=== PATIENT | male | born 1955 | race Caucasian/White ===

== ENCOUNTER 2019-09-07 16:45 | Inpatient (IN) ==
[2019-09-07] MEDS ORDERED: ALBUTEROL 0.083% NEBU SOLN 3 ML VIAL NEB STA (16:58)
[2019-09-07] MEDS ORDERED: methylPREDNISolone 125 MG/2 ML VIAL IV STA (16:58)
--- NOTE | 2019-09-07 17:07 | Emergency Department Note ---
Entered by Kiera Artis acting as a scribe for Ahmet Juarez MD History of Present Illness General Chief complaint: Shortness of Breath/Dyspnea Stated complaint: DR QUINONES, HEARD TO BREATH Time Seen by Provider: 09/07/19 16:53 Source: patient Mode of arrival: ambulatory Limitations: no limitations History of Present Illness Onset (ago): day(s) 5 Location: chest Radiation: non-radiation Pain Consistency: + constant Relieved By: + other (Oxygen, Albuterol treatment) Exacerbated By: + movement (exertion) Associated symptoms: + cough, + diaphoresis, + fever/chills and + other (-hematochezia, -swelling in the legs); no chest pain Treatments prior to arrival: other (Oxygen, Albuterol treatment) The patient is a 64 year old make who presents to the ED with complaints of worsening shortness of breath. He has a history of COPD and states about 5 days ago, his breathing worsened. He had an X-Ray done, ordered by his doctor, but is unsure of what the results were. Earlier today, his pulse ox dropped while he was seeing his doctor, and he was referred here to the ED. He has been wearing 6L NC instead of his typical 2L with minimal relief. He did "half an Albuterol treatment" before he left the house today. Exertion worsens his breathing. He has a productive cough with white colored mucous. He denies any chest pain or pain or swelling in the legs. He has been diaphoretic and states he may have been febrile over the past few days. The patient is a current smoker. He denies any recent bloody or black colored stools. Home Medications Home Medications Medication Instructions Recorded Confirmed Type aspirin 81 mg PO DAILY 01/19/19 09/07/19 History metoprolol tartrate 25 mg PO DAILY 01/19/19 09/07/19 History finasteride 5 mg tablet 5 mg PO DAILY #30 tab 07/13/19 09/07/19 History pantoprazole 40 mg tablet,delayed 40 mg PO DAILY #30 tab 07/13/19 09/07/19 Rx release famotidine 20 mg tablet 20 mg PO BID #60 tab 07/23/19 09/07/19 Rx alprazolam 0.5 mg tablet 0.5 mg PO DAILY PRN #30 tab 09/03/19 09/07/19 Rx atorvastatin 20 mg tablet 20 mg PO DAILY #90 tab 09/03/19 09/07/19 Rx levofloxacin 500 mg tablet 500 mg PO DAILY 7 Days #7 tab 09/03/19 09/07/19 Rx prednisone 20 mg tablet See Rx Instructions .ROUTE 09/03/19 09/07/19 Rx .COMPLEX #21 tab albuterol sulfate 2.5 mg/3 mL 2.5 mg INHALATION .Q4-6HRS PRN ml 09/05/1907/19 History (0.083 %) solution for nebulization sildenafil 100 mg tablet 100 mg PO DAILY PRN 09/05/19 09/07/19 History tamsulosin 0.4 mg capsule 0.4 mg PO HS cap 09/05/19 09/07/19 History albuterol sulfate 2 puff INHALATION Q6H PRN 09/07/19 09/07/19 History mometasone [Asmanex Twisthaler] 2 inh INHALATION BID 09/07/19 09/07/19 History prednisone 10 mg PO DIRECTED 09/07/19 09/07/19 History Allergies Allergy/AdvReac Type Severity Reaction Status Date / Time No Known Allergies Allergy Verified 09/07/19 19:05 Past Med/Surg History Medical History Dyslipidemia CAD (coronary artery disease) History of heart attack Stage 3 severe COPD by GOLD classification Peripheral vascular disease Hypertension GERD without esophagitis Erectile dysfunction Elevated prostate specific antigen (PSA) BPH with obstruction/lower urinary tract symptoms Asthma Anxiety Alcoholism Surgical History S/P cholecystectomy S/P coronary artery stent placement RCA stent S/P hernia repair Family History Mother Diabetes Hypertension Heart disease Myocardial infarction Father , suicide Alcohol abuse Colorectal cancer Sister Myocardial infarction Uncle Colorectal cancer Social History Preferred Language: Mongolian Communication Ability: Effective First Helper Required: No Beliefs That Will Affect Care: None Current Living Situation: Significant Other Feels Safe at Home: Yes Smoking Status: Current every day smoker Tobacco Type: cigarettes ; Cigarettes Per Day: 20-40 ; Hx Alcohol Use: Yes Alcohol type: beer and hard liquor Hx Substance Use: No Review of Systems See HPI for pertinent positives & negatives. and A total of 10 systems reviewed and were otherwise negative Physical Exam Vital Signs Vital Signs - 24 hr 09/07/19 16:49 09/07/19 16:58 09/07/19 17:16 Temperature 36.7 C Temperature Source Oral Sepsis Recent Fever Within 48 Hours No Sepsis New/Unexplained Change in Mental Status No Sepsis Action Taken by Nursing No Action Required Pulse Rate 78 Pulse Rate [Exercises] Pulse Rate [Left Apical] Pulse Rate from SpO2 Sensor Respiratory Rate 22 Respiratory Rate [Exercises] Respiratory Effort / Characteristics Pursed Lip Spontaneous Short of Breath SOB on Exertion Respiratory Depth Deep Respiratory Pattern Tachypnea Blood Pressure 112/63 Blood Pressure Mean 79 Blood Pressure Position Sitting Pulse Oximetry 93 66 L 94 Pulse Oximetry [Exercises] Oxygen Delivery Method Room Air Nebulizer Nasal Cannula Oxygen Flow Rate 7 6 09/07/19 17:34 09/07/19 17:37 09/07/19 17:42 Temperature Temperature Source Sepsis Recent Fever Within 48 Hours Sepsis New/Unexplained Change in Mental Status Sepsis Action Taken by Nursing Pulse Rate 75 73 Pulse Rate [Exercises] Pulse Rate [Left Apical] 72 Pulse Rate from SpO2 Sensor 75 73 Respiratory Rate 21 18 20 Respiratory Rate [Exercises] Respiratory Effort / Characteristics Non-Labored Spontaneous Respiratory Depth Respiratory Pattern Blood Pressure 104/70 Blood Pressure Mean 81 Blood Pressure Position Pulse Oximetry 94 94 97 Pulse Oximetry [Exercises] Oxygen Delivery Method Nasal Cannula Nasal Cannula Room Air Oxygen Flow Rate 7 7 09/07/19 17:45 09/07/19 18:00 09/07/19 18:15 Temperature Temperature Source Sepsis Recent Fever Within 48 Hours Sepsis New/Unexplained Change in Mental Status Sepsis Action Taken by Nursing Pulse Rate 70 73 83 Pulse Rate [Exercises] Pulse Rate [Left Apical] Pulse Rate from SpO2 Sensor 69 73 82 Respiratory Rate 16 18 21 Respiratory Rate [Exercises] Respiratory Effort / Characteristics Respiratory Depth Respiratory Pattern Blood Pressure 116/73 Blood Pressure Mean 87 Blood Pressure Position Pulse Oximetry 99 100 100 Pulse Oximetry [Exercises] Oxygen Delivery Method Nebulizer Nebulizer Nebulizer Oxygen Flow Rate 7 7 7 09/07/19 18:30 09/07/19 18:31 09/07/19 19:07 Temperature Temperature Source Sepsis Recent Fever Within 48 Hours Sepsis New/Unexplained Change in Mental Status Sepsis Action Taken by Nursing Pulse Rate 74 84 Pulse Rate [Exercises] 88 Pulse Rate [Left Apical] Pulse Rate from SpO2 Sensor 78 83 Respiratory Rate 27 H 17 Respiratory Rate [Exercises] 34 H Respiratory Effort / Characteristics Respiratory Depth Respiratory Pattern Blood Pressure 100/66 Blood Pressure Mean 77 Blood Pressure Position Pulse Oximetry 99 Pulse Oximetry [Exercises] 88 L Oxygen Delivery Method Nebulizer Nebulizer Room Air Oxygen Flow Rate 7 7 General: Chronically ill-appearing, middle aged male, appears to be in mild to moderate respiratory distress HEENT: Normal cephalic atraumatic. Pupils are equal round and reactive to light. Extraocular movements are intact. Oropharynx is pink with moist mucous membranes. No swelling of the mouth lips or tongue. Neck: Supple with a midline trachea. No meningeal signs or stiffness, no JVD or bruits. No Stridor. Chest: Scattered wheezes throughout with moderate air movement. Clear to auscultation bilaterally. No rhonchi. No increased work of breathing. Heart: regular rate and rhythm. Abdomen: Soft nontender, nondistended without rebound guarding or rigidity. Extremities: No cyanosis clubbing or edema. No calf tenderness or asymmetry Spine/Back. Non tender to palpation. No CVA tenderness Skin: Good turgor without rashes. Neurologic exam: Cranial nerves two through 12 are intact. Motor and sensation are intact and symmetrical throughout. Course 1654: The patient was evaluated in room B3 and a complete history and physical were performed. 183: I reevaluated the patient. He is feeling better but I discussed his results and my recommendation he remain in the hospital for further evaluation and management and he verbalized complete understanding and agreement. 184: I discussed the patients case with Dr. Rutherford [facility]. The patient will be further evaluated. Consultations Consultation #1: [facility] the [facility] The patient will be further evaluated. Time: 18:41 Administered Medications Enoxaparin Sodium (Lovenox) 40 mg SQ Q24H JOSEPH Stop: 10/07/19 20:59 Last Admin: 09/07/19 21:36 Dose: 40 mg Documented by: [id number] Famotidine (Pepcid) 20 mg PO BID JOSEPH Stop: 10/07/19 20:59 Last Admin: 09/07/19 21:38 Dose: 20 mg Documented by: [id number] Nicotine (Nicoderm Cq) 21 mg TD QAM JOSEPH Stop: 10/07/19 20:59 Last Admin: 09/07/19 21:37 Dose: 21 mg Documented by: [id number] Tamsulosin HCl (Flomax) 0.4 mg PO HS JOSEPH Stop: 10/07/19 20:59 Last Admin: 09/07/19 21:36 Dose: 0.4 mg Documented by: [id number] Discontinued Medications Albuterol (Ventolin 0.083% 2.5mg/3ml) 10 mg NEB NOW STA Stop: 09/07/19 16:59 Last Admin: 09/07/19 17:40 Dose: 10 mg Documented by: [id number] Methylprednisolone (Solumedrol) 125 mg IV NOW STA Stop: 09/07/19 16:59 Last Admin: 09/07/19 18:13 Dose: 125 mg Documented by: [id number] Medical Decision Making Differential Diagnosis The differential diagnoses considered include COPD exacerbation, pneumonia, sepsis, cardiac disease, pneumothorax, electrolyte or metabolic abnormality. Medical Records Attestation: I reviewed the patient's medical records. Home Medications Current Medication List: was personally reviewed by me Laboratory Data Attestation: I reviewed the patient's lab results. Result diagrams: 09/07/19 17:31 09/07/19 17:31 Lab Results 09/07/19 09/07/19 09/07/19 Range/Units 17:31 17:31 17:31 WBC 8.73 (4.8-10.8) K/uL RBC 4.94 (4.7-6.1) M/uL Hgb 15.8 (14.0-18.0) g/dL Hct 44.7 (42-52) % MCV 90.5 (80-100) fL MCH 32.0 (25-34) pg MCHC 35.3 (32-36) g/dL RDW Std Deviation 43.1 (36.4-46.3) fL RDW Coeff of Vira 13.1 (11.5-14.5) % Plt Count 286 (130-400) K/uL MPV 9.6 (7.4-10.4) fL Immature Gran % (Auto) 0.2 % Neut % (Auto) 74.5 % Lymph % (Auto) 11.2 % [place] % (Auto) 10.8 % Eos % (Auto) 3.2 % Baso % (Auto) 0.1 % Immature Gran # (Auto) 0.02 (0.00-0.02) K/uL Neut # (Auto) 6.50 (1.4-6.5) K/uL Lymph # (Auto) 0.98 L (1.2-3.4) K/uL [place] # (Auto) 0.94 H (0.11-0.59) K/uL Eos # (Auto) 0.28 (0-0.5) K/uL Baso # (Auto) 0.01 (0-0.2) K/uL PT 10.1 (9.0-12.0) Seconds INR 1.0 (0.9-1.1) APTT 26.8 (21.0-31.0) Seconds PTT Ratio 1.0 Sodium 135 L (136-145) mmol/L Potassium 4.3 (3.5-5.1) mmol/L Chloride 99 (98-107) mmol/L Carbon Dioxide 29 (21-32) mmol/L Anion Gap 7.0 (3-11) BUN 17 (7-18) mg/dl Creatinine 0.87 (0.6-1.4) mg/dl Est Cr Clr Drug Dosing 76.3 ml/min Est GFR ( Amer) 106.5 Est GFR (Non-Af Amer) 91.9 BUN/Creatinine Ratio 19.5 (10-20) Glucose 129 H (70-99) mg/dl Lactate (0.4-2.0) mmol/L Calcium 9.5 (8.5-10.1) mg/dl Total Bilirubin 0.4 (0.2-1) mg/dl AST 23 (15-37) U/L ALT 38 (12-78) U/L Alkaline Phosphatase 97 (45-117) U/L Total Protein 7.5 (6.4-8.2) gm/dl Albumin 3.9 (3.4-5.0) gm/dl Globulin 3.6 (2.5-4.0) gm/dl Albumin/Globulin Ratio 1.1 (0.9-2) Procalcitonin (0-0.5) ng/ml 09/07/19 09/07/19 Range/Units 17:31 17:31 WBC (4.8-10.8) K/uL RBC (4.7-6.1) M/uL Hgb (14.0-18.0) g/dL Hct (42-52) % MCV (80-100) fL MCH (25-34) pg MCHC (32-36) g/dL RDW Std Deviation (36.4-46.3) fL RDW Coeff of Vira (11.5-14.5) % Plt Count (130-400) K/uL MPV (7.4-10.4) fL Immature Gran % (Auto) % Neut % (Auto) % Lymph % (Auto) % [place] % (Auto) % Eos % (Auto) % Baso % (Auto) % Immature Gran # (Auto) (0.00-0.02) K/uL Neut # (Auto) (1.4-6.5) K/uL Lymph # (Auto) (1.2-3.4) K/uL [place] # (Auto) (0.11-0.59) K/uL Eos # (Auto) (0-0.5) K/uL Baso # (Auto) (0-0.2) K/uL PT (9.0-12.0) Seconds INR (0.9-1.1) APTT (21.0-31.0) Seconds PTT Ratio Sodium (136-145) mmol/L Potassium (3.5-5.1) mmol/L Chloride (98-107) mmol/L Carbon Dioxide (21-32) mmol/L Anion Gap (3-11) BUN (7-18) mg/dl Creatinine (0.6-1.4) mg/dl Est Cr Clr Drug Dosing ml/min Est GFR ( Amer) Est GFR (Non-Af Amer) BUN/Creatinine Ratio (10-20) Glucose (70-99) mg/dl Lactate 1.8 (0.4-2.0) mmol/L Calcium (8.5-10.1) mg/dl Total Bilirubin (0.2-1) mg/dl AST (15-37) U/L ALT (12-78) U/L Alkaline Phosphatase (45-117) U/L Total Protein (6.4-8.2) gm/dl Albumin (3.4-5.0) gm/dl Globulin (2.5-4.0) gm/dl Albumin/Globulin Ratio (0.9-2) Procalcitonin < 0.05 (0-0.5) ng/ml Imaging Data Radiologist's Impression: Radiology results as stated below per my review and the radiologist's interpretation: XR chest 1V portable CLINICAL HISTORY: 64 years-old Male presenting with Sepsis. TECHNIQUE: Portable upright AP view of the chest was obtained. COMPARISON: 01/18/2019. FINDINGS: Atherosclerosis of the aortic arch. Cardiac silhouette normal in size. Lungs are hyperinflated. The subcentimeter right upper lobe pulmonary nodule evident on prior CTA chest from 01/19/2019 is not evident by radiograph. No focal opacity. No pleural effusion or pneumothorax. Degenerative changes of the thoracic spine. Cholecystectomy clips noted. IMPRESSION: 1. Findings suggest emphysema. No focal infiltrate to suggest pneumonia. Electronically signed by: Chris Madison M.D. 09/07/2019 5:17 PM Blood Pressure Blood Pressure Findings: Normal blood pressure Blood Pressure Disposition: did not require urgent referral MDM Narrative This patient comes in as described above. He was sent over from his doctor's office after he was failing outpatient treatment for COPD/bronchitis exacerbation has been on antibiotics and steroids he is very short of breath in the office. he does have home oxygen is that he wears as needed however the last several days has been wearing 6 L all the time. On my exam, he is mildly tachypneic. He has scattered wheezes. He was seen in the office and received a neb and is feeling a little bit better. IV access was established and I did a full sepsis work-up as well. Chest x-ray and EKG was obtained. He was given a DuoNeb over 1 hour as well as Solu-Medrol 125 mg IV. He was reassessed frequently. He seems to be doing better however he was hypoxemic with walking. I am concerned that he is failed outpatient treatment. EKG does not suggest acute coronary syndrome or significant arrhythmia. Chest x-ray does not show any focal infiltrates. He has no acute electrolyte or metabolic abnormalities. At this point he appears to be having a COPD exacerbation, I do think needs to be admitted/observed. I did consult the [facility] hospitalist for these measures. Impression & Plan COPD exacerbation, Shortness of breath, Hypoxemia, Cough Discharge Plan Visit Data *Final* Discharge Date/Time: 09/07/19 20:13 Chief Complaint: Shortness of Breath/Dyspnea Stated Complaint: DR PALMERED, HEARD TO BREATH ED Provider: Ahmet Juarez Discharge Problem: COPD exacerbation, Shortness of breath, Hypoxemia, Cough Patient Disposition: Admitted As Inpatient Discharge Instructions Interventions: ED Discharge Assessment Last Done: 09/07/19 20:13 The scribe's documentation has been prepared under my direction and personally reviewed by me in its entirety. I confirm that the note above accurately reflects all work, treatment, procedures, and medical decision making performed by me.
--- NOTE | 2019-09-07 17:18 | XRay Report ---
XR chest 1V portable CLINICAL HISTORY: 64 years-old Male presenting with Sepsis. TECHNIQUE: Portable upright AP view of the chest was obtained. COMPARISON: 01/18/2019. FINDINGS: Atherosclerosis of the aortic arch. Cardiac silhouette normal in size. Lungs are hyperinflated. The s ubcentimeter right upper lobe pulmonary nodule evident on prior CTA chest from 01/19/2019 is not evide nt by radiograph. No focal opacity. No pleural effusion or pneumothorax. Degenerative changes of the thoracic spine. Cholecystectomy clips noted. IMPRESSION: 1. Findings suggest emphysema. No focal infiltrate to suggest pneumonia. Electronically signed by: Chris Madison M.D. 09/07/2019 5:17 PM
[2019-09-07 17:50] LABS: Basophils # (auto) 0.01 K/uL (0-0.2); Basophils % (auto) 0.1 %; Eosinophils # (auto) 0.28 K/uL (0-0.5); Eosinophils % (auto) 3.2 %; Hematocrit (blood only) 44.7 % (42-52); Hemoglobin 15.8 g/dL (14.0-18.0); Immature Granulocytes # (auto) 0.02 K/uL (0.00-0.02); Immature Granulocytes % (auto) 0.2 %; Lymphocytes # (auto) 0.98 K/uL (1.2-3.4); Lymphocytes % (auto) 11.2 %; Mean Corpuscular Hgb Conc 35.3 g/dL (32-36); Mean Corpuscular Volume 90.5 fL (80-100); Mean Platelet Volume 9.6 fL (7.4-10.4); Monocytes # (auto) 0.94 K/uL (0.11-0.59); Monocytes % (auto) 10.8 %; Neutrophils % (auto) 74.5 %; Platelet Count 286 K/uL (130-400); RDW Coefficient of Variation 13.1 % (11.5-14.5); RDW Standard Deviation 43.1 fL (36.4-46.3); Red Blood Count 4.94 M/uL (4.7-6.1); White Blood Count 8.73 K/uL (4.8-10.8)
[2019-09-07 18:00] LABS: Partial Thromboplastin Time 26.8 Seconds (21.0-31.0); Prothrombin Time 10.1 Seconds (9.0-12.0)
[2019-09-07 18:25] LABS: Albumin Level 3.9 gm/dl (3.4-5.0); BUN Creatinine Ratio 19.5 (10-20); Calcium 9.5 mg/dl (8.5-10.1); Creatinine Clr Calc Pharmacy 76.3 ml/min; Est GFR (African American) 106.5; Est GFR (Non-African American) 91.9; Potassium 4.3 mmol/L (3.5-5.1)
[2019-09-07 18:28] LABS: Albumin Globulin Ratio 1.1 (0.9-2); Bilirubin,Total 0.4 mg/dl (0.2-1); Globulin 3.6 gm/dl (2.5-4.0); Total Protein 7.5 gm/dl (6.4-8.2)
--- NOTE | 2019-09-07 20:16 | History & Physical Report ---
Date of Service September 07, 2019 Assessment & Plan (1) COPD exacerbation: Patient with severe COPD, uses home O2 as needed, presenting in acute exacerbation most likely secondary to viral URI. Patient presently in no respiratory distress. Speaking in complete sentences, adequate oxygenation on room air. -Admit to medical floor with telemetry monitoring -Check CRP -Duo nebs every 4 hours scheduled -Albuterol neb every 2 hours as needed -Solu-Medrol 30 mg IV 3 times daily -Continue Asmanex inhaler -Oxygen as needed to maintain saturations 88 to 92% -Patient just completed a week of Levaquin. No overt evidence of pneumonia on chest x-ray. Procalcitonin negative. Sputum is nonpurulent by history. CRP as above. Consider antibiotics if CRP greater than 40 -Smoking cessation counseled Present on Admission?: Yes (2) CAD (coronary artery disease): Patient with history of CAD status post OR, stent in place. Presently with no complaints of chest pain. EKG with no evidence of ischemia. -Continue aspirin, atorvastatin, metoprolol -Telemetry monitoring Present on Admission?: Yes (3) Dyslipidemia: Chronic. Stable. -Continue atorvastatin 20 mg p.o. daily Present on Admission?: Yes (4) Hypertension: Blood pressure stable at present 112/63 -Continue metoprolol 25 mg p.o. daily -Continue to monitor blood pressure Present on Admission?: Yes (5) GERD without esophagitis: Chronic. Stable. Asymptomatic -Continue Protonix 40 mg p.o. 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 Stable. Asymptomatic at present -Continue Flomax 0.4 mg p.o. nightly -Continue finasteride 5 mg p.o. daily Present on Admission?: Yes (7) Anxiety: Chronic. Stable. -Continue alprazolam 0.5 mg p.o. daily as needed Present on Admission?: Yes (8) Alcoholism: Patient reports drinking at least 2 drinks nightly. No history of withdrawal symptoms or seizures. Last drink was yesterday -Ativan as needed per CIWA protocol -Thiamine IV daily -Folic acid IV daily FENHep-Lock. Monitor electrolytes and replete as needed. Heart healthy diet a s tolerated ProphylaxisLovenox Codefull per discussion with patient Dispositionadmit to medical floor with telemetry Present on Admission?: Yes History of Present Illness Chief Complaint: Shortness of breath Primary Care Provider: Rachael Duckworth DO Christian Gaytan is a 64-year-old male with history of severe COPD on home O2 as needed, CAD status post stent, hypertension, hyperlipidemia and anxiety presenting with suspected COPD exacerbation. She reports that around August 31 he developed URI symptoms to include runny nose and cough. This progressed to shortness of breath and wheeze. He was seen by his PCP, Rachael Duckworth on 09/03/19 with complaint of productive cough, shortness of breath, wheezing and nasal congestion. He was started on a 60 mg prednisone taper over 14 days and Levaquin. Patient reports that his symptoms persisted. This morning around 04 100 he woke from sleep acutely breathless, coughing and gasping for air. He took his Combivent and DuoNeb followed by albuterol with some relief. He reports placing his nasal cannula on 6 L at home and still feeling breathless. He was seen by Dr. Duckworth in clinic today for routine follow-up. Due to persistent symptoms, failed outpatient treatment he was referred to the emergency room for admission. Upon arrival he is found to be afebrile, hemodynamically stable, tachypneic up to 34 breaths/min saturating 95% on room air. He was provided an hour-long neb treatment as well as 125 mg of Solu-Medrol with some improvement in his shortness of breath. Ambulatory trial resulted in tachypnea with respiratory rate of 34 breaths/min and hypoxic to 88% on room air. Patient presently complaining of shortness of breath although improved from presentation. Also with cough productive for clear sputum. He denies fevers/chills. Denies chest pain/palpitations/edema. ER coursealbuterol, methylprednisone Allergies Allergy/AdvReac Type Severity Reaction Status Date / Time No Known Allergies Allergy Verified 09/07/19 19:05 Home Medications Home Medications Medication Instructions Recorded Confirmed Type aspirin 81 mg PO DAILY 01/19/19 09/07/19 History metoprolol tartrate 25 mg PO DAILY 01/19/19 09/07/19 History finasteride 5 mg tablet 5 mg PO DAILY #30 tab 07/13/19 09/07/19 History pantoprazole 40 mg tablet,delayed 40 mg PO DAILY #30 tab 07/13/19 09/07/19 Rx release famotidine 20 mg tablet 20 mg PO BID #60 tab 07/23/19 09/07/19 Rx alprazolam 0.5 mg tablet 0.5 mg PO DAILY PRN #30 tab 09/03/19 09/07/19 Rx atorvastatin 20 mg tablet 20 mg PO DAILY #90 tab 09/03/19 09/07/19 Rx levofloxacin 500 mg tablet 500 mg PO DAILY 7 Days #7 tab 09/03/19 09/07/19 Rx prednisone 20 mg tablet See Rx Instructions .ROUTE 09/03/19 09/07/19 Rx .COMPLEX #21 tab albuterol sulfate 2.5 mg/3 mL 2.5 mg INHALATION .Q4-6HRS PRN ml 09/05/19 09/07/19 History (0.083 %) solution for nebulization sildenafil 100 mg tablet 100 mg PO DAILY PRN 09/05/19 09/07/19 History tamsulosin 0.4 mg capsule 0.4 mg PO HS cap 09/05/19 09/07/19 History albuterol sulfate 2 puff INHALATION Q6H PRN 09/07/19 09/07/19 History mometasone [Asmanex Twisthaler] 2 inh INHALATION BID 09/07/19 09/07/19 History prednisone 10 mg PO DIRECTED 09/07/19 09/07/19 History Past Med/Surg History Medical History Dyslipidemia CAD (coronary artery disease) History of heart attack Stage 3 severe COPD by GOLD classification Peripheral vascular disease Hypertension GERD without esophagitis Erectile dysfunction Elevated prostate specific antigen (PSA) BPH with obstruction/lower urinary tract symptoms Asthma Anxiety Alcoholism Surgical History S/P cholecystectomy S/P coronary artery stent placement RCA stent S/P hernia repair Family History Mother Diabetes Hypertension Heart disease Myocardial infarction Father , suicide Alcohol abuse Colorectal cancer Sister Myocardial infarction Uncle Colorectal cancer Social History Preferred Language: Kitt[place] Communication Ability: Effective [place] [employer]er Required: No Beliefs That Will Affect Care: None Current Living Situation: Significant Other Feels Safe at Home: Yes Smoking Status: Current every day smoker Tobacco Type: cigarettes ; Cigarettes Per Day: 20-40 ; Hx Alcohol Use: Yes Alcohol type: beer and hard liquor Hx Substance Use: No Review of Systems Review of Systems: All systems reviewed & are unremarkable except as noted in HPI & below Physical Exam Physical Exam: General: Thin male resting comfortably, NAD, non- toxic in appearance, AA&O x 4 Skin: warm, dry, intact, no rashes or lesions HEENT: NC/AT, PERRL, EOMI, anicteric sclera, conjunctiva without injection, external ear normal to inspection and nontender, nares patent, moist mucus membranes, dentition intact, no oropharyngeal lesions, neck supple, trachea midline, no LAD, no thyromegaly, no JVD Heart: +S1/S2, regular, no m/r/g Lungs: equal air entry bilaterally, diffuse end expiratory wheeze prolonged expiratory phase, no rales/rhonchi Abd: +BS, soft, NT/ND, no masses/organomegaly/ascites Ext: warm, 2+ pulses in UE/LE bilaterally, no clubbing/cyanosis or edema Neuro: nonfocal, patient AA&O x 4, speech intact, no facial droop, moving all extremities on command with equal strength 5/5 Results & Data Vital Signs (Past 12 Hours) Vital Signs Temp Pulse Pulse Pulse Resp Resp BP 09/07/19 19:07 88 34 H 09/07/19 18:31 84 17 100/66 09/07/19 18:30 74 27 H 09/07/19 18:15 83 21 116/73 09/07/19 18:00 73 18 09/07/19 17:45 70 16 09/07/19 17:42 72 20 09/07/19 17:37 73 18 09/07/19 17:34 75 21 104/70 09/07/19 17:16 09/07/19 16:58 09/07/19 16:49 36.7 C 78 22 112/63 Pulse Ox Pulse Ox 09/07/19 19:07 88 L 09/07/19 18:31 99 09/07/19 18:30 09/07/19 18:15 100 09/07/19 18:00 100 09/07/19 17:45 99 09/07/19 17:42 97 09/07/19 17:37 94 09/07/19 17:34 94 09/07/19 17:16 94 09/07/19 16:58 66 L 09/07/19 16:49 93 Laboratory Results Lab Results 09/07/19 09/07/19 09/07/19 Range/Units 17:31 17:31 17:31 WBC 8.73 (4.8-10.8) K/uL RBC 4.94 (4.7-6.1) M/uL Hgb 15.8 (14.0-18.0) g/dL Hct 44.7 (42-52) % MCV 90.5 (80-100) fL MCH 32.0 (25-34) pg MCHC 35.3 (32-36) g/dL RDW Std Deviation 43.1 (36.4-46.3) fL RDW Coeff of Vir[place] 13.1 (11.5-14.5) % Plt Count 286 (130-400) K/uL MPV 9.6 (7.4-10.4) fL Immature Gran % (Auto) 0.2 % Neut % (Auto) 74.5 % Lymph % (Auto) 11.2 % [place] % (Auto) 10.8 % Eos % (Auto) 3.2 % Baso % (Auto) 0.1 % Immature Gran # (Auto) 0.02 (0.00-0.02) K/uL Neut # (Auto) 6.50 (1.4-6.5) K/uL Lymph # (Auto) 0.98 L (1.2-3.4) K/uL [place] # (Auto) 0.94 H (0.11-0.59) K/uL Eos # (Auto) 0.28 (0-0.5) K/uL Baso # (Auto) 0.01 (0-0.2) K/uL PT 10.1 (9.0-12.0) Seconds INR 1.0 (0.9-1.1) APTT 26.8 (21.0-31.0) Seconds PTT Ratio 1.0 Sodium 135 L (136-145) mmol/L Potassium 4.3 (3.5-5.1) mmol/L Chloride 99 (98-107) mmol/L Carbon Dioxide 29 (21-32) mmol/L Anion Gap 7.0 (3-11) BUN 17 (7-18) mg/dl Creatinine 0.87 (0.6-1.4) mg/dl Est Cr Clr Drug Dosing 76.3 ml/min Est GFR ( Amer) 106.5 Est GFR (Non-Af Amer) 91.9 BUN/Creatinine Ratio 19.5 (10-20) Glucose 129 H (70-99) mg/dl Lactate (0.4-2.0) mmol/L Calcium 9.5 (8.5-10.1) mg/dl Total Bilirubin 0.4 (0.2-1) mg/dl AST 23 (15-37) U/L ALT 38 (12-78) U/L Alkaline Phosphatase 97 (45-117) U/L Total Protein 7.5 (6.4-8.2) gm/dl Albumin 3.9 (3.4-5.0) gm/dl Globulin 3.6 (2.5-4.0) gm/dl Albumin/Globulin Ratio 1.1 (0.9-2) Procalcitonin (0-0.5) ng/ml 09/07/19 09/07/19 Range/Units 17:31 17:31 WBC (4.8-10.8) K/uL RBC (4.7-6.1) M/uL Hgb (14.0-18.0) g/dL Hct (42-52) % MCV (80-100) fL MCH (25-34) pg MCHC (32-36) g/dL RDW Std Deviation (36.4-46.3) fL RDW Coeff of Vira (11.5-14.5) % Plt Count (130-400) K/uL MPV (7.4-10.4) fL Immature Gran % (Auto) % Neut % (Auto) % Lymph % (Auto) % [place] % (Auto) % Eos % (Auto) % Baso % (Auto) % Immature Gran # (Auto) (0.00-0.02) K/uL Neut # (Auto) (1.4-6.5) K/uL Lymph # (Auto) (1.2-3.4) K/uL [place] # (Auto) (0.11-0.59) K/uL Eos # (Auto) (0-0.5) K/uL Baso # (Auto) (0-0.2) K/uL PT (9.0-12.0) Seconds INR (0.9-1.1) APTT (21.0-31.0) Seconds PTT Ratio Sodium (136-145) mmol/L Potassium (3.5-5.1) mmol/L Chloride (98-107) mmol/L Carbon Dioxide (21-32) mmol/L Anion Gap (3-11) BUN (7-18) mg/dl Creatinine (0.6-1.4) mg/dl Est Cr Clr Drug Dosing ml/min Est GFR ( Amer) Est GFR (Non-Af Amer) BUN/Creatinine Ratio (10-20) Glucose (70-99) mg/dl Lactate 1.8 (0.4-2.0) mmol/L Calcium (8.5-10.1) mg/dl Total Bilirubin (0.2-1) mg/dl AST (15-37) U/L ALT (12-78) U/L Alkaline Phosphatase (45-117) U/L Total Protein (6.4-8.2) gm/dl Albumin (3.4-5.0) gm/dl Globulin (2.5-4.0) gm/dl Albumin/Globulin Ratio (0.9-2) Procalcitonin < 0.05 (0-0.5) ng/ml Diagnostic Findings XR chest 1V portable CLINICAL HISTORY: 64 years-old Male presenting with Sepsis. TECHNIQUE: Portable upright AP view of the chest was obtained. COMPARISON: 01/18/2019. FINDINGS: Atherosclerosis of the aortic arch. Cardiac silhouette normal in size. Lungs are hyperinflated. The subcentimeter right upper lobe pulmonary nodule evident on prior CTA chest from 01/19/2019 is not evident by radiograph. No focal opacity. No pleural effusion or pneumothorax. Degenerative changes of the thoracic spine. Cholecystectomy clips noted. IMPRESSION: 1. Findings suggest emphysema. No focal infiltrate to suggest pneumonia. Electronically signed by: Chris Madison M.D. 09/07/2019 5:17 PM Dictated: 09/07/191714 Transcribed: 09/07/191714 ECG Additional Comments: The study shows normal sinus rhythm at 79 bpm, normal axis. VA = 120, QRS=78, CBR=655. No acute ischemic changes. No change from prior study Code Status & VTE Plan Code Status Full VTE Prophylaxis Plan VTE Prophylaxis will be ordered: Yes PG Care Time/CCT Total # of Minutes Spent Total Time Spent with Patient: Total time spent is greater than 50% in coordination of care (as documented) at patient's floor/unit and/or counseling patient: (1) CAD (coronary artery disease) Coronary Disease-Associated Artery/Lesion type: [place] artery [place] vs. transplanted heart: [place] heart Associated angina: without angina Qualified Code(s): I25.10 - Atherosclerotic heart disease of [place] coronary artery wi thout angina pectoris (2) Hypertension Hypertension type: essential hypertension Qualified Code(s): I10 - Essential (primary) hypertension
[2019-09-07] MEDS ORDERED: ONDANSETRON INJ 2 MG/ML 2 ML VIAL IV PRN (20:45)
[2019-09-07] MEDS ORDERED: ALBUTEROL 0.5% NEB SOLN 2.5 MG/0.5 ML VIAL NEB PRN (20:45)
[2019-09-07] MEDS ORDERED: ACETAMINOPHEN 325 MG TAB PO PRN (20:45)
[2019-09-07] MEDS ORDERED: LORazepam 1 MG TAB PO PRN (20:45)
[2019-09-07] MEDS: ENOXAPARIN INJ 40 MG/0.4 ML SYR SQ SCH (21:36)
[2019-09-07] MEDS: TAMSULOSIN HCL 0.4 MG CAP PO SCH (21:36)
[2019-09-07] MEDS: NICOTINE 21 MG/24 HR TDSY TD SCH (21:37)
[2019-09-07] MEDS: FAMOTIDINE 20 MG TAB PO SCH (21:38)
[2019-09-07 21:48] LABS: C Reactive Protein < 0.29 mg/dl (0-0.29); Magnesium 2.3 mg/dl (1.8-2.4); Phosphorus 2.9 mg/dl (2.5-4.9)
[2019-09-07] MEDS: ALPRAZolam 0.5 MG TABLET PO PRN (22:24)
[2019-09-07] MEDS: ALBUT/IPRATROP 3MG/0.5MG NEB 3 ML VIAL NEB SCH (23:31)
[2019-09-08] MEDS: ALBUT/IPRATROP 3MG/0.5MG NEB 3 ML VIAL NEB SCH ×6 (03:19→22:15)
[2019-09-08] MEDS ORDERED: INFLUENZA VIRUS QUAD VACCINE 0.5 ML SYR IM ONE (05:45)
[2019-09-08] MEDS ORDERED: INFLUENZA ADMINISTRATION CHARGE ONE (05:45)
[2019-09-08 06:48] LABS: Basophils # (auto) 0.01 K/uL (0-0.2); Basophils % (auto) 0.1 %; Eosinophils # (auto) 0.03 K/uL (0-0.5); Eosinophils % (auto) 0.3 %; Hematocrit (blood only) 41.4 % (42-52); Hemoglobin 14.2 g/dL (14.0-18.0); Immature Granulocytes # (auto) 0.03 K/uL (0.00-0.02); Immature Granulocytes % (auto) 0.3 %; Lymphocytes # (auto) 1.56 K/uL (1.2-3.4); Lymphocytes % (auto) 14.1 %; Mean Corpuscular Hgb Conc 34.3 g/dL (32-36); Mean Corpuscular Volume 90.4 fL (80-100); Mean Platelet Volume 10.1 fL (7.4-10.4); Monocytes # (auto) 0.86 K/uL (0.11-0.59); Monocytes % (auto) 7.8 %; Neutrophils # (auto) 8.55 K/uL (1.4-6.5); Neutrophils % (auto) 77.4 %; Platelet Count 264 K/uL (130-400); RDW Coefficient of Variation 12.9 % (11.5-14.5); RDW Standard Deviation 42.6 fL (36.4-46.3); Red Blood Count 4.58 M/uL (4.7-6.1); White Blood Count 11.04 K/uL (4.8-10.8)
[2019-09-08 07:26] LABS: BUN Creatinine Ratio 16.1 (10-20); Calcium 9.1 mg/dl (8.5-10.1); Creatinine Clr Calc Pharmacy 84.9 ml/min; Est GFR (African American) 112.5; Est GFR (Non-African American) 97.1; Potassium 3.9 mmol/L (3.5-5.1)
[2019-09-08] MEDS: methylPREDNISolone 40 MG in SYRINGE 0 ML IV SCH ×3 (08:33→23:57)
[2019-09-08] MEDS: PANTOprazole 40 MG TAB PO SCH (08:34)
[2019-09-08] MEDS: FAMOTIDINE 20 MG TAB PO SCH ×2 (08:34→20:30)
[2019-09-08] MEDS: METOPROLOL TARTRATE 25 MG TAB PO SCH (08:35)
[2019-09-08] MEDS: ATORVASTATIN 20 MG TAB PO SCH (08:35)
[2019-09-08] MEDS: ASPIRIN 81 MG ECTAB PO SCH (08:35)
[2019-09-08] MEDS: FINASTERIDE 5 MG TAB PO SCH (08:35)
[2019-09-08] MEDS ORDERED: THIAMINE HCL 100 MG in SYRINGE 9 ML IV SCH (09:00)
[2019-09-08] MEDS ORDERED: methylPREDNISolone 30 MG in SYRINGE 0 ML IV SCH (09:00)
[2019-09-08] MEDS ORDERED: FOLIC ACID 1 MG in SYRINGE 9.8 ML IV SCH (09:00)
[2019-09-08] MEDS: FOLIC ACID 1 MG TAB PO SCH (09:25)
[2019-09-08] MEDS: THIAMINE HCL 100 MG TAB PO SCH (09:25)
--- NOTE | 2019-09-08 11:52 | Hospitalist Progress Note ---
Date of Service September 08, 2019 Assessment & Plan (1) COPD exacerbation: Continue intravenous steroids and nebulizer treatments. Treat underlying acute bronchitis. Mildly hypoxic in the ER with ambulation but not in acute respiratory failure. Wean oxygen off as tolerated. Smoking cessation counseled (2) CAD (coronary artery disease): Stable. Continue current medications. Telemetry. (3) Dyslipidemia: Low-cholesterol diet. Continue atorvastatin. (4) Hypertension: Blood pressure stable. Continue metoprolol therapy. (5) GERD without esophagitis: Chronic. Stable. Asymptomatic -Continue Protonix 40 mg p.o. 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 Stable. Asymptomatic at present -Continue Flomax 0.4 mg p.o. nightly -Continue finasteride 5 mg p.o. daily (7) Anxiety: Chronic. Stable. -Continue alprazolam 0.5 mg p.o. daily as needed (8) Alcoholism: Patient reports drinking at least 2 drinks nightly. No history of withdrawal symptoms or seizures. Last drink was yesterday. Thiamine and folic acid ordered. Will treat with IV Ativan if necessary. ProphylaxisLovenox Resuscitation status full code Dispositioneventual discharge to home. Hopefully within the next day or 2. (9) Acute bronchitis: Azithromycin, day 1. Obtain sputum culture Subjective Feeling better since admission. He states he is producing yellow phlegm. Physical exam is consistent with acute bronchitis with acute exacerbation of COPD. He will be started on intravenous azithromycin and sputum culture obtained. He apparently failed outpatient Levaquin therapy. Review of Systems Review of Systems: Constitutional-no fever or chills ENT-no blurred vision, no double vision, no epistaxis, no sore throat Respiratory-productive cough, wheezing, shortness of breath Cardiac-no palpitations, no chest pain, no syncope GI-no nausea, vomiting, diarrhea, melena, hematochezia -no urinary retention, no urinary incontinence, no dysuria, no hematuria Musculoskeletal-no joint pain, no muscle tenderness Skin-no bruising, no rashes, no pruritus Neuro-no isolated weakness, no paresthesia, no weakness Psych-no depression, no anxiety Physical Exam Physical Exam: General-alert and oriented x3, no fevers, no chills HEENT-head atraumatic and normocephalic, TMs intact bilaterally, pupils equal and reactive to light, extraocular muscles intact Neck-no lymphadenopathy or thyromegaly, trachea midline Chest-diminished breath sounds bilaterally. Midline rhonchi. Diffuse bilateral expiratory wheezes. No dullness to percussion Cardiac-regular rate and rhythm, normal S1 and S2, no murmurs Abdomen-normal bowel sounds, nontender, no hepatosplenomegaly Extremities-no cyanosis, clubbing, or edema Neuro-cranial nerves II through XII intact, motor and sensory function within normal limits, strength symmetrical 5/5, no focal deficits Psych-normal affect, normal mood Results & Data Vital Signs (Past 12 Hours) Vital Signs Temp Pulse Pulse Resp BP Pulse Ox 09/08/19 11:30 36.3 C L 71 19 114/65 96 09/08/19 10:41 66 14 98 09/08/19 08:00 66 09/08/19 07:04 66 14 97 09/08/19 07:02 36.4 C L 75 20 140/72 95 09/08/19 04:06 36.4 C L 79 20 124/77 96 09/08/19 03:19 79 18 96 09/08/19 01:25 36.2 C L 73 18 126/75 97 09/08/19 00:05 36.6 C 85 20 124/72 97 09/07/19 23:55 81 Laboratory Results 09/08/19 06:10 09/08/19 06:10 PG Care Time/CCT Total # of Minutes Spent Total Time Spent with Patient: Total time spent is greater than 50% in coordination of care (as documented) at patient's floor/unit and/or counseling patient: (1) CAD (coronary artery disease) Coronary Disease-Associated Artery/Lesion type: [place] artery [place] vs. transplanted heart: [place] heart Associated angina: without angina Qualified Code(s): I25.10 - Atherosclerotic heart disease of [place] coronary artery without angina pectoris (2) Hypertension Hypertension type: essential hypertension Qualified Code(s): I10 - Essential (primary) hypertension
[2019-09-08] MEDS: AZITHROMYCIN 500 MG in DEXTROSE 5% 250 ML IV SCH (12:08)
[2019-09-08] MEDS: TAMSULOSIN HCL 0.4 MG CAP PO SCH (20:30)
[2019-09-08] MEDS: ENOXAPARIN INJ 40 MG/0.4 ML SYR SQ SCH (20:31)
[2019-09-08] MEDS: ALPRAZolam 0.5 MG TABLET PO PRN (20:34)
[2019-09-09] MEDS: ALBUT/IPRATROP 3MG/0.5MG NEB 3 ML VIAL NEB SCH ×3 (03:38→11:33)
[2019-09-09] MEDS: METOPROLOL TARTRATE 25 MG TAB PO SCH (08:17)
[2019-09-09] MEDS: ASPIRIN 81 MG ECTAB PO SCH (08:17)
[2019-09-09] MEDS: methylPREDNISolone 40 MG in SYRINGE 0 ML IV SCH (08:17)
[2019-09-09] MEDS: ATORVASTATIN 20 MG TAB PO SCH (08:17)
[2019-09-09] MEDS: FOLIC ACID 1 MG TAB PO SCH (08:17)
[2019-09-09] MEDS: FAMOTIDINE 20 MG TAB PO SCH (08:18)
[2019-09-09] MEDS: NICOTINE 21 MG/24 HR TDSY TD SCH (08:18)
[2019-09-09] MEDS: PANTOprazole 40 MG TAB PO SCH (08:18)
[2019-09-09] MEDS: FINASTERIDE 5 MG TAB PO SCH (08:18)
[2019-09-09] MEDS: THIAMINE HCL 100 MG TAB PO SCH (08:18)
[2019-09-09] MEDS: AZITHROMYCIN 500 MG in DEXTROSE 5% 250 ML IV SCH (08:18)
--- NOTE | 2019-09-09 13:09 | Discharge Summary ---
Date of Service September 09, 2019 Admission HPI Per Admitting Provider Christian Gaytan is a 64-year-old male with history of severe COPD on home O2 as needed, CAD status post stent, hypertension, hyperlipidemia and anxiety presenting with suspected COPD exacerbation. She reports that around August 31 he developed URI symptoms to include runny nose and cough. This progressed to shortness of breath and wheeze. He was seen by his PCP, Rachael Duckworth on 09/03/19 with complaint of productive cough, shortness of breath, wheezing and nasal congestion. He was started on a 60 mg prednisone taper over 14 days and Levaquin. Patient reports that his symptoms persisted. This morn ing around 04 100 he woke from sleep acutely breathless, coughing and gasping for air. He took his Combivent and DuoNeb followed by albuterol with some relief. He reports placing his nasal cannula on 6 L at home and still feeling breathless. He was seen by Dr. Duckworth in clinic today for routine follow-up. Due to persistent symptoms, failed outpatient treatment he was referred to the emergency room for admission. Upon arrival he is found to be afebrile, hemodynamically stable, tachypneic up to 34 breaths/min saturating 95% on room air. He was provided an hour-long neb treatment as well as 125 mg of Solu-Medrol with some improvement in his shortness of breath. Ambulatory trial resulted in tachypnea with respiratory rate of 34 breaths/min and hypoxic to 88% on room air. Patient presently complaining of shortness of breath although improved from presentation. Also with cough productive for clear sputum. He denies fevers/chills. Denies chest pain/palpitations/edema. ER coursealbuterol, methylprednisone Principal Diagnosis Acute COPD exacerbation Discharge Exam Constitutional + thin; no acute distress Eyes + anicteric sclerae ENMT external ear and nose normal, oropharynx normal Neck trachea midline, no thyromegaly Respiratory normal respiratory effort; no labored breathing Auscultation: + wheezes (bilat faint wheezes but moving air throughout); no crackles and no rhonchi Cardiovascular RRR, no murmur, no edema Gastrointestinal (Abdomen) normal bowel sounds, soft, nontender, no hepatosplenomegaly Musculoskeletal Extremities: extremities normal to inspection; no cyanosis and no clubbing Skin no rashes, warm and dry Neurologic moves all extremities and awake; no focal motor deficits Psychiatric A+Ox3, euthymic affect Discharge Data Allergies Allergy/AdvReac Type Severity Reaction Status Date / Time No Known Allergies Allergy Verified 09/07/19 19:05 Consultations None Ordered Studies CXR Hospital Course (1) COPD exacerbation: * Much improved, weaned off O2 after receiving IV steroids and nebulizer treatments. * continue prednisone taper after discharge * Treat underlying acute bronchitis with azithro x 5 day course-needs 3 more days after discharge--sputum already significantly decreased. * Smoking cessation encouraged-he will use NRT * had 2 step walking test and did not qualify for O2 with exertion or at rest while awake (2) CAD (coronary artery disease): Stable. Continue current medications (3) Dyslipidemia: Low-cholesterol diet. Continue atorvastatin. (4) Hypertension: Blood pressure stable. Continue metoprolol therapy. (5) GERD without esophagitis: Chronic. Stable. Asymptomatic -Continue Protonix 40 mg p.o. 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 Stable. Asymptomatic at present -Continue Flomax 0.4 mg p.o. nightly -Continue finasteride 5 mg p.o. daily (7) Anxiety: Chronic. Stable. -Continue alprazolam 0.5 mg p.o. daily as needed (8) Acute bronchitis: -continue Azithromycin - sputum culture pending at time of discharge (9) Alcoholism: Patient reports drinking at least 2 drinks nightly. No history of withdrawal symptoms or seizures. Thiamine and folic acid ordered. ProphylaxisLovenox Resuscitation status full code Dispositionstable for discharge to home today Total Time Total Time Spent Total Time Spent (In Minutes): >30 min Total Time Includes: Examination of the Patient, Discharge Planning and Medication Reconciliation Discharge Plan Discharge Items Patient Disposition: Home - Home Health Services Reason For Visit: COPD EXACERBATION Discharge Diagnosis: COPD Exacerbation Condition on Discharge: Good Activity: Resume your previous activity Lifting: Gradually increase as tolerated Bathing: No limitations Exercise/Sports: Gradually increase as tolerated Non-emergency contact: Primary Care Provider Call non-emergency contact if: you have any medication questions and your symptoms worsen Follow-up/Referrals: Rachael Duckworth DO [Primary Care Provider] - 09/14/19 9:00 am (Please, follow up at Dr. Duckworth's office with her associate, Janice Joyner PA-C, on FridaySeptember 14 at 9:00 am. *If you need to change this appointment, call the office at [phone].) Lorena Gabriel PA-C [Physician Flow Coordinator] - 09/17/19 10:00 am (Please, follow up at [facility] Pulmonology Office with Lorena Gabriel PA-C on FridaySeptember 17 at 10:00 am. *The office is located in [address] of [facility]. This is the big building next to this [facility]. If you need to change this appointment, call the office at [phone].) Diet: Regular Addtl Attending Provider Instructions: Please finish out the course of prednisone and azithromycin (antibiotic) as pres cribed. Follow up with your PCP as scheduled for you. Pending Studies at Discharge: No Stand-Alone Forms: My [facility] Medications and DC Order Prescriptions: New azithromycin [Zithromax] 250 mg Tablet 250 mg PO DAILY 3 Days Qty: 3 RF: 0 nicotine [Nicoderm CQ] 21 mg/24 hr Patch 24 Hour 21 mg transdermal QAM Qty: 14 RF: 0 thiamine HCl (vitamin B1) [Vitamin B-1] 100 mg Tablet 100 mg PO QAM Qty: 30 RF: 0 folic acid 1 mg Tablet 1 mg PO QAM Qty: 30 RF: 0 prednisone 10 mg tablet 60 mg PO DAILY Qty: 33 RF: 0 Continued famotidine 20 mg tablet 20 mg PO BID Qty: 60 RF: 5 atorvastatin 20 mg tablet 20 mg PO DAILY Qty: 90 RF: 3 alprazolam 0.5 mg tablet 0.5 mg PO DAILY PRN (Reason: Anxiety) Qty: 30 RF: 0 finasteride 5 mg tablet 5 mg PO DAILY Qty: 30 RF: 0 pantoprazole [Protonix] 40 mg tablet,delayed release (DR/EC) 40 mg PO DAILY Qty: 30 RF: 5 tamsulosin 0.4 mg capsule 0.4 mg PO HS RF: 0 sildenafil 100 mg tablet 100 mg PO DAILY PRN (Reason: Sexual Activity) RF: 0 aspirin 81 mg Tablet,Delayed Release (Dr/Ec) 81 mg PO DAILY RF: 0 metoprolol tartrate 25 mg tablet 25 mg PO DAILY RF: 0 Asmanex Twisthaler 220 mcg/ actuation (120) aerosol powdr breath activated 2 inh inhalation BID RF: 0 albuterol sulfate 90 mcg/actuation HFA aerosol inhaler 2 puff Inhalation Q6H PRN (Reason: Shortness Of Breath Or Wheezing) RF: 0 albuterol sulfate 2.5 mg /3 mL (0.083 %) solution for nebulization 2.5 mg inhalation .Q4-6HRS PRN (Reason: Shortness Of Breath Or Wheezing) Qty: 90 RF: 0 Discontinued levofloxacin [Levaquin] 500 mg tablet 500 mg PO DAILY 7 Days Qty: 7 RF: 0 prednisone 20 mg tablet See Rx Instructions .Route .COMPLEX Qty: 21 RF: 0 Discharge Orders: Discharge Order (Routine); Ordered 09/09/19 Ordered By: Yoli Kumar Admission Data Admit Date/Time: 09/07/19 19:55 Attending Provider: Yoli Kumar Admit Provider: Angelika Rutherford Primary Care Provider: Rachael Duckworth. Other Providers: Angelika Rutherford Other Interventions: Discharge Summary Assessment (RN) Last Done: 09/09/19 13:10 DC Date/Time DO NOT enter until pt leaves facility: 09/09/19 14:05
[2019-09-10] MEDS ORDERED: AZITHROMYCIN 250 MG TAB PO SCH (09:00)
== END 2019-09-09 14:05 | disposition home health service (06) | DRG 192 ==
LOC: ED 16:45 → SUATTDRO 19:55 → 2N 19:55

== ENCOUNTER 2020-01-22 03:01 | Observation (INO) ==
[2020-01-22] MEDS ORDERED: ALBUT/IPRATROP 3MG/0.5MG NEB 3 ML VIAL NEB STA ×2 (03:22→04:29)
[2020-01-22] MEDS ORDERED: methylPREDNISolone 125 MG/2 ML VIAL IV STA (03:22)
--- NOTE | 2020-01-22 03:24 | Emergency Department Note ---
History of Present Illness General Chief complaint: Respiratory Problems Stated complaint: CAN'T BREATHE Time Seen by Provider: 01/22/20 03:15 History of Present Illness Maximum Pain Intensity: 5 This is a 64-year-old male that presents to the emergency department via private vehicle accompanied by female with complaints of "cannot breathe". Patient has a history of severe COPD. He currently admits to smoking 1/2 pack of cigarettes per day. He states this past Friday he did not feel right, and was congested. Then Friday the difficulty breathing increased. He notes that he wears 2 L of oxygen at baseline but has increased to 3 and now at x4 L of oxygen. He states that he also has a history of AZ with stent placement to the RCA, and notes some mild chest pain earlier today. He notes that he has trouble walking secondary to the dyspnea. He has had to be admitted for this before. He states that he normally has to receive IV steroids to help with the breathing. He does note intermittent fever/chills. Home Medications Home Medications Medication Instructions Recorded Confirmed Type aspirin 81 mg PO DAILY 01/19/19 01/22/20 History finasteride 5 mg tablet 5 mg PO DAILY #30 tab 07/13/19 01/22/20 History atorvastatin 20 mg tablet 20 mg PO DAILY #90 tab 09/03/19 01/22/20 Rx sildenafil 100 mg tablet 100 mg PO DAILY PRN 09/05/19 01/22/20 History folic acid 1 mg PO QAM #30 tab 09/09/19 01/22/20 Rx thiamine HCl (vitamin B1) [Vitamin 100 mg PO QAM #30 tab 09/09/19 01/22/20 Rx B-1] tamsulosin 0.4 mg capsule 0.4 mg PO DAILY 11/11/19 01/22/20 History metoprolol tartrate 25 mg tablet 25 mg PO DAILY #90 tab 11/29/19 01/22/20 Rx levocetirizine 5 mg tablet 5 mg PO DAILY PRN #30 tab 12/17/19 01/22/20 Rx tiotropium bromide 2.5 2 puffs INH DAILY #4 gm 12/30/19 01/22/20 Rx mcg/actuation mist for inhalation pantoprazole 40 mg tablet,delayed 40 mg PO DAILY #90 tab 02/05/20 02/22/20 Rx release albuterol sulfate See Rx Instructions .ROUTE 01/10/20 01/22/20 Rx .COMPLEX #450 milliliter albuterol sulfate 90 mcg/actuation 2 puff INHALATION Q6H PRN #18 gm 01/10/20 01/22/20 Rx aerosol inhaler ipratropium 20 mcg-albuterol 100 1 puffs INH Q6H PRN #4 gm 01/10/20 01/22/20 Rx mcg/actuation mist for inhalation alprazolam 0.5 mg tablet See Rx Instructions .ROUTE 01/11/20 01/22/20 Rx .COMPLEX #30 tablet Allergies Allergy/AdvReac Type Severity Reaction Status Date / Time No Known Allergies Allergy Verified 01/22/20 04:10 Past Med/Surg History Medical History Alcoholism Anxiety Asthma BPH with obstruction/lower urinary tract symptoms CAD (coronary artery disease) Dyslipidemia Elevated prostate specific antigen (PSA) Erectile dysfunction GERD without esophagitis History of heart attack Hypertension Peripheral vascular disease Stage 3 severe COPD by GOLD classification Surgical History S/P cholecystectomy S/P coronary artery stent placement RCA stent S/P hernia repair Family History Mother Diabetes Hypertension Heart disease Myocardial infarction Father , suicide Alcohol abuse Colorectal cancer Sister Myocardial infarction Uncle Colorectal cancer Denies family history of Ovarian cancer Prostate cancer Breast cancer Social History Preferred Language: Spanish Communication Ability: Effective Roll Finisher Required: No Beliefs That Will Affect Care: None Current Living Situation: Significant Other Current Living Situation Comment: Lives with NIA garcia Feels Safe at Home: Yes Smoking Status: Current every day smoker Tobacco Type: cigarettes ; Cigarettes Per Day: 20-40 ; Second Hand Exposure: Yes ; Hx Alcohol Use: Yes Alcohol type: beer and hard liquor Hx Substance Use: No Review of Systems A total of 10 systems reviewed and were otherwise negative Physical Exam Vital Signs Vital Signs - 24 hr 01/22/20 03:03 01/22/20 03:11 01/22/20 03:34 Temperature 37.4 C Temperature Source Oral Pulse Rate 103 H Pulse Rate [Right Finger] Pulse Rate from SpO2 Sensor Respiratory Rate 22 Respiratory Effort / Characteristics Non-Labored Spontaneous Pursed Lip Short of Breath SOB on Exertion Respiratory Depth Shallow Respiratory Pattern Regular Regular Blood Pressure 116/70 Blood Pressure [Left Arm] Blood Pressure Mean 85 Blood Pressure Mean [Left Arm] Blood Pressure Position [Left Arm] Pulse Oximetry 93 95 Oxygen Delivery Method Nasal Cannula Nasal Cannula Nasal Cannula Oxygen Flow Rate 3 3 3 Sepsis Recent Fever Within 48 Hours No Sepsis Action Taken by Nursing No Action Required 01/22/20 03:38 01/22/20 03:40 01/22/20 04:00 Temperature Temperature Source Pulse Rate 93 H 95 H Pulse Rate [Right Finger] 94 H Pulse Rate from SpO2 Sensor 93 H 96 H Respiratory Rate 23 20 22 Respiratory Effort / Characteristics Non-Labored Spontaneous Respiratory Depth Respiratory Pattern Blood Pressure 120/68 126/76 Blood Pressure [Left Arm] Blood Pressure Mean 78 88 Blood Pressure Mean [Left Arm] Blood Pressure Position [Left Arm] Pulse Oximetry 96 95 95 Oxygen Delivery Method Nasal Cannula Nasal Cannula Nasal Cannula Oxygen Flow Rate 3 2.5 3 Sepsis Recent Fever Within 48 Hours Sepsis Action Taken by Nursing 01/22/20 04:45 01/22/20 05:10 Temperature Temperature Source Pulse Rate Pulse Rate [Right Finger] 91 H 98 H Pulse Rate from SpO2 Sensor Respiratory Rate 18 22 Respiratory Effort / Characteristics Non-Labored Spontaneous Respiratory Depth Respiratory Pattern Blood Pressure Blood Pressure [Left Arm] 119/73 Blood Pressure Mean Blood Pressure Mean [Left Arm] 88 Blood Pressure Position [Left Arm] Semi-fowlers Pulse Oximetry 95 93 Oxygen Delivery Method Nasal Cannula Nasal Cannula Oxygen Flow Rate 2 2 Sepsis Recent Fever Within 48 Hours Sepsis Action Taken by Nursing VITAL SIGNS - Vital signs and nursing notes were reviewed. Stable and afebrile. GENERAL -64-year-old male appearing his stated age who appears to be tired, ill and is having trouble breathing. Nasal cannula oxygen in place. Communicates well with provider and answers questions appropriately. SKIN - Without rashes. No meningeal or petechial rash. HEAD - NC/AT. EYES - PERRL with EOMI bilaterally. EARS - No deformities of external structures noted on gross examination bilate rally. NOSE - Midline and without cyanosis. No epistaxis or purulent drainage noted. Septum midline without deviation or septal hematoma noted. MOUTH/OROPHARYNX - Without perioral cyanosis. Buccal mucosa pink and moist and without leukoplakia. Tongue midline with equal elevation of palate bilaterally. No tonsillar hypertrophy, erythema, or exudates noted. [] dentition noted. NECK - Neck with FROM. No nuchal rigidity. LUNGS -decreased breath sounds bilaterally. Mild wheezing noted. No rhonchi. CARDIAC - RRR and no definite murmur noted. EXTREMITIES - No clubbing or peripheral cyanosis. NEUROLOGIC - Cranial nerves II through XII grossly intact. Sensory intact to light touch throughout. PSYCH - A&Ox3 and cooperates fully with examiner. Pt is very pleasant and interacts well with examiner. Course Administered Medications Discontinued Medications Albuterol (Duoneb) 3 ml NEB NOW STA Stop: 01/22/20 03:23 Last Admin: 01/22/20 03:39 Dose: 3 ml Documented by: [id number] Albuterol (Duoneb) 3 ml NEB NOW STA Stop: 01/22/20 04:30 Last Admin: 01/22/20 04:44 Dose: 3 ml Documented by: [id number] Sodium Chloride (Nss) 500 mls @ 125 mls/hr IV .Q4H JOSEPH Stop: 02/21/20 03:29 Last Admin: 01/22/20 03:35 Dose: 125 mls/hr Documented by: [id number] Methylprednisolone (Solumedrol) 60 mg IV NOW STA Stop: 01/22/20 03:23 Last Admin: 01/22/20 03:35 Dose: 60 mg Documented by: [id number] Medical Decision Making Laboratory Data Result diagrams: 01/22/20 03:24 01/22/20 03:24 Lab Results 01/22/20 01/22/20 01/22/20 Range/Units 03:15 03:24 03:24 WBC 10.37 (4.8-10.8) K/uL RBC 4.48 L (4.7-6.1) M/uL Hgb 14.3 (14.0-18.0) g/dL Hct 41.7 L (42-52) % MCV 93.1 (80-100) fL MCH 31.9 (25-34) pg MCHC 34.3 (32-36) g/dL RDW Std Deviation 45.9 (36.4-46.3) fL RDW Coeff of Vira 13.4 (11.5-14.5) % Plt Count 248 (130-400) K/uL MPV 9.7 (7.4-10.4) fL Immature Gran % (Auto) 0.2 % Neut % (Auto) 66.4 % Lymph % (Auto) 16.7 % [place] % (Auto) 14.5 % Eos % (Auto) 2.0 % Baso % (Auto) 0.2 % Immature Gran # (Auto) 0.02 (0.00-0.02) K/uL Neut # (Auto) 6.89 H (1.4-6.5) K/uL Lymph # (Auto) 1.73 (1.2-3.4) K/uL [place] # (Auto) 1.50 H (0.11-0.59) K/uL Eos # (Auto) 0.21 (0-0.5) K/uL Baso # (Auto) 0.02 (0-0.2) K/uL PT 9.9 (9.0-12.0) Seconds INR 1.0 (0.9-1.1) APTT 30.4 (21.0-31.0) Seconds PTT Ratio 1.1 Sodium (136-145) mmol/L Potassium (3.5-5.1) mmol/L Chloride (98-107) mmol/L Carbon Dioxide (21-32) mmol/L Anion Gap (3-11) BUN (7-18) mg/dl Creatinine (0.6-1.4) mg/dl Est Cr Clr Drug Dosing Est GFR ( Amer) Est GFR (Non-Af Amer) BUN/Creatinine Ratio (10-20) Glucose (70-99) mg/dl Lactate (0.4-2.0) mmol/L Calcium (8.5-10.1) mg/dl Magnesium (1.8-2.4) mg/dl Total Bilirubin (0.2-1) mg/dl AST (15-37) U/L ALT (12-78) U/L Alkaline Phosphatase (45-117) U/L Troponin I (0-0.045) ng/ml Total Protein (6.4-8.2) gm/dl Albumin (3.4-5.0) gm/dl Globulin (2.5-4.0) gm/dl Albumin/Globulin Ratio (0.9-2) Influenza Type A Ag Neg for Influ A (Neg) Influenza Type B Ag Neg for Influ B (Neg) 01/22/20 01/22/20 Range/Units 03:24 03:24 WBC (4.8-10.8) K/uL RBC (4.7-6.1) M/uL Hgb (14.0-18.0) g/dL Hct (42-52) % MCV (80-100) fL MCH (25-34) pg MCHC (32-36) g/dL RDW Std Deviation (36.4-46.3) fL RDW Coeff of Vira (11.5-14.5) % Plt Count (130-400) K/uL MPV (7.4-10.4) fL Immature Gran % (Auto) % Neut % (Auto) % Lymph % (Auto) % [place] % (Auto) % Eos % (Auto) % Baso % (Auto) % Immature Gran # (Auto) (0.00-0.02) K/uL Neut # (Auto) (1.4-6.5) K/uL Lymph # (Auto) (1.2-3.4) K/uL [place] # (Auto) (0.11-0.59) K/uL Eos # (Auto) (0-0.5) K/uL Baso # (Auto) (0-0.2) K/uL PT (9.0-12.0) Seconds INR (0.9-1.1) APTT (21.0-31.0) Seconds PTT Ratio Sodium 134 L (136-145) mmol/L Potassium 3.8 (3.5-5.1) mmol/L Chloride 102 (98-107) mmol/L Carbon Dioxide 28 (21-32) mmol/L Anion Gap 4.0 (3-11) BUN 13 (7-18) mg/dl Creatinine 0.78 (0.6-1.4) mg/dl Est Cr Clr Drug Dosing Not Reportable Est GFR ( Amer) 111.3 Est GFR (Non-Af Amer) 96.1 BUN/Creatinine Ratio 16.2 (10-20) Glucose 115 H (70-99) mg/dl Lactate 0.9 (0.4-2.0) mmol/L Calcium 8.7 (8.5-10.1) mg/dl Magnesium 1.8 (1.8-2.4) mg/dl Total Bilirubin 0.2 (0.2-1) mg/dl AST 14 L (15-37) U/L ALT 20 (12-78) U/L Alkaline Phosphatase 89 (45-117) U/L Troponin I < 0.015 (0-0.045) ng/ml Total Protein 7.0 (6.4-8.2) gm/dl Albumin 3.5 (3.4-5.0) gm/dl Globulin 3.5 (2.5-4.0) gm/dl Albumin/Globulin Ratio 1.0 (0.9-2) Influenza Type A Ag (Neg) Influenza Type B Ag (Neg) Imaging Data My Impression: Atherosclerosis of the aortic arch. Lungs are hyperinflated consistent with emphysema. No inflitrate. MDM Narrative Patient was seen and evaluated as above in room C3. Review was performed of nursing notes and vital signs. After obtaining a thorough history and physical examination the above work up was performed. He presents to us today with dyspnea. He is conversationally dyspneic. He is now requiring increased amounts of oxygen via nasal cannula. Patient has a significant COPD history. He continues to smoke cigarettes. His vital signs are stable on arrival but he is mildly tachycardic. It sounds like this likely has started as some sort of viral illness that has created the acute worsening of his underlying chronic conditions. Lactic is normal. Blood cultures pending. IV access was established. There is no leukocytosis or significant anemia. No emergent metabolic disturbance. Troponin is negative. Influenza testing negative. EKG reveals normal sinus rhythm, rate of 90 bpm. There is no ectopy or ischemic change. No ST elevation. QTc 444. Patient was given 2 breathing treatments here and IV Decadron. Given his clinical presentation with increased oxygen requirements and poor improvement with the medications it is felt that further evaluation and management in inpatient setting would be warranted. Please refer to further documentation regarding his stay. Patient was amenable to staying. GCS: 15 In the evaluation and treatment of this patient the following differential diagnoses were entertained: AZ, PE, pericarditis, COPD, emphysema, pneumothorax, pneumonia, among others. Impression & Plan COPD exacerbation Discharge Plan Visit Data *Final* Discharge Date/Time: 01/22/20 05:37 Chief Complaint: Respiratory Problems Stated Complaint: CAN'T BREATHE ED Provider: Sydnee Bearden ED Midlevel Provider: Myles Minor Discharge Problem: COPD exacerbation Patient Disposition: Admitted As Inpatient Condition: Good Discharge Instructions Interventions: ED Discharge Assessment Last Done: 01/22/20 05:37
[2020-01-22] MEDS ORDERED: SODIUM CHLORIDE 0.9% 500 ML IV SCH (03:30)
[2020-01-22 03:41] LABS: Basophils # (auto) 0.02 K/uL (0-0.2); Basophils % (auto) 0.2 %; Eosinophils # (auto) 0.21 K/uL (0-0.5); Hematocrit (blood only) 41.7 % (42-52); Hemoglobin 14.3 g/dL (14.0-18.0); Immature Granulocytes # (auto) 0.02 K/uL (0.00-0.02); Immature Granulocytes % (auto) 0.2 %; Lymphocytes # (auto) 1.73 K/uL (1.2-3.4); Lymphocytes % (auto) 16.7 %; Mean Corpuscular Hemoglobin 31.9 pg (25-34); Mean Corpuscular Hgb Conc 34.3 g/dL (32-36); Mean Corpuscular Volume 93.1 fL (80-100); Mean Platelet Volume 9.7 fL (7.4-10.4); Monocytes % (auto) 14.5 %; Neutrophils # (auto) 6.89 K/uL (1.4-6.5); Neutrophils % (auto) 66.4 %; Platelet Count 248 K/uL (130-400); RDW Coefficient of Variation 13.4 % (11.5-14.5); RDW Standard Deviation 45.9 fL (36.4-46.3); Red Blood Count 4.48 M/uL (4.7-6.1); White Blood Count 10.37 K/uL (4.8-10.8)
[2020-01-22 03:52] LABS: Partial Thromboplastin Ratio 1.1; Partial Thromboplastin Time 30.4 Seconds (21.0-31.0); Prothrombin Time 9.9 Seconds (9.0-12.0)
[2020-01-22 03:59] LABS: Alanine Aminotransferase 20 U/L (12-78); Albumin Level 3.5 gm/dl (3.4-5.0); Aspartate Aminotransferase 14 U/L (15-37); BUN Creatinine Ratio 16.2 (10-20); Blood Urea Nitrogen 13 mg/dl (7-18); Calcium 8.7 mg/dl (8.5-10.1); Carbon Dioxide 28 mmol/L (21-32); Chloride 102 mmol/L (98-107); Est GFR (African American) 111.3; Est GFR (Non-African American) 96.1; Glucose 115 mg/dl (70-99); Magnesium 1.8 mg/dl (1.8-2.4); Potassium 3.8 mmol/L (3.5-5.1); Sodium 134 mmol/L (136-145)
[2020-01-22 04:04] LABS: Alkaline Phosphatase 89 U/L (45-117); Bilirubin,Total 0.2 mg/dl (0.2-1); Globulin 3.5 gm/dl (2.5-4.0); Troponin I < 0.015 ng/ml (0-0.045)
--- NOTE | 2020-01-22 05:15 | History & Physical Report ---
Date of Service January 22, 2020 Assessment & Plan (1) COPD exacerbation: Pt is a 64yo with a PMHx of severe COPD on ?2L O2 at baseline, CAD with MD and stent placement, HTN, HLD, GERD, Anxiety, chronic tobacco use and alcohol abuse who was admitted with COPD exacerbation after presenting with difficulty breathing over the last 4 days. Acute hypoxic Respiratory Failure in the setting of severe COPD -Pt states he has had URI symptoms for the last 4 days with increasing dyspnea. -Tachycardic and tachypneic on presentation -Does not have home oxygen but uses 's and nephew's oxygen, states requirement has increased over recent days from baseline 2L to 4L. -has been noncompliant with recent COPD medication changes by [facility] [place] due to his insurance; uses only albuterol and combivent puffers at home. -Chest XR with hyperinflation, negative for an acute infectious process. -flu negative, though suspect he might have an acute viral URI exacerbating his COPD -continue duonebs q4h scheduled -continue methylprednisone IV 60mg q8h scheduled -continue Spiriva -continue Breo (can consider switching to symbicort if pt intolerant of powder) -continue home levocetirizine 5mg daily COPD -Follows with [facility] [place] -PFTs in Oct 2019 show severe obstructive disease -pt noncompliant with recent COPD medication changes by [facility] pulmonology due to his insurance -uses only albuterol and combivent puffers at home. -Not using breo, can consider cheaper or insurance friendly alternative for discharge Chronic Tobacco Abuse -Last cigarette was yesterday. -Smoked since age 13, 2ppd at his heaviest. -Did quit for 5 months with the patch last year after being hospitalized. -Desires nicotine patch once more while hospitalized. Alcohol Abuse -Has history of drinking heavily; states it comes with where he works. -Last drink was before presentation to the ED; had a beer. -Not in acute withdrawal currently -continue to monitor for signs of withdrawal while hospitalized and initiate AWSS protocol as needed. -continue home folic acid 1mg daily and [id number] daily HLD -continue home atorvastatin 20mg daily HTN -continue home metoprolol tartrate 25mg daily Hx of CAD -Follows with Cardiology- Dr. Martinez -continue aspirin 81mg daily GERD -continue home pantoprazole 40mg daily. -Per PCP note, should also be on pepcid. Can add as needed. BPH -continue home finasteride 5mg daily Anxiety -continue home alprazolam 0.5mg PRN Erectile Dysfunction -hold home sildenafil FEN/GI: Heart healthy DVT prophylaxis: Lovenox SQ CODE Status Dispo: Med/Surg with tele History of Present Illness Primary Care Provider: Rachael Duckworth, Pt is a 64yo with a PMHx of severe COPD on ?2L O2 at baseline, CAD with MD and stent placement, HTN, HLD, GERD, Anxiety, chronic tobacco use and alcohol abuse who was admitted with COPD exacerbation after presenting with difficulty breathing over the last 4 days. States he felt like he was developing a "cold" from Friday with runny nose and cough, denies sore throat. Thought it might be the flu. Sick contacts possibly at work. Has not been able to take the medications his looping inspector recommended as his insurance doesn't cover most of them-has reverted back to using home albuterol with combivent. PMHx: Severe COPD, HTN, HLD, GERD, BPH, Erectile dysfunction, Hx of MD with stent placement. Allergies: NKDA SH: Lives with significant other. Smokes 2ppd since age 13 with 5 month abstinence, drinks whiskey and beer most days of the week. No current recreational drug use but states he has "tried everything under the sun from heroin to cocaine". ED Course: Duonebs, methylprednisone IV 60mg Allergies Allergy/AdvReac Type Severity Reaction Status Date / Time No Known Allergies Allergy Verified 01/22/20 04:10 Home Medications Home Medications Medication Instructions Recorded Confirmed Type aspirin 81 mg PO DAILY 01/19/19 01/22/20 History finasteride 5 mg tablet 5 mg PO DAILY #30 tab 07/13/19 01/22/20 History atorvastatin 20 mg tablet 20 mg PO DAILY #90 tab 09/03/19 01/22/20 Rx sildenafil 100 mg tablet 100 mg PO DAILY PRN 09/05/19 01/22/20 History folic acid 1 mg PO QAM #30 tab 09/09/19 01/22/20 Rx thiamine HCl (vitamin B1) [Vitamin 100 mg PO QAM #30 tab 09/09/19 01/22/20 Rx B-1] tamsulosin 0.4 mg capsule 0.4 mg PO DAILY 11/11/19 01/22/20 History metoprolol tartrate 25 mg tablet 25 mg PO DAILY #90 tab 11/29/19 01/22/20 Rx levocetirizine 5 mg tablet 5 mg PO DAILY PRN #30 tab 12/17/19 01/22/20 Rx tiotropium bromide 2.5 2 puffs INH DAILY #4 gm 12/30/19 01/22/20 Rx mcg/actuation mist for inhalation pantoprazole 40 mg tablet,delayed 40 mg PO DAILY #90 tab 01/05/20 01/22/20 Rx release albuterol sulfate See Rx Instructions .ROUTE 01/10/20 01/22/20 Rx .COMPLEX #450 milliliter albuterol sulfate 90 mcg/actuation 2 puff INHALATION Q6H PRN #18 gm 01/10/20 Rx aerosol inhaler ipratropium 20 mcg-albuterol 100 1 puffs INH Q6H PRN #4 gm 01/10/20 01/22/20 Rx mcg/actuation mist for inhalation alprazolam 0.5 mg tablet See Rx Instructions .ROUTE 01/11/20 01/22/20 Rx .COMPLEX #30 tablet Past Med/Surg History Medical History Alcoholism Anxiety Asthma BPH with obstruction/lower urinary tract symptoms CAD (coronary artery disease) Dyslipidemia Elevated prostate specific antigen (PSA) Erectile dysfunction GERD without esophagitis History of heart attack Hypertension Peripheral vascular disease Stage 3 severe COPD by GOLD classification Surgical History S/P cholecystectomy S/P coronary artery stent placement RCA stent S/P hernia repair Family History Mother Diabetes Hypertension Heart disease Myocardial infarction Father , suicide Alcohol abuse Colorectal cancer Sister Myocardial infarction Uncle Colorectal cancer Denies family history of Ovarian cancer Prostate cancer Breast cancer Social History Preferred Language: Ethiopian Communication Ability: Effective Occasional Babysitter Required: No Beliefs That Will Affect Care: None Current Living Situation: Spouse Current Living Situation Comment: Lives with NIA garcia Feels Safe at Home: Yes Smoking Status: Current every day smoker Tobacco Type: cigarettes ; Cigarettes Per Day: approximately 1 pack ; Second Hand Exposure: Yes ; Hx Alcohol Use: Yes Alcohol type: beer and hard liquor Hx Substance Use: No Review of Systems Constitutional: + body aches and + fatigue; no fever, no chills and no sweats Eyes: no worsening vision Ear, Nose, Mouth, Throat: + nasal congestion; no sore throat Respiratory: + cough, + dyspnea and + dyspnea on exertion Cardiovascular: + dyspnea and + dyspnea on exertion; no chest pain Gastrointestinal: no nausea and no vomiting Musculoskeletal: + body aches Neurologic: no tingling and no numbness Physical Exam Physical Exam: General: Alert, oriented. Nasal cannula in nares speaking through pursed lips. Skin: No noted rashes or bruises Psych: Appropriate mood and affect Neuro: No gross deficits HEENT: NC/AT Chest: Nontender to palpation. CV: RRR, Normal s1, s2. No murmurs appreciated Resp: Breath sounds coarse with wheezes bilaterally, speaks through pursed lips periodically. Abdomen: Soft, nontender, nondistended. No guarding. No organomegaly appreciated. Extremities: No edema in lower extremities bilaterally. Results & Data Vital Signs (Past 12 Hours) Vital Signs Temp Pulse Pulse Resp BP BP Pulse Ox 01/22/20 05:10 98 H 22 119/73 93 01/22/20 04:45 91 H 18 95 01/22/20 04:00 95 H 22 126/76 95 01/22/20 03:40 94 H 20 95 01/22/20 03:38 93 H 23 120/68 96 01/22/20 03:34 95 01/22/20 03:03 37.4 C 103 H 22 116/70 93 Supervising Physician Co-Signing Physician Notes Attending addendum: I have physically seen this patient, have supervised the medical residents activities, and agree with the H&P unless as otherwise noted. Assessment and Plan: Acute respiratory failure with hypoxia/COPD exacerbation- Admit to monitored bed. Methylprednisolone 60 mg IV every 8 hours Continue home Breo, levocetirizine and Spiriva. Duo nebs 4 times daily and available every 2 hours as needed Tobacco cessation counselling Need to work on medical compliance. Ceftriaxone 1 g iv daily Azithromycin 500mg iv daily Remainder of orders and notations as noted. Resident Activity Tracking Resident Involvement: Resident Care Provided Care Provided: Adult [facility] Medicine
[2020-01-22] MEDS ORDERED: methylPREDNISolone 125 MG/2 ML VIAL IV SCH (06:07)
[2020-01-22] MEDS ORDERED: PATIENT'S HEIGHT AND/OR WEIGHT NEEDED SCH (06:30)
[2020-01-22] MEDS: ALBUT/IPRATROP 3MG/0.5MG NEB 3 ML VIAL NEB SCH ×5 (07:29→19:15)
--- NOTE | 2020-01-22 07:44 | XRay Report ---
XR chest 1V portable HISTORY: dyspnea COMPARISON: Chest 09/07/2019. FINDINGS: Emphysema. The heart is normal in size. Mild interstitial thickening at the lung bases. No new focal lung consolidations to suggest pneumonia. No evidence for pulmonary edema. No pneumothorax. No pleural effusions. IMPRESSION: No significant change compared to the prior study. No acute process. Emphysema. ACT 112: Negative or not required by law. Electronically signed by: Eric Rea M.D. 01/22/2020 7:43 AM
[2020-01-22] MEDS: PANTOprazole 40 MG TAB PO SCH (08:35)
[2020-01-22] MEDS: FINASTERIDE 5 MG TAB PO SCH (08:35)
[2020-01-22] MEDS: TAMSULOSIN HCL 0.4 MG CAP PO SCH (08:35)
[2020-01-22] MEDS: FOLIC ACID 1 MG TAB PO SCH (08:35)
[2020-01-22] MEDS: ASPIRIN 81 MG ECTAB PO SCH (08:35)
[2020-01-22] MEDS: THIAMINE HCL 100 MG TAB PO SCH (08:35)
[2020-01-22] MEDS: ATORVASTATIN 20 MG TAB PO SCH (08:36)
[2020-01-22] MEDS: NICOTINE 21 MG/24 HR TDSY TD SCH (08:36)
[2020-01-22] MEDS: UMECLIDINIUM BROMIDE 62.5MCG/BLISTER 7 PUFFS/INHALER INH SCH (08:37)
[2020-01-22] MEDS: FLUTICASONE/VILANTEROL 100/25MCG 14 PUFFS/INHALER INH SCH (08:37)
[2020-01-22] MEDS: ENOXAPARIN INJ 40 MG/0.4 ML SYR SQ SCH (08:38)
[2020-01-22] MEDS ORDERED: METOPROLOL TARTRATE 25 MG TAB PO SCH (09:00)
[2020-01-22] MEDS: methylPREDNISolone 60 MG in SYRINGE 0 ML IV SCH ×2 (12:38→20:39)
--- NOTE | 2020-01-22 15:26 | Hospitalist Progress Note ---
Date of Service January 22, 2020 Assessment & Plan (1) COPD exacerbation: Has been only using albuterol and Combivent inhalers at home due to insurance reasons. Is also still smoking. - Continue steroids, DuoNebs. - Hold abx for no pneumonia noted on CXR. - Restart home inhalers that he was not using (2) Tobacco abuse: Last cigarette was yesterday. Smoked since age 13, 2ppd at his heaviest. Did quit for 5 months with the patch last year after being hospitalized. - Continue nicotine patch (3) CAD (coronary artery disease): Unknown CAD history, but follows with a Dr. Martinez. No chest pain or si gns of ischemia this admission. - Continue ASA, statin, beta-celestine (4) Hypertension: BP presently 105/70. - Continue beta-celestine (5) BPH with obstruction/lower urinary tract symptoms: No LUTS today. - Continue tamsulosin & finasteride. (6) Anxiety: Due to shortness of breath. Receives this from his PCP. Last filled on 01/11/2020 per PDMP. - Continue home alprazolam PO daily PRN (7) Alcoholism: Has history of drinking heavily; states it comes with where he works. ([employer]) Last drink was before presentation to the ED; had a beer. Not in acute withdrawal currently. - Monitor for signs of withdrawal while hospitalized - Continue home folic acid & thiamine (8) DVT prophylaxis: Lovenox 40 mg SQ daily Admission and Anticipated Discharge Date Admission Date: January 22, 2020 Subjective Still feeling shortness of breath with walking to the bathroom and back. Reports no fevers/chills, chest pain, abdominal pain, nausea, or vomiting. Physical Exam Constitutional: WD/WN, vitals as above Eyes: EOM intact bilaterally; no conjunctival abnormality ENMT: external ear and nose normal, oropharynx normal Neck: trachea midline, no thyromegaly normal visual inspection Respiratory: normal respiratory effort, lungs clear to auscultation no respiratory distress Auscultation: + wheezes Cardiovascular: RRR, no murmur, no edema Gastrointestinal (Abdomen): Inspection/Auscultation: abdomen normal to inspection; abdomen not distended Musculoskeletal: no cyanosis or clubbing, extremities motor strength 5/5 Skin: no rashes, warm and dry Neurologic: moves all extremities and awake Psychiatric: Orientation: alert, oriented to person and cooperative Results & Data ([facility]) Vital Signs (Past 12 Hours) Vital Signs Temp Pulse Pulse Resp BP BP Pulse Ox 01/22/20 15:11 75 01/22/20 11:56 36.2 C L 76 16 106/68 97 01/22/20 11:01 73 18 98 01/22/20 07:43 36.7 C 87 16 108/73 94 01/22/20 07:29 83 18 96 01/22/20 07:25 92 H 01/22/20 06:42 36.6 C 93 H 20 107/70 90 01/22/20 05:10 98 H 22 119/73 93 01/22/20 04:45 91 H 18 95 01/22/20 04:00 95 H 22 126/76 95 01/22/20 03:40 94 H 20 95 01/22/20 03:38 93 H 23 120/68 96 01/22/20 03:34 95 PG Care Time/CCT Total # of Minutes Spent Total Time Spent with Patient: Total time spent is greater than 50% in coordination of care (as documented) at patient's floor/unit and/or counseling patient: Coding Level of Care Code 32726 Subseq Hosp Care Lvl 3 Diagnoses COPD exacerbation J44.1 Tobacco abuse Z72.0 CAD (coronary artery disease) I25.10 Coronary Disease-Associated Artery/Lesion type: [place] artery [place] vs. transplanted heart: [place] heart Associated angina: without angina Hypertension I10 Hypertension type: essential hypertension BPH with obstruction/lower urinary tract symptoms N40.1; N13.8 Anxiety F41.9 Alcoholism F10.20 DVT prophylaxis Z29.9 (1) CAD (coronary artery disease) Coronary Disease-Associated Artery/Lesion type: [place] artery [place] vs. transplanted heart: [place] heart Associated angina: without angina Qualified Code(s): I25.10 - Atherosclerotic heart disease of [place] coronary artery without angina pectoris (2) Hypertension Hypertension type: essential hypertension Qualified Code(s): I10 - Essential (primary) hypertension
--- NOTE | 2020-01-22 18:10 | Electrocardiogram Report ---
Test Reason : Blood Pressure : / mmHG Vent. Rate : 098 BPM Atrial Rate : 098 BPM P-R Int : 132 ms QRS Dur : 078 ms QT Int : 348 ms P-R-T Axes : 070 078 072 degrees QTc Int : 444 ms Normal sinus rhythm Normal ECG When compared with ECG of 07-SEP-2019 18:25, No significant change was found Confirmed by Dinesh Fernandez ([id number]) on 01/22/2020 6:10:29 PM Referred By: REFERRED SELF Confirmed By:Amador Fernandez
[2020-01-22] MEDS: METOPROLOL TARTRATE 25 MG TAB PO SCH (20:40)
[2020-01-22] MEDS: ALPRAZolam 0.5 MG TABLET PO PRN (22:14)
[2020-01-23] MEDS: ALBUT/IPRATROP 3MG/0.5MG NEB 3 ML VIAL NEB SCH ×5 (00:45→19:41)
[2020-01-23] MEDS: methylPREDNISolone 60 MG in SYRINGE 0 ML IV SCH ×3 (03:31→20:22)
[2020-01-23 06:48] LABS: Hemoglobin 13.4 g/dL (14.0-18.0); Mean Corpuscular Hemoglobin 30.9 pg (25-34); Mean Corpuscular Hgb Conc 33.5 g/dL (32-36); Mean Corpuscular Volume 92.4 fL (80-100); Mean Platelet Volume 9.7 fL (7.4-10.4); Platelet Count 255 K/uL (130-400); RDW Coefficient of Variation 13.2 % (11.5-14.5); RDW Standard Deviation 44.8 fL (36.4-46.3); Red Blood Count 4.33 M/uL (4.7-6.1); White Blood Count 10.93 K/uL (4.8-10.8)
[2020-01-23 07:14] LABS: BUN Creatinine Ratio 18.6 (10-20); Calcium 9.2 mg/dl (8.5-10.1); Creatinine Clr Calc Pharmacy 99.9 ml/min; Est GFR (African American) 120.8; Est GFR (Non-African American) 104.2; Potassium 4.3 mmol/L (3.5-5.1)
[2020-01-23] MEDS: FINASTERIDE 5 MG TAB PO SCH (08:27)
[2020-01-23] MEDS: METOPROLOL TARTRATE 25 MG TAB PO SCH ×2 (08:27→20:24)
[2020-01-23] MEDS: TAMSULOSIN HCL 0.4 MG CAP PO SCH (08:28)
[2020-01-23] MEDS: PANTOprazole 40 MG TAB PO SCH (08:28)
[2020-01-23] MEDS: NICOTINE 21 MG/24 HR TDSY TD SCH (08:29)
[2020-01-23] MEDS: FOLIC ACID 1 MG TAB PO SCH (08:29)
[2020-01-23] MEDS: ATORVASTATIN 20 MG TAB PO SCH (08:30)
[2020-01-23] MEDS: THIAMINE HCL 100 MG TAB PO SCH (08:30)
[2020-01-23] MEDS: ASPIRIN 81 MG ECTAB PO SCH (08:31)
[2020-01-23] MEDS: FLUTICASONE/VILANTEROL 100/25MCG 14 PUFFS/INHALER INH SCH (08:31)
[2020-01-23] MEDS: UMECLIDINIUM BROMIDE 62.5MCG/BLISTER 7 PUFFS/INHALER INH SCH (08:31)
[2020-01-23] MEDS: ENOXAPARIN INJ 40 MG/0.4 ML SYR SQ SCH (08:32)
--- NOTE | 2020-01-23 15:31 | Hospitalist Progress Note ---
Date of Service January 23, 2020 Assessment & Plan (1) COPD exacerbation: Has been only using albuterol and Combivent inhalers at home due to insurance reasons. Is also still smoking. - Continue steroids, DuoNebs. - Hold abx for no pneumonia noted on CXR. - Restart home inhalers that he was not using - Improving today. More endurance walking to and from the bathroom. O2 requirement is down to 3L from 4L on admission. Discharge Friday/Friday? (2) Tobacco abuse: Last cigarette was the day of admission. Smoked since age 13, 2 ppd at his heaviest. Did quit for 5 months with the patch last year after being hospitalized. - Continue nicotine patch (3) CAD (coronary artery disease): Unknown CAD history, but follows with Dr. Guy Martinez in [place]. No chest pain or signs of ischemia this admission. - Continue ASA, statin, beta-celestine (4) Hypertension: BP presently 105/70. - Continue beta-celestine (I did make it BID. Per pharmacy laboratory technician's report, he only takes it daily at home.) - Consider switch to metop XL since he only takes his metoprolol tartrate once a day. (5) BPH with obstruction/lower urinary tract symptoms: No LUTS today. - Continue tamsulosin & finasteride. (6) Anxiety: Due to shortness of breath. Receives this from his PCP. Last filled on 01/11/2020 per PDMP. - Continue home alprazolam PO daily PRN (7) Alcoholism: Has history of drinking heavily; states it comes with where he works. ([employer]) Last drink was before presentation to the ED; had a beer. Not in acute withdrawal currently. - Monitor for signs of withdrawal while hospitalized - Continue home folic acid & thiamine (8) DVT prophylaxis: Lovenox 40 mg SQ daily Admission and Anticipated Discharge Date Admission Date: January 22, 2020 Subjective Doing better today. Has more ability to walk to bathroom and back. Reports no fevers/chills, chest pain, abdominal pain, nausea, or vomiting. Physical Exam Constitutional: WD/WN, vitals as above Eyes: EOM intact bilaterally; no conjunctival abnormality ENMT: external ear and nose normal, oropharynx normal Neck: trachea midline, no thyromegaly normal visual inspection Respiratory: normal respiratory effort, lungs clear to auscultation no respiratory distress Auscultation: + wheezes Cardiovascular: RRR, no murmur, no edema Gastrointestinal (Abdomen): Inspection/Auscultation: abdomen normal to inspection; abdomen not distended Musculoskeletal: no cyanosis or clubbing, extremities motor strength 5/5 Skin: no rashes, warm and dry Neurologic: moves all extremities and awake Psychiatric: Orientation: alert, oriented to person and cooperative Results & Data ([facility]) Vital Signs (Past 12 Hours) Vital Signs Temp Pulse Resp BP Pulse Ox 01/23/20 15:25 36.3 C L 80 18 108/68 96 01/23/20 15:00 91 H 18 96 01/23/20 10:53 88 20 96 01/23/20 07:35 36.2 C L 70 18 100/62 96 01/23/20 07:31 79 18 98 PG Care Time/CCT Total # of Minutes Spent Total Time Spent with Patient: Total time spent is greater than 50% in coordination of care (as documented) at patient's floor/unit and/or counseling patient: Coding Level of Care Code 52759 Subseq Hosp Care Lvl 2 Diagnoses COPD exacerbation J44.1 Tobacco abuse Z72.0 CAD (coronary artery disease) I25.10 Coronary Disease-Associated Artery/Lesion type: [place] artery [place] vs. transplanted heart: [place] heart Associated angina: without angina Hypertension I10 Hypertension type: essential hypertension BPH with obstruction/lower urinary tract symptoms N40.1; N13.8 Anxiety F41.9 Alcoholism F10.20 DVT prophylaxis Z29.9 (1) CAD (coronary artery disease) Coronary Disease-Associated Artery/Lesion type: [place] artery [place] vs. transplanted heart: [place] heart Associated angina: without angina Qualified Code(s): I25.10 - Atherosclerotic heart disease of [place] coronary artery without angina pectoris (2) Hypertension Hypertension type: essential hypertension Qualified Code(s): I10 - Essential (primary) hypertension
[2020-01-23] MEDS: CLOTRIMAZOLE 10 MG TROCHE BUCCAL SCH ×2 (20:22→23:10)
[2020-01-23] MEDS ORDERED: SODIUM CHLORIDE 0.65% NA SOLN 45 ML (OCEAN) ONE (22:52)
[2020-01-24] MEDS: ALBUT/IPRATROP 3MG/0.5MG NEB 3 ML VIAL NEB SCH ×6 (01:05→19:05)
[2020-01-24] MEDS: methylPREDNISolone 60 MG in SYRINGE 0 ML IV SCH ×2 (03:18→12:42)
[2020-01-24] MEDS: CLOTRIMAZOLE 10 MG TROCHE BUCCAL SCH ×5 (05:43→22:20)
[2020-01-24] MEDS: NICOTINE 21 MG/24 HR TDSY TD SCH (07:55)
[2020-01-24] MEDS: FLUTICASONE/VILANTEROL 100/25MCG 14 PUFFS/INHALER INH SCH (07:56)
[2020-01-24] MEDS: UMECLIDINIUM BROMIDE 62.5MCG/BLISTER 7 PUFFS/INHALER INH SCH (07:56)
[2020-01-24] MEDS: THIAMINE HCL 100 MG TAB PO SCH (07:57)
[2020-01-24] MEDS: FOLIC ACID 1 MG TAB PO SCH (07:57)
[2020-01-24] MEDS: ATORVASTATIN 20 MG TAB PO SCH (07:58)
[2020-01-24] MEDS: PANTOprazole 40 MG TAB PO SCH (07:58)
[2020-01-24] MEDS: FINASTERIDE 5 MG TAB PO SCH (07:59)
[2020-01-24] MEDS: TAMSULOSIN HCL 0.4 MG CAP PO SCH (07:59)
[2020-01-24] MEDS: METOPROLOL TARTRATE 25 MG TAB PO SCH ×2 (08:00→19:59)
[2020-01-24] MEDS: ASPIRIN 81 MG ECTAB PO SCH (08:00)
[2020-01-24] MEDS: ENOXAPARIN INJ 40 MG/0.4 ML SYR SQ SCH (08:00)
[2020-01-24] MEDS: ALPRAZolam 0.5 MG TABLET PO PRN ×2 (08:24→19:58)
[2020-01-24] MEDS ORDERED: AZITHROMYCIN 500 MG in DEXTROSE 5% 250 ML IV ONE (13:30)
[2020-01-24] MEDS: cefTRIAXone SODIUM 1,000 MG in DEXTROSE 5% 50 ML IV SCH (14:49)
--- NOTE | 2020-01-24 21:27 | Hospitalist Progress Note ---
Date of Service January 24, 2020 Assessment & Plan (1) COPD exacerbation: Has been only using albuterol and Combivent inhalers at home due to insurance reasons. Is also still smoking. -Patient reports he is planning on quitting. Explained to patient that he will ultimately need a lung transplant but will only be considered once he shows that he can be abstinent from smoking and drinking. - Continue steroids, DuoNebs. - Hold abx for no pneumonia noted on CXR. - Restart home inhalers that he was not using. Given his sputum production, will place patient on antibiotics. -Will hold off pulmonary consult for now. Admission and Anticipated Discharge Date Admission Date: January 22, 2020 Subjective 64 yo male reports he does not appear to be improving from the past 2 days. He does feel he is better than when he came in but he is not back to his baseline. Patient however was not aware of the severity of his COPD. Patient reports having sputum production. Patient reports he is planning to quit smoking. Review of Systems Review of Systems: All systems reviewed & are unremarkable except as noted in HPI & below Physical Exam Physical Exam: Constitutional: WD/WN, vitals as above Eyes: EOM intact bilaterally; no conjunctival abnormality ENMT: external ear and nose normal, oropharynx normal Neck: trachea midline, no thyromegaly normal visual inspection Respiratory: normal respiratory effort, lungs clear to auscultation no respiratory distress Auscultation: + bilateral wheezes Cardiovascular: RRR, no murmur, no edema Gastrointestinal (Abdomen): Inspection/Auscultation: abdomen normal to inspection; abdomen not distended Musculoskeletal: no cyanosis or clubbing, extremities motor strength 5/5 Skin: no rashes, warm and dry Neurologic: moves all extremities and awake Psychiatric: Orientation: alert, oriented to person and cooperative Results & Data ([facility]) Vital Signs (Past 12 Hours) Vital Signs Temp Pulse Resp BP Pulse Ox 01/24/20 19:57 93 H 110/66 01/24/20 19:09 84 22 94 01/24/20 15:32 84 16 96 01/24/20 14:47 36.7 C 75 18 121/77 98 01/24/20 13:25 94 01/24/20 13:24 85 L 01/24/20 11:06 75 18 98 PG Care Time/CCT Total # of Minutes Spent Total Time Spent with Patient: Total time spent is greater than 50% in coordination of care (as documented) at patient's floor/unit and/or counseling patient: Coding Level of Care Code 46941 Subseq Hosp Care Lvl 3 Diagnoses COPD exacerbation J44.1 Time Spent (min) 35
[2020-01-25] MEDS: ALPRAZolam 0.5 MG TABLET PO PRN ×2 (05:42→20:29)
[2020-01-25] MEDS: CLOTRIMAZOLE 10 MG TROCHE BUCCAL SCH ×5 (05:42→23:37)
[2020-01-25] MEDS: ALBUT/IPRATROP 3MG/0.5MG NEB 3 ML VIAL NEB SCH ×5 (05:47→19:48)
[2020-01-25] MEDS: FLUTICASONE/VILANTEROL 100/25MCG 14 PUFFS/INHALER INH SCH (07:51)
[2020-01-25] MEDS: ASPIRIN 81 MG ECTAB PO SCH (07:52)
[2020-01-25] MEDS: TAMSULOSIN HCL 0.4 MG CAP PO SCH (07:52)
[2020-01-25] MEDS: FOLIC ACID 1 MG TAB PO SCH (07:53)
[2020-01-25] MEDS: UMECLIDINIUM BROMIDE 62.5MCG/BLISTER 7 PUFFS/INHALER INH SCH (07:54)
[2020-01-25] MEDS: ATORVASTATIN 20 MG TAB PO SCH (07:55)
[2020-01-25] MEDS: FINASTERIDE 5 MG TAB PO SCH (07:56)
[2020-01-25] MEDS: METOPROLOL TARTRATE 25 MG TAB PO SCH ×2 (07:56→20:30)
[2020-01-25] MEDS: PANTOprazole 40 MG TAB PO SCH (07:56)
[2020-01-25] MEDS: THIAMINE HCL 100 MG TAB PO SCH (07:57)
[2020-01-25] MEDS: ENOXAPARIN INJ 40 MG/0.4 ML SYR SQ SCH (08:00)
[2020-01-25] MEDS: NICOTINE 21 MG/24 HR TDSY TD SCH (08:02)
[2020-01-25] MEDS: methylPREDNISolone 60 MG in SYRINGE 0 ML IV SCH (08:06)
--- NOTE | 2020-01-25 13:15 | Pulmonary Consultation ---
Date of Consultation January 25, 2020 Assessment & Plan (1) COPD exacerbation: --COPD exacerbation Likely secondary to noncompliance of inhaler use because of insurance issues. Influenza negative Continue with inhaled bronchodilators, steroids, antibiotics. Given the QTC is 444, I would recommend azithromycin or levofloxacin for COPD exacerbation Recommend discontinuing Rocephin. At the time of examination patient was saturating 97% on 2 L nasal cannula. Goal saturation for the patient is 88 to 92%. Prior to discharge would recommend to have patient climb stairs on room air and see there is desaturation below 88% if so patient might need home O2. --Very severe COPD with emphysema diffuse Patient was prescribed Spiriva and Breo Ellipta on his pulmonary visit on 10/06/2019. He says there are issues with his insurance and is not able to afford his inhalers. Patient is gold class D, very severe COPD with FEV1 predicted at 24% as per spirometry done 10/06/2019 Patient needs full pulmonary function test to be done as an outpatient. Patient has 6-minute walk test done as an outpatient at the primary care's office where he was able to walk 600 feet without desaturation. --Active smoker Greater than [id number] smoking history Has cut down on his smoking with last cigarette was 3 days ago prior to presentation. --Right upper lobe pleural-based nodule In a high risk patient will just repeat CT chest without contrast to follow it up Last CT was in January 2019 Please note the above document was generated using voice recognition software. It may contain grammatical, syntax or spelling errors. (2) Tobacco abuse: (3) Shortness of breath: (4) COPD with emphysema: History of Present Illness Attending Physician: Sb Olsen History of Present Illness 64-year-old male with past medical history significant for severe COPD with recent exacerbation earlier this month required hospitalization, GERD, alcohol use, BPH comes with COPD exacerbation. Patient still is that he has been not feeling well since last for 5 days prior to presentation. Worsening shortness of breath especially with exertion. It was associated with cough bringing up yellowish phlegm. Did complain of runny nose prior to the episode. Denies any chest pain, no headache, no dizziness. Patient denied any fever or chills. No dysuria, no diarrhea. No nausea or vomiting. No hemoptysis. No night sweats Social history: Greater than 81-[id number] active smoker, daily alcohol use 5-6 beers per day, one whiskey a day, does occasional marijuana, EX heroin and IV drug abuser last use was greater than 14 years ago. 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 Has a parrot at home, 1 cat and 1 dog. States that he is not allergic to them. Patient has chickens, deer but they are usually outside in the farm. Allergies Allergy/AdvReac Type Severity Reaction Status Date / Time No Known Allergies Allergy Verified 01/22/20 04:10 Home Medications Home Medications Medication Instructions Recorded Confirmed Type aspirin 81 mg PO DAILY 01/19/19 01/22/20 History finasteride 5 mg tablet 5 mg PO DAILY #30 tab 07/13/19 01/22/20 History atorvastatin 20 mg tablet 20 mg PO DAILY #90 tab 09/03/19 01/22/20 Rx sildenafil 100 mg tablet 100 mg PO DAILY PRN 09/05/19 01/22/20 History folic acid 1 mg PO QAM #30 tab 09/09/19 01/22/20 Rx thiamine HCl (vitamin B1) [Vitamin 100 mg PO QAM #30 tab 09/09/19 01/22/20 Rx B-1] tamsulosin 0.4 mg capsule 0.4 mg PO DAILY 11/11/19 01/22/20 History metoprolol tartrate 25 mg tablet 25 mg PO DAILY #90 tab 11/29/19 01/22/20 Rx levocetirizine 5 mg tablet 5 mg PO DAILY PRN #30 tab 12/17/19 01/22/20 Rx tiotropium bromide 2.5 2 puffs INH DAILY #4 gm 12/30/19 01/22/20 Rx mcg/actuation mist for inhalation pantoprazole 40 mg tablet,delayed 40 mg PO DAILY #90 tab 01/05/20 01/22/20 Rx release albuterol sulfate See Rx Instructions .ROUTE 01/10/20 01/22/20 Rx .COMPLEX #450 milliliter albuterol sulfate 90 mcg/actuation 2 puff INHALATION Q6H PRN #18 gm 01/10/20 01/22/20 Rx aerosol inhaler ipratropium 20 mcg-albuterol 100 1 puffs INH Q6H PRN #4 gm 01/10/20 01/22/20 Rx mcg/actuation mist for inhalation alprazolam 0.5 mg tablet See Rx Instructions .ROUTE 01/11/20 01/22/20 Rx .COMPLEX #30 tablet Patient History Medical History Alcoholism Anxiety Asthma BPH with obstruction/lower urinary tract symptoms CAD (coronary artery disease) Dyslipidemia Elevated prostate specific antigen (PSA) Erectile dysfunction GERD without esophagitis History of heart attack Hypertension Peripheral vascular disease Stage 3 severe COPD by GOLD classification Surgical History S/P cholecystectomy S/P coronary artery stent placement RCA stent S/P hernia repair Family History Mother Diabetes Hypertension Heart disease Myocardial infarction Father , suicide Alcohol abuse Colorectal cancer Sister Myocardial infarction Uncle Colorectal cancer Denies family history of Ovarian cancer Prostate cancer Breast cancer Social History Preferred Language: Indonesian Communication Ability: Effective Graphic Engineer Required: No Beliefs That Will Affect Care: None Current Living Situation: Spouse Current Living Situation Comment: Lives with NIA garcia Feels Safe at Home: Yes Smoking Status: Current every day smoker Tobacco Type: cigarettes ; Cigarettes Per Day: approximately 1 pack ; Second Hand Exposure: Yes ; Hx Alcohol Use: Yes Alcohol type: beer and hard liquor Hx Substance Use: No Review of Systems Review of Systems: All systems reviewed & are unremarkable except as noted in HPI & below Physical Exam Physical Exam: Constitutional: No acute distress, cachectic HEENT: EOMI, PERRLA, nasal septum deviated to the right Respiratory system: Decreased air entry bilaterally, positive expiratory wheeze diffuse bilaterally, no rhonchi, no crackles CVS: S1-S2 positive, no murmurs or gallops, distant heart sounds Abdomen: Soft, nontender, nondistended, positive bowel sounds x4 Extremities: +2 pulses bilaterally radialis/ dorsalis pedis, no cyanosis, no edema, no clubbing Neuro: Awake alert oriented x3 Psych: Normal mood and affect G/U: No Oneill Skin: no rashes, warm and dry Lymphatic: no cervical or axillary lymphadenopathy Results & Data ([facility]) Vital Signs (Past 12 Hours) Vital Signs Temp Pulse Resp BP Pulse Ox 01/25/20 11:33 69 19 99 01/25/20 07:10 75 16 98 01/25/20 07:08 36.5 C 75 20 154/83 H 98 01/25/20 05:48 74 20 97 Chest x-ray 01/22/2020 personally reviewed: Supportable film good inspiratory effort, flattened diaphragm, bilateral costophrenic and cardiophrenic angles are clean, air between the heart cardiac silhouette and diaphragm. No clear infiltrate appreciated. PG Care Time/CCT Total # of Minutes Spent Total Time Spent with Patient: Total time spent is greater than 50% in coordination of care (as documented) at patient's floor/unit and/or counseling patient: C[place] [address] Initial Inpt Care Lvl 3 Patient Type Established Diagnoses COPD exacerbation J44.1 Tobacco abuse Z72.0 Shortness of breath R06.02 COPD with emphysema J43.9 Time Spent (min) 45 Comment >50% time was spent [id number] with the patient discussing diagnosis and plan of care.
[2020-01-25] MEDS: cefTRIAXone SODIUM 1,000 MG in DEXTROSE 5% 50 ML IV SCH (13:48)
--- NOTE | 2020-01-25 22:47 | Hospitalist Progress Note ---
Date of Service January 25, 2020 Assessment & Plan (1) COPD exacerbation: Patient clinically appears to be improving despite patient's complaints. He has required less oxygen. During my examination, patient was tolerating room air while I was in the room. I was in the room (25 minutes). I updated nursing staff of this. Has been only using albuterol and Combivent inhalers at home due to insurance reasons. Is also still smoking. -Patient reports he is planning on quitting. Explained to patient that he will ultimately need a lung transplant but will only be considered once he shows that he can be abstinent from smoking and drinking. - Continue steroids, DuoNebs. - Placed on antibiotics: azithromycin and ceftriaxo. - Restart home inhalers that he was not using. -consulted pulmonary appreciate input. Admission and Anticipated Discharge Date Admission Date: January 22, 2020 Subjective Patient reports no improvement from yesterday. Patient continues to feel SOB Review of Systems Review of Systems: All systems reviewed & are unremarkable except as noted in HPI & below Physical Exam Physical Exam: Constitutional: WD/WN, vitals as above Eyes: EOM intact bilaterally; no conjunctival abnormality ENMT: external ear and nose normal, oropharynx normal Neck: trachea midline, no thyromegaly normal visual inspection Respiratory: normal respiratory effort, lungs clear to auscultation no respiratory distress Auscultation: + bilateral wheezes Cardiovascular: RRR, no murmur, no edema Gastrointestinal (Abdomen): Inspection/Auscultation: abdomen normal to inspection; abdomen not distended Musculoskeletal: no cyanosis or clubbing, extremities motor strength 5/5 Skin: no rashes, warm and dry Neurologic: moves all extremities and awake Psychiatric: Orientation: alert, oriented to person and cooperative Results & Data ([facility]) Vital Signs (Past 12 Hours) Vital Signs Temp Pulse Pulse Resp BP Pulse Ox 01/25/20 20:28 76 96/61 L 01/25/20 19:49 74 15 97 01/25/20 17:48 92 01/25/20 17:46 86 L 01/25/20 15:55 73 16 98 01/25/20 15:41 37 C 75 16 120/65 93 01/25/20 13:54 95 01/25/20 11:33 69 19 99 PG Care Time/CCT Total # of Minutes Spent Total Time Spent with Patient: Total time spent is greater than 50% in coordination of care (as documented) at patient's floor/unit and/or counseling patient: Coding Level of Care Code 88789 Subseq Hosp Care Lvl 3 Diagnoses COPD exacerbation J44.1 Time Spent (min) 35
[2020-01-26] MEDS: ALBUT/IPRATROP 3MG/0.5MG NEB 3 ML VIAL NEB SCH ×4 (06:16→20:09)
[2020-01-26] MEDS: CLOTRIMAZOLE 10 MG TROCHE BUCCAL SCH ×5 (07:00→23:58)
[2020-01-26] MEDS: ATORVASTATIN 20 MG TAB PO SCH (08:27)
[2020-01-26] MEDS: FOLIC ACID 1 MG TAB PO SCH (08:27)
[2020-01-26] MEDS: FINASTERIDE 5 MG TAB PO SCH (08:27)
[2020-01-26] MEDS: TAMSULOSIN HCL 0.4 MG CAP PO SCH (08:28)
[2020-01-26] MEDS: PANTOprazole 40 MG TAB PO SCH (08:28)
[2020-01-26] MEDS: FLUTICASONE/VILANTEROL 100/25MCG 14 PUFFS/INHALER INH SCH (08:28)
[2020-01-26] MEDS: ASPIRIN 81 MG ECTAB PO SCH (08:28)
[2020-01-26] MEDS: methylPREDNISolone 60 MG in SYRINGE 0 ML IV SCH (08:28)
[2020-01-26] MEDS: THIAMINE HCL 100 MG TAB PO SCH (08:28)
[2020-01-26] MEDS: METOPROLOL TARTRATE 25 MG TAB PO SCH ×2 (08:28→21:31)
[2020-01-26] MEDS: ENOXAPARIN INJ 40 MG/0.4 ML SYR SQ SCH (08:29)
[2020-01-26] MEDS: UMECLIDINIUM BROMIDE 62.5MCG/BLISTER 7 PUFFS/INHALER INH SCH (08:29)
[2020-01-26] MEDS: NICOTINE 21 MG/24 HR TDSY TD SCH (08:30)
[2020-01-26] MEDS: ALPRAZolam 0.5 MG TABLET PO PRN ×2 (09:02→23:57)
--- NOTE | 2020-01-26 11:57 | XCELERA ---
[id number] \\[email or web address]\[id number]
[2020-01-26] MEDS ORDERED: AZITHROMYCIN 250 MG TAB PO ONE (13:50)
[2020-01-26] MEDS: cefTRIAXone SODIUM 1,000 MG in DEXTROSE 5% 50 ML IV SCH (14:27)
--- NOTE | 2020-01-26 15:31 | CT Scan Report ---
CT chest wo con CLINICAL HISTORY: followup of lung nodule COMPARISON STUDY: 01/19/2019 CT DOSE: 240.74 mGy.cm TECHNIQUE: CT of the thorax was performed from the thoracic inlet to the lung bases. Images are revi ewed in the axial, sagittal, and coronal planes. IV contrast was not administered for this examinatio n. A dose lowering technique was utilized adhering to the principles of ALARA. FINDINGS: Thyroid: Imaged portions of the thyroid gland are normal in appearance. Thoracic aorta: The thoracic aorta is normal in course and caliber, noting standard 3 vessel arch kayli mc. Heart: The heart is normal in size. There is a trace pericardial effusion. There are minor coronary a rtery calcifications. Lungs and pleural spaces: There are no pleural effusions. There is severe pulmonary emphysema. There is slight interval decrease in the size of the 5 mm pleural-based opacity within the right upper lobe . There is a new 4 mm right apical pulmonary nodule. There is a tiny filling defect within a left upp er lobe bronchus, statistically representing a mucous plug. This measures 2.5 mm. Mediastinum: There is an 8 mm (short axis measurement) pretracheal lymph node. There is no pathologic mediastinal lymphadenopathy by size criteria. Constance: There is no evidence of pathologic hilar adenopathy given the limitations of noncontrast study Axilla: There is no evidence of pathologic axillary lymphadenopathy Upper abdomen: There is a 17 mm left adrenal adenoma Skeletal structures: There are no lytic or blastic osseous lesions. IMPRESSION: 1. Severe pulmonary emphysema 2. Decreased prominence of 5 mm pleural-based opacity within the right upper lobe 3. New 4 mm right apical pulmonary nodule 4. 2.5 mm filling defect within a left upper lobe bronchus likely representing a mucous plug 5. 17 mm left adrenal adenoma 6. 12 month follow-up study should be considered based on Fleischner criteria. Please refer to below summary of Fleischner criteria recommendations for follow-up of incidental CT n odules (Apurva Magallon, Guidelines for management of small pulmonary nodules detected on CT scans: A sta tement from the Fleischner Society, Radiology 237: [phone].) SOLID NODULES Solitary nodule size: <6 mm * low risk patients: no follow-up needed * high risk patients: optional CT at 12 months Solitary nodule size: 6-8 mm * low risk patients: follow-up at 6-12 months, then consider further follow-up at 18-24 months * high risk patients: initial follow-up CT at 6-12 months and then at 18-24 months if no change Solitary nodule size: >8 mm * either low or high risk patients - consider follow-up CT at 3 months, and/or CT-PET, and/or biopsy Multiple nodules size: <6 mm * low risk patients: no routine follow-up * high risk patients: optional CT at 12 months Multiple nodules size: 6-8 mm * low risk patients: follow-up at 3-6 months, then consider further follow-up at 18-24 months * high risk patients: follow-up at 3-6 months, then at 18-24 months if no change Multiple nodules size: >8 mm * low risk patients: follow-up at 3-6 months, then consider further follow-up at 18-24 months * high risk patients: follow-up at 3-6 months, then at 18-24 months if no change Note: newly detected indeterminate nodule in persons 35 years of age or older. * low risk patients: minimal or absent history of smoking and/or other known risk factors * high risk patients: history of smoking or of other known risk factors (e.g. first degree relative with lung cancer, or exposure to asbestos, radon, uranium) * if a nodule up to 8 mm is partly solid or is ground glass further follow-up is required after 24 m onths to exclude possible slow growing adenocarcinoma (JAMILA) SUBSOLID NODULES Solitary pure ground-glass nodule * nodule size <6 mm - no CT follow-up required * nodule size >=6 mm - follow-up CT at 6-12 months, then every 2 years until 5 years Solitary part-solid nodule * nodule size <6 mm - no CT follow-up required * nodule size >=6 mm - follow-up CT at 3-6 months. If unchanged, and solid component remains <6 mm, then annual follow-up for 5 years Multiple subsolid nodules * nodule size <6 mm - follow-up CT at 3-6 months, consider further follow-up at 2 and 4 years if sta ble * nodule size >=6 mm - follow-up CT at 3-6 months, subsequent management based on the most suspiciou s nodule(s) ACT 112: Negative or not required by law. Electronically signed by: Pj Potter M.D. 01/26/2020 3:30 PM
--- NOTE | 2020-01-26 21:57 | Hospitalist Progress Note ---
Date of Service January 26, 2020 Assessment & Plan (1) COPD exacerbation: Patient clinically appears to be improving despite patient's complaints. He has required less oxygen. During my examination, patient was tolerating room air while I was in the room. I was in the room (25 minutes). I updated nursing staff of this. Has been only using albuterol and Combivent inhalers at home due to insurance reasons. Is also still smoking. -Patient reports he is planning on quitting. Explained to patient that he will ultimately need a lung transplant but will only be considered once he shows that he can be abstinent from smoking and drinking. - Continue steroids, DuoNebs. - Placed on antibiotics: azithromycin and ceftriaxone. - Restart home inhalers that he was not using. -consulted pulmonary appreciate input. Obtained 2 step as patient is nearing baseline. Patient will likely require 2 liters nasal cannula on exertion. May require this at rest. (2) Dyslipidemia: stable continue on statin. (3) CAD (coronary artery disease): Patient will continue on ASA, statin and beta celestine. Stable (4) Hypertension: BP appears at goal. will continue metoprolol (5) Anxiety: Patient requires alprazolam PRN. In the past patient has been on lexapro. Will defer further management to PCP. (6) DVT prophylaxis: On lovenox. Admission and Anticipated Discharge Date Admission Date: January 22, 2020 Subjective Patient reports mild improvement. He states he feels SOB at rest when he is not on oxygen. Review of Systems Review of Systems: All systems reviewed & are unremarkable except as noted in HPI & below Physical Exam Physical Exam: Constitutional: WD/WN, vitals as above Eyes: EOM intact bilaterally; no conjunctival abnormality ENMT: external ear and nose normal, oropharynx normal Neck: trachea midline, no thyromegaly normal visual inspection Respiratory: normal respiratory effort, lungs clear to auscultation no respiratory distress Auscultation: + bilateral wheezes Cardiovascular: RRR, no murmur, no edema Gastrointestinal (Abdomen): Inspection/Auscultation: abdomen normal to inspection; abdomen not distended Musculoskeletal: no cyanosis or clubbing, extremities motor strength 5/5 Skin: no rashes, warm and dry Neurologic: moves all extremities and awake Psychiatric: Orientation: alert, oriented to person and cooperative Results & Data ([facility]) Vital Signs (Past 12 Hours) Vital Signs Temp Pulse Pulse Pulse Pulse Pulse Resp 01/26/20 21:29 98 H 01/26/20 20:09 81 18 01/26/20 17:00 97 H 18 01/26/20 16:44 87 93 H 90 91 H 01/26/20 15:30 36.4 C L 81 16 01/26/20 12:13 77 16 Resp Resp Resp Resp BP Pulse Ox Pulse Ox 01/26/20 21:29 107/68 01/26/20 20:09 93 01/26/20 17:00 96 01/26/20 16:44 20 20 18 18 96 01/26/20 15:30 99/66 L 94 01/26/20 12:13 96 Pulse Ox Pulse Ox Pulse Ox 01/26/20 21:29 01/26/20 20:09 01/26/20 17:00 01/26/20 16:44 94 96 86 L 01/26/20 15:30 01/26/20 12:13 PG Care Time/CCT Total # of Minutes Spent Total Time Spent with Patient: Total time spent is greater than 50% in coordination of care (as documented) at patient's floor/unit and/or counseling patient: Coding Level of Care Code 31159 Subseq Hosp Care Lvl 3 Diagnoses COPD exacerbation J44.1 Dyslipidemia E78.5 CAD (coronary artery disease) I25.10 Coronary Disease-Associated Artery/Lesion type: [place] artery [place] vs. transplanted heart: [place] heart Associated angina: without angina Hypertension I10 Hypertension type: essential hypertension Anxiety F41.9 DVT prophylaxis Z29.9 Time Spent (min) 35 (1) CAD (coronary artery disease) Coronary Disease-Associated Artery/Lesion type: [place] artery [place] vs. transplanted heart: [place] heart Associated angina: without angina Qualified Code(s): I25.10 - Atherosclerotic heart disease of [place] coronary artery without angina pectoris (2) Hypertension Hypertension type: essential hypertension Qualified Code(s): I10 - Essential (primary) hypertension
[2020-01-27] MEDS: ALBUT/IPRATROP 3MG/0.5MG NEB 3 ML VIAL NEB SCH ×4 (00:15→15:47)
[2020-01-27] MEDS: CLOTRIMAZOLE 10 MG TROCHE BUCCAL SCH ×3 (06:02→16:06)
[2020-01-27] MEDS: UMECLIDINIUM BROMIDE 62.5MCG/BLISTER 7 PUFFS/INHALER INH SCH (08:31)
[2020-01-27] MEDS: FLUTICASONE/VILANTEROL 100/25MCG 14 PUFFS/INHALER INH SCH (08:31)
[2020-01-27] MEDS: PANTOprazole 40 MG TAB PO SCH (08:32)
[2020-01-27] MEDS: FOLIC ACID 1 MG TAB PO SCH (08:32)
[2020-01-27] MEDS: THIAMINE HCL 100 MG TAB PO SCH (08:32)
[2020-01-27] MEDS: TAMSULOSIN HCL 0.4 MG CAP PO SCH (08:32)
[2020-01-27] MEDS: methylPREDNISolone 60 MG in SYRINGE 0 ML IV SCH (08:32)
[2020-01-27] MEDS: ATORVASTATIN 20 MG TAB PO SCH (08:32)
[2020-01-27] MEDS: ASPIRIN 81 MG ECTAB PO SCH (08:32)
[2020-01-27] MEDS: METOPROLOL TARTRATE 25 MG TAB PO SCH (08:32)
[2020-01-27] MEDS: FINASTERIDE 5 MG TAB PO SCH (08:32)
[2020-01-27] MEDS: NICOTINE 21 MG/24 HR TDSY TD SCH (08:32)
[2020-01-27] MEDS: ENOXAPARIN INJ 40 MG/0.4 ML SYR SQ SCH (08:33)
--- NOTE | 2020-01-28 17:50 | Discharge Summary ---
Date of Service January 27, 2020 Admission HPI Per Admitting Provider Pt is a 64yo with a PMHx of severe COPD on ?2L O2 at baseline, CAD with IA and stent placement, HTN, HLD, GERD, Anxiety, chronic tobacco use and alcohol abuse who was admitted with COPD exacerbation after presenting with difficulty breathing over the last 4 days. States he felt like he was developing a "cold" from Friday with runny nose and cough, denies sore throat. Thought it might be the flu. Sick contacts possibly at work. 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 PMHx: Severe COPD, HTN, HLD, GERD, BPH, Erectile dysfunction, Hx of IA with stent placement. Allergies: NKDA SH: Lives with significant other. Smokes 2ppd since age 13 with 5 month abstinence, drinks whiskey and beer most days of the week. No current recreational drug use but states he has "tried everything under the sun from heroin to cocaine". ED Course: Duonebs, methylprednisone IV 60mg Principal Diagnosis COPD exacerbation Discharge Exam Constitutional: WD/WN, vitals as above Eyes: EOM intact bilaterally; no conjunctival abnormality ENMT: external ear and nose normal, oropharynx normal Neck: trachea midline, no thyromegaly normal visual inspection Respiratory: normal respiratory effort, lungs clear to auscultation no respiratory distress Auscultation: improved airways movement, no wheezing Cardiovascular: RRR, no murmur, no edema Gastrointestinal (Abdomen): Inspection/Auscultation: abdomen normal to inspection; abdomen not distended Musculoskeletal: no cyanosis or clubbing, extremities motor strength 5/5 Skin: no rashes, warm and dry Neurologic: moves all extremities and awake Psychiatric: Orientation: alert, oriented to person and cooperative Discharge Data Allergies Allergy/AdvReac Type Severity Reaction Status Date / Time No Known Allergies Allergy Verified 01/22/20 04:10 Consultations 01/25/20 13:44 Consult Pulmonology Routine 01/27/20 15:36 Consult Lung Nodule Program Routine Ordered Studies 01/26/20 15:00 CT chest wo con Routine Hospital Course (1) COPD exacerbation: Patient clinically appears to be improving despite patient's complaints. He has required less oxygen. During my examination, patient was tolerating room air while I was in the room. I was in the room (25 minutes). I updated nursing staff of this. Has been only using albuterol and Combivent inhalers at home due to insurance reasons. Is also still smoking. -Patient reports he is planning on quitting. Explained to patient that he will ultimately need a lung transplant but will only be considered once he shows that he can be abstinent from smoking and drinking. - Continue steroids, DuoNebs. - Placed on antibiotics: azithromycin and ceftriaxone. - Restart home inhalers that he was not using. -consulted pulmonary appreciate input. Obtained 2 step as patient is nearing baseline. Patient will require 2 liters at rest and 3 on exertion. Patient will be placed on breo inhaler. Patient will also be on prednisone and azithromycin. (2) Dyslipidemia: stable continue on statin. (3) CAD (coronary artery disease): Patient will continue on ASA, statin and beta celestine. Stable (4) Hypertension: BP appears at goal. will continue metoprolol (5) Anxiety: Patient requires alprazolam PRN. In the past patient has been on lexapro. Will defer further management to PCP. (6) DVT prophylaxis: On lovenox. (7) Lung nodule < 6cm on CT: defer to PCP (8) Adrenal adenoma: defer to PCP Total Time Total Time Spent Total Time Spent (In Minutes): 32 Total Time Includes: Examination of the Patient, Discharge Planning and Medication Reconciliation Discharge Plan Discharge Items Patient Disposition: Home - Self-Care Reason For Visit: COPD EXACERBATION Discharge Diagnosis: COPD exacerbation Condition on Discharge: Good Activity: Resume your previous activity Non-emergency contact: Primary Care Provider Call non-emergency contact if: you have any medication questions Follow-up/Referrals: Rachael Duckworth DO [Primary Care Provider] - 02/02/20 9:20 am (Please call either [phone] or [phone] if you need to reschedule this appointment) Erasmo Pan MD [Physician] - 02/04/20 1:00 pm (Please, follow up at [facility] Pulmonology Office with Dr. Pan on FridayFebruary 03 at 1:00 pm. *The office is located in [address] of [facility], next to this [facility]. If you need to change this appointment, call the office at [phone].) Diet: Heart Healthy Addtl Attending Provider Instructions: You have been hospitalized for an acute medical problem. During your stay at [facility], we have made an effort to correct the problem that brought you to the hospital while keeping you as comfortable as possible. Medications were used to bring your condition under control and your discharge instructions will include directions for any medications you should take after leaving the hospital. Please make sure you see your Primary Care Provider as part of your follow up plan. Pending Studies at Discharge: No Stand-Alone Forms: My [facility], Smoking Cessation Medications and DC Order Prescriptions: New nicotine [Nicoderm CQ] 21 mg/24 hr Patch 24 Hour 21 mg transdermal QAM Qty: 30 RF: 0 metoprolol succinate [Toprol XL] 50 mg tablet extended release 24 hr 50 mg PO DAILY Qty: 30 RF: 0 Breo Ellipta 100-25 mcg/dose Blister With Device 1 puff inhalation DAILY Qty: 1 RF: 0 azithromycin 250 mg tablet 250 mg PO QPM Qty: 4 RF: 0 prednisone 10 mg tablet 10 mg PO UD Qty: 20 RF: 0 nystatin 100,000 unit/mL suspension 5 ml PO QID 10 Days Qty: 200 RF: 0 Continued levocetirizine 5 mg tablet 5 mg PO DAILY PRN (Reason: allergy symptoms) Qty: 30 RF: 2 Spiriva Respimat 2.5 mcg/actuation mist 2 puffs INH DAILY Qty: 4 RF: 2 pantoprazole [Protonix] 40 mg tablet,delayed release (DR/EC) 40 mg PO DAILY Qty: 90 RF: 1 Combivent Respimat 20-100 mcg/actuation mist 1 puffs INH Q6H PRN (Reason: shortness of breath) Qty: 4 RF: 2 albuterol sulfate 2.5 mg /3 mL (0.083 %) solution for nebulization See Rx Instructions .ROUTE .COMPLEX Qty: 450 RF: 5 albuterol sulfate 90 mcg/actuation HFA aerosol inhaler 2 puff Inhalation Q6H PRN (Reason: Shortness Of Breath Or Wheezing) Qty: 18 RF: 1 alprazolam 0.5 mg tablet See Rx Instructions .ROUTE .COMPLEX Qty: 30 RF: 0 atorvastatin 20 mg tablet 20 mg PO DAILY Qty: 90 RF: 3 finasteride 5 mg tablet 5 mg PO DAILY Qty: 30 RF: 0 tamsulosin 0.4 mg capsule 0.4 mg PO DAILY RF: 0 sildenafil 100 mg tablet 100 mg PO DAILY PRN (Reason: Sexual Activity) RF: 0 aspirin 81 mg Tablet,Delayed Release (Dr/Ec) 81 mg PO DAILY RF: 0 thiamine HCl (vitamin B1) [Vitamin B-1] 100 mg Tablet 100 mg PO QAM Qty: 30 RF: 0 folic acid 1 mg Tablet 1 mg PO QAM Qty: 30 RF: 0 Discontinued metoprolol tartrate 25 mg tablet 25 mg PO DAILY Qty: 90 RF: 1 Discharge Orders: Discharge Order (Routine); Ordered 01/27/20 Ordered By: Sb Olsen Admission Data Admit Date/Time: 01/22/20 05:11 Attending Provider: Sb Olsen Admit Provider: Michelle Solares Primary Care Provider: Rachael Duckworth Other Providers: Charito Valentin Other Interventions: Discharge Summary Assessment (RN) Last Done: 01/27/20 16:53 DC Date/Time DO NOT enter until pt leaves facility: 01/27/20 18:45 Coding Level of Care Code D/C Day Management >30 mins Diagnoses COPD exacerbation J44.1 Dyslipidemia E78.5 CAD (coronary artery disease) I25.10 Associated angina: without angina Coronary Disease-Associated Artery/Lesion type: [place] artery [place] vs. transplanted heart: [place] heart Hypertension I10 Hypertension type: essential hypertension Anxiety F41.9 DVT prophylaxis Z29.9 Lung nodule < 6cm on CT R91.1 Adrenal adenoma D35.00
== END 2020-01-27 18:45 | disposition home or self-care (01) ==
LOC: ED 03:01 → INTOOBSV 05:11 → 2N 05:11 → SUATTDRO 05:11 → 2N 05:37 → 3N 01-24 22:36

== ENCOUNTER 2025-01-08 10:06 | Inpatient (IN) ==
--- NOTE | 2025-01-08 10:34 | Emergency Department Note ---
Impression & Plan Acute exacerbation of chronic obstructive airways disease, Influenza A, COPD exacerbation, Acute respiratory failure with hypoxia and hypercapnia ED Provider Note NAME: ANITA GARCIA AGE: 69 SEX: M : 1955 ARRIVES VIA: Ambulance INFORMANT: Patient, ED PROVIDER(S): Luisa Ornelas MD CHIEF COMPLAINT: Shortness of breath, respiratory stress HPI: This is a 69-year-old male present for respiratory distress. Patient states that he has been short of breath about 3 weeks. He has had no significant chest pain with this. Has been using his nebulizers as well as Ativan. He notes he feels very anxious. He was wearing 6 L at home. He has been "getting sick "more often. He notes history of COPD. He does continue to smoke, last about was about 7 days ago. Patient refused CPAP and nebulizers via ambulance. Currently patient is wishing for full code. He notes no nausea vomiting or diarrhea recently. No fevers or chills. ROS: See above HPI for pertinent positives & negatives. A total of 10 systems reviewed and were otherwise negative. PAST MEDICAL HISTORY: See Below PAST SURGICAL HISTORY: See Below FAMILY HISTORY: See Below SOCIAL HISTORY: See Below HOME MEDICATIONS: See Below ALLERGIES: See Below VITALS: See Below PHYSICAL EXAMINATION: General: Moderate respiratory distress, thin, cachectic, chronically ill- appearing Head: Normocephalic and atraumatic Eyes: Normal inspection, extraocular muscles intact Ear, nose, throat: Normal external exam Neck: Normal range of motion Respiratory: Diminished lung sounds in all lung tobar, poor airflow Cardiovascular: Regular rate/rhythm, no murmur GI: soft, nontender, no guarding or rebound Extremities: nontender, moves all extremities Neuro: The patient awake and alert, appropriately conversive, no focal deficits, symmetric faces Skin: Warm, dry, and intact MEDICAL DECISION MAKING: This is a 69-year-old male with history of COPD presented for respiratory distress. Patient does appear to be in acute extremis here. He has been breathing over 30 times a minute, using quality control assessor respiratory muscles. He appears to be in a COPD exacerbation. Will give steroids, albuterol and BiPAP. Get VBG, lactic acid, chest x-ray, basic blood work. Patient given hour-long DuoNeb here -Chest Xray independently interpreted by me showing hyperexpanded lungs, no pneumothorax, focal opacity, or pleural effusions. -Patient bloodwork shows leukocytosis of 16.81. In addition his VBG is 7.25/76. -Electrolytes generally stable with slight anion gap. Troponin 42.2. Likely demand ischemia from hypoxia/work of breathing. -Patient is positive for influenza A which likely explains current worsening status while having COPD. -Patient does appear significantly improved on BiPAP and albuterol. Repeat VBG is improving, 7.31/65. -Care discussed with Dr. Avila for admission at this time Differential diagnosis: COPD exacerbation, PE, ACS, pneumonia, upper respiratory infection Independent History obtained from: EMS Diagnostics interpreted by me: ECG: ECG independently interpreted by me with sinus tachycardia rate of 113 normal OR, normal QRS, normal QTc, no ST segment elevations consistent with STEMI criteria Cardiac Monitoring: An order was placed for continuous cardiac monitoring. The monitor shows a rate of 105 with sinus tachycardia rhythm. Critical Care Note: I have personally spent 35 minutes of critical care time in the direct management of this patient. This includes bedside care, interpretation of diagnostic studies, and testing, discussion with consultants, patient, and family members, and other required patient management activities. This 35 minutes is in excess of all separately billable procedures. Past Med/Surg History Problem List (Updated 01/08/25 @ 20:00 by Luisa Ornelas MD) Acute exacerbation of chronic obstructive airways disease (Acute) Influenza A (Acute) Elevated troponin COPD exacerbation (Acute) Acute respiratory failure with hypoxia and hypercapnia (Acute) Palliative care by specialist Advanced care planning/counseling discussion Severe muscle deconditioning Weakness generalized Dyspnea and respiratory abnormalities COPD, group E, by GOLD 202 classification (Acute) very sev COPD, active 80PY smoker, daily etoh abuse, med mgt maximized, not interested in tobacco cessation Prediabetes Elevated prostate specific antigen (PSA) Lung nodule < 6cm on CT S/P coronary artery stent placement Chronic respiratory failure with hypoxia Multiple pulmonary nodules Peyronie's disease Renal mass monitoring every 6 mos w/ Dr Moscoso Tobacco abuse COPD with emphysema Adrenal adenoma (01/2020) 17mm L adrenal adenoma Dyslipidemia CAD (coronary artery disease) History of heart attack 2008- follows w/ [facility], stress test 01/2023 Stage 3 severe COPD by GOLD classification Peripheral vascular disease Hypertension GERD without esophagitis Erectile dysfunction BPH with obstruction/lower urinary tract symptoms Asthma Anxiety Alcoholism Medical History Interscapular pain SOBOE (shortness of breath on exertion) On home O2 Surgical History Hx of colonoscopy Status post biopsy of kidney S/P cholecystectomy S/P coronary artery stent placement S/P hernia repair Family History Mother Diabetes Hypertension Heart disease Myocardial infarction Father , suicide Alcohol abuse Colorectal cancer Sister Myocardial infarction Uncle Colorectal cancer Denies family history of Ovarian cancer Prostate cancer Breast cancer Social History Smoking Status: Current every day smoker Tobacco Type: Cigarettes Age Started Using Tobacco: 17; packs per day: 1; Cigarettes Per Day: 1 pack per day; Second Hand Exposure: Yes; Do You Dip or Chew Tobacco: No; Hx Alcohol Use: Yes Alcohol type: beer and hard liquor Alcohol Intake Frequency: 4 or More x per/Week Alcohol Intake Frequency Comment: daily- 2 beers at night and some mixed drinks Hx Substance Use: Yes Prescribed Medications: Marijuana Last Used Substance Other:: Years ago Preferred Language: Maltese Communication Ability: BiPAP Communication Tools: Electrolarynx Visual Impairment: No Limitations Hearing Ability: Normal News Specialist Required: No Beliefs That Will Affect Care: None marital status: Single Current Living Situation: Family Current Living Situation Comment: Lives with NIA garcia current occupational status: retired How many Children do You have: 2 Feels Safe at Home: Yes Childhood Exposure to Second-Hand Smoke: Yes (1 cup of coffee in the am ) Diet: regular caffeine: Yes during the past year weight has: remained stable Dental Care, Regularly: No Physical Activity Frequency: 1-2 Times per Week Physical Activity Frequency Comment: housework Seatbelt Use: never Sunscreen Use: No Assistive Devices: Cane, Denture - Upper, Denture - Lower, Glasses and Oxygen - at Night Allergies Allergies Allergy/AdvReac Type Severity Reaction Status Date / Time No Known Allergies Allergy Verified 10/18/24 14:31 Home Meds Home Medications Medication Instructions Recorded Confirmed aspirin 81 mg tablet,delayed 81 mg PO QAM 01/19/19 01/08/25 release cholecalciferol (vitamin D3) 50 50 mcg PO DAILY 04/22/22 01/08/25 mcg (2,000 unit) capsule ascorbate calcium (vitamin C) 500 1 g PO DAILY 05/12/23 01/08/25 mg tablet azithromycin 250 mg tablet 250 mg PO [id number] 01/08/25 01/08/25 pantoprazole 40 mg tablet,delayed 40 mg PO DAILY 01/08/25 01/08/25 release prednisone 20 mg tablet 20 mg PO UD 01/08/25 01/08/25 Previous Rx's Medication Instructions Recorded Portable Oxygen #1 ea 07/02/21 nebulizers (AerTapHomeb Go Nebulizer) #1 ea 12/06/21 nebulizers #1 ea 05/10/24 Advair HFA 230 mcg-21 2 inh inhalation BID #12 grams 08/16/24 mcg/actuation aerosol inhaler (fluticasone propion-salmeterol) albuterol sulfate 90 mcg/actuation 2 puff inhalation Q6H PRN 08/16/24 aerosol inhaler Shortness Of Breath Or Wheezing #3 Inhalers roflumilast 500 mcg tablet 500 mcg PO DAILY #90 tabs 08/16/24 (Daliresp) tiotropium bromide 2.5 2 puff inhalation DAILY #4 grams 08/16/24 mcg/actuation mist for inhalation (Spiriva Respimat) nicotine 21 mg/24 hr daily 1 patch transdermal DAILY #28 ea 10/18/24 transdermal patch levocetirizine 5 mg tablet 5 mg PO DAILY PRN allergy symptoms 10/20/24 #90 tabs atorvastatin 20 mg tablet 20 mg PO DAILY #90 tabs 10/27/24 tamsulosin 0.4 mg capsule 0.4 mg PO DAILY #90 caps 11/25/24 famotidine 20 mg tablet 20 mg PO HS #90 tabs 11/26/24 metoprolol succinate 50 mg 50 mg PO DAILY #90 tabs 11/26/24 tablet,extended release 24 hr (Toprol XL) ipratropium 0.5 mg-albuterol 3 mg 3 ml inhalation Q6H PRN shortness 11/29/24 (2.5 mg base)/3 mL nebulization of breath or wheezing #540 mL soln rivaroxaban 2.5 mg tablet (Xarelto) 2.5 mg PO BID #60 tabs 01/04/25 alprazolam 0.5 mg tablet 0.5 mg PO TID PRN anxiety #60 tabs 01/06/25 Results & Data (ED) Vital Signs Vital Signs - 24 hr 01/08/25 10:19 01/08/25 10:19 01/08/25 10:19 Temperature 36.5 C Temperature Source Axillary Pulse Rate 114 H Pulse Rate [Apical] Pulse Rate from SpO2 Sensor Respiratory Rate 30 H Respiratory Effort / Characteristics Short of Breath Respiratory Pattern Tachypnea Blood Pressure 180/105 H Blood Pressure [Right Arm] Blood Pressure Mean 130 Blood Pressure Mean [Right Arm] Blood Pressure Position Sitting Pulse Oximetry 97 96 Oxygen Delivery Method Nasal Cannula Nasal Cannula Nasal Cannula Oxygen Flow Rate 10 10 10 Fraction of Inspired Oxygen Sepsis Recent Fever Within 48 Hours No Sepsis New/Unexplained Change in Mental Status No Sepsis Action Taken by Nursing No Action Required 01/08/25 10:27 01/08/25 10:33 01/08/25 10:39 Temperature Temperature Source Pulse Rate 114 H 113 H Pulse Rate [Apical] 115 H Pulse Rate from SpO2 Sensor Respiratory Rate 25 H 27 H Respiratory Effort / Characteristics Spontaneous Labored Retracting Short of Breath Spontaneous Labored Respiratory Pattern Tachypnea Blood Pressure Blood Pressure [Right Arm] Blood Pressure Mean Blood Pressure Mean [Right Arm] Blood Pressure Position Pulse Oximetry 97 97 Oxygen Delivery Method BiPAP Oxygen Flow Rate Fraction of Inspired Oxygen 40 40 Sepsis Recent Fever Within 48 Hours Sepsis New/Unexplained Change in Mental Status Sepsis Action Taken by Nursing 01/08/25 10:51 01/08/25 11:00 01/08/25 11:03 Temperature Temperature Source Pulse Rate 122 H Pulse Rate [Apical] 115 H Pulse Rate from SpO2 Sensor 122 H Respiratory Rate 28 H Respiratory Effort / Characteristics Labored Respiratory Pattern Blood Pressure 160/109 H Blood Pressure [Right Arm] 151/94 H Blood Pressure Mean 144 Blood Pressure Mean [Right Arm] 113 Blood Pressure Position Pulse Oximetry 98 98 Oxygen Delivery Method BiPAP BiPAP Oxygen Flow Rate Fraction of Inspired Oxygen 40 Sepsis Recent Fever Within 48 Hours Sepsis New/Unexplained Change in Mental Status Sepsis Action Taken by Nursing 01/08/25 11:27 01/08/25 11:30 01/08/25 12:00 Temperature Temperature Source Pulse Rate 126 H 126 H Pulse Rate [Apical] Pulse Rate from SpO2 Sensor 126 H 129 H Respiratory Rate 28 H 28 H Respiratory Effort / Characteristics Respiratory Pattern Blood Pressure 141/104 H 139/88 Blood Pressure [Right Arm] Blood Pressure Mean 119 105 Blood Pressure Mean [Right Arm] Blood Pressure Position Pulse Oximetry 99 98 Oxygen Delivery Method BiPAP BiPAP Oxygen Flow Rate Fraction of Inspired Oxygen 40 40 Sepsis Recent Fever Within 48 Hours Sepsis New/Unexplained Change in Mental Status Sepsis Action Taken by Nursing Laboratory Data 01/08/25 10:20 01/08/25 10:20 Lab Results 01/08/25 01/08/25 01/08/25 Range/Units 10:20 10:24 11:08 WBC 16.81 H (4.8-10.8) K/ul RBC 4.18 L (4.70-6.10) M/uL Hgb 12.9 L (14.0-18.0) g/dl POC Hgb 13.3 L (14.0-18.0) g/dl Hct 38.8 L (42.0-52.0) % POC Hct 39 L (42-52) % MCV 92.8 (80.0-100.0) fL MCH 30.9 (25.0-34.0) pg MCHC 33.2 (32.0-36.0) g/dL RDW Std Deviation 43.9 (36.4-46.3) fL RDW Coeff of Vira 13.0 (11.5-14.5) % Plt Count 319 (130-400) K/uL MPV 9.4 (9.4-12.4) fL Immature Gran % (Auto) 0.5 % Neut % (Auto) 85.3 % Lymph % (Auto) 5.2 % [facility] % (Auto) 8.9 % Eos % (Auto) 0.0 % Baso % (Auto) 0.1 % Neut # (Auto) 14.35 H (1.40-6.50) K/uL Lymph # (Auto) 0.87 L (1.20-3.40) K/uL [facility] # (Auto) 1.50 H (0.11-0.59) K/uL Eos # (Auto) 0.00 (0.00-0.50) K/uL Baso # (Auto) 0.01 (0.00-0.20) K/uL Immature Gran # (Auto) 0.08 (0.01-0.20) K/uL VBG pH 7.26 L (7.36-7.41) VBG pCO2 76 H (38-50) mmHg VBG pO2 76 mmHg VBG HCO3 34 mmol/L VBG O2 Saturation 94.3 % VBG Base Excess 4.5 mEq/L POC Sodium 133 L (135-144) mmol/L Sodium 134 L (136-145) mmol/L POC Potassium 4.5 (3.3-5.0) mmol/L Potassium 4.5 (3.5-5.1) mmol/L POC Chloride 93 L (101-112) mmol/L Chloride 93 L (98-107) mmol/L Carbon Dioxide 34 H (21-32) mmol/L POC Total CO2 32 H (24-31) mmol/L Anion Gap 7 (3-11) POC Anion Gap 14.0 L (16-25) mmol/L POC BUN 13 (7-18) mg/dl BUN 13 (6-23) mg/dl Creatinine 0.70 (0.6-1.4) mg/dl POC Creatinine 0.8 (0.6-1.3) mg/dl Est Cr Clr Drug Dosing 89.4 ml/min eGFR 100.37 BUN/Creatinine Ratio 18.6 (10-20) Glucose 130 H (70-99(Fasting)) mg/dl POC Glucose (other) 133 H (70-99) mg/dl Lactate 0.8 (0.4-2.0) mmol/L Calcium 9.1 (8.6-10.3) mg/dl POC Ioniz Calcium Sinan 1.16 (1.12-1.32) mmol/l Magnesium (1.7-2.4) mg/dl Total Bilirubin 0.3 (0.2-1.0) mg/dl Direct Bilirubin 0.1 (0-0.2) mg/dl AST 23 (13-39) U/L ALT 18 (7-52) U/L Alkaline Phosphatase 72 (34-104) U/L Troponin I High Sens 42.2 H (0-20) pg/ml B-Natriuretic Peptide 42 (0-100) pg/ml Total Protein 7.2 (6.0-8.3) gm/dl Albumin 4.4 (3.4-5.0) gm/dl Procalcitonin < 0.02 (0-0.5) ng/ml 01/08/25 01/08/25 Range/Units 11:56 12:03 WBC (4.8-10.8) K/ul RBC (4.70-6.10) M/uL Hgb (14.0-18.0) g/dl POC Hgb (14.0-18.0) g/dl Hct (42.0-52.0) % POC Hct (42-52) % MCV (80.0-100.0) fL MCH (25.0-34.0) pg MCHC (32.0-36.0) g/dL RDW Std Deviation (36.4-46.3) fL RDW Coeff of Vira (11.5-14.5) % Plt Count (130-400) K/uL MPV (9.4-12.4) fL Immature Gran % (Auto) % Neut % (Auto) % Lymph % (Auto) % [facility] % (Auto) % Eos % (Auto) % Baso % (Auto) % Neut # (Auto) (1.40-6.50) K/uL Lymph # (Auto) (1.20-3.40) K/uL [facility] # (Auto) (0.11-0.59) K/uL Eos # (Auto) (0.00-0.50) K/uL Baso # (Auto) (0.00-0.20) K/uL Immature Gran # (Auto) (0.01-0.20) K/uL VBG pH 7.31 L (7.36-7.41) VBG pCO2 65 H (38-50) mmHg VBG pO2 90 mmHg VBG HCO3 33 mmol/L VBG O2 Saturation 97.3 % VBG Base Excess 4.4 mEq/L POC Sodium (135-144) mmol/L Sodium (136-145) mmol/L POC Potassium (3.3-5.0) mmol/L Potassium (3.5-5.1) mmol/L POC Chloride (101-112) mmol/L Chloride (98-107) mmol/L Carbon Dioxide (21-32) mmol/L POC Total CO2 (24-31) mmol/L Anion Gap (3-11) POC Anion Gap (16-25) mmol/L POC BUN (7-18) mg/dl BUN (6-23) mg/dl Creatinine (0.6-1.4) mg/dl POC Creatinine (0.6-1.3) mg/dl Est Cr Clr Drug Dosing ml/min eGFR BUN/Creatinine Ratio (10-20) Glucose (70-99(Fasting)) mg/dl POC Glucose (other) (70-99) mg/dl Lactate (0.4-2.0) mmol/L Calcium (8.6-10.3) mg/dl POC Ioniz Calcium Sinan (1.12-1.32) mmol/l Magnesium 2.1 (1.7-2.4) mg/dl Total Bilirubin (0.2-1.0) mg/dl Direct Bilirubin (0-0.2) mg/dl AST (13-39) U/L ALT (7-52) U/L Alkaline Phosphatase (34-104) U/L Troponin I High Sens 473.7 H* D (0-20) pg/ml B-Natriuretic Peptide (0-100) pg/ml Total Protein (6.0-8.3) gm/dl Albumin (3.4-5.0) gm/dl Procalcitonin (0-0.5) ng/ml Administered Medications Methylprednisolone 40 mg/ (Syringe) 0.64 mls @ 1.5 mls/min IV Q6H [facility] Stop: 02/07/25 14:59 Last Admin: 01/08/25 15:34 Dose: 1.5 mls/min Documented By: OO Lorazepam (Lorazepam 2 Mg/1 Ml Vial) 1 mg IV UD PRN; Protocol PRN Reason: EtOH Withdrawal AWSS Score 6,7 Stop: 02/07/25 14:53 Last Admin: 01/08/25 15:30 Dose: 1 mg Documented By: OO Lorazepam (Lorazepam 2 Mg/1 Ml Vial) 2 mg IV UD PRN; Protocol PRN Reason: EtOH Withdrawal AWSS Score 8,9 Stop: 02/07/25 14:53 Last Admin: 01/08/25 17:31 Dose: 2 mg Documented By: OO Discontinued Medications Albuterol (Albut/Ipratrop 3mg/0.5mg Neb 3 Ml Vial) 12 ml NEB ONE ONE; Protocol Stop: 01/08/25 10:24 Last Admin: 01/08/25 10:42 Dose: 12 ml Documented By: COLT Albuterol (Albut/Ipratrop 3mg/0.5mg Neb 3 Ml Vial) 3 ml NEB Q4R [facility]; Protocol Stop: 02/07/25 14:59 Last Admin: 01/08/25 15:40 Dose: Not Given Documented By: CRG Furosemide (Furosemide Inj 20 Mg/2 Ml Vial) 20 mg IV ONE ONE Stop: 01/08/25 13:43 Last Admin: 01/08/25 15:06 Dose: 20 mg Documented By: OO Doxycycline Hyclate 100 mg/ (Dextrose) 100 mls @ 50 mls/hr IV NOW STA Stop: 01/08/25 15:10 Last Infusion: 01/08/25 17:20 Dose: Infused Documented By: Admin: 01/08/25 14:59 Dose: 50 mls/hr Documented By: ROBB Magnesium Sulfate/Dextrose (Magnesium Sulfate / D5w) 1 gm in 100 mls @ 600 mls/hr IV Q10M [facility] Stop: 01/08/25 13:39 Last Infusion: 01/08/25 15:47 Dose: Infused Documented By: Admin: 01/08/25 15:31 Dose: 600 mls/hr Documented By: Infusion: 01/08/25 15:20 Dose: Infused Documented By: ORoselyn Admin: 01/08/25 15:09 Dose: 600 mls/hr Documented By: ROBB Lorazepam (Lorazepam 2 Mg/1 Ml Vial) 1 mg IV NOW STA Stop: 01/08/25 10:33 Last Admin: 01/08/25 10:37 Dose: 1 mg Documented By: HECTOR Lorazepam (Lorazepam 2 Mg/1 Ml Vial) 3 mg IV ONCE PRN; Protocol PRN Reason: EtOH Withdrawal AWSS Score 10+ Last Admin: 01/08/25 18:50 Dose: 3 mg Documented By: OO Methylprednisolone (Methylprednisolone 125 Mg/2 Ml Vial) 125 mg IV NOW STA Stop: 01/08/25 10:35 Last Admin: 01/08/25 10:39 Dose: 125 mg Documented By: HECTOR Oseltamivir Phosphate (Oseltamivir Phosphate 75 Mg Cap) 75 mg PO NOW STA; Protocol Stop: 01/08/25 13:17 Last Admin: 01/08/25 16:06 Dose: Not Given Documented By: OO Imaging Data Radiologist's Impression: Chest X-Ray 01/08/25 10:23 XR chest 1V portable HISTORY: 69 years-old Male COPD acute shortness of breath COMPARISON: Chest CT 06/07/2024 TECHNIQUE: AP view of the chest FINDINGS: Cardiomediastinal and hilar silhouettes are within normal limits. Emphysema with chronic interstitial coarsening. No pneumothorax, pleural effusion or airspace consolidation. The bones of the chest appear grossly intact. Possible mild pulmonary vascular congestion. IMPRESSION: 1. Emphysema with chronic fibrotic changes. 2. No airspace consolidation typical for pneumonia. 3. Possible pulmonary vascular congestion. ACT 112: Negative or not required by law. The above report was generated using voice recognition software. It may contain grammatical, syntax or spelling errors. Electronically signed by: Thiago Herndon M.D. 01/08/2025 11:11 AM Discharge Plan Visit Data Chief Complaint: Respiratory Distress ED Provider: Luisa Ornelas Discharge Problem: Acute exacerbation of chronic obstructive airways disease, Influenza A, COPD exacerbation, Acute respiratory failure with hypoxia and hypercapnia Patient Disposition: Admitted As Inpatient Discharge Instructions Interventions: ED Discharge Assessment Last Done: 01/08/25 13:56
[2025-01-08 10:37] LABS: iSTAT Creatinine 0.8 mg/dl (0.6-1.3); iSTAT Hemoglobin 13.3 g/dl (14.0-18.0); iSTAT Ionized Calcium 1.16 mmol/l (1.12-1.32); iSTAT Potassium 4.5 mmol/L (3.3-5.0)
[2025-01-08] MEDS: LORazepam 2 MG/1 ML VIAL IV STA (10:37)
[2025-01-08] MEDS: methylPREDNISolone 125 MG/2 ML VIAL IV STA (10:39)
[2025-01-08] MEDS: ALBUT/IPRATROP 3MG/0.5MG NEB 3 ML VIAL NEB ONE (10:42)
[2025-01-08 10:53] LABS: Base Excess VBG 4.5 mEq/L; Basophils # (auto) 0.01 K/uL (0.00-0.20); Basophils % (auto) 0.1 %; HCO3 VBG 34 mmol/L; Hematocrit (blood only) 38.8 % (42.0-52.0); Hemoglobin 12.9 g/dl (14.0-18.0); Immature Granulocytes # (auto) 0.08 K/uL (0.01-0.20); Immature Granulocytes % (auto) 0.5 %; Lymphocytes # (auto) 0.87 K/uL (1.20-3.40); Lymphocytes % (auto) 5.2 %; Mean Corpuscular Hemoglobin 30.9 pg (25.0-34.0); Mean Corpuscular Hgb Conc 33.2 g/dL (32.0-36.0); Mean Corpuscular Volume 92.8 fL (80.0-100.0); Mean Platelet Volume 9.4 fL (9.4-12.4); Monocytes % (auto) 8.9 %; Neutrophils # (auto) 14.35 K/uL (1.40-6.50); Neutrophils % (auto) 85.3 %; Oxygen Saturation VBG 94.3 %; PCO2 VBG 76 mmHg (38-50); PO2 VBG 76 mmHg; Platelet Count 319 K/uL (130-400); RDW Standard Deviation 43.9 fL (36.4-46.3); Red Blood Count 4.18 M/uL (4.70-6.10); White Blood Count 16.81 K/ul (4.8-10.8); pH VBG 7.26 (7.36-7.41)
[2025-01-08 10:56] LABS: Albumin Level 4.4 gm/dl (3.4-5.0); BUN Creatinine Ratio 18.6 (10-20); Bilirubin Direct 0.1 mg/dl (0-0.2); Bilirubin,Total 0.3 mg/dl (0.2-1.0); Calcium 9.1 mg/dl (8.6-10.3); Creatinine Clr Calc Pharmacy 89.4 ml/min; Potassium 4.5 mmol/L (3.5-5.1); Total Protein 7.2 gm/dl (6.0-8.3)
[2025-01-08 11:03] LABS: Troponin I High Sensitivity 42.2 pg/ml (0-20)
--- NOTE | 2025-01-08 11:12 | XRay Report ---
XR chest 1V portable HISTORY: 69 years-old Male COPD acute shortness of breath COMPARISON: Chest CT 06/07/2024 TECHNIQUE: AP view of the chest FINDINGS: Cardiomediastinal and hilar silhouettes are within normal limits. Emphysema with chronic interstitial coarsening. No pneumothorax, pleural effusion or airspace consolidation. The bones of the chest appe ar grossly intact. Possible mild pulmonary vascular congestion. IMPRESSION: 1. Emphysema with chronic fibrotic changes. 2. No airspace consolidation typical for pneumonia. 3. Possible pulmonary vascular congestion. ACT 112: Negative or not required by law. The above report was generated using voice recognition software. It may contain grammatical, syntax o r spelling errors. Electronically signed by: Thiago Herndon M.D. 01/08/2025 11:11 AM
[2025-01-08 11:49] LABS: Adenovirus PCR Not Detected (NotDetected); Bordetella parapertussis PCR Not Detected (NotDetected); Bordetella pertussis PCR Not Detected (NotDetected); Chlamydia pneumoniae PCR Not Detected (NotDetected); Coronavirus 229E PCR Not Detected (NotDetected); Coronavirus CoV-2 (COVID19)PCR Not Detected (NotDetected); Coronavirus HKU1 PCR Not Detected (NotDetected); Coronavirus NL63 PCR Not Detected (NotDetected); Coronavirus OC43PCR Not Detected (NotDetected); Human Metapneumovirus PCR Not Detected (NotDetected); Influenza A (H3) PCR DETECTED (NotDetected); Influenza B PCR Not Detected (NotDetected); Mycoplasma pneumoniae PCR Not Detected (NotDetected); Parainfluenza Virus 1 PCR Not Detected (NotDetected); Parainfluenza Virus 2 PCR Not Detected (NotDetected); Parainfluenza Virus 3 PCR Not Detected (NotDetected); Parainfluenza Virus 4 PCR Not Detected (NotDetected); Respiratory Syncytial VirusPCR Not Detected (NotDetected); Rhinovirus/Enterovirus PCR Not Detected (NotDetected)
[2025-01-08 12:04] LABS: Base Excess VBG 4.4 mEq/L; HCO3 VBG 33 mmol/L; Oxygen Saturation VBG 97.3 %; PCO2 VBG 65 mmHg (38-50); PO2 VBG 90 mmHg; pH VBG 7.31 (7.36-7.41)
[2025-01-08 12:51] LABS: Troponin I High Sensitivity 473.7 pg/ml (0-20)
--- NOTE | 2025-01-08 13:17 | History & Physical Report ---
Date of Service January 08, 2025 Assessment & Plan (1) Acute respiratory failure with hypoxia and hypercapnia: Plan: Baseline 5LPM O2 per patient although per last pulm note on 3LPM O2 Secondary to influenza with COPD exacerbation BiPAP 14/6 Fi O2 30 % Improving VBG on BiPAP, will continue for now, may have short breaks for clear liquids but needs to be on this overnight Repeat VBG in AM or if deteriorating Given severity of respiratory distress on exam and underlying COPD will consult pulmonology to help with optimizing his treatment - discussed with Dr Mednia at bedside (2) COPD exacerbation: Plan: Gold class E COPD Give 2g Mg sulfate IV now Sputum culture Duonebs q4h, Formoterol/budesonide Nebs BID, Solu-medrol 40mg IV q6h, doxycycline 100mg IV BID, guaifenesin Incentive spirometer, flutter valve (3) Influenza A: Plan: Unclear start of symptoms but given severity of illness will start Tamiflu Droplet isolation precautions (4) Elevated troponin: Plan: No chest pain but significant short of breath, suspect most likely demand due to hypoxia but given significant increase will continue to trend and get TTE Plan VTE Prophylaxis - Xarelto 2.5mg PO BID Diet - clear liquid Disposition - admit to PCU Admission and Anticipated Discharge Date Admission Date: January 08, 2025 History of Present Illness Chief Complaint: Shortness of breath Primary Care Provider: DO Christian Mirza Lukas is a 69 year old male with severe COPD Gold classification E who presents to the ER with shortness of breath. Unclear on exact timelines as he reports he has been getting worse for the last 6 weeks but possibly much worse over the last 2 weeks. He denies wearing 5 L/min O2 at baseline however previous pulmonology notes he is on 3 L/min. He has noted increased cough although unclear again on the timeline, no hemoptysis. Chills over the last 2 weeks which appears to be improving but no objective fevers. He reports drinking alcohol daily with 6 shots of whiskey and 4 beers. He notes prior alcohol withdrawal and possibly having alcohol given to him on previous hospitalizations. No prior alcohol withdrawal seizures. He has no intention to quit drinking alcohol. On review of his previous hospitalizations here he has not required benzodiazepines for alcohol withdrawal despite his high alcohol usage and confirm with pharmacy he is also not being given alcohol. Allergies Allergy/AdvReac Type Severity Reaction Status Date / Time No Known Allergies Allergy Verified 10/18/24 14:31 Home Medications Medication Instructions Recorded Confirmed Type aspirin 81 mg tablet,delayed 81 mg PO QAM 01/19/19 01/08/25 History release Portable Oxygen #1 ea 07/02/21 10/18/24 Rx nebulizers (Aeroneb Go Nebulizer) #1 ea 12/06/21 10/18/24 Rx cholecalciferol (vitamin D3) 50 50 mcg PO DAILY 04/22/22 01/08/25 History mcg (2,000 unit) capsule ascorbate calcium (vitamin C) 500 1 g PO DAILY 05/12/23 01/08/25 History mg tablet nebulizers #1 ea 05/10/24 10/18/24 Rx Advair HFA 230 mcg-21 2 inh inhalation BID #12 grams 08/16/24 01/08/25 Rx mcg/actuation aerosol inhaler (fluticasone propion-salmeterol) albuterol sulfate 90 mcg/actuation 2 puff inhalation Q6H PRN 08/16/24 01/08/25 Rx aerosol inhaler Shortness Of Breath Or Wheezing #3 Inhalers roflumilast 500 mcg tablet 500 mcg PO DAILY #90 tabs 08/16/24 01/08/25 Rx (Daliresp) tiotropium bromide 2.5 2 puff inhalation DAILY #4 grams 08/16/24 01/08/25 Rx mcg/actuation mist for inhalation (Spiriva Respimat) nicotine 21 mg/24 hr daily 1 patch transdermal DAILY #28 ea 10/18/24 01/08/25 Rx transdermal patch levocetirizine 5 mg tablet 5 mg PO DAILY PRN allergy symptoms 10/20/24 01/08/25 Rx #90 tabs atorvastatin 20 mg tablet 20 mg PO DAILY #90 tabs 10/27/24 01/08/25 Rx tamsulosin 0.4 mg capsule 0.4 mg PO DAILY #90 caps 11/25/24 01/08/25 Rx famotidine 20 mg tablet 20 mg PO HS #90 tabs 11/26/24 01/08/25 Rx metoprolol succinate 50 mg 50 mg PO DAILY #90 tabs 11/26/24 01/08/25 Rx tablet,extended release 24 hr (Toprol XL) ipratropium 0.5 mg-albuterol 3 mg 3 ml inhalation Q6H PRN shortness 11/29/24 01/08/25 Rx (2.5 mg base)/3 mL nebulization of breath or wheezing #540 mL soln rivaroxaban 2.5 mg tablet (Xarelto) 2.5 mg PO BID #60 tabs 01/04/25 01/08/25 Rx alprazolam 0.5 mg tablet 0.5 mg PO TID PRN anxiety #60 tabs 01/06/25 01/08/25 Rx azithromycin 250 mg tablet 250 mg PO 3XWK 01/08/25 01/08/25 History pantoprazole 40 mg tablet,delayed 40 mg PO DAILY 01/08/25 01/08/25 History release prednisone 20 mg tablet 20 mg PO UD 01/08/25 01/08/25 History Past Med/Surg History Problem List (Updated 01/08/25 @ 14:00 by Eyal Avila MD) Influenza A Elevated troponin COPD exacerbation Acute respiratory failure with hypoxia and hypercapnia Palliative care by specialist Advanced care planning/counseling discussion Severe muscle deconditioning Weakness generalized Dyspnea and respiratory abnormalities COPD, group E, by GOLD 2022 classification (Acute) very sev COPD, active 80PY smoker, daily etoh abuse, med mgt maximized, not interested in tobacco cessation Prediabetes Elevated prostate specific antigen (PSA) Lung nodule < 6cm on CT S/P coronary artery stent placement Chronic respiratory failure with hypoxia Multiple pulmonary nodules Peyronie's disease Renal mass monitoring every 6 mos w/ Dr Moscoso Tobacco abuse COPD with emphysema Adrenal adenoma (01/2020) 17mm L adrenal adenoma Dyslipidemia CAD (coronary artery disease) History of heart attack 2008- w/ [facility], stress test 01/2023 Stage 3 severe COPD by GOLD classification Peripheral vascular disease Hypertension GERD without esophagitis Erectile dysfunction BPH with obstruction/lower urinary tract symptoms Asthma Anxiety Alcoholism Medical History Interscapular pain SOBOE (shortness of breath on exertion) On home O2 Surgical History Hx of colonoscopy Status post biopsy of kidney S/P cholecystectomy S/P coronary artery stent placement S/P hernia repair Family History Mother Diabetes Hypertension Heart disease Myocardial infarction Father , suicide Alcohol abuse Colorectal cancer Sister Myocardial infarction Uncle Colorectal cancer Denies family history of Ovarian cancer Prostate cancer Breast cancer Social History Smoking Status: Former smoker Tobacco Type: Cigarettes Age Started Using Tobacco: 17; packs per day: 1; Cigarettes Per Day: 20 per day- ADVISED; Second Hand Exposure: Yes (IN THE PAST); Do You Dip or Chew Tobacco: No; Hx Alcohol Use: Yes (heavy daily drinker- > 6 per day) Alcohol type: beer and hard liquor Alcohol Intake Frequency: 4 or More x per/Week Alcohol Intake Frequency Comment: daily- 2 beers at night and some mixed drinks Hx Substance Use: Yes (occasional use) Prescribed Medications: Marijuana Last Used Substance Other:: 07/07/23 Preferred Language: Samoan Communication Ability: Effective Communication Tools: Electrolarynx Visual Impairment: No Limitations Hearing Ability: Normal Division Superintendent Required: No Beliefs That Will Affect Care: None marital status: Single Current Living Situation: Significant Other Current Living Situation Comment: Lives with NIA garcia current occupational status: retired How many Children do You have: 2 Feels Safe at Home: Yes Childhood Exposure to Second-Hand Smoke: Yes (1 cup of coffee in the am ) Diet: regular caffeine: Yes during the past year weight has: remained stable Dental Care, Regularly: No Physical Activity Frequency: 1-2 Times per Week Physical Activity Frequency Comment: housework Seatbelt Use: never Sunscreen Use: No Assistive Devices: Cane, Denture - Upper, Denture - Lower, Glasses and Oxygen - at Night Review of Systems Review of Systems: All systems reviewed & are unremarkable except as noted in HPI & below Physical Exam Constitutional: well developed and + acute distress; + not well nourished Eyes: + anicteric sclerae; normal pupil size ENMT: Mouth: + poor dentition Respiratory: + labored breathing, + uses accessory mu scles, + prolonged expiratory phase and + paradoxical thoraco-abdominal movement; + not able to speak in complete sentence and no audible wheezes Cardiovascular: Rate/Rhythm: regular rhythm and + tachycardic Heart Sounds: no murmur Extremities: normal capillary refill; no calf tenderness and no pedal edema Gastrointestinal (Abdomen): normal bowel sounds, soft, nontender, no hepatosplenomegaly Musculoskeletal: no cyanosis or clubbing, extremities motor strength 5/5 Skin: no rashes, warm and dry Neurologic: moves all extremities and awake; not confused Psychiatric: Orientation: alert and oriented x 3 Mood: + anxious mood Results & Data Results & Data Vital Signs (Past 12 Hours) Vital Signs Temp Pulse Pulse Resp BP BP Pulse Ox 01/08/25 13:00 115 H 32 H 140/73 96 01/08/25 12:56 118 H 28 H 96 01/08/25 12:00 126 H 28 H 139/88 98 01/08/25 11:30 141/104 H 01/08/25 11:27 126 H 28 H 99 01/08/25 11:03 122 H 98 01/08/25 11:00 160/109 H 01/08/25 10:51 115 H 28 H 151/94 H 98 01/08/25 10:39 115 H 27 H 97 01/08/25 10:33 113 H 25 H 97 01/08/25 10:27 114 H 01/08/25 10:19 96 01/08/25 10:19 01/08/25 10:19 36.5 C 114 H 30 H 180/105 H 97 O2 Del Method O2 Flow Rate FiO2 01/08/25 13:00 BiPAP 01/08/25 12:56 30 01/08/25 12:00 BiPAP 40 01/08/25 11:30 01/08/25 11:27 BiPAP 40 01/08/25 11:03 BiPAP 40 01/08/25 11:00 01/08/25 10:51 BiPAP 01/08/25 10:39 BiPAP 40 01/08/25 10:33 40 01/08/25 10:27 01/08/25 10:19 Nasal Cannula 10 01/08/25 10:19 Nasal Cannula 10 01/08/25 10:19 Nasal Cannula 10 Laboratory Results Abnormal lab results 01/08/25 01/08/25 01/08/25 Range/Units 10:20 10:24 11:56 WBC 16.81 H (4.8-10.8) K/ul RBC 4.18 L (4.70-6.10) M/uL Hgb 12.9 L (14.0-18.0) g/dl POC Hgb 13.3 L (14.0-18.0) g/dl Hct 38.8 L (42.0-52.0) % POC Hct 39 L (42-52) % Neut # (Auto) 14.35 H (1.40-6.50) K/uL Lymph # (Auto) 0.87 L (1.20-3.40) K/uL Mckean # (Auto) 1.50 H (0.11-0.59) K/uL VBG pH 7.26 L 7.31 L (7.36-7.41) VBG pCO2 76 H 65 H (38-50) mmHg POC Sodium 133 L (135-144) mmol/L Sodium 134 L (136-145) mmol/L POC Chloride 93 L (101-112) mmol/L Chloride 93 L (98-107) mmol/L Carbon Dioxide 34 H (21-32) mmol/L POC Total CO2 32 H (24-31) mmol/L POC Anion Gap 14.0 L (16-25) mmol/L Glucose 130 H (70-99(Fasting)) mg/dl POC Glucose (other) 133 H (70-99) mg/dl Troponin I High Sens 42.2 H (0-20) pg/ml Influenza A (H3) PCR (NotDetected) 01/08/25 01/08/25 Range/Units 12:03 Unknown WBC (4.8-10.8) K/ul RBC (4.70-6.10) M/uL Hgb (14.0-18.0) g/dl POC Hgb (14.0-18.0) g/dl Hct (42.0-52.0) % POC Hct (42-52) % Neut # (Auto) (1.40-6.50) K/uL Lymph # (Auto) (1.20-3.40) K/uL Mckean # (Auto) (0.11-0.59) K/uL VBG pH (7.36-7.41) VBG pCO2 (38-50) mmHg POC Sodium (135-144) mmol/L Sodium (136-145) mmol/L POC Chloride (101-112) mmol/L Chloride (98-107) mmol/L Carbon Dioxide (21-32) mmol/L POC Total CO2 (24-31) mmol/L POC Anion Gap (16-25) mmol/L Glucose (70-99(Fasting)) mg/dl POC Glucose (other) (70-99) mg/dl Troponin I High Sens 473.7 H* D (0-20) pg/ml Influenza A (H3) PCR DETECTED A (NotDetected) Diagnostic Findings XR chest 1V portable HISTORY: 69 years-old Male COPD acute shortness of breath COMPARISON: Chest CT 06/07/2024 TECHNIQUE: AP view of the chest FINDINGS: Cardiomediastinal and hilar silhouettes are within normal limits. Emphysema with chronic interstitial coarsening. No pneumothorax, pleural effusion or airspace consolidation. The bones of the chest appear grossly intact. Possible mild pulmonary vascular congestion. IMPRESSION: 1. Emphysema with chronic fibrotic changes. 2. No airspace consolidation typical for pneumonia. 3. Possible pulmonary vascular congestion. Medications Administered ER medications given: DuoNeb 12 mL neb Lorazepam 1 mg IV Solu-Medrol 125 mg IV ECG Rate (beats per minute): 113 Rhythm: sinus tachycardia Findings: + nonspecific-ST abn Comparison ECG Date: from (Jan 22, 2020) Change: no significant change Code Status & VTE Plan Code Status Full VTE Prophylaxis Plan VTE Prophylaxis will be ordered: Yes PG Care Time/CCT Total # of Minutes Spent Total Time Spent with Patient: Total time spent is greater than 50% in coordination of care (as documented) at patient's floor/unit and/or counseling patient: Coding Level of Care Code 66210 INT INP/OBS CARE 3/75MIN Diagnoses Acute respiratory failure with hypoxia and hypercapnia J96.01; J96.02 COPD exacerbation J44.1 Influenza A J10.1 Elevated troponin R79.89
[2025-01-08 13:26] LABS: Magnesium 2.1 mg/dl (1.7-2.4)
--- NOTE | 2025-01-08 13:37 | Pulmonary Consultation ---
Date of Consultation January 08, 2025 Assessment & Plan (1) Acute respiratory failure with hypoxia and hypercapnia: (2) COPD exacerbation: (3) Tobacco abuse: Plan 69-year-old male who is actively smoking cigarettes presenting with recurrent COPD exacerbation which is quite severe secondary to influenza A detected on respiratory bio fire panel. He is responding to BiPAP therapy, but continues to fidget and frequently pull on his BiPAP mask. Frequent redirection required. Start IV methylprednisone 40 mg every 6. Start nebulized budesonide and formoterol. Start DuoNebs every 6 hours. Continue Tamiflu. Obtain sputum culture if able. Continue doxycycline. Mucinex twice daily. Nicotine patch. Pulmonary toilet with incentive spirometry and flutter valve when able. Give 2 g of magnesium now. Will give 20 mg IV Lasix due to possible underlying cor pulmonale exacerbating his symptoms. Discussed CODE STATUS with patient and he indicated that he would like to remain a full code in the event of a cardiopulmonary arrest. Discussed with hospitalist service and bedside ER nurse. Also discussed care with RT who is going to adjust his BiPAP mask. History of Present Illness Reason for Consultation: Acute COPD exacerbation History of Present Illness 69-year-old male with a history of very severe airflow obstruction on spirometry, COPD and continued tobacco abuse presenting to the hospital with COPD exacerbation secondary to flu A. Patient follows Dr. Valentin as an outpatient. Patient notes that he has been feeling ill for the past 6 weeks and significantly worse over the last few days with increased cough and shortness of breath. He was placed on BiPAP in the ER and had an ABG obtained which revealed acute hypoxemic and hypercapnic respiratory failure. ABG has been slowly improving with the use of BiPAP, but he has been frequently taking his BiPAP mask off and picking at his mask. He endorses shortness of breath currently. He denies any chest pain. He is generally fatigued. No fevers or chills. He is tachycardic and just completed a 1 hour nebulizer treatment. Chest x-ray shows hyperinflated lung tobar with increased pulmonary vascular congestion. No discrete pneumonia identified. Allergies Allergy/AdvReac Type Severity Reaction Status Date / Time No Known Allergies Allergy Verified 10/18/24 14:31 Home Medications Medication Instructions Recorded Confirmed Type aspirin 81 mg tablet,delayed 81 mg PO QAM 01/19/19 01/08/25 History release Portable Oxygen #1 ea 07/02/21 10/18/24 Rx nebulizers (Aeroneb Go Nebulizer) #1 ea 12/06/21 10/18/24 Rx cholecalciferol (vitamin D3) 50 50 mcg PO DAILY 04/22/22 01/08/25 History mcg (2,000 unit) capsule ascorbate calcium (vitamin C) 500 1 g PO DAILY 05/12/23 01/08/25 History mg tablet nebulizers #1 ea 05/10/24 10/18/24 Rx Advair HFA 230 mcg-21 2 inh inhalation BID #12 grams 08/16/24 01/08/25 Rx mcg/actuation aerosol inhaler (fluticasone propion-salmeterol) albuterol sulfate 90 mcg/actuation 2 puff inhalation Q6H PRN 08/16/24 01/08/25 Rx aerosol inhaler Shortness Of Breath Or Wheezing #3 Inhalers roflumilast 500 mcg tablet 500 mcg PO DAILY #90 tabs 08/16/24 01/08/25 Rx (Daliresp) tiotropium bromide 2.5 2 puff inhalation DAILY #4 grams 08/16/24 01/08/25 Rx mcg/actuation mist for inhalation (Spiriva Respimat) nicotine 21 mg/24 hr daily 1 patch transdermal DAILY #28 ea 10/18/24 01/08/25 Rx transdermal patch levocetirizine 5 mg tablet 5 mg PO DAILY PRN allergy symptoms 10/20/24 01/08/25 Rx #90 tabs atorvastatin 20 mg tablet 20 mg PO DAILY #90 tabs 10/27/24 01/08/25 Rx tamsulosin 0.4 mg capsule 0.4 mg PO DAILY #90 caps 11/25/24 01/08/25 Rx famotidine 20 mg tablet 20 mg PO HS #90 tabs 11/26/24 01/08/25 Rx metoprolol succinate 50 mg 50 mg PO DAILY #90 tabs 11/26/24 01/08/25 Rx tablet,extended release 24 hr (Toprol XL) ipratropium 0.5 mg-albuterol 3 mg 3 ml inhalation Q6H PRN shortness 11/29/24 01/08/25 Rx (2.5 mg base)/3 mL nebulization of breath or wheezing #540 mL soln rivaroxaban 2.5 mg tablet (Xarelto) 2.5 mg PO BID #60 tabs 01/04/25 01/08/25 Rx alprazolam 0.5 mg tablet 0.5 mg PO TID PRN anxiety #60 tabs 01/06/25 01/08/25 Rx azithromycin 250 mg tablet 250 mg PO 3XWK 01/08/25 01/08/25 History pantoprazole 40 mg tablet,delayed 40 mg PO DAILY 01/08/25 01/08/25 History release prednisone 20 mg tablet 20 mg PO UD 01/08/25 01/08/25 History Patient History Medical History Interscapular pain SOBOE (shortness of breath on exertion) On home O2 Surgical History Hx of colonoscopy Status post biopsy of kidney S/P cholecystectomy S/P coronary artery stent placement S/P hernia repair Family History Mother Diabetes Hypertension Heart disease Myocardial infarction Father , suicide Alcohol abuse Colorectal cancer Sister Myocardial infarction Uncle Colorectal cancer Denies family history of Ovarian cancer Prostate cancer Breast cancer Social History Smoking Status: Former smoker Tobacco Type: Cigarettes Age Started Using Tobacco: 17; packs per day: 1; Cigarettes Per Day: 20 per day- ADVISED; Second Hand Exposure: Yes (IN THE PAST); Do You Dip or Chew Tobacco: No; Hx Alcohol Use: Yes (heavy daily drinker- > 6 per day) Alcohol type: beer and hard liquor Alcohol Intake Frequency: 4 or More x per/Week Alcohol Intake Frequency Comment: daily- 2 beers at night and some mixed drinks Hx Substance Use: Yes (occasional use) Prescribed Medications: Marijuana Last Used Substance Other:: 07/07/23 Preferred Language: Slovak Communication Ability: Effective Communication Tools: Electrolarynx Visual Impairment: No Limitations Hearing Ability: Normal Postdoctoral Fellow Required: No Beliefs That Will Affect Care: None marital status: Single Current Living Situation: Significant Other Current Living Situation Comment: Lives with NIA garcia current occupational status: retired How many Children do You have: 2 Feels Safe at Home: Yes Childhood Exposure to Second-Hand Smoke: Yes (1 cup of coffee in the am ) Diet: regular caffeine: Yes during the past year weight has: remained stable Dental Care, Regularly: No Physical Activity Frequency: 1-2 Times per Week Physical Activity Frequency Comment: housework Seatbelt Use: never Sunscreen Use: No Assistive Devices: Cane, Denture - Upper, Denture - Lower, Glasses and Oxygen - at Night Review of Systems Review of Systems: All systems reviewed & are unremarkable except as noted in HPI & below Physical Exam Physical Exam: Constitutional: Patient appears to be of their stated age. Frail. Moderate distress. Eyes: Pupils are equal round and reactive to light. Conjunctivae are normal. Anicteric sclera. Ears nose, mouth and throat: Mallampati class 2. Normal posterior oropharynx. Uvula is midline. Neck: Trachea is midline. Visual inspection is normal. Respiratory: Diffuse expiratory wheezing. Prolonged phase of exhalation. Tachypneic. Cardiovascular: Tachycardic.. No murmurs. No edema. Gastrointestinal: Normal bowel sounds, soft, nontender and nondistended. No hepatosplenomegaly noted. Musculoskeletal: No cyanosis. Patient is able to move all extremities. Strength is 5 out of 5 in the upper and lower extremities. Skin: No rashes, warm dry and intact. Neurologic: No obvious focal neurological deficits seen. Psychiatric: Alert and oriented x3 with a euthymic affect. Results & Data Results & Data Vital Signs (Past 12 Hours) Vital Signs Temp Pulse Pulse Resp BP BP Pulse Ox 01/08/25 13:00 115 H 32 H 140/73 96 01/08/25 12:56 118 H 28 H 96 01/08/25 12:00 126 H 28 H 139/88 98 01/08/25 11:30 141/104 H 01/08/25 11:27 126 H 28 H 99 01/08/25 11:03 122 H 98 01/08/25 11:00 160/109 H 01/08/25 10:51 115 H 28 H 151/94 H 98 01/08/25 10:39 115 H 27 H 97 01/08/25 10:33 113 H 25 H 97 01/08/25 10:27 114 H 01/08/25 10:19 96 01/08/25 10:19 01/08/25 10:19 36.5 C 114 H 30 H 180/105 H 97 O2 Del Method O2 Flow Rate FiO2 01/08/25 13:00 BiPAP 01/08/25 12:56 30 01/08/25 12:00 BiPAP 40 01/08/25 11:30 01/08/25 11:27 BiPAP 40 01/08/25 11:03 BiPAP 40 01/08/25 11:00 01/08/25 10:51 BiPAP 01/08/25 10:39 BiPAP 40 01/08/25 10:33 40 01/08/25 10:27 01/08/25 10:19 Nasal Cannula 10 01/08/25 10:19 Nasal Cannula 10 01/08/25 10:19 Nasal Cannula 10 PG Care Time/CCT Total # of Minutes Spent Total Time Spent with Patient: Total time spent is greater than 50% in coordination of care (as documented) at patient's floor/unit and/or counseling patient: Coding Level of Care Code 08321 INT INP/OBS CARE 3/75MIN Diagnoses Acute respiratory failure with hypoxia and hypercapnia J96.01; J96.02 COPD exacerbation J44.1 Tobacco abuse Z72.0
[2025-01-08] MEDS ORDERED: Ativan IV Alcohol Withdrawal--Active Protocol IV PRN (14:54)
[2025-01-08] MEDS: DOXYCYCLINE HYCLATE 100 MG in DEXTROSE 5% MINI-B 100 ML IV STA (14:59)
[2025-01-08] MEDS: FUROSEMIDE INJ 20 MG/2 ML VIAL IV ONE (15:06)
[2025-01-08] MEDS ORDERED: CETIRIZINE HCL 10 MG TABLET PO PRN (15:06)
[2025-01-08] MEDS: MAGNESIUM SULFATE / D5W 1 GM/100 ML BAG IV SCH (15:09)
[2025-01-08] MEDS: LORazepam 2 MG/1 ML VIAL IV PRN ×3 (15:30→18:50)
[2025-01-08] MEDS: methylPREDNISolone 40 MG in SYRINGE 0 ML IV SCH (15:34)
[2025-01-08] MEDS: ALBUT/IPRATROP 3MG/0.5MG NEB 3 ML VIAL NEB SCH (15:40)
[2025-01-08] MEDS: OSELTAMIVIR PHOSPHATE 75 MG CAP PO STA (16:06)
[2025-01-08] MEDS ORDERED: BUDESONIDE 0.5 MG/2 ML VIAL (PULMICORT) NEB SCH (19:00)
[2025-01-08] MEDS ORDERED: FORMOTEROL 20 MCG/2 ML VIAL NEB SCH (19:00)
[2025-01-08] MEDS: BUDESONIDE 0.5 MG/2 ML VIAL (PULMICORT) NEB SCH (20:14)
[2025-01-08] MEDS: ALBUT/IPRATROP 3MG/0.5MG NEB 3 ML VIAL INH SCH (20:14)
[2025-01-08] MEDS: FORMOTEROL 20 MCG/2 ML VIAL NEB SCH (20:14)
[2025-01-08] MEDS ORDERED: methylPREDNISolone 125 MG/2 ML VIAL IV SCH (21:00)
[2025-01-08] MEDS: FAMOTIDINE 20 MG TAB PO SCH (22:15)
[2025-01-08] MEDS: guaiFENesin 600 MG TABCR PO SCH (22:16)
[2025-01-08] MEDS: RIVAROXABAN 2.5 MG TAB PO SCH (22:16)
[2025-01-08] MEDS: HEPARIN SOD 5,000 UNIT/0.5 ML VIAL SQ STA (23:48)
[2025-01-09] MEDS: DOXYCYCLINE HYCLATE 100 MG in DEXTROSE 5% MINI-B 100 ML IV SCH (02:24)
[2025-01-09 06:18] LABS: Base Excess VBG 11.5 mEq/L; HCO3 VBG 39 mmol/L; Oxygen Saturation VBG 73.9 %; PCO2 VBG 65 mmHg (38-50); PO2 VBG 42 mmHg; pH VBG 7.39 (7.36-7.41)
[2025-01-09 06:36] LABS: Hematocrit (blood only) 37.5 % (42.0-52.0); Hemoglobin 12.6 g/dl (14.0-18.0); Immature Granulocytes # (auto) 0.04 K/uL (0.01-0.20); Immature Granulocytes % (auto) 0.7 %; Lymphocytes # (auto) 0.71 K/uL (1.20-3.40); Lymphocytes % (auto) 11.6 %; Mean Corpuscular Hgb Conc 33.6 g/dL (32.0-36.0); Mean Corpuscular Volume 92.4 fL (80.0-100.0); Mean Platelet Volume 9.3 fL (9.4-12.4); Monocytes # (auto) 0.73 K/uL (0.11-0.59); Monocytes % (auto) 11.9 %; Neutrophils # (auto) 4.66 K/uL (1.40-6.50); Neutrophils % (auto) 75.8 %; Platelet Count 257 K/uL (130-400); RDW Coefficient of Variation 12.6 % (11.5-14.5); RDW Standard Deviation 42.8 fL (36.4-46.3); Red Blood Count 4.06 M/uL (4.70-6.10); White Blood Count 6.14 K/ul (4.8-10.8)
[2025-01-09 06:56] LABS: BUN Creatinine Ratio 31.9 (10-20); Calcium 9.4 mg/dl (8.6-10.3); Creatinine Clr Calc Pharmacy 85.5 ml/min; Potassium 4.3 mmol/L (3.5-5.1)
--- NOTE | 2025-01-09 07:20 | XCELERA ---
[id number] \\[id number]
[2025-01-09] MEDS: FOLIC ACID 1 MG in SYRINGE 9.8 ML IV SCH (07:57)
[2025-01-09] MEDS: THIAMINE HCL 100 MG in SYRINGE 9 ML IV SCH (07:57)
[2025-01-09] MEDS: METOPROLOL SUCC 50MG EXT REL TAB PO SCH (07:58)
[2025-01-09] MEDS: ASPIRIN 81 MG ECTAB PO SCH (07:58)
[2025-01-09] MEDS: TAMSULOSIN HCL 0.4 MG CAP PO SCH (07:58)
[2025-01-09] MEDS: ATORVASTATIN 20 MG TAB PO SCH (07:59)
[2025-01-09] MEDS: PANTOprazole 40 MG TAB PO SCH (08:01)
[2025-01-09] MEDS: ROFLUMILAST 500 MCG TAB PO SCH (08:01)
[2025-01-09] MEDS: UMECLIDINIUM BROMIDE 62.5MCG/BLISTER 7 PUFFS/INHALER INH SCH (08:02)
[2025-01-09] MEDS: NICOTINE 14 MG/24 HR PATCH TD SCH (08:03)
[2025-01-09] MEDS ORDERED: NICOTINE 21 MG/24 HR TDSY TD SCH (09:00)
[2025-01-09 10:03] LABS: iSTAT Arterial Blood Gas HCO3 39 meg/L (19-24); iSTAT Arterial Blood Gas pCO2 66 mmHg (35-46); iSTAT Arterial Blood Gas pH 7.38 (7.35-7.45); iSTAT Arterial Blood Gas pO2 74 mmHg (80-95); iSTAT Carbon Dioxide 40 mmol/L (24-31); iSTAT Hematocrit 39 % (42-52); iSTAT Hemoglobin 13.3 g/dl (14.0-18.0); iSTAT Potassium 4.2 mmol/L (3.3-5.0); iSTAT Sample Type Arterial; iSTAT Sodium 133 mmol/L (135-144)
[2025-01-09] MEDS: BEER 1 CAN PO SCH (10:22)
[2025-01-09 10:50] LABS: iSTAT Arterial Blood Gas HCO3 38 meg/L (19-24); iSTAT Arterial Blood Gas pCO2 64 mmHg (35-46); iSTAT Arterial Blood Gas pH 7.38 (7.35-7.45); iSTAT Arterial Blood Gas pO2 86 mmHg (80-95); iSTAT Carbon Dioxide 39 mmol/L (24-31); iSTAT Hematocrit 39 % (42-52); iSTAT Hemoglobin 13.3 g/dl (14.0-18.0); iSTAT Potassium 4.2 mmol/L (3.3-5.0); iSTAT Sodium 133 mmol/L (135-144)
--- NOTE | 2025-01-09 11:40 | Pulmonology Progress Note ---
Date of Service January 09, 2025 Assessment & Plan (1) Acute respiratory failure with hypoxia and hypercapnia: (2) COPD exacerbation: (3) Tobacco abuse: (4) Delirium: Plan 69-year-old male who is actively smoking cigarettes presenting with recurrent COPD exacerbation which is quite severe secondary to influenza A detected on respiratory bio fire panel. He is responding to BiPAP therapy, but continues to fidget and frequently pull on his BiPAP mask. Frequent redirection required. Continue IV methylprednisone 40 mg every 6. Continue nebulized budesonide and formoterol. Continue DuoNebs every 6 hours. Continue Tamiflu. Obtain sputum culture if able. Continue doxycycline. Mucinex twice daily. Nicotine patch. Pulmonary toilet with incentive spirometry and flutter valve when able. Patient with a history of alcohol abuse and presenting with delirium. The use of Ativan will be tricky with this patient given his propensity towards hypercapnic respiratory failure. Should he have worsening delirium, may need to consider transfer to the ICU for Precedex infusion and closer monitoring. Morning ABGs reviewed with the patient. He remains with acute hypercapnic respiratory failure. Recommend continuing BiPAP as much as possible. In the ER when the patient was more lucid, patient adamantly stated that he would like to be a full code. Recommend further goals of care discussion with the patient once he is more awake and potentially involving palliative care medicine given his extremely poor lung function at baseline. Admission and Anticipated Discharge Date Admission Date: January 08, 2025 Subjective Patient has been confused at times and agitated. When I saw the patient he had already received 1 mg of Ativan and was minimally responsive. He did begin to wake up per nursing about 20 minutes later after BiPAP was placed on the patient. He was able to eat some of his breakfast. Review of Systems Review of Systems: All systems reviewed & are unremarkable except as noted in HPI & below Physical Exam Physical Exam: Constitutional: Patient appears to be of their stated age. Frail. Moderate distress. Eyes: Pupils are equal round and reactive to light. Conjunctivae are normal. Anicteric sclera. Ears nose, mouth and throat: Mallampati class 2. Normal posterior oropharynx. Uvula is midline. Neck: Trachea is midline. Visual inspection is normal. Respiratory: Minimally tachypneic. Wheezing improved compared to yesterday. Prolonged phase of exhalation. Cardiovascular: Regular rate and rhythm. No murmurs. No edema. Gastrointestinal: Normal bowel sounds, soft, nontender and nondistended. No hepatosplenomegaly noted. Musculoskeletal: No cyanosis. Patient is able to move all extremities. Strength is 5 out of 5 in the upper and lower extremities. Skin: No rashes, warm dry and intact. Neurologic: No obvious focal neurological deficits seen. Psychiatric: Lethargic and at times confused. Results & Data Results & Data Vital Signs (Past 12 Hours) Vital Signs Temp Pulse Pulse Pulse Resp BP Pulse Ox 01/09/25 11:23 77 01/09/25 11:09 36.7 C 97 H 18 102/70 97 01/09/25 10:36 98 H 23 95 01/09/25 07:47 89 20 100 01/09/25 07:20 36.4 C L 90 18 114/76 99 01/09/25 06:22 128/77 01/09/25 03:45 86 18 94 01/09/25 03:25 36.6 C 85 20 93/58 L 97 01/09/25 01:39 91 H 23 95 O2 Del Method O2 Flow Rate FiO2 01/09/25 11:23 01/09/25 11:09 BiPAP 01/09/25 10:36 30 01/09/25 07:47 Oxymask 13 01/09/25 07:20 Oxymask 14 01/09/25 06:22 01/09/25 03:45 30 01/09/25 03:25 BiPAP 01/09/25 01:39 BiPAP 30 PG Care Time/CCT Total # of Minutes Spent Total Time Spent with Patient: Total time spent is greater than 50% in coordination of care (as documented) at patient's floor/unit and/or counseling patient: Coding Level of Care Code 50414 SUB INP/OBS CARE 3/50MIN Diagnoses Acute respiratory failure with hypoxia and hypercapnia J96.01; J96.02 COPD exacerbation J44.1 Tobacco abuse Z72.0 Delirium R41.0
--- NOTE | 2025-01-09 11:58 | Hospitalist Progress Note ---
Date of Service January 09, 2025 Assessment & Plan (1) Acute respiratory failure with hypoxia and hypercapnia: Plan: Supportive care. Keep oxygen saturation in the 88 to 92% range to prevent further CO2 retention. Treat underlying influenza and exacerbation of COPD. (2) COPD exacerbation: Plan: Severe COPD at baseline with chronic respiratory failure. Continue parenteral steroid therapy. Appreciate pulmonology consultation and recommendations. Scheduled nebulizer treatments. Intravenous doxycycline. (3) Influenza A: Plan: Supportive care. Tamiflu therapy. Droplet isolation precautions (4) Elevated troponin: Plan: No chest pain, no acute EKG changes. Appears to be due to supply demand mismatch Plan Anticipate eventual discharge back to his home within the next 2 to 3 days Admission and Anticipated Discharge Date Admission Date: January 08, 2025 Subjective The patient is currently sleeping. pCO2 is elevated around 60 but pH is normal consistent with chronic CO2 retention. Repeat ABGs after BiPAP applied are unchanged. He takes Ativan on a chronic basis at home and it has been well- tolerated. Current somnolence probably due to the fact that he was up all night. Current elevated CO2 levels are probably at his baseline based on normal pH. Will allow beer intake to prevent alcohol withdrawal which would definitely increase his morbidity and mortality. Appreciate pulmonology consultation and recommendations. He is on Solu-Medrol and Tamiflu. He is also on doxycycline. Cardiac echo reveals normal left regular ejection fraction with normal right ventricular function and pressure. Diet has been advanced Review of Systems 2 Review of Systems: The patient is asleep and cannot currently answer any questions regarding review of systems Physical Exam 2 Physical Exam: General-asleep. No fever HEENT-head atraumatic and normocephalic, pupils equal and reactive to light, extraocular muscles intact Neck-no lymphadenopathy or thyromegaly, trachea midline Chest-diminished breath sounds from anterior approach. No audible rhonchi or wheezing Cardiac-regular rate and rhythm, normal S1 and S2 Abdomen-normal bowel sounds, no hepatosplenomegaly Extremities-no cyanosis, clubbing, or edema Neuro-asleep. Cannot assess Psych-asleep. Cannot assess Results & Data Results & Data Vital Signs (Past 12 Hours) Vital Signs Temp Pulse Pulse Pulse Resp BP Pulse Ox 01/09/25 11:23 77 01/09/25 11:09 36.7 C 97 H 18 102/70 97 01/09/25 10:36 98 H 23 95 01/09/25 07:47 89 20 100 01/09/25 07:20 36.4 C L 90 18 114/76 99 01/09/25 06:22 128/77 01/09/25 03:45 86 18 94 01/09/25 03:25 36.6 C 85 20 93/58 L 97 01/09/25 01:39 91 H 23 95 O2 Del Method O2 Flow Rate FiO2 01/09/25 11:23 01/09/25 11:09 BiPAP 01/09/25 10:36 30 01/09/25 07:47 Oxymask 13 01/09/25 07:20 Oxymask 14 01/09/25 06:22 01/09/25 03:45 30 01/09/25 03:25 BiPAP 01/09/25 01:39 BiPAP 30 Laboratory Results 01/09/25 06:05 01/09/25 06:05 PG Care Time/CCT Total # of Minutes Spent Total Time Spent with Patient: Total time spent is greater than 50% in coordination of care (as documented) at patient's floor/unit and/or counseling patient: Coding Level of Care Code 71508 SUB INP/OBS CARE 3/50MIN Diagnoses Acute respiratory failure with hypoxia and hypercapnia J96.01; J96.02 COPD exacerbation J44.1 Influenza A J10.1 Elevated troponin R79.89
[2025-01-10] MEDS: OSELTAMIVIR PHOSPHATE 75 MG CAP PO SCH (11:15)
[2025-01-10 11:21] LABS: Eosinophils # (auto) 0.01 K/uL (0.00-0.50); Eosinophils % (auto) 0.1 %; Hematocrit (blood only) 38.2 % (42.0-52.0); Hemoglobin 12.8 g/dl (14.0-18.0); Immature Granulocytes # (auto) 0.04 K/uL (0.01-0.20); Immature Granulocytes % (auto) 0.4 %; Lymphocytes # (auto) 0.56 K/uL (1.20-3.40); Lymphocytes % (auto) 5.2 %; Mean Corpuscular Hemoglobin 31.1 pg (25.0-34.0); Mean Corpuscular Hgb Conc 33.5 g/dL (32.0-36.0); Mean Corpuscular Volume 92.7 fL (80.0-100.0); Mean Platelet Volume 9.3 fL (9.4-12.4); Monocytes % (auto) 8.3 %; Platelet Count 300 K/uL (130-400); RDW Coefficient of Variation 12.6 % (11.5-14.5); RDW Standard Deviation 43.4 fL (36.4-46.3); Red Blood Count 4.12 M/uL (4.70-6.10); White Blood Count 10.81 K/ul (4.8-10.8)
[2025-01-10 11:39] LABS: BUN Creatinine Ratio 41.8 (10-20); Calcium 9.4 mg/dl (8.6-10.3); Creatinine Clr Calc Pharmacy 88.5 ml/min; Potassium 4.4 mmol/L (3.5-5.1)
--- NOTE | 2025-01-10 11:43 | Pulmonology Progress Note ---
Date of Service January 10, 2025 Assessment & Plan (1) Acute respiratory failure with hypoxia and hypercapnia: (2) COPD exacerbation: (3) Tobacco abuse: (4) Delirium: Plan Impression: 69-year-old male who is actively smoking cigarettes presenting with recurrent COPD exacerbation which is quite severe secondary to influenza A detected on respiratory bio fire panel. He was initially placed on BiPAP and did have some delirium however this appears cleared and he is now off noninvasive positive pressure ventilation. Recommendations: 1. Severe/end-stage COPD: Continue IV methylprednisolone 40 mg Q6 as well as budesonide and formoterol. The patient was engaged with palliative care in the outpatient setting. His general condition appears poor. Would recommend reengaging palliative care during this hospitalization. Advised the patient that he is not a candidate for bronchoscopic lung volume reduction ([place] valves) until he is clinically stable. 2. Influenza: Complete course of Tamiflu. Currently on doxycycline which should be adequate currently for acute exacerbation of COPD. Can transition to doxycycline oral. 3. Hypoxemic respiratory failure: Would target oxygen saturations around 89 to 90%. 4. Out of bed to chair and ambulate as tolerated. 5. Marked elevation in troponin. This is outside what 1 would suspect with supply/demand mismatch. He does not have significant EKG changes and does not report significant chest pain however technically this would likely qualify as a failed stress test. Management per the primary service. 6. Smoking cessation was again recommended to the patient. He has not been particularly motivated in the past. Overall prognosis is guarded. Admission and Anticipated Discharge Date Admission Date: January 08, 2025 Subjective Patient seen and examined. EMR reviewed. Discussed with off going yarn spinner and with patient at bedside. The patient is now off BiPAP. He is awake alert and able to answer questions. He does exhibit a slight increased work of breathing. He has known end-stage COPD and is pending evaluation for [place] valve at [facility]. He was meeting with palliative care in the outpatient setting. His delirium appears to have cleared He does not cough or produce phlegm. He states he feels generally poorly. Review of Systems 2 Review of Systems: Please refer to hospitalist notes. No additions or deletions Physical Exam 2 Constitutional: + frail appearing and + disheveled Neck: trachea midline, no thyromegaly Respiratory: + tachypneic; no respiratory distress, n o labored breathing and no cough Auscultation: + diminished lung sounds; no wheezes Cardiovascular: RRR, no murmur, no edema Gastrointestinal (Abdomen): normal bowel sounds, soft, nontender, no hepatosplenomegaly Musculoskeletal: Extremities: extremities normal to inspection Skin: no rashes, warm and dry Neurologic: Nonfocal exam Lymphatic: no cervical lymphadenopathy Results & Data Results & Data Vital Signs (Past 12 Hours) Vital Signs Temp Pulse Pulse Pulse Resp BP Pulse Ox 01/10/25 11:00 36.6 C 91 H 18 114/67 96 01/10/25 07:47 37.0 C 95 H 20 118/69 96 01/10/25 07:40 01/10/25 07:15 98 H 20 96 01/10/25 04:12 01/10/25 03:55 37.1 C 89 25 H 116/71 96 01/10/25 02:05 90 28 H 96 01/10/25 01:48 28 H 01/10/25 01:45 01/10/25 01:39 37.1 C 96 H 24 144/71 H 96 01/10/25 00:26 36.9 C 89 24 130/74 94 01/09/25 23:53 Pulse Ox O2 Del Method O2 Del Method O2 Flow Rate O2 Flow Rate FiO2 01/10/25 11:00 Nasal Cannula 01/10/25 07:47 BiPAP 01/10/25 07:40 BiPAP 30 01/10/25 07:15 Nasal Cannula 3 01/10/25 04:12 94 Nasal Cannula 4 01/10/25 03:55 BiPAP 01/10/25 02:05 30 01/10/25 01:48 BiPAP 30 01/10/25 01:45 96 BiPAP 01/10/25 01:39 Nasal Cannula 3 01/10/25 00:26 Nasal Cannula 4 01/09/25 23:53 Nasal Cannula 4 Laboratory Results 01/10/25 11:01 Diagnostic Findings No new imaging studies PG Care Time/CCT Total # of Minutes Spent Total Time Spent with Patient: Total time spent is greater than 50% in coordination of care (as documented) at patient's floor/unit and/or counseling patient: Coding Level of Care Code 22071 SUB INP/OBS CARE 3/50MIN Diagnoses Acute respiratory failure with hypoxia and hypercapnia J96.01; J96.02 COPD exacerbation J44.1 Tobacco abuse Z72.0 Delirium R41.0
--- NOTE | 2025-01-10 15:26 | Hospitalist Progress Note ---
Date of Service January 10, 2025 Assessment & Plan (1) Acute respiratory failure with hypoxia and hypercapnia: Plan: Supportive care. Keep oxygen saturation in the 88 to 92% range to prevent further CO2 retention. Treat underlying influenza and exacerbation of COPD. (2) COPD exacerbation: Plan: Severe COPD at baseline with chronic respiratory failure. Continue parenteral steroid therapy. Appreciate pulmonology consultation and recommendations. Scheduled nebulizer treatments. Intravenous doxycycline. (3) Influenza A: Plan: Supportive care. Tamiflu therapy. Droplet isolation precautions (4) Elevated troponin: Plan: No chest pain, no acute EKG changes. Appears to be due to supply demand mismatch. Cardiac echo reveals preserved ejection fraction but due to imaging limitations cannot rule out regional wall motion abnormalities. Will repeat EKG again todayJanuary 10 Plan To be determined. OT and PT assessments requested. Admission and Anticipated Discharge Date Admission Date: January 08, 2025 Subjective Awake alert and oriented in no distress but very weak. Friend is at the bedside. I spoke to his daughter by phone. She is coming up from [place]. Troponin is markedly elevated but no acute EKG changes and no chest pain. Cardiac echo reveals preserved left ventricular ejection fraction. Regional wall motion abnormalities cannot be ruled out due to imaging limitations. Will repeat EKG again today, January 10. Pulmonary medicine entry noted. CO2 retention appears to be chronic and at baseline based on normal pH. He is on Tamiflu and parenteral steroids. OT and PT evaluations requested for placement eventually if he agrees. Review of Systems 2 Review of Systems: Constitutionalno fever or chills ENTno blurred vision, no double vision, no epistaxis, no sore throat Respiratoryno cough, no wheezing. Short of breath with minimal exertion Cardiacno palpitations, no chest pain, no syncope Byron nausea, vomiting, diarrhea, melena, hematochezia GUno urinary retention, no urinary incontinence, no dysuria, no hematuria Musculoskeletalno joint pain, no muscle tenderness Skinno bruising, no rashes, no pruritus Neurogeneralized weakness. No paresthesia Psychno depression, no anxiety Physical Exam 2 Physical Exam: General-alert and oriented x3, no fever, no chills HEENT-head atraumatic and normocephalic, pupils equal and reactive to light, extraocular muscles intact Neck-no lymphadenopathy or thyromegaly, trachea midline Chest-diminished breath sounds bilaterally. No audible wheezing, rales, rhonchi. i Cardiac-distant heart tones, regular rate and rhythm, normal S1 and S2 Abdomen-normal bowel sounds, no hepatosplenomegaly Extremities-no cyanosis, clubbing, or edema Neuro-cranial nerves II through XII intact, motor and sensory function within normal limits, strength symmetrical with generalized weakness, no focal deficits Psych-depressed affect Results & Data Results & Data Vital Signs (Past 12 Hours) Vital Signs Temp Pulse Resp BP Pulse Ox Pulse Ox O2 Del Method 01/10/25 13:12 76 20 97 Nasal Cannula 01/10/25 11:00 36.6 C 91 H 18 114/67 96 Nasal Cannula 01/10/25 07:47 37.0 C 95 H 20 118/69 96 BiPAP 01/10/25 07:40 BiPAP 01/10/25 07:15 98 H 20 96 Nasal Cannula 01/10/25 04:12 94 01/10/25 03:55 37.1 C 89 25 H 116/71 96 BiPAP O2 Del Method O2 Flow Rate O2 Flow Rate FiO2 01/10/25 13:12 2 01/10/25 11:00 01/10/25 07:47 01/10/25 07:40 30 01/10/25 07:15 3 01/10/25 04:12 Nasal Cannula 4 01/10/25 03:55 Laboratory Results 01/10/25 11:01 01/10/25 11:01 PG Care Time/CCT Total # of Minutes Spent Total Time Spent with Patient: Total time spent is greater than 50% in coordination of care (as documented) at patient's floor/unit and/or counseling patient: Coding Level of Care Code 00542 SUB INP/OBS CARE 3/50MIN Diagnoses Acute respiratory failure with hypoxia and hypercapnia J96.01; J96.02 COPD exacerbation J44.1 Influenza A J10.1 Elevated troponin R79.89
[2025-01-10] MEDS: methylPREDNISolone 40 MG in SYRINGE 0 ML IV SCH (17:18)
--- NOTE | 2025-01-11 05:53 | Electrocardiogram Report ---
Test Reason : Blood Pressure : */* mmHG Vent. Rate : 113 BPM Atrial Rate : 113 BPM P-R Int : 148 ms QRS Dur : 76 ms QT Int : 304 ms P-R-T Axes : 93 78 83 degrees QTcB Int : 416 ms Poor data quality, interpretation may be adversely affected Sinus tachycardia Nonspecific ST abnormality Abnormal ECG When compared with ECG of 22-Jan-2020 03:11, No significant change was found Confirmed by Daren Bryan ([id number]) on 01/11/2025 5:52:57 AM Referred By: REFERRED SELF Confirmed By: Daren Bryan
--- NOTE | 2025-01-11 05:53 | Electrocardiogram Report ---
Test Reason : Blood Pressure : */* mmHG Vent. Rate : 92 BPM Atrial Rate : 92 BPM P-R Int : 130 ms QRS Dur : 74 ms QT Int : 372 ms P-R-T Axes : 79 61 39 degrees QTcB Int : 460 ms Normal sinus rhythm Normal ECG When compared with ECG of 08-Jan-2025 10:17, ST no longer depressed in Anterior leads Confirmed by Daren Bryan ([id number] on 01/11/2025 5:53:34 AM Referred By: REFERRED SELF Confirmed By: Daren Bryan
[2025-01-11 06:40] LABS: Basophils # (auto) 0.01 K/uL (0.00-0.20); Basophils % (auto) 0.1 %; Hematocrit (blood only) 37.1 % (42.0-52.0); Hemoglobin 12.6 g/dl (14.0-18.0); Immature Granulocytes # (auto) 0.06 K/uL (0.01-0.20); Immature Granulocytes % (auto) 0.4 %; Lymphocytes # (auto) 0.52 K/uL (1.20-3.40); Lymphocytes % (auto) 3.6 %; Mean Corpuscular Hemoglobin 31.7 pg (25.0-34.0); Mean Corpuscular Volume 93.2 fL (80.0-100.0); Mean Platelet Volume 9.5 fL (9.4-12.4); Monocytes # (auto) 1.28 K/uL (0.11-0.59); Monocytes % (auto) 8.9 %; Neutrophils # (auto) 12.54 K/uL (1.40-6.50); Platelet Count 269 K/uL (130-400); RDW Coefficient of Variation 12.6 % (11.5-14.5); RDW Standard Deviation 43.2 fL (36.4-46.3); Red Blood Count 3.98 M/uL (4.70-6.10); White Blood Count 14.41 K/ul (4.8-10.8)
[2025-01-11 06:58] LABS: BUN Creatinine Ratio 41.9 (10-20); Calcium 9.3 mg/dl (8.6-10.3); Creatinine Clr Calc Pharmacy 95.5 ml/min
[2025-01-11] MEDS: THIAMINE HCL 100 MG TAB PO SCH (08:22)
[2025-01-11] MEDS: FOLIC ACID 1 MG TAB PO SCH (08:22)
--- NOTE | 2025-01-11 11:27 | Pulmonology Progress Note ---
Date of Service January 11, 2025 Assessment & Plan (1) Acute respiratory failure with hypoxia and hypercapnia: (2) COPD exacerbation: (3) Tobacco abuse: (4) Delirium: Plan Impression: 69-year-old male who is actively smoking cigarettes presenting with recurrent COPD exacerbation which is quite severe secondary to influenza A detected on respiratory bio fire panel. Continues to have issues with multifactorial delirium. Recommendations: 1. Severe/end-stage COPD: Continue IV methylprednisolone 40 mg Q6 as well as budesonide and formoterol. The patient was engaged with palliative care in the outpatient setting. His general condition appears poor. Would recommend reengaging palliative care during this hospitalization. Advised the patient that he is not a candidate for bronchoscopic lung volume reduction ([place] valves) until he is clinically stable. Currently on doxycycline. 2. Influenza: Complete course of Tamiflu. Currently on doxycycline which should be adequate currently for acute exacerbation of COPD. Can transition to doxycycline oral. 3. Hypoxemic respiratory failure: Would target oxygen saturations around 89 to 90%. 4. Out of bed to chair and ambulate as tolerated. 5. Smoking cessation was again recommended to the patient. He has not been particularly motivated in the past. Overall prognosis is guarded. Goals of care discussion is appropriate Admission and Anticipated Discharge Date Admission Date: January 08, 2025 Subjective Patient seen and examined. EMR reviewed. The patient is more delirious this morning although his respiratory status appears more stable. He is sitting up in a chair. He states he wants to go home. He has an open can of beer at bedside Review of Systems 2 Review of Systems: Unobtainable due to cognitive status Physical Exam 2 Constitutional: + frail appearing and + disheveled Neck: trachea midline, no thyromegaly Respiratory: no respiratory distress, no labored breathing, no cough and not tachypneic Auscultation: + diminished lung sounds; no wheezes Cardiovascular: RRR, no murmur, no edema Gastrointestinal (Abdomen): normal bowel sounds, soft, nontender, no hepatosplenomegaly Musculoskeletal: Extremities: extremities normal to inspection Skin: no rashes, warm and dry Lymphatic: no cervical lymphadenopathy Results & Data Results & Data Vital Signs (Past 12 Hours) Vital Signs Temp Pulse Pulse Resp BP Pulse Ox O2 Del Method 01/11/25 11:02 36.7 C 100 H 20 129/77 94 Nasal Cannula 01/11/25 11:02 Nasal Cannula 01/11/25 07:19 88 16 97 Nasal Cannula 01/11/25 07:06 37.0 C 93 H 18 123/79 97 Nasal Cannula 01/11/25 01:22 66 01/11/25 00:08 100 H 21 95 01/11/25 00:08 100 H 23 95 BiPAP O2 Flow Rate FiO2 01/11/25 11:02 1 01/11/25 11:02 2 01/11/25 07:19 2 01/11/25 07:06 2 01/11/25 01:22 01/11/25 00:08 30 01/11/25 00:08 30 Laboratory Results 01/11/25 05:38 01/11/25 05:38 Diagnostic Findings No new imaging PG Care Time/CCT Total # of Minutes Spent Total Time Spent with Patient: Total time spent is greater than 50% in coordination of care (as documented) at patient's floor/unit and/or counseling patient: Coding Level of Care Code 41797 SUB INP/OBS CARE 2/35MIN Diagnoses Acute respiratory failure with hypoxia and hypercapnia J96.01; J96.02 COPD exacerbation J44.1 Tobacco abuse Z72.0 Delirium R41.0
--- NOTE | 2025-01-11 14:45 | Hospitalist Progress Note ---
Date of Service January 11, 2025 Assessment & Plan (1) Acute respiratory failure with hypoxia and hypercapnia: Plan: Secondary to influenza A and COPD exacerbation. Weaned down to 2L NC O2 which is an improvement from his home O2 of 3-5 LNC Keep oxygen saturation in the 88 to 92% range to prevent further CO2 retention. Treat underlying influenza and exacerbation of COPD. His outpatient meter shop supervisor can get him set up with a Trilogy machine at home (2) COPD exacerbation: Plan: Severe COPD at baseline with chronic respiratory failure. Improving Continue parenteral steroid therapy-reduce dose to Solu-Medrol 40 Mg IV every 8 hours Change IV doxycycline to p.o. twice daily and finish out 7-day course on 01/14 Appreciate pulmonology consultation and recommendations. Continue scheduled nebulizer treatments Discussed palliative medicine but he is not ready for that at this time Continue Roflumilast, scheduled DuoNebs and twice daily budesonide, once daily umeclidinium inhaler Continue nicotine patch and encourage smoking cessation (3) Influenza A: Plan: Supportive care. Tamiflu therapy. Droplet isolation precautions (4) Alcohol withdrawal delirium: Plan: Patient is delirious and hallucinating, confused. Related to alcohol withdrawal despite having 3 beers per day Will admitted. He typically drinks 10 alcoholic beverages a day He has been getting as needed lorazepam Start Librium 25 Mg p.o. 3 times daily scheduled and taper down Continue as needed Ativan and 3 times daily beer Continue thiamine, folic acid, and add multivitamin (5) Elevated troponin: Plan: Troponin peaked at 1700, he never had chest pain, ECG had some subtle changes initially. Cardiac echo reveals preserved ejection fraction but due to imaging limitations cannot rule out regional wall motion abnormalities. Repeat ECG is normal on 01/10 Likely myocardial demand ischemia in the setting of influenza A, COPD exacerbation and hypoxemia No arrhythmias on telemetry Continue aspirin, low-dose Xarelto, statin Plan DVT [id number] Xarelto Disposition-continued stay, can downgrade off telemetry. PT/OT recommends rehab but the patient declines this I discussed his care with his partner, Asiya, on the phone as well as his sister and nephew at the bedside on 01/11 Admission and Anticipated Discharge Date Admission Date: January 08, 2025 Subjective Patient feels confused and says he sees a [id number] in the hallway. He does not like [employer] and his family asked if they can bring him [place] light. He did not know he was in the hospital and thought his was in the room but she was not. I discussed his care with his /partner on the phone who states that he is extremely confused and knows it is related to alcohol withdrawal. I discussed his care with pulmonology who recommends palliative medicine. The patient tells me he is aware of this and has discussed this with his partner at home but is not ready for it yet. Telemetry with normal sinus rhythm with rates in the 90s to 100s Physical Exam Constitutional: + ill appearing and + thin Respiratory: normal respiratory effort; no cough Auscultation: + diminished lung sounds (Throughout); no crackles, no rhonchi and no wheezes Cardiovascular: RRR, no murmur, no edema Psychiatric: Orientation: alert, oriented to person and cooperative; + not oriented to place and + not oriented to time Results & Data Results & Data Vital Signs (Past 12 Hours) Vital Signs Temp Pulse Resp BP Pulse Ox O2 Del Method O2 Flow Rate 01/11/25 13:01 90 18 96 Nasal Cannula 2 01/11/25 11:02 36.7 C 100 H 20 129/77 94 Nasal Cannula 1 01/11/25 11:02 Nasal Cannula 2 01/11/25 07:19 88 16 97 Nasal Cannula 2 01/11/25 07:06 37.0 C 93 H 18 123/79 97 Nasal Cannula 2 Laboratory Results CBC, BMP, sputum culture reviewed Diagnostic Findings Chest x-ray reviewed PG Care Time/CCT Total # of Minutes Spent Total Time Spent with Patient: Total time spent is greater than 50% in coordination of care (as documented) at patient's floor/unit and/or counseling patient: Coding Level of Care Code 11391 SUB INP/OBS CARE 3/50MIN Diagnoses Acute respiratory failure with hypoxia and hypercapnia J96.01; J96.02 COPD exacerbation J44.1 Influenza A J10.1 Alcohol withdrawal delirium F10.931 Elevated troponin R79.89
[2025-01-11] MEDS: chlordiazePOXIDE HCl 25 MG CAP PO SCH (16:21)
[2025-01-11] MEDS: DOXYCYCLINE HYCLATE 100 MG CAP PO SCH (20:12)
[2025-01-12] MEDS: MULTIVITAMIN TAB PO SCH (00:31)
[2025-01-12] MEDS: ALBUT/IPRATROP 3MG/0.5MG NEB 3 ML VIAL NEB PRN (03:33)
[2025-01-12] MEDS: CHOLECALCIFEROL 25 MCG (1000 UNITS) TAB PO SCH (08:21)
[2025-01-12] MEDS: [UNRECOGNIZED DRUG - OTHER] PO ONE (14:38)
--- NOTE | 2025-01-12 16:30 | Hospitalist Progress Note ---
Date of Service January 12, 2025 Assessment & Plan (1) Acute respiratory failure with hypoxia and hypercapnia: Plan: Secondary to influenza A and COPD exacerbation. Weaned down to 2L NC O2 which is an improvement from his home O2 of 3-5 LNC Keep oxygen saturation in the 88 to 92% range to prevent further CO2 retention. Treat underlying influenza and exacerbation of COPD. His outpatient chief projectionist can get him set up with a Trilogy machine at home (2) COPD exacerbation: Plan: Severe COPD at baseline with chronic respiratory failure. Improving slowly with ongoing SOB Appreciate pulmonology consultation and recommendations. Discussed palliative medicine but he is not ready for that at this time. In fact, he is committed to quitting smoking and maybe EtOH cessation so he could possibly be a lung transplant candidate vs get [place] valve procedure -Continue Roflumilast, scheduled DuoNebs and twice daily budesonide, once daily umeclidinium inhaler -Continue nicotine patch and encouraged ongoing smoking cessation -f/u with PULM Dr. Valentin after discharge -Continue scheduled nebulizer treatments -Continue parenteral steroid therapy with Solu-Medrol 40 Mg IV every 8 hours -Cont doxycycline p.o. twice daily and finish out 7-day course on 01/14 (3) Influenza A: Plan: Supportive care. Tamiflu therapy. Droplet isolation precautions (4) Alcohol withdrawal delirium: Plan: Patient was delirious and hallucinating, confused on 01/11. Related to alcohol withdrawal . He typically drinks 10 alcoholic beverages a day He was started on Librium 25mg po tid and had significant improvement -continue as needed lorazepam -allowed family to buy and bring in his favorite beer so he will drink it instead of the hospital pharmacy beer -decrease Librium to 25 Mg p.o. once daily scheduled and taper down -Continue thiamine, folic acid, and add multivitamin -encouraged continued cessation/taper down of beer and Librium (5) Elevated troponin: Plan: Troponin peaked at 1700, he never had chest pain, ECG had some subtle changes initially. Cardiac echo reveals preserved ejection fraction but due to imaging limitations cannot rule out regional wall motion abnormalities. Repeat ECG is normal on 01/10 Likely myocardial demand ischemia in the setting of influenza A, COPD exacerbation and hypoxemia No arrhythmias on telemetry Continue aspirin, low-dose Xarelto, statin Plan DVT [id number] Xarelto Disposition-continued stay, slowly improving PT/OT recommends rehab-pt hesitant but family is encouraging him and he is agreeable-referrals made I discussed his care with his two daughters and son in law at bedside on 01/12 Admission and Anticipated Discharge Date Admission Date: January 08, 2025 Subjective Pt feeling acutely SOB at times today and had to have urgent nebs which helped. He feels weird since starting the Librium but definitely far less confused today His two daughters and CAMILLE are at the bedside. He inquires about [place] valve procedure and lung transplant and I reviewed both Dr. Valentin and Maxim's notes with him with regards to this. Daughters are encouraging him to quit smoking. 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 Physical Exam Constitutional: + ill appearing and + thin Respiratory: normal respiratory effort; no cough Auscultation: + diminished lung sounds (Throughout); no crackles, no rhonchi and no wheezes Cardiovascular: RRR, no murmur, no edema Psychiatric: Orientation: alert, oriented x 3 and cooperative Results & Data Results & Data Vital Signs (Past 12 Hours) Vital Signs Temp Pulse Resp BP Pulse Ox O2 Del Method O2 Flow Rate 01/12/25 15:54 36.6 C 82 18 121/63 91 Nasal Cannula 2 01/12/25 13:38 94 H 20 96 Nasal Cannula 2 01/12/25 13:06 93 01/12/25 07:38 90 20 94 Nasal Cannula 2 01/12/25 07:35 Nasal Cannula 2 01/12/25 07:20 36.4 C L 86 18 145/82 H 96 Nasal Cannula 2 PG Care Time/CCT Total # of Minutes Spent Total Time Spent with Patient: Total time spent is greater than 50% in coordination of care (as documented) at patient's floor/unit and/or counseling patient: Coding Level of Care Code 02714 SUB INP/OBS CARE 2MIN Diagnoses Acute respiratory failure with hypoxia and hypercapnia J96.01; J96.02 COPD exacerbation J44.1 Influenza A J10.1 Alcohol withdrawal delirium F10.931 Elevated troponin R79.89
[2025-01-12] MEDS: [UNRECOGNIZED DRUG - OTHER] PO SCH (20:38)
--- NOTE | 2025-01-13 08:02 | Pulmonology Progress Note ---
Date of Service January 13, 2025 Assessment & Plan (1) Acute respiratory failure with hypoxia and hypercapnia: (2) COPD exacerbation: (3) Tobacco abuse: (4) Delirium: Plan Impression: 69-year-old male who is actively smoking cigarettes presenting with recurrent COPD exacerbation which is quite severe secondary to influenza A detected on respiratory bio fire panel. Delirium improved today and respiratory status appears to be approaching baseline. Recommendations: 1. Severe/end-stage COPD: Transition from methylprednisolone to prednisone 40 mg a day for 5 days. Continue budesonide and formoterol. The patient was engaged with palliative care in the outpatient setting. His general condition appears poor. Would recommend reengaging palliative care during this hospitalization. Advised the patient that he is not a candidate for bronchoscopic lung volume reduction ([place] valves) until he is clinically stable. Currently on doxycycline. He is not a transplant candidate given his active tobacco abuse. 2. Influenza: Complete course of Tamiflu. Currently on doxycycline which should be adequate currently for acute exacerbation of COPD. 3. Hypoxemic/hypercarbic respiratory failure: Would target oxygen saturations around 89 to 90%. Can follow-up with his outpatient provider to see whether or not noninvasive positive pressure ventilation might be appropriate at night 4. Out of bed to chair and ambulate as tolerated. 5. Smoking cessation was again recommended to the patient. He has not been particularly motivated in the past. If the patient continues to be used tobacco products, he will have continued progression of respiratory issues and likely shorten his life expectancy Consideration for palliative care may be appropriate. The patient appears to be approaching his pulmonary baseline. Needs aggressive rehab. Pulmonary will sign off at this point in time. He can follow-up with Dr. Valentin in the outpatient clinic. Feel free to contact us with questions or concerns Admission and Anticipated Discharge Date Admission Date: January 08, 2025 Subjective Patient seen and examined. EMR reviewed. Discussed with patient at bedside. The patient reports he is feeling better today. He is tolerating a diet. His delirium appears significantly improved. He is coughing but expectorating less phlegm. He is down to his baseline oxygen requirement. He has no new pulmonary concerns today Review of Systems 2 Review of Systems: All systems reviewed & are unremarkable except as noted in Subjective Physical Exam 2 Constitutional: + frail appearing and + disheveled Neck: trachea midline, no thyromegaly Respiratory: no respiratory distress, no labored breathing, no cough and not tachypneic Auscultation: + diminished lung sounds; no wheezes Cardiovascular: RRR, no murmur, no edema Gastrointestinal (Abdomen): normal bowel sounds, soft, nontender, no hepatosplenomegaly Musculoskeletal: Extremities: extremities normal to inspection Skin: no rashes, warm and dry Lymphatic: no cervical lymphadenopathy Results & Data Results & Data Vital Signs (Past 12 Hours) Vital Signs Temp Pulse Resp BP BP Pulse Ox O2 Del Method 01/13/25 07:30 Nasal Cannula 01/13/25 07:11 87 18 96 Nasal Cannula 01/13/25 06:51 36.4 C L 87 18 119/70 96 Nasal Cannula 01/13/25 06:22 82 18 97 Nasal Cannula 01/12/25 20:30 Nasal Cannula 01/12/25 20:09 36.5 C 93 H 18 118/74 96 Nasal Cannula O2 Flow Rate 01/13/25 07:30 2.5 01/13/25 07:11 2 01/13/25 06:51 2.5 01/13/25 06:22 3 01/12/25 20:30 3 01/12/25 20:09 2 Laboratory Results 01/11/25 05:38 01/11/25 05:38 Diagnostic Findings No new imaging PG Care Time/CCT Total # of Minutes Spent Total Time Spent with Patient: Total time spent is greater than 50% in coordination of care (as documented) at patient's floor/unit and/or counseling patient: Coding Level of Care Code 74068 SUB INP/OBS CARE 2/35MIN Diagnoses Acute respiratory failure with hypoxia and hypercapnia J96.01; J96.02 COPD exacerbation J44.1 Tobacco abuse Z72.0 Delirium R41.0
[2025-01-13] MEDS: chlordiazePOXIDE HCl 25 MG CAP PO SCH (08:10)
[2025-01-13] MEDS: predniSONE 20 MG TAB PO SCH (08:32)
[2025-01-13] MEDS ORDERED: predniSONE 20 MG TAB PO SCH (09:00)
[2025-01-13] MEDS: LORazepam 1 MG TAB PO PRN (10:26)
--- NOTE | 2025-01-13 13:28 | Palliative Care Consultation ---
Date of Consultation January 13, 2025 Assessment & Plan (1) Dyspnea and respiratory abnormalities: (2) Weakness generalized: (3) Severe muscle deconditioning: (4) COPD, group E, by GOLD 2023 classification: (5) Chronic respiratory failure with hypoxia: (6) Palliative care by specialist: (7) Advanced care planning/counseling discussion: A one hour face to face ACP meeting was held with pt, his girlfriend Asiya, dtrs Lorena and Betzy/her , his sister/brother in law, his niece Rev Valerio. We reviewed the nature of COPD: the ATS and ERS define COPD as a preventable and treatable disease state characterized by airflow limitation that is not fully reversible. The airflow limitation is usually progressive and associated with a chronic inflammatory response of the lungs to noxious particles or gases. COPD is incurable and will worsen over time. Sometimes when patients stop smoking, the progression will slow down, but all COPD over time will get worse. Medications become less effective and do not work as well; in general these patients experience a significant decline in QOL. Patients with COPD constitute a large group of symptomatic patients with a common, chronic, and generally progressive respiratory disorder. Recent studies indicate that patients in this group, on the whole, receive less palliative care in their terminal phase than patients with lung cancer. We discussed that Palliative care can begin when a patient becomes symptomatic and is usually concurrent with restorative and life- prolonging care. Palliative care is titrated, analogous to curative/restorative care, to meet the needs of the patient and family in accord with their preferences. We will help manage their symptoms and assist with goals of care discussions. We discussed how very severe COPD is defined and the criteria which indicate it is very severe/terminal and hospice appropriate: COPD 1. Severe airflow obstruction: FEV1 < 30% predicted 2. Low BMI (< 19) 3. Housebound: mMMRC >2-3 or CAT score >20 4. History of 2 or more admissions for acute exacerbations in the previous year (COPD/heart failure) 5. Need for Non Invasive Ventilation for acute exacerbation 6. Persistent signs and symptoms of right heart failure. We spoke about the multisystem impact of termite helper high volume smoking as well as termite helper impact on body systems with continued smoking. he has a past hx of heroin abuse as well.We discussed the progressive decline of COPD and the functional changes in activity tolerance. He insists he has no major health issues apart from lungs - he states even though he smokes heavily and has been drinking everyday (averages 6-8 beers + 8-9 mixed drinks everyday usually begins afternoon through evenings.) Edgard feels his smoking did not cause his lung disease. He feels God looks out for him and his girlfriend insists this is also true, stating "this man has been drinking and smoking heavily since before you were born and he still hasn't had anything wrong except the lungs. his liver, kidneys and heart are fine and he's never been told otherwise." His daughters acknowledge they share a deep wally and pray for his healing. They would like for him to move to [place] to live near them and rehab/recover/maybe get to a transplant eval. The house he shares with his GF is contaminated heavily with mold. there are 6+ dogs in the home and HALEY is also a heavy smoker who is not interested in cessation. There are concerns going home may not be safest option to try and optimize his lung function's recovery. We explored Edgard's thoughts on preferences for care focus if things do not get better. This was upsetting to his GF who became openly hostile to this provider but did apologize towards the end of the discussion. GF states everyone is coming to pt room and delivering bad news all the time and no one is thinking about "the fact that God is good and God is powerful, he will provide the healing." His daughters/son in law/sister and brother in law were more realistic in their expectations, adding they have wally and will always pray for a miracle but they also felt strongly we needed to discuss potential what if scenarios of worst case scenarios. I conducted a Best Case/Worst case analysis: Best case is he recovers from this admission,improves PS with complete SNF rehab then acute rehab then OP pulm rehab with concurrent smoking cessation and complete detox and abstinence from alcohol ideally with completion of a drug and alcohol rehab program, follows up with pulm/updates testing/determine if best option is valve vs LVRS vs transplant and proceed accordingly. Worst case is SNF rehab does not improve vs he acutely worsens vs he cannot stop smoking and/or drinking and this effectively rules out interventions such a LVRS or txp and valve may or may not be possible with low PS. If he worsens in spite of the interventions to improve his health then transitioning focus to QOL was recommended. His sister points out if his time is short, he would want to be home and with family: "this is the house he built and it is his comfort, his home." We spoke about hospice as an option when medical therapies are not longer helping or he is declining to where no other interventions as feasible. I provided education about the hospice benefit: an interdisciplinary program offered by nurses, nurses aides, social workers, chaplains and a medical billing coder for patients with a terminal condition and a life expectancy of less than 6 months. This is covered by Medicare at 100%/no out of pocket expense to patient and all meds/supplies needed by patient for the reason they are on hospice are paid for/covered by hospice. The goal is assure quality of life of the patient in their home setting (home, halfway, inpatient hospice setting) by providing symptoms management, psychosocial and spiritual support. However, they cannot o ffer 24 hours care and if the family is unable to provide that care, they will have to consider personal care with out of pocket cost vs. halfway placement. We discussed the goals of hospice as a patient service and the goals of care; we discussed EOL trajectories and transitions kyle the emotional impact of realizing mortality as a concrete reality from prior abstract considerations. Pt was reassured that no matter where they are along this trajectory, they are not alone - their medical team will remain by their side through their journey. Discussed the pros/cons of accepting help when especially weakened and distressed by pain-which would also help provide relief/decrease caregiver burden/strain. we agreed he will try SNF rehab, continue effort to remain smoke free and work on ETOH cessation. Currently allowed 3 beers per day during this admission and remains on withdrawal protocol including librium. He agreed to ongoing OP follow up We discussed advanced directives. He notes he has a will leaving the house to his GF. Advised of what is a living will and the import of completing one - enc them to discuss as a family who would he want to be SDM and if they are comfortable doing so, etc. Agreed to follow up meeting in AM Plan above - family aware of his serious adv illness. We agreed to rehab trial and ongoing OP follow up. Thank you for allowing us to participate in the ongoing care of this patient. Please page with any additional concerns. Cyndie Sutton DNP Director, Palliative Medicine History of Present Illness Attending Physician: Yoli Kumar MD History of Present Illness Edgard Gaytan is a 69yo male who is actively smoking cigarettes presenting with recurrent COPD exacerbation which is quite severe secondary to influenza A detected on respiratory bio fire panel. He is responding to BiPAP therapy, remains on IV methylprednisone 40 mg every 6 along with nebulized budesonide, formoterol, DuoNebs every 6 hours. He is on Tamiflu, doxycycline, mucinex. A nicotine patch is in place. Pulmonary toilet with incentive spirometry and flutter valve when able. s/p 2 g of magnesium & IV Lasix due to possible underlying cor pulmonale exacerbating his symptoms. Pulm med discussed CODE STATUS with patient and he indicated that he would like to remain a full code in the event of a cardiopulmonary arrest. 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 ++Active smoker - Greater than [id number] smoking history At recent pulm visit he was advised the nature of his lung disease is very advanced and medical mgt is maximized. He is not a lung txp candidate. He has inquired about [facility] valve and spoke with pulm earlier this morning. he would need vigorous rehab and PS improvement prior to being considered for any further escalading interventions. Edgard has hx of very severe airflow obstruction on spirometry, COPD/smoking related, +active tobacco abuse, now AECOPD d/t flu A. He follows w/Dr. Valentin as an outpatient. Edgard reports he was not feeling well for about 6 weeks leading up to this admission and his signif other is also sick at home. he had worsening/increased cough and dyspnea, started on BiPAP in the ER and the ABG revealed acute hypoxemic and hypercapnic respiratory failure. ABG has been slowly improving w/BiPAP but he has trouble being compliant with it He remains SOB, fatigued, no chest pain, no visual changes, no fevers/chills, occ sweats Allergies Allergy/AdvReac Type Severity Reaction Status Date / Time No Known Allergies Allergy Verified 10/18/24 14:31 Home Medications Medication Instructions Recorded Confirmed Type aspirin 81 mg tablet,delayed 81 mg PO QAM 01/19/19 01/08/25 History release Portable Oxygen #1 ea 07/02/21 10/18/24 Rx nebulizers (Aeroneb Go Nebulizer) #1 ea 12/06/21 10/18/24 Rx cholecalciferol (vitamin D3) 50 50 mcg PO DAILY 04/22/22 01/08/25 History mcg (2,000 unit) capsule ascorbate calcium (vitamin C) 500 1 g PO DAILY 05/12/23 01/08/25 History mg tablet nebulizers #1 ea 05/10/24 10/18/24 Rx Advair HFA 230 mcg-21 2 inh inhalation BID #12 grams 08/16/24 01/08/25 Rx mcg/actuation aerosol inhaler (fluticasone propion-salmeterol) albuterol sulfate 90 mcg/actuation 2 puff inhalation Q6H PRN 08/16/24 01/08/25 Rx aerosol inhaler Shortness Of Breath Or Wheezing #3 Inhalers roflumilast 500 mcg tablet 500 mcg PO DAILY #90 tabs 08/16/24 01/08/25 Rx (Daliresp) tiotropium bromide 2.5 2 puff inhalation DAILY #4 grams 08/16/24 01/08/25 Rx mcg/actuation mist for inhalation (Spiriva Respimat) nicotine 21 mg/24 hr daily 1 patch transdermal DAILY #28 ea 10/18/24 01/08/25 Rx transdermal patch levocetirizine 5 mg tablet 5 mg PO DAILY PRN allergy symptoms 10/20/24 01/08/25 Rx #90 tabs atorvastatin 20 mg tablet 20 mg PO DAILY #90 tabs 10/27/24 01/08/25 Rx tamsulosin 0.4 mg capsule 0.4 mg PO DAILY #90 caps 11/25/24 01/08/25 Rx famotidine 20 mg tablet 20 mg PO HS #90 tabs 11/26/24 01/08/25 Rx metoprolol succinate 50 mg 50 mg PO DAILY #90 tabs 11/26/24 01/08/25 Rx tablet,extended release 24 hr (Toprol XL) ipratropium 0.5 mg-albuterol 3 mg 3 ml inhalation Q6H PRN shortness 11/29/24 01/08/25 Rx (2.5 mg base)/3 mL nebulization of breath or wheezing #540 mL soln rivaroxaban 2.5 mg tablet (Xarelto) 2.5 mg PO BID #60 tabs 01/04/25 01/08/25 Rx alprazolam 0.5 mg tablet 0.5 mg PO TID PRN anxiety #60 tabs 01/06/25 01/08/25 Rx azithromycin 250 mg tablet 250 mg PO 3XWK 01/08/25 01/08/25 History pantoprazole 40 mg tablet,delayed 40 mg PO DAILY 01/08/25 01/08/25 History release prednisone 20 mg tablet 20 mg PO UD 01/08/25 01/08/25 History Patient History Medical History Interscapular pain SOBOE (shortness of breath on exertion) On home O2 Surgical History Hx of colonoscopy Status post biopsy of kidney S/P cholecystectomy S/P coronary artery stent placement S/P hernia repair Family History Mother Diabetes Hypertension Heart disease Myocardial infarction Father , suicide Alcohol abuse Colorectal cancer Sister Myocardial infarction Uncle Colorectal cancer Denies family history of Ovarian cancer Prostate cancer Breast cancer Social History Smoking Status: Current every day smoker Tobacco Type: Cigarettes Age Started Using Tobacco: 17; packs per day: 1; Cigarettes Per Day: 1 pack per day; Second Hand Exposure: Yes; Do You Dip or Chew Tobacco: No; Hx Alcohol Use: Yes Alcohol type: beer and hard liquor Alcohol Intake Frequen cy: 4 or More x per/Week Alcohol Intake Frequency Comment: daily- 2 beers at night and some mixed drinks Hx Substance Use: Yes Prescribed Medications: Marijuana Last Used Substance Other:: Years ago Preferred Language: Bengali Communication Ability: Effective Communication Tools: Electrolarynx Visual Impairment: No Limitations Hearing Ability: Normal Coffee Shop Aide Required: No Beliefs That Will Affect Care: None marital status: Single Current Living Situation: Family Current Living Situation Comment: Lives with NIA garcia current occupational status: retired How many Children do You have: 2 Feels Safe at Home: Yes Childhood Exposure to Second-Hand Smoke: Yes (1 cup of coffee in the am ) Diet: regular caffeine: Yes during the past year weight has: remained stable Dental Care, Regularly: No Physical Activity Frequency: 1-2 Times per Week Physical Activity Frequency Comment: housework Seatbelt Use: never Sunscreen Use: No Assistive Devices: Nebulizer, Oxygen - Continuous and Walker Review of Systems Review of Systems: All systems reviewed & are unremarkable except as noted in Subjective Physical Exam Constitutional: + ill appearing, + cachectic, + frail ap pearing, + disheveled and cooperative Eyes: PERRL, conjunctivae normal, anicteric sclerae ENMT: Ears: + hearing impairment Mouth: + dry oral mucous membranes and + poor dentition Throat: uvula midline Neck: trachea midline, no thyromegaly Respiratory: + respiratory distress, + labored breath ing, + uses accessory muscles, + cough, + prolonged expiratory phase and + pursed lip breathing Auscultation: + diminished lung sounds (very) Cardiovascular: Rate/Rhythm: + tachycardic Gastrointestinal (Abdomen): Inspection/Auscultation: abdomen normal to inspection and + scaphoid Musculoskeletal: gen weakness diminished BLE and BUE strength Skin: + turgor decreased, + skin atrophy, + dr y skin and + pallor Neurologic: AAOx3 Psychiatric: Apperance: + disheveled Eye Contact: + fair eye contact Speech: + pressured speech Affect: + anxious affect Mood: + anxious mood Thought Process: + circumstantial thought process, + tangential thought process and + perseveration Thought Content: + preoccupation and + thought insertion Suicidal Thoughts: denies suicidal thoughts Homicidal Thoughts: denies homicidal thoughts Cognition: recent memory grossly intact Estimated Intelligence: consistent with education level Insight: + limited insight Judgment: + limited judgement Results & Data Vital Signs (Past 12 Hours) Vital Signs Temp Pulse Resp BP Pulse Ox O2 Del Method O2 Flow Rate 01/13/25 12:44 89 20 99 Nasal Cannula 4 01/13/25 07:30 Nasal Cannula 2.5 01/13/25 07:11 87 18 96 Nasal Cannula 2 01/13/25 06:51 36.4 C L 87 18 119/70 96 Nasal Cannula 2.5 01/13/25 06:22 82 18 97 Nasal Cannula 3 Laboratory Results 01/11/25 01/10/25 01/09/25 Range/Units 05:38 11:01 10:36 WBC 14.41 H 10.81 H (4.8-10.8) K/ul RBC 3.98 L 4.12 L (4.70-6.10) M/uL Hgb 12.6 L 12.8 L (14.0-18.0) g/dl POC Hgb 13.3 L (14.0-18.0) g/dl Hct 37.1 L 38.2 L (42.0-52.0) % POC Hct 39 L (42-52) % MCV 93.2 92.7 (80.0-100.0) fL MCH 31.7 31.1 (25.0-34.0) pg MCHC 34.0 33.5 (32.0-36.0) g/dL RDW Std Deviation 43.2 43.4 (36.4-46.3) fL RDW Coeff of Vira 12.6 12.6 (11.5-14.5) % Plt Count 269 300 (130-400) K/uL MPV 9.5 9.3 L (9.4-12.4) fL Immature Gran % (Auto) 0.4 0.4 % Neut % (Auto) 87.0 86.0 % Lymph % (Auto) 3.6 5.2 % Faulkner % (Auto) 8.9 8.3 % Eos % (Auto) 0.0 0.1 % Baso % (Auto) 0.1 0.0 % Neut # (Auto) 12.54 H 9.30 H (1.40-6.50) K/uL Lymph # (Auto) 0.52 L 0.56 L (1.20-3.40) K/uL Faulkner # (Auto) 1.28 H 0.90 H (0.11-0.59) K/uL Eos # (Auto) 0.00 0.01 (0.00-0.50) K/uL Baso # (Auto) 0.01 0.00 (0.00-0.20) K/uL Immature Gran # (Auto) 0.06 0.04 (0.01-0.20) K/uL Specimen Type POC pH 7.38 (7.35-7.45) POC pCO2 64 H (35-46) mmHg POC pO2 86 (80-95) mmHg POC HCO3 38 H (19-24) angel/L POC Base Excess 12.0 H (-9-1.8) angel/L POC ABG O2 Sat 96.0 H (90-95) % VBG pH (7.36-7.41) VBG pCO2 (38-50) mmHg VBG pO2 mmHg VBG HCO3 mmol/L VBG O2 Saturation % VBG Base Excess mEq/L POC Sodium 133 L (135-144) mmol/L Sodium 139 137 (136-145) mmol/L POC Potassium 4.2 (3.3-5.0) mmol/L Potassium 4.0 4.4 (3.5-5.1) mmol/L POC Chloride (101-112) mmol/L Chloride 95 L 94 L (98-107) mmol/L Carbon Dioxide 39 H 37 H (21-32) mmol/L POC Total CO2 39 H (24-31) mmol/L Anion Gap 5 6 (3-11) POC Anion Gap (16-25) mmol/L POC BUN (7-18) mg/dl BUN 26 H 28 H (6-23) mg/dl Creatinine 0.62 0.67 (0.6-1.4) mg/dl POC Creatinine (0.6-1.3) mg/dl Est Cr Clr Drug Dosing 95.5 88.5 ml/min eGFR 104.11 101.70 BUN/Creatinine Ratio 41.9 H 41.8 H (10-20) Glucose 142 H 162 H (70-99(Fasting)) mg/dl POC Glucose (other) (70-99) mg/dl Lactate (0.4-2.0) mmol/L Calcium 9.3 9.4 (8.6-10.3) mg/dl POC Ioniz Calcium Sinan (1.12-1.32) mmol/l Magnesium (1.7-2.4) mg/dl Total Bilirubin (0.2-1.0) mg/dl Direct Bilirubin (0-0.2) mg/dl AST (13-39) U/L ALT (7-52) U/L Alkaline Phosphatase (34-104) U/L Troponin I High Sens (0-20) pg/ml B-Natriuretic Peptide (0-100) pg/ml Total Protein (6.0-8.3) gm/dl Albumin (3.4-5.0) gm/dl Procalcitonin (0-0.5) ng/ml Adenovirus (PCR) (NotDetected) B. pertussis DNA (PCR) (NotDetected) B.parapertussis DNA PCR (NotDetected) C. pneumoniae DNA (PCR) (NotDetected) Coronavirus OC43 (PCR) (NotDetected) Coronavirus HKU1 (PCR) (NotDetected) Coronavirus 229E (PCR) (NotDetected) SARS-CoV-2 (PCR) (NotDetected) Coronavirus NL63 (PCR) (NotDetected) Human Metapneumovir PCR (NotDetected) Influenza A (H3) PCR (NotDetected) Influenza Type B (PCR) (NotDetected) M. pneumoniae (PCR) (NotDetected) Parainfluenza 1 (PCR) (NotDetected) Parainfluenza 2 (PCR) (NotDetected) Parainfluenza 3 (PCR) (NotDetected) Parainfluenza 4 (PCR) (NotDetected) RSV (PCR) (NotDetected) Entero/Rhino (PCR) (NotDetected) 01/09/25 01/09/25 01/09/25 Range/Units 10:08 06:05 00:24 WBC 6.14 D (4.8-10.8) K/ul RBC 4.06 L (4.70-6.10) M/uL Hgb 12.6 L (14.0-18.0) g/dl POC Hgb 13.3 L (14.0-18.0) g/dl Hct 37.5 L (42.0-52.0) % POC Hct 39 L (42-52) % MCV 92.4 (80.0-100.0) fL MCH 31.0 (25.0-34.0) pg MCHC 33.6 (32.0-36.0) g/dL RDW Std Deviation 42.8 (36.4-46.3) fL RDW Coeff of Vira 12.6 (11.5-14.5) % Plt Count 257 (130-400) K/uL MPV 9.3 L (9.4-12.4) fL Immature Gran % (Auto) 0.7 % Neut % (Auto) 75.8 % Lymph % (Auto) 11.6 % Faulkner % (Auto) 11.9 % Eos % (Auto) 0.0 % Baso % (Auto) 0.0 % Neut # (Auto) 4.66 (1.40-6.50) K/uL Lymph # (Auto) 0.71 L (1.20-3.40) K/uL Faulkner # (Auto) 0.73 H (0.11-0.59) K/uL Eos # (Auto) 0.00 (0.00-0.50) K/uL Baso # (Auto) 0.00 (0.00-0.20) K/uL Immature Gran # (Auto) 0.04 (0.01-0.20) K/uL Specimen Type Arterial POC pH 7.38 (7.35-7.45) POC pCO2 66 H (35-46) mmHg POC pO2 74 L (80-95) mmHg POC HCO3 39 H (19-24) angel/L POC Base Excess 13.0 H (-9-1.8) angel/L POC ABG O2 Sat 94.0 (90-95) % VBG pH 7.39 (7.36-7.41) VBG pCO2 65 H (38-50) mmHg VBG pO2 42 mmHg VBG HCO3 39 mmol/L VBG O2 Saturation 73.9 % VBG Base Excess 11.5 mEq/L POC Sodium 133 L (135-144) mmol/L Sodium 135 L (136-145) mmol/L POC Potassium 4.2 (3.3-5.0) mmol/L Potassium 4.3 (3.5-5.1) mmol/L POC Chloride (101-112) mmol/L Chloride 91 L (98-107) mmol/L Carbon Dioxide 36 H (21-32) mmol/L POC Total CO2 40 H (24-31) mmol/L Anion Gap 8 (3-11) POC Anion Gap (16-25) mmol/L POC BUN (7-18) mg/dl BUN 22 (6-23) mg/dl Creatinine 0.69 (0.6-1.4) mg/dl POC Creatinine (0.6-1.3) mg/dl Est Cr Clr Drug Dosing 85.5 ml/min eGFR 100.80 BUN/Creatinine Ratio 31.9 H (10-20) Glucose 167 H (70-99(Fasting)) mg/dl POC Glucose (other) (70-99) mg/dl Lactate (0.4-2.0) mmol/L Calcium 9.4 (8.6-10.3) mg/dl POC Ioniz Calcium Sinan (1.12-1.32) mmol/l Magnesium (1.7-2.4) mg/dl Total Bilirubin (0.2-1.0) mg/dl Direct Bilirubin (0-0.2) mg/dl AST (13-39) U/L ALT (7-52) U/L Alkaline Phosphatase (34-104) U/L Troponin I High Sens 1488.9 H* 1745.3 H* D (0-20) pg/ml B-Natriuretic Peptide (0-100) pg/ml Total Protein (6.0-8.3) gm/dl Albumin (3.4-5.0) gm/dl Procalcitonin (0-0.5) ng/ml Adenovirus (PCR) (NotDetected) B. pertussis DNA (PCR) (NotDetected) B.parapertussis DNA PCR (NotDetected) C. pneumoniae DNA (PCR) (NotDetected) Coronavirus OC43 (PCR) (NotDetected) Coronavirus HKU1 (PCR) (NotDetected) Coronavirus 229E (PCR) (NotDetected) SARS-CoV-2 (PCR) (NotDetected) Coronavirus NL63 (PCR) (NotDetected) Human Metapneumovir PCR (NotDetected) Influenza A (H3) PCR (NotDetected) Influenza Type B (PCR) (NotDetected) M. pneumoniae (PCR) (NotDetected) Parainfluenza 1 (PCR) (NotDetected) Parainfluenza 2 (PCR) (NotDetected) Parainfluenza 3 (PCR) (NotDetected) Parainfluenza 4 (PCR) (NotDetected) RSV (PCR) (NotDetected) Entero/Rhino (PCR) (NotDetected) 01/08/25 01/08/25 01/08/25 Range/Units Unknown 17:56 12:03 WBC (4.8-10.8) K/ul RBC (4.70-6.10) M/uL Hgb (14.0-18.0) g/dl POC Hgb (14.0-18.0) g/dl Hct (42.0-52.0) % POC Hct (42-52) % MCV (80.0-100.0) fL MCH (25.0-34.0) pg MCHC (32.0-36.0) g/dL RDW Std Deviation (36.4-46.3) fL RDW Coeff of Vira (11.5-14.5) % Plt Count (130-400) K/uL MPV (9.4-12.4) fL Immature Gran % (Auto) % Neut % (Auto) % Lymph % (Auto) % Faulkner % (Auto) % Eos % (Auto) % Baso % (Auto) % Neut # (Auto) (1.40-6.50) K/uL Lymph # (Auto) (1.20-3.40) K/uL Faulkner # (Auto) (0.11-0.59) K/uL Eos # (Auto) (0.00-0.50) K/uL Baso # (Auto) (0.00-0.20) K/uL Immature Gran # (Auto) (0.01-0.20) K/uL Specimen Type POC pH (7.35-7.45) POC pCO2 (35-46) mmHg POC pO2 (80-95) mmHg POC HCO3 (19-24) angel/L POC Base Excess (-9-1.8) angel/L POC ABG O2 Sat (90-95) % VBG pH (7.36-7.41) VBG pCO2 (38-50) mmHg VBG pO2 mmHg VBG HCO3 mmol/L VBG O2 Saturation % VBG Base Excess mEq/L POC Sodium (135-144) mmol/L Sodium (136-145) mmol/L POC Potassium (3.3-5.0) mmol/L Potassium (3.5-5.1) mmol/L POC Chloride (101-112) mmol/L Chloride (98-107) mmol/L Carbon Dioxide (21-32) mmol/L POC Total CO2 (24-31) mmol/L Anion Gap (3-11) POC Anion Gap (16-25) mmol/L POC BUN (7-18) mg/dl BUN (6-23) mg/dl Creatinine (0.6-1.4) mg/dl POC Creatinine (0.6-1.3) mg/dl Est Cr Clr Drug Dosing ml/min eGFR BUN/Creatinine Ratio (10-20) Glucose (70-99(Fasting)) mg/dl POC Glucose (other) (70-99) mg/dl Lactate (0.4-2.0) mmol/L Calcium (8.6-10.3) mg/dl POC Ioniz Calcium Sinan (1.12-1.32) mmol/l Magnesium 2.1 (1.7-2.4) mg/dl Total Bilirubin (0.2-1.0) mg/dl Direct Bilirubin (0-0.2) mg/dl AST (13-39) U/L ALT (7-52) U/L Alkaline Phosphatase (34-104) U/L Troponin I High Sens 1404.5 H* D 473.7 H* D (0-20) pg/ml B-Natriuretic Peptide (0-100) pg/ml Total Protein (6.0-8.3) gm/dl Albumin (3.4-5.0) gm/dl Procalcitonin (0-0.5) ng/ml Adenovirus (PCR) Not Detected (NotDetected) B. pertussis DNA (PCR) Not Detected (NotDetected) B.parapertussis DNA PCR Not Detected (NotDetected) C. pneumoniae DNA (PCR) Not Detected (NotDetected) Coronavirus OC43 (PCR) Not Detected (NotDetected) Coronavirus HKU1 (PCR) Not Detected (NotDetected) Coronavirus 229E (PCR) Not Detected (NotDetected) SARS-CoV-2 (PCR) Not Detected (NotDetected) Coronavirus NL63 (PCR) Not Detected (NotDetected) Human Metapneumovir PCR Not Detected (NotDetected) Influenza A (H3) PCR DETECTED A (NotDetected) Influenza Type B (PCR) Not Detected (NotDetected) M. pneumoniae (PCR) Not Detected (NotDetected) Parainfluenza 1 (PCR) Not Detected (NotDetected) Parainfluenza 2 (PCR) Not Detected (NotDetected) Parainfluenza 3 (PCR) Not Detected (NotDetected) Parainfluenza 4 (PCR) Not Detected (NotDetected) RSV (PCR) Not Detected (NotDetected) Entero/Rhino (PCR) Not Detected (NotDetected) 01/08/25 01/08/25 01/08/25 Range/Units 11:56 11:08 10:24 WBC (4.8-10.8) K/ul RBC (4.70-6.10) M/uL Hgb (14.0-18.0) g/dl POC Hgb 13.3 L (14.0-18.0) g/dl Hct (42.0-52.0) % POC Hct 39 L (42-52) % MCV (80.0-100.0) fL MCH (25.0-34.0) pg MCHC (32.0-36.0) g/dL RDW Std Deviation (36.4-46.3) fL RDW Coeff of Vira (11.5-14.5) % Plt Count (130-400) K/uL MPV (9.4-12.4) fL Immature Gran % (Auto) % Neut % (Auto) % Lymph % (Auto) % Faulkner % (Auto) % Eos % (Auto) % Baso % (Auto) % Neut # (Auto) (1.40-6.50) K/uL Lymph # (Auto) (1.20-3.40) K/uL Faulkner # (Auto) (0.11-0.59) K/uL Eos # (Auto) (0.00-0.50) K/uL Baso # (Auto) (0.00-0.20) K/uL Immature Gran # (Auto) (0.01-0.20) K/uL Specimen Type POC pH (7.35-7.45) POC pCO2 (35-46) mmHg POC pO2 (80-95) mmHg POC HCO3 (19-24) angel/L POC Base Excess (-9-1.8) angel/L POC ABG O2 Sat (90-95) % VBG pH 7.31 L (7.36-7.41) VBG pCO2 65 H (38-50) mmHg VBG pO2 90 mmHg VBG HCO3 33 mmol/L VBG O2 Saturation 97.3 % VBG Base Excess 4.4 mEq/L POC Sodium 133 L (135-144) mmol/L Sodium (136-145) mmol/L POC Potassium 4.5 (3.3-5.0) mmol/L Potassium (3.5-5.1) mmol/L POC Chloride 93 L (101-112) mmol/L Chloride (98-107) mmol/L Carbon Dioxide (21-32) mmol/L POC Total CO2 32 H (24-31) mmol/L Anion Gap (3-11) POC Anion Gap 14.0 L (16-25) mmol/L POC BUN 13 (7-18) mg/dl BUN (6-23) mg/dl Creatinine (0.6-1.4) mg/dl POC Creatinine 0.8 (0.6-1.3) mg/dl Est Cr Clr Drug Dosing ml/min eGFR BUN/Creatinine Ratio (10-20) Glucose (70-99(Fasting)) mg/dl POC Glucose (other) 133 H (70-99) mg/dl Lactate 0.8 (0.4-2.0) mmol/L Calcium (8.6-10.3) mg/dl POC Ioniz Calcium Sinan 1.16 (1.12-1.32) mmol/l Magnesium (1.7-2.4) mg/dl Total Bilirubin (0.2-1.0) mg/dl Direct Bilirubin (0-0.2) mg/dl AST (13-39) U/L ALT (7-52) U/L Alkaline Phosphatase (34-104) U/L Troponin I High Sens (0-20) pg/ml B-Natriuretic Peptide (0-100) pg/ml Total Protein (6.0-8.3) gm/dl Albumin (3.4-5.0) gm/dl Procalcitonin (0-0.5) ng/ml Adenovirus (PCR) (NotDetected) B. pertussis DNA (PCR) (NotDetected) B.parapertussis DNA PCR (NotDetected) C. pneumoniae DNA (PCR) (NotDetected) Coronavirus OC43 (PCR) (NotDetected) Coronavirus HKU1 (PCR) (NotDetected) Coronavirus 229E (PCR) (NotDetected) SARS-CoV-2 (PCR) (NotDetected) Coronavirus NL63 (PCR) (NotDetected) Human Metapneumovir PCR (NotDetected) Influenza A (H3) PCR (NotDetected) Influenza Type B (PCR) (NotDetected) M. pneumoniae (PCR) (NotDetected) Parainfluenza 1 (PCR) (NotDetected) Parainfluenza 2 (PCR) (NotDetected) Parainfluenza 3 (PCR) (NotDetected) Parainfluenza 4 (PCR) (NotDetected) RSV (PCR) (NotDetected) Entero/Rhino (PCR) (NotDetected) 01/08/25 Range/Units 10:20 WBC 16.81 H (4.8-10.8) K/ul RBC 4.18 L (4.70-6.10) M/uL Hgb 12.9 L (14.0-18.0) g/dl POC Hgb (14.0-18.0) g/dl Hct 38.8 L (42.0-52.0) % POC Hct (42-52) % MCV 92.8 (80.0-100.0) fL MCH 30.9 (25.0-34.0) pg MCHC 33.2 (32.0-36.0) g/dL RDW Std Deviation 43.9 (36.4-46.3) fL RDW Coeff of Vira 13.0 (11.5-14.5) % Plt Count 319 (130-400) K/uL MPV 9.4 (9.4-12.4) fL Immature Gran % (Auto) 0.5 % Neut % (Auto) 85.3 % Lymph % (Auto) 5.2 % Faulkner % (Auto) 8.9 % Eos % (Auto) 0.0 % Baso % (Auto) 0.1 % Neut # (Auto) 14.35 H (1.40-6.50) K/uL Lymph # (Auto) 0.87 L (1.20-3.40) K/uL Faulkner # (Auto) 1.50 H (0.11-0.59) K/uL Eos # (Auto) 0.00 (0.00-0.50) K/uL Baso # (Auto) 0.01 (0.00-0.20) K/uL Immature Gran # (Auto) 0.08 (0.01-0.20) K/uL Specimen Type POC pH (7.35-7.45) POC pCO2 (35-46) mmHg POC pO2 (80-95) mmHg POC HCO3 (19-24) angel/L POC Base Excess (-9-1.8) angel/L POC ABG O2 Sat (90-95) % VBG pH 7.26 L (7.36-7.41) VBG pCO2 76 H (38-50) mmHg VBG pO2 76 mmHg VBG HCO3 34 mmol/L VBG O2 Saturation 94.3 % VBG Base Excess 4.5 mEq/L POC Sodium (135-144) mmol/L Sodium 134 L (136-145) mmol/L POC Potassium (3.3-5.0) mmol/L Potassium 4.5 (3.5-5.1) mmol/L POC Chloride (101-112) mmol/L Chloride 93 L (98-107) mmol/L Carbon Dioxide 34 H (21-32) mmol/L POC Total CO2 (24-31) mmol/L Anion Gap 7 (3-11) POC Anion Gap (16-25) mmol/L POC BUN (7-18) mg/dl BUN 13 (6-23) mg/dl Creatinine 0.70 (0.6-1.4) mg/dl POC Creatinine (0.6-1.3) mg/dl Est Cr Clr Drug Dosing 89.4 ml/min eGFR 100.37 BUN/Creatinine Ratio 18.6 (10-20) Glucose 130 H (70-99(Fasting)) mg/dl POC Glucose (other) (70-99) mg/dl Lactate (0.4-2.0) mmol/L Calcium 9.1 (8.6-10.3) mg/dl POC Ioniz Calcium Sinan (1.12-1.32) mmol/l Magnesium (1.7-2.4) mg/dl Total Bilirubin 0.3 (0.2-1.0) mg/dl Direct Bilirubin 0.1 (0-0.2) mg/dl AST 23 (13-39) U/L ALT 18 (7-52) U/L Alkaline Phosphatase 72 (34-104) U/L Troponin I High Sens 42.2 H (0-20) pg/ml B-Natriuretic Peptide 42 (0-100) pg/ml Total Protein 7.2 (6.0-8.3) gm/dl Albumin 4.4 (3.4-5.0) gm/dl Procalcitonin < 0.02 (0-0.5) ng/ml Adenovirus (PCR) (NotDetected) B. pertussis DNA (PCR) (NotDetected) B.parapertussis DNA PCR (NotDetected) C. pneumoniae DNA (PCR) (NotDetected) Coronavirus OC43 (PCR) (NotDetected) Coronavirus HKU1 (PCR) (NotDetected) Coronavirus 229E (PCR) (NotDetected) SARS-CoV-2 (PCR) (NotDetected) Coronavirus NL63 (PCR) (NotDetected) Human Metapneumovir PCR (NotDetected) Influenza A (H3) PCR (NotDetected) Influenza Type B (PCR) (NotDetected) M. pneumoniae (PCR) (NotDetected) Parainfluenza 1 (PCR) (NotDetected) Parainfluenza 2 (PCR) (NotDetected) Parainfluenza 3 (PCR) (NotDetected) Parainfluenza 4 (PCR) (NotDetected) RSV (PCR) (NotDetected) Entero/Rhino (PCR) (NotDetected) Diagnostic Findings Chest X-Ray 01/08/25 10:23 XR chest 1V portable HISTORY: 69 years-old Male COPD acute shortness of breath COMPARISON: Chest CT 06/07/2024 TECHNIQUE: AP view of the chest FINDINGS: Cardiomediastinal and hilar silhouettes are within normal limits. Emphysema with chronic interstitial coarsening. No pneumothorax, pleural effusion or airspace consolidation. The bones of the chest appear grossly intact. Possible mild pulmonary vascular congestion. IMPRESSION: 1. Emphysema with chronic fibrotic changes. 2. No airspace consolidation typical for pneumonia. 3. Possible pulmonary vascular congestion. ACT 112: Negative or not required by law. The above report was generated using voice recognition software. It may contain grammatical, syntax or spelling errors. Electronically signed by: Thiago Herndon M.D. 01/08/2025 11:11 AM PG Care Time/CCT Total # of Minutes Spent Total Time Spent with Patient: Total time spent is greater than 50% in coordination of care (as documented) at patient's floor/unit and/or counseling patient: I spent 140 minutes overall addressing this case: 25 min in medical data review/discussion with referring provider(s) and/or preparation for the visit incl OSH records, d/w primary team 20 min in direct interaction with the patient/exam 60 min in Advance Care Planning/Goals of Care discussions as detailed above in note (must be >16min) 15 min in subsequent review and synthesis of assessment and plan 20 min communicating with other providers regarding the patient's case: nursing, primary team Prolonged Care Time Prolonged Care Time: Yes Total Prolonged Care Time: 20 Advanced Care Planning 85537 Advanced Care Planning 30 Min 46037 Advanced Care Planning Additional 30 [place] [address] IN/OBS CONSULT LVL 5,80M (25 - SIGNIFICANT, SEPARATELY IDENTIFIABLE ) Patient Type New Medical Decision Making High Complexity Diagnoses Dyspnea and respiratory abnormalities R06.00; R06.89 Weakness generalized R53.1 Severe muscle deconditioning R29.898 COPD, group E, by GOLD 2023 classification J44.9 Chronic respiratory failure with hypoxia J96.11 Palliative care by specialist Z51.5 Advanced care planning/counseling discussion Z71.89 Additional Codes Advanced Care Planning - 08986 Advanced Care Planning 30 Min: 43829 Advanced Care Planning 30 Min ([id number]) Advanced Care Planning - 41582 Advanced Care Planning Additional 30 Min: 29929 Advanced Care Planning Additional 30 Min ([id number]) Prolonged Care Time - Prolonged Care Time: Yes ([id number]) Time Spent (min) 160 Comment High mdm, extremely lengthy visit
--- NOTE | 2025-01-13 17:23 | Hospitalist Progress Note ---
Date of Service January 13, 2025 Assessment & Plan (1) Acute respiratory failure with hypoxia and hypercapnia: Plan: Secondary to influenza A and COPD exacerbation. Chest x-ray with chronic fibrotic changes and emphysema but no pneumonia. He is weaned down to 3L NC O2 which is his baseline Keep oxygen saturation in the 88 to 92% range to prevent further CO2 retention. Treating underlying influenza and exacerbation of COPD. His outpatient saw grinder can get him set up with a Trilogy machine at [id number] with Dr. Valentin after discharge (2) COPD exacerbation: Plan: Severe COPD at baseline with chronic respiratory failure- improving slowly Appreciate pulmonology consultation and recommendations. Appreciate palliative medicine consultation and discussion of goals of care During some palliative discussions, he tells me he is committed to quitting smoking and maybe EtOH cessation so he could possibly be a lung transplant candidate vs get [place] valve procedure, but with ongoing goals of care discussion with palliative medicine and advanced directive/POLST to be filled out prior to discharge He is still has dyspnea with very minimal exertion Sputum culture with moderate normal nic -Continue Roflumilast, scheduled DuoNebs and twice daily budesonide, once daily umeclidinium inhaler -Continue nicotine patch and encouraged ongoing smoking cessation -f/u with PULM Dr. Valentin after discharge -Continue scheduled nebulizer treatments -Change IV Solu-Medrol to prednisone 40 mg p.o. daily x 5 more days -Cont doxycycline p.o. twice daily and finish out 7-day course on 01/14 and then return to azithromycin Friday which is his home medication -Advanced directive/POLST form to be filled out prior to discharge with palliative medicine, patient is considering who would be his surrogate decision maker, follow-up with palliative medicine as an outpatient (3) Influenza A: Plan: Continue supportive care and finish out a 5-day course of Tamiflu Droplet isolation precautions (4) Alcohol withdrawal delirium: Plan: Patient was delirious and hallucinating, confused on 01/11. Related to alcohol and Xanax withdrawal . He typically drinks 10 alcoholic beverages a day He was started on Librium taper and had significant improvement -continue as needed lorazepam based on AWSS -allowed family to buy and bring in his favorite beer so he will drink it instead of the hospital pharmacy beer -Continue Librium 25 Mg p.o. once daily for 1 more day and then stop -Started home Xanax 0.5 Mg p.o. twice daily which is how he takes it -Continue thiamine, folic acid, and multivitamin -encouraged continued cessation/taper down of beer and Librium (5) Elevated troponin: Plan: Suspected Type II CO due to acute hypoxic and hypercarbic respiratory failure, influenza A, and alcohol withdrawal Troponin peaked at 1700, he never had chest pain, ECG had some subtle changes initially. Cardiac echo reveals preserved ejection fraction but due to imaging limitations cannot rule out regional wall motion abnormalities. Repeat ECG is normal on 01/10 Likely myocardial demand ischemia in the setting of influenza A, COPD exacerbation and hypoxemia No arrhythmias on telemetry Continue aspirin, low-dose Xarelto, statin Plan DVT [id number] Xarelto Disposition- slowly improving, medically stable for discharge, PT/OT recommends rehab-awaiting for bed availability at multiple facilities I discussed his care with his two daughters and son in law at bedside on 01/12 and again on 01/13 Admission and Anticipated Discharge Date Admission Date: January 08, 2025 Subjective Patient feeling better today. He had a discussion with palliative medicine with his family and all present. He was feeling anxious at times and was requesting a Xanax which he reports he takes at home every day at least twice a day. Physical Exam Constitutional: + thin Respiratory: normal respiratory effort; no cough Auscultation: + diminished lung sounds (Throughout) and + wheezes (A few scattered expiratory wheezes); no crackles and no rhonchi Cardiovascular: RRR, no murmur, no edema Psychiatric: Orientation: alert, oriented x 3 and cooperative Results & Data Results & Data Vital Signs (Past 12 Hours) Vital Signs Temp Pulse Resp BP Pulse Ox O2 Del Method O2 Flow Rate 01/13/25 15:59 91 H 18 96 Nasal Cannula 3 01/13/25 15:27 36.6 C 82 125/68 94 Nasal Cannula 2 01/13/25 12:44 89 20 99 Nasal Cannula 4 01/13/25 07:30 Nasal Cannula 2.5 01/13/25 07:11 87 18 96 Nasal Cannula 2 01/13/25 06:51 36.4 C L 87 18 119/70 96 Nasal Cannula 2.5 01/13/25 06:22 82 18 97 Nasal Cannula 3 Laboratory Results Sputum culture with moderate normal nic PG Care Time/CCT Total # of Minutes Spent Total Time Spent with Patient: Total time spent is greater than 50% in coordination of care (as documented) at patient's floor/unit and/or counseling patient: Coding Level of Care Code 05052 SUB INP/OBS CARE 2/35MIN Diagnoses Acute respiratory failure with hypoxia and hypercapnia J96.01; J96.02 COPD exacerbation J44.1 Influenza A J10.1 Alcohol withdrawal delirium F10.931 Elevated troponin R79.89
[2025-01-13] MEDS: ALPRAZolam 0.5 MG TABLET PO SCH (21:06)
[2025-01-14] MEDS: ACETAMINOPHEN 500 MG TAB PO PRN (11:17)
--- NOTE | 2025-01-14 16:11 | Hospitalist Progress Note ---
Date of Service January 14, 2025 Assessment & Plan (1) Acute respiratory failure with hypoxia and hypercapnia: Plan: Secondary to influenza A and COPD exacerbation. Chest x-ray with chronic fibrotic changes and emphysema but no pneumonia. He is weaned down to 3L NC O2 which is his baseline Keep oxygen saturation in the 88 to 92% range to prevent further CO2 retention. Treating underlying influenza and exacerbation of COPD. His outpatient lap machine tender can get him set up with a Trilogy machine at [id number] with Dr. Valentin after discharge (2) COPD exacerbation: Plan: Severe COPD at baseline with chronic respiratory failure- continues to be improving Appreciate pulmonology consultation and recommendations. Appreciate palliative medicine consultation and discussion of goals of care During some palliative discussions, he tells me he is committed to quitting smoking and maybe EtOH cessation so he could possibly be a lung transplant candidate vs get [place] valve procedure, but with ongoing goals of care discussion with palliative medicine and advanced directive was filled out prior to discharge He is still has dyspnea with very minimal exertion but is slightly improved Sputum culture with moderate normal nic -Continue Roflumilast, scheduled DuoNebs and twice daily budesonide, once daily umeclidinium inhaler -Continue nicotine patch and encouraged ongoing smoking cessation -f/u with PULM Dr. Valentin after discharge -Received IV Solu-Medrol and changed to prednisone 40 mg p.o. daily x 4 more days -Cont doxycycline p.o. twice daily and finish out 7-day course on 01/14 and then return to azithromycin Friday which is his home medication (3) Influenza A: Plan: Continue supportive care and finish out a 5-day course of Tamiflu Droplet isolation precautions (4) Alcohol withdrawal delirium: Plan: Patient was delirious and hallucinating, confused on 01/11. Related to alcohol and Xanax withdrawal . He typically drinks 10 alcoholic beverages a day He was started on Librium taper and had significant improvement -continue as needed lorazepam based on AWSS-none needed -allowed family to buy and bring in his favorite beer so he will drink it instead of the hospital pharmacy beer-decrease to 2 beers per day and change timing to the mid afternoon and evening -discontinue Librium -Continue home Xanax 0.5 Mg p.o. twice daily (resumed on 01/13) -Continue thiamine, folic acid, and multivitamin (5) Elevated troponin: Plan: Suspected Type II NE due to acute hypoxic and hypercarbic respiratory failure, influenza A, and alcohol withdrawal Troponin peaked at 1700, he never had chest pain, ECG had some subtle changes initially. Cardiac echo reveals preserved ejection fraction but due to imaging limitations cannot rule out regional wall motion abnormalities. Repeat ECG is normal on 01/10 Likely myocardial demand ischemia in the setting of influenza A, COPD exacerbation and hypoxemia No arrhythmias on telemetry Continue aspirin, low-dose Xarelto, statin Plan DVT [id number] Xarelto Disposition- improving, medically stable for discharge, PT/OT recommends rehab- awaiting for bed availability at multiple facilities I discussed his care with his two daughters and son in law at bedside on 01/12 and again on 01/13 Admission and Anticipated Discharge Date Admission Date: January 08, 2025 Subjective Feeling better, was able to walk to the door and back. Is feeling anxious at times. Appetite and po intake in general has been poor for 1-2 months and he has lost weight and muscle mass He is committed to weaning off the beer and is agreeable to going down to 2 beers per day. Is also committed to quitting smoking Physical Exam Constitutional: + thin Respiratory: normal respiratory effort; no cough Auscultation: + diminished lung sounds (Throughout); no crackles and no rhonchi Cardiovascular: RRR, no murmur, no edema Psychiatric: Orientation: alert, oriented x 3 and cooperative Results & Data Results & Data Vital Signs (Past 12 Hours) Vital Signs Temp Pulse Resp BP Pulse Ox O2 Del Method O2 Flow Rate 01/14/25 15:07 36.3 C L 80 18 105/69 98 Nasal Cannula 3 01/14/25 14:27 95 3.5 01/14/25 13:10 90 20 96 Nasal Cannula 3 01/14/25 10:00 Nasal Cannula 01/14/25 08:15 90 20 96 Nasal Cannula 3 01/14/25 08:11 36.4 C L 88 18 113/69 96 Nasal Cannula 3 01/14/25 04:46 78 20 98 Nasal Cannula 2 PG Care Time/CCT Total # of Minutes Spent Total Time Spent with Patient: Total time spent is greater than 50% in coordination of care (as documented) at patient's floor/unit and/or counseling patient: Coding Level of Care Code 06578 SUB INP/OBS CARE 2/35MIN Diagnoses Acute respiratory failure with hypoxia and hypercapnia J96.01; J96.02 COPD exacerbation J44.1 Influenza A J10.1 Alcohol withdrawal delirium F10.931 Elevated troponin R79.89
--- NOTE | 2025-01-14 17:50 | Palliative Care Progress Note ---
Date of Service January 14, 2025 Assessment & Plan (1) Dyspnea and respiratory abnormalities: (2) Weakness generalized: (3) Advanced care planning/counseling discussion: Plan: A 61 in face to face ACP was held at bedside with pt, his dtrs x2, son in law, niece and a cousin. He wants to review and complete an AD. the one he completed this AM was witnessed by his named SDM and is therefore INVALID. A new AD was reviewed w/pt and signed - he does not want aggressive invasive measure, no MACK/PEG, no aggressive care. he names his GF Asiya as first SDM then dtrs Lorena and Betzy. He does not want to be placed on life support if he is dying but he would be willing to try escalating interventions if it was felt he had a reversible acute issues that WILL NOT RETURN HIM TO A LOWER BASELINE OR CREATE SITUATION WHERE HE IS DEPENDENT ON OTHERS FOR CARE/PLACED IN [facility] ETC. new Ad completed Old Ad Voided and sent to HIM for scanning New AD copies for chart, copy sent to HIM, copies given to dtrs x2 along with copy of voided original and original AD form given to son in law to provide to GF who was not here today (4) Palliative care by specialist: (5) Severe muscle deconditioning: Plan As above Thank you for allowing us to participate in the ongoing care of this patient. Please page with any additional concerns. Cyndie Sutton DNP Director, Palliative Medicine Admission and Anticipated Discharge Date Admission Date: January 08, 2025 Subjective pt seen in follow up with dtrs x2, son in law, niece and cousin present remains dyspneic, most comfortable semi reclined appetite ok mood ok bowels sluggish denies n/v beers up to 3 cans/day allowed states he is ready to try rehab, wants to get better and improve his life has been speaking with his family about advanced illness planning. family would like to complete an adv directive. they share a form they completed earlier and it is noted that one of his SDMs also signed as witness so a new AD form is needed Review of Systems Review of Systems: All systems reviewed & are unremarkable except as noted in Subjective Physical Exam Constitutional: + ill appearing, + cachectic, + frail ap pearing, + disheveled and cooperative Eyes: PERRL, conjunctivae normal, anicteric sclerae ENMT: Ears: + hearing impairment Mouth: + dry oral mucous membranes and + poor dentition Throat: uvula midline Neck: trachea midline, no thyromegaly Respiratory: + respiratory distress, + labored breath ing, + uses accessory muscles, + cough, + prolonged expiratory phase and + pursed lip breathing Auscultation: + diminished lung sounds (very) Cardiovascular: Rate/Rhythm: + tachycardic Gastrointestinal (Abdomen): Inspection/Auscultation: abdomen normal to inspection and + scaphoid Musculoskeletal: gen weakness diminished BLE and BUE strength Skin: + turgor decreased, + skin atrophy, + dr y skin and + pallor Neurologic: AAOx3 Psychiatric: Apperance: + disheveled Eye Contact: + fair eye contact Spe ech: + pressured speech Affect: + anxious affect Mood: + anxious mood Thought Process: + circumstantial thought process, + tangential thought process and + perseveration Thought Content: + preoccupation and + thought insertion Suicidal Thoughts: denies suicidal thoughts Homicidal Thoughts: denies homicidal thoughts Cognition: recent memory grossly intact Estimated Intelligence: consistent with education level Insight: + limited insight Judgment: + limited judgement Results & Data Vital Signs (Past 12 Hours) Vital Signs Temp Pulse Resp BP Pulse Ox O2 Del Method O2 Flow Rate 01/14/25 15:07 36.3 C L 80 18 105/69 98 Nasal Cannula 3 01/14/25 14:27 95 3.5 01/14/25 13:10 90 20 96 Nasal Cannula 3 01/14/25 10:00 Nasal Cannula 01/14/25 08:15 90 20 96 Nasal Cannula 3 01/14/25 08:11 36.4 C L 88 18 113/69 96 Nasal Cannula 3 Laboratory Results 01/11/25 01/10/25 01/09/25 Range/Units 05:38 11:01 10:36 WBC 14.41 H 10.81 H (4.8-10.8) K/ul RBC 3.98 L 4.12 L (4.70-6.10) M/uL Hgb 12.6 L 12.8 L (14.0-18.0) g/dl POC Hgb 13.3 L (14.0-18.0) g/dl Hct 37.1 L 38.2 L (42.0-52.0) % POC Hct 39 L (42-52) % MCV 93.2 92.7 (80.0-100.0) fL MCH 31.7 31.1 (25.0-34.0) pg MCHC 34.0 33.5 (32.0-36.0) g/dL RDW Std Deviation 43.2 43.4 (36.4-46.3) fL RDW Coeff of Vira 12.6 12.6 (11.5-14.5) % Plt Count 269 300 (130-400) K/uL MPV 9.5 9.3 L (9.4-12.4) fL Immature Gran % (Auto) 0.4 0.4 % Neut % (Auto) 87.0 86.0 % Lymph % (Auto) 3.6 5.2 % Antelope % (Auto) 8.9 8.3 % Eos % (Auto) 0.0 0.1 % Baso % (Auto) 0.1 0.0 % Neut # (Auto) 12.54 H 9.30 H (1.40-6.50) K/uL Lymph # (Auto) 0.52 L 0.56 L (1.20-3.40) K/uL Antelope # (Auto) 1.28 H 0.90 H (0.11-0.59) K/uL Eos # (Auto) 0.00 0.01 (0.00-0.50) K/uL Baso # (Auto) 0.01 0.00 (0.00-0.20) K/uL Immature Gran # (Auto) 0.06 0.04 (0.01-0.20) K/uL Specimen Type POC pH 7.38 (7.35-7.45) POC pCO2 64 H (35-46) mmHg POC pO2 86 (80-95) mmHg POC HCO3 38 H (19-24) angel/L POC Base Excess 12.0 H (-9-1.8) angel/L POC ABG O2 Sat 96.0 H (90-95) % VBG pH (7.36-7.41) VBG pCO2 (38-50) mmHg VBG pO2 mmHg VBG HCO3 mmol/L VBG O2 Saturation % VBG Base Excess mEq/L POC Sodium 133 L (135-144) mmol/L Sodium 139 137 (136-145) mmol/L POC Potassium 4.2 (3.3-5.0) mmol/L Potassium 4.0 4.4 (3.5-5.1) mmol/L POC Chloride (101-112) mmol/L Chloride 95 L 94 L (98-107) mmol/L Carbon Dioxide 39 H 37 H (21-32) mmol/L POC Total CO2 39 H (24-31) mmol/L Anion Gap 5 6 (3-11) POC Anion Gap (16-25) mmol/L POC BUN (7-18) mg/dl BUN 26 H 28 H (6-23) mg/dl Creatinine 0.62 0.67 (0.6-1.4) mg/dl POC Creatinine (0.6-1.3) mg/dl Est Cr Clr Drug Dosing 95.5 88.5 ml/min eGFR 104.11 101.70 BUN/Creatinine Ratio 41.9 H 41.8 H (10-20) Glucose 142 H 162 H (70-99(Fasting)) mg/dl POC Glucose (other) (70-99) mg/dl Lactate (0.4-2.0) mmol/L Calcium 9.3 9.4 (8.6-10.3) mg/dl POC Ioniz Calcium Sinan (1.12-1.32) mmol/l Magnesium (1.7-2.4) mg/dl Total Bilirubin (0.2-1.0) mg/dl Direct Bilirubin (0-0.2) mg/dl AST (13-39) U/L ALT (7-52) U/L Alkaline Phosphatase (34-104) U/L Troponin I High Sens (0-20) pg/ml B-Natriuretic Peptide (0-100) pg/ml Total Protein (6.0-8.3) gm/dl Albumin (3.4-5.0) gm/dl Procalcitonin (0-0.5) ng/ml Adenovirus (PCR) (NotDetected) B. pertussis DNA (PCR) (NotDetected) B.parapertussis DNA PCR (NotDetected) C. pneumoniae DNA (PCR) (NotDetected) Coronavirus OC43 (PCR) (NotDetected) Coronavirus HKU1 (PCR) (NotDetected) Coronavirus 229E (PCR) (NotDetected) SARS-CoV-2 (PCR) (NotDetected) Coronavirus NL63 (PCR) (NotDetected) Human Metapneumovir PCR (NotDetected) Influenza A (H3) PCR (NotDetected) Influenza Type B (PCR) (NotDetected) M. pneumoniae (PCR) (NotDetected) Parainfluenza 1 (PCR) (NotDetected) Parainfluenza 2 (PCR) (NotDetected) Parainfluenza 3 (PCR) (NotDetected) Parainfluenza 4 (PCR) (NotDetected) RSV (PCR) (NotDetected) Entero/Rhino (PCR) (NotDetected) 01/09/25 01/09/25 01/09/25 Range/Units 10:08 06:05 00:24 WBC 6.14 D (4.8-10.8) K/ul RBC 4.06 L (4.70-6.10) M/uL Hgb 12.6 L (14.0-18.0) g/dl POC Hgb 13.3 L (14.0-18.0) g/dl Hct 37.5 L (42.0-52.0) % POC Hct 39 L (42-52) % MCV 92.4 (80.0-100.0) fL MCH 31.0 (25.0-34.0) pg MCHC 33.6 (32.0-36.0) g/dL RDW Std Deviation 42.8 (36.4-46.3) fL RDW Coeff of Vira 12.6 (11.5-14.5) % Plt Count 257 (130-400) K/uL MPV 9.3 L (9.4-12.4) fL Immature Gran % (Auto) 0.7 % Neut % (Auto) 75.8 % Lymph % (Auto) 11.6 % Antelope % (Auto) 11.9 % Eos % (Auto) 0.0 % Baso % (Auto) 0.0 % Neut # (Auto) 4.66 (1.40-6.50) K/uL Lymph # (Auto) 0.71 L (1.20-3.40) K/uL Antelope # (Auto) 0.73 H (0.11-0.59) K/uL Eos # (Auto) 0.00 (0.00-0.50) K/uL Baso # (Auto) 0.00 (0.00-0.20) K/uL Immature Gran # (Auto) 0.04 (0.01-0.20) K/uL Specimen Type Arterial POC pH 7.38 (7.35-7.45) POC pCO2 66 H (35-46) mmHg POC pO2 74 L (80-95) mmHg POC HCO3 39 H (19-24) angel/L POC Base Excess 13.0 H (-9-1.8) angel/L POC ABG O2 Sat 94.0 (90-95) % VBG pH 7.39 (7.36-7.41) VBG pCO2 65 H (38-50) mmHg VBG pO2 42 mmHg VBG HCO3 39 mmol/L VBG O2 Saturation 73.9 % VBG Base Excess 11.5 mEq/L POC Sodium 133 L (135-144) mmol/L Sodium 135 L (136-145) mmol/L POC Potassium 4.2 (3.3-5.0) mmol/L Potassium 4.3 (3.5-5.1) mmol/L POC Chloride (101-112) mmol/L Chloride 91 L (98-107) mmol/L Carbon Dioxide 36 H (21-32) mmol/L POC Total CO2 40 H (24-31) mmol/L Anion Gap 8 (3-11) POC Anion Gap (16-25) mmol/L POC BUN (7-18) mg/dl BUN 22 (6-23) mg/dl Creatinine 0.69 (0.6-1.4) mg/dl POC Creatinine (0.6-1.3) mg/dl Est Cr Clr Drug Dosing 85.5 ml/min eGFR 100.80 BUN/Creatinine Ratio 31.9 H (10-20) Glucose 167 H (70-99(Fasting)) mg/dl POC Glucose (other) (70-99) mg/dl Lactate (0.4-2.0) mmol/L Calcium 9.4 (8.6-10.3) mg/dl POC Ioniz Calcium Isnan (1.12-1.32) mmol/l Magnesium (1.7-2.4) mg/dl Total Bilirubin (0.2-1.0) mg/dl Direct Bilirubin (0-0.2) mg/dl AST (13-39) U/L ALT (7-52) U/L Alkaline Phosphatase (34-104) U/L Troponin I High Sens 1488.9 H* 1745.3 H* D (0-20) pg/ml B-Natriuretic Peptide (0-100) pg/ml Total Protein (6.0-8.3) gm/dl Albumin (3.4-5.0) gm/dl Procalcitonin (0-0.5) ng/ml Adenovirus (PCR) (NotDetected) B. pertussis DNA (PCR) (NotDetected) B.parapertussis DNA PCR (NotDetected) C. pneumoniae DNA (PCR) (NotDetected) Coronavirus OC43 (PCR) (NotDetected) Coronavirus HKU1 (PCR) (NotDetected) Coronavirus 229E (PCR) (NotDetected) SARS-CoV-2 (PCR) (NotDetected) Coronavirus NL63 (PCR) (NotDetected) Human Metapneumovir PCR (NotDetected) Influenza A (H3) PCR (NotDetected) Influenza Type B (PCR) (NotDetected) M. pneumoniae (PCR) (NotDetected) Parainfluenza 1 (PCR) (NotDetected) Parainfluenza 2 (PCR) (NotDetected) Parainfluenza 3 (PCR) (NotDetected) Parainfluenza 4 (PCR) (NotDetected) RSV (PCR) (NotDetected) Entero/Rhino (PCR) (NotDetected) 01/08/25 01/08/25 01/08/25 Range/Units Unknown 17:56 12:03 WBC (4.8-10.8) K/ul RBC (4.70-6.10) M/uL Hgb (14.0-18.0) g/dl POC Hgb (14.0-18.0) g/dl Hct (42.0-52.0) % POC Hct (42-52) % MCV (80.0-100.0) fL MCH (25.0-34.0) pg MCHC (32.0-36.0) g/dL RDW Std Deviation (36.4-46.3) fL RDW Coeff of Vira (11.5-14.5) % Plt Count (130-400) K/uL MPV (9.4-12.4) fL Immature Gran % (Auto) % Neut % (Auto) % Lymph % (Auto) % Antelope % (Auto) % Eos % (Auto) % Baso % (Auto) % Neut # (Auto) (1.40-6.50) K/uL Lymph # (Auto) (1.20-3.40) K/uL Antelope # (Auto) (0.11-0.59) K/uL Eos # (Auto) (0.00-0.50) K/uL Baso # (Auto) (0.00-0.20) K/uL Immature Gran # (Auto) (0.01-0.20) K/uL Specimen Type POC pH (7.35-7.45) POC pCO2 (35-46) mmHg POC pO2 (80-95) mmHg POC HCO3 (19-24) angel/L POC Base Excess (-9-1.8) angel/L POC ABG O2 Sat (90-95) % VBG pH (7.36-7.41) VBG pCO2 (38-50) mmHg VBG pO2 mmHg VBG HCO3 mmol/L VBG O2 Saturation % VBG Base Excess mEq/L POC Sodium (135-144) mmol/L Sodium (136-145) mmol/L POC Potassium (3.3-5.0) mmol/L Potassium (3.5-5.1) mmol/L POC Chloride (101-112) mmol/L Chloride (98-107) mmol/L Carbon Dioxide (21-32) mmol/L POC Total CO2 (24-31) mmol/L Anion Gap (3-11) POC Anion Gap (16-25) mmol/L POC BUN (7-18) mg/dl BUN (6-23) mg/dl Creatinine (0.6-1.4) mg/dl POC Creatinine (0.6-1.3) mg/dl Est Cr Clr Drug Dosing ml/min eGFR BUN/Creatinine Ratio (10-20) Glucose (70-99(Fasting)) mg/dl POC Glucose (other) (70-99) mg/dl Lactate (0.4-2.0) mmol/L Calcium (8.6-10.3) mg/dl POC Ioniz Calcium Sinan (1.12-1.32) mmol/l Magnesium 2.1 (1.7-2.4) mg/dl Total Bilirubin (0.2-1.0) mg/dl Direct Bilirubin (0-0.2) mg/dl AST (13-39) U/L ALT (7-52) U/L Alkaline Phosphatase (34-104) U/L Troponin I High Sens 1404.5 H* D 473.7 H* D (0-20) pg/ml B-Natriuretic Peptide (0-100) pg/ml Total Protein (6.0-8.3) gm/dl Albumin (3.4-5.0) gm/dl Procalcitonin (0-0.5) ng/ml Adenovirus (PCR) Not Detected (NotDetected) B. pertussis DNA (PCR) Not Detected (NotDetected) B.parapertussis DNA PCR Not Detected (NotDetected) C. pneumoniae DNA (PCR) Not Detected (NotDetected) Coronavirus OC43 (PCR) Not Detected (NotDetected) Coronavirus HKU1 (PCR) Not Detected (NotDetected) Coronavirus 229E (PCR) Not Detected (NotDetected) SARS-CoV-2 (PCR) Not Detected (NotDetected) Coronavirus NL63 (PCR) Not Detected (NotDetected) Human Metapneumovir PCR Not Detected (NotDetected) Influenza A (H3) PCR DETECTED A (NotDetected) Influenza Type B (PCR) Not Detected (NotDetected) M. pneumoniae (PCR) Not Detected (NotDetected) Parainfluenza 1 (PCR) Not Detected (NotDetected) Parainfluenza 2 (PCR) Not Detected (NotDetected) Parainfluenza 3 (PCR) Not Detected (NotDetected) Parainfluenza 4 (PCR) Not Detected (NotDetected) RSV (PCR) Not Detected (NotDetected) Entero/Rhino (PCR) Not Detected (NotDetected) 01/08/25 01/08/25 01/08/25 Range/Units 11:56 11:08 10:24 WBC (4.8-10.8) K/ul RBC (4.70-6.10) M/uL Hgb (14.0-18.0) g/dl POC Hgb 13.3 L (14.0-18.0) g/dl Hct (42.0-52.0) % POC Hct 39 L (42-52) % MCV (80.0-100.0) fL MCH (25.0-34.0) pg MCHC (32.0-36.0) g/dL RDW Std Deviation (36.4-46.3) fL RDW Coeff of Vira (11.5-14.5) % Plt Count (130-400) K/uL MPV (9.4-12.4) fL Immature Gran % (Auto) % Neut % (Auto) % Lymph % (Auto) % Antelope % (Auto) % Eos % (Auto) % Baso % (Auto) % Neut # (Auto) (1.40-6.50) K/uL Lymph # (Auto) (1.20-3.40) K/uL Antelope # (Auto) (0.11-0.59) K/uL Eos # (Auto) (0.00-0.50) K/uL Baso # (Auto) (0.00-0.20) K/uL Immature Gran # (Auto) (0.01-0.20) K/uL Specimen Type POC pH (7.35-7.45) POC pCO2 (35-46) mmHg POC pO2 (80-95) mmHg POC HCO3 (19-24) angel/L POC Base Excess (-9-1.8) angel/L POC ABG O2 Sat (90-95) % VBG pH 7.31 L (7.36-7.41) VBG pCO2 65 H (38-50) mmHg VBG pO2 90 mmHg VBG HCO3 33 mmol/L VBG O2 Saturation 97.3 % VBG Base Excess 4.4 mEq/L POC Sodium 133 L (135-144) mmol/L Sodium (136-145) mmol/L POC Potassium 4.5 (3.3-5.0) mmol/L Potassium (3.5-5.1) mmol/L POC Chloride 93 L (101-112) mmol/L Chloride (98-107) mmol/L Carbon Dioxide (21-32) mmol/L POC Total CO2 32 H (24-31) mmol/L Anion Gap (3-11) POC Anion Gap 14.0 L (16-25) mmol/L POC BUN 13 (7-18) mg/dl BUN (6-23) mg/dl Creatinine (0.6-1.4) mg/dl POC Creatinine 0.8 (0.6-1.3) mg/dl Est Cr Clr Drug Dosing ml/min eGFR BUN/Creatinine Ratio (10-20) Glucose (70-99(Fasting)) mg/dl POC Glucose (other) 133 H (70-99) mg/dl Lactate 0.8 (0.4-2.0) mmol/L Calcium (8.6-10.3) mg/dl POC Ioniz Calcium Sinan 1.16 (1.12-1.32) mmol/l Magnesium (1.7-2.4) mg/dl Total Bilirubin (0.2-1.0) mg/dl Direct Bilirubin (0-0.2) mg/dl AST (13-39) U/L ALT (7-52) U/L Alkaline Phosphatase (34-104) U/L Troponin I High Sens (0-20) pg/ml B-Natriuretic Peptide (0-100) pg/ml Total Protein (6.0-8.3) gm/dl Albumin (3.4-5.0) gm/dl Procalcitonin (0-0.5) ng/ml Adenovirus (PCR) (NotDetected) B. pertussis DNA (PCR) (NotDetected) B.parapertussis DNA PCR (NotDetected) C. pneumoniae DNA (PCR) (NotDetected) Coronavirus OC43 (PCR) (NotDetected) Coronavirus HKU1 (PCR) (NotDetected) Coronavirus 229E (PCR) (NotDetected) SARS-CoV-2 (PCR) (NotDetected) Coronavirus NL63 (PCR) (NotDetected) Human Metapneumovir PCR (NotDetected) Influenza A (H3) PCR (NotDetected) Influenza Type B (PCR) (NotDetected) M. pneumoniae (PCR) (NotDetected) Parainfluenza 1 (PCR) (NotDetected) Parainfluenza 2 (PCR) (NotDetected) Parainfluenza 3 (PCR) (NotDetected) Parainfluenza 4 (PCR) (NotDetected) RSV (PCR) (NotDetected) Entero/Rhino (PCR) (NotDetected) 01/08/25 Range/Units 10:20 WBC 16.81 H (4.8-10.8) K/ul RBC 4.18 L (4.70-6.10) M/uL Hgb 12.9 L (14.0-18.0) g/dl POC Hgb (14.0-18.0) g/dl Hct 38.8 L (42.0-52.0) % POC Hct (42-52) % MCV 92.8 (80.0-100.0) fL MCH 30.9 (25.0-34.0) pg MCHC 33.2 (32.0-36.0) g/dL RDW Std Deviation 43.9 (36.4-46.3) fL RDW Coeff of Vira 13.0 (11.5-14.5) % Plt Count 319 (130-400) K/uL MPV 9.4 (9.4-12.4) fL Immature Gran % (Auto) 0.5 % Neut % (Auto) 85.3 % Lymph % (Auto) 5.2 % Antelope % (Auto) 8.9 % Eos % (Auto) 0.0 % Baso % (Auto) 0.1 % Neut # (Auto) 14.35 H (1.40-6.50) K/uL Lymph # (Auto) 0.87 L (1.20-3.40) K/uL Antelope # (Auto) 1.50 H (0.11-0.59) K/uL Eos # (Auto) 0.00 (0.00-0.50) K/uL Baso # (Auto) 0.01 (0.00-0.20) K/uL Immature Gran # (Auto) 0.08 (0.01-0.20) K/uL Specimen Type POC pH (7.35-7.45) POC pCO2 (35-46) mmHg POC pO2 (80-95) mmHg POC HCO3 (19-24) angel/L POC Base Excess (-9-1.8) angel/L POC ABG O2 Sat (90-95) % VBG pH 7.26 L (7.36-7.41) VBG pCO2 76 H (38-50) mmHg VBG pO2 76 mmHg VBG HCO3 34 mmol/L VBG O2 Saturation 94.3 % VBG Base Excess 4.5 mEq/L POC Sodium (135-144) mmol/L Sodium 134 L (136-145) mmol/L POC Potassium (3.3-5.0) mmol/L Potassium 4.5 (3.5-5.1) mmol/L POC Chloride (101-112) mmol/L Chloride 93 L (98-107) mmol/L Carbon Dioxide 34 H (21-32) mmol/L POC Total CO2 (24-31) mmol/L Anion Gap 7 (3-11) POC Anion Gap (16-25) mmol/L POC BUN (7-18) mg/dl BUN 13 (6-23) mg/dl Creatinine 0.70 (0.6-1.4) mg/dl POC Creatinine (0.6-1.3) mg/dl Est Cr Clr Drug Dosing 89.4 ml/min eGFR 100.37 BUN/Creatinine Ratio 18.6 (10-20) Glucose 130 H (70-99(Fasting)) mg/dl POC Glucose (other) (70-99) mg/dl Lactate (0.4-2.0) mmol/L Calcium 9.1 (8.6-10.3) mg/dl POC Ioniz Calcium Sinan (1.12-1.32) mmol/l Magnesium (1.7-2.4) mg/dl Total Bilirubin 0.3 (0.2-1.0) mg/dl Direct Bilirubin 0.1 (0-0.2) mg/dl AST 23 (13-39) U/L ALT 18 (7-52) U/L Alkaline Phosphatase 72 (34-104) U/L Troponin I High Sens 42.2 H (0-20) pg/ml B-Natriuretic Peptide 42 (0-100) pg/ml Total Protein 7.2 (6.0-8.3) gm/dl Albumin 4.4 (3.4-5.0) gm/dl Procalcitonin < 0.02 (0-0.5) ng/ml Adenovirus (PCR) (NotDetected) B. pertussis DNA (PCR) (NotDetected) B.parapertussis DNA PCR (NotDetected) C. pneumoniae DNA (PCR) (NotDetected) Coronavirus OC43 (PCR) (NotDetected) Coronavirus HKU1 (PCR) (NotDetected) Coronavirus 229E (PCR) (NotDetected) SARS-CoV-2 (PCR) (NotDetected) Coronavirus NL63 (PCR) (NotDetected) Human Metapneumovir PCR (NotDetected) Influenza A (H3) PCR (NotDetected) Influenza Type B (PCR) (NotDetected) M. pneumoniae (PCR) (NotDetected) Parainfluenza 1 (PCR) (NotDetected) Parainfluenza 2 (PCR) (NotDetected) Parainfluenza 3 (PCR) (NotDetected) Parainfluenza 4 (PCR) (NotDetected) RSV (PCR) (NotDetected) Entero/Rhino (PCR) (NotDetected) Diagnostic Findings Chest X-Ray 01/08/25 10:23 XR chest 1V portable HISTORY: 69 years-old Male COPD acute shortness of breath COMPARISON: Chest CT 06/07/2024 TECHNIQUE: AP view of the chest FINDINGS: Cardiomediastinal and hilar silhouettes are within normal limits. Emphysema with chronic interstitial coarsening. No pneumothorax, pleural effusion or airspace consolidation. The bones of the chest appear grossly intact. Possible mild pulmonary vascular congestion. IMPRESSION: 1. Emphysema with chronic fibrotic changes. 2. No airspace consolidation typical for pneumonia. 3. Possible pulmonary vascular congestion. ACT 112: Negative or not required by law. The above report was generated using voice recognition software. It may contain grammatical, syntax or spelling errors. Electronically signed by: Thiago Herndon M.D. 01/08/2025 11:11 AM PG Care Time/CCT Total # of Minutes Spent Total Time Spent with Patient: Total time spent is greater than 50% in coordination of care (as documented) at patient's floor/unit and/or counseling patient: I spent 120 minutes overall addressing this case: 10 min in medical data review/discussion with referring provider(s) and/or preparation for the visit 20 min in direct interaction with the patient/exam 60 min in Advance Care Planning/Goals of Care discussions as detailed above in note (must be >16min) 15 min in subsequent review and synthesis of assessment and plan 15 min communicating with other providers regarding the patient's case: care mgt, primary team, nursing Prolonged Care Time Prolonged Care Time: Yes Total Prolonged Care Time: 10 Advanced Care Planning 62200 Advanced Care Planning 30 Min 62148 Advanced Care Planning Additional 30 Min [place] [address] SUB INP/OBS CARE 3/50MIN (25 - SIGNIFICANT, SEPARATELY IDENTIFIABLE ) Patient Type Established Medical Decision Making High Complexity Diagnoses Dyspnea and respiratory abnormalities R06.00; R06.89 Weakness generalized R53.1 Advanced care planning/counseling discussion Z71.89 Palliative care by specialist Z51.5 Severe muscle deconditioning R29.898 Additional Codes Advanced Care Planning - 91485 Advanced Care Planning 30 Min: 66503 Advanced Care Planning 30 Min ([id number]) Advanced Care Planning - 11706 Advanced Care Planning Additional 30 Min: 94726 Advanced Care Planning Additional 30 Min ([id number]) Prolonged Care Time - Prolonged Care Time: Yes ([id number]) Time Spent (min) 120 Comment ACP x 60min and a hi level return visit
[2025-01-14] MEDS: BEER 1 CAN PO SCH (20:30)
--- NOTE | 2025-01-15 12:11 | Hospitalist Progress Note ---
Date of Service January 15, 2025 Assessment & Plan (1) Acute respiratory failure with hypoxia and hypercapnia: Plan: Secondary to influenza A and COPD exacerbation. Chest x-ray with chronic fibrotic changes and emphysema but no pneumonia. He is weaned down to 3L NC O2 which is his baseline Keep oxygen saturation in the 88 to 92% range to prevent further CO2 retention. Treating underlying influenza and exacerbation of COPD. His outpatient molasses and caramel operator can get him set up with a Trilogy machine at [id number] with Dr. Valentin after discharge (2) COPD exacerbation: Plan: Severe COPD at baseline with chronic respiratory failure- continues to be improving Appreciate pulmonology consultation and recommendations. Appreciate palliative medicine consultation and discussion of goals of care During some palliative discussions, he tells me he is committed to quitting smoking and maybe EtOH cessation so he could possibly be a lung transplant candidate vs get [place] valve procedure, but with ongoing goals of care discussion with palliative medicine and advanced directive was filled out prior to discharge He is still has dyspnea with very minimal exertion but is slightly improved Sputum culture with moderate normal nic -Continue Roflumilast, scheduled DuoNebs and twice daily budesonide, once daily umeclidinium inhaler -Continue nicotine patch and encouraged ongoing smoking cessation -f/u with PULM Dr. Valentin after discharge -Received IV Solu-Medrol and then changed to prednisone 40 mg p.o. daily x 3 more days -Finished a 7 day course of doxycycline p.o. twice daily -return to azithromycin Friday which is his home medication (3) Influenza A: Plan: Continue supportive care, finished out a 5-day course of Tamiflu now off Droplet isolation precautions (4) Alcohol withdrawal delirium: Plan: Patient was delirious and hallucinating, confused on 01/11. Related to alcohol and Xanax withdrawal . He typically drinks 10 alcoholic beverages a day He was started on Librium taper and had significant improvement Now with ongoing anxiety despite resuming home xanax bid, having significant anxiety especially at nighttime -change Xanax to lorazepam 1mg qAM, 2mg po qhs, and 1mg during day as needed- lorazepam longer acting and will help avoid roller coaster effect -continue beer 1 can bid and wean off -Continue thiamine, folic acid, and multivitamin (5) Elevated troponin: Plan: Suspected Type II DC due to acute hypoxic and hypercarbic respiratory failure, influenza A, and alcohol withdrawal Troponin peaked at 1700, he never had chest pain, ECG had some subtle changes initially. Cardiac echo reveals preserved ejection fraction but due to imaging limitations cannot rule out regional wall motion abnormalities. Repeat ECG is normal on 01/10 Likely myocardial demand ischemia in the setting of influenza A, COPD exacerbation and hypoxemia No arrhythmias on telemetry Continue aspirin, low-dose Xarelto, statin Plan DVT [id number] Xarelto Disposition- improving, medically stable for discharge, PT/OT recommends rehab- awaiting for bed availability at multiple facilities I discussed his care with his two daughters and son in law at bedside on 01/12 and again on 01/13 Admission and Anticipated Discharge Date Admission Date: January 08, 2025 Subjective Pt feeling very anxious and cannot sleep, feels scared to be in the hospital. Is tearful and says "this is not me." He is upset about how weak he is and asks "Will I beat this?" Physical Exam Constitutional: + ill appearing and + thin Respiratory: normal respiratory effort; no cough Psychiatric: Orientation: alert, oriented x 3 and cooperative Affect: + anxious affect and + tearful affect Mood: + anxious mood Results & Data Results & Data Vital Signs (Past 12 Hours) Vital Signs Temp Pulse Resp BP Pulse Ox O2 Del Method O2 Flow Rate 01/15/25 08:00 Nasal Cannula 01/15/25 07:49 36.5 C 76 20 117/71 99 Nasal Cannula 2 01/15/25 07:44 73 18 98 Nasal Cannula 3 01/15/25 04:01 86 17 98 Nasal Cannula 3 PG Care Time/CCT Total # of Minutes Spent Total Time Spent with Patient: Total time spent is greater than 50% in coordination of care (as documented) at patient's floor/unit and/or counseling patient: Coding Level of Care Code 96934 SUB INP/OBS CARE 235MIN Diagnoses Acute respiratory failure with hypoxia and hypercapnia J96.01; J96.02 COPD exacerbation J44.1 Influenza A J10.1 Alcohol withdrawal delirium F10.931 Elevated troponin R79.89
[2025-01-15] MEDS ORDERED: ALPRAZolam 0.5 MG TABLET PO SCH (14:00)
[2025-01-15] MEDS: LORazepam 1 MG TAB PO PRN (15:51)
[2025-01-15] MEDS: LORazepam 1 MG TAB PO SCH (22:07)
[2025-01-16] MEDS: LORazepam 1 MG TAB PO SCH (08:49)
[2025-01-16] MEDS: NYSTATIN SUSP 500,000 U/5 ML UDC PO SCH (11:19)
--- NOTE | 2025-01-16 18:30 | Hospitalist Progress Note ---
Date of Service January 16, 2025 Assessment & Plan (1) Acute respiratory failure with hypoxia and hypercapnia: Plan: Secondary to influenza A and COPD exacerbation. Chest x-ray with chronic fibrotic changes and emphysema but no pneumonia. He is weaned down to 3L NC O2 which is his baseline Keep oxygen saturation in the 88 to 92% range to prevent further CO2 retention. Treating underlying influenza and exacerbation of COPD. His outpatient entry level project coordinator can get him set up with a Trilogy machine at [id number] with Dr. Valentin after discharge (2) COPD exacerbation: Plan: Severe COPD at baseline with chronic respiratory failure- continues to be slowly improving Appreciate pulmonology consultation and recommendations. Appreciate palliative medicine consultation and discussion of goals of care During some palliative discussions, he tells me he is committed to quitting smoking and maybe EtOH cessation so he could possibly be a lung transplant candidate vs get [place] valve procedure, but with ongoing goals of care discussion with palliative medicine and advanced directive was filled out prior to discharge Sputum culture with moderate normal nic -Continue Roflumilast, scheduled DuoNebs and twice daily budesonide, once daily umeclidinium inhaler -Continue nicotine patch and encouraged ongoing smoking cessation -f/u with PULM Dr. Valentin after discharge -Received IV Solu-Medrol and then changed to prednisone 40 mg p.o. daily x 3 more days -Finished a 7 day course of doxycycline p.o. twice daily -return to azithromycin Friday which is his home medication (3) Influenza A: Plan: Continue supportive care, finished out a 5-day course of Tamiflu now off Droplet isolation precautions (4) Alcohol withdrawal delirium: Plan: Patient was delirious and hallucinating, confused on 01/11. Related to alcohol and Xanax withdrawal . He typically drinks 10 alcoholic beverages a day He was started on Librium taper and had significant improvement Now with ongoing anxiety especially at nighttime, improved with increasing doses of ativan -discontinued home Xanax and changed to lorazepam 1mg qAM, 2mg po qhs, and 1mg during day as needed-lorazepam longer acting and will help avoid roller coaster effect -continue beer 1 can bid and wean off -Continue thiamine, folic acid, and multivitamin (5) Elevated troponin: Plan: Suspected Type II [place] due to acute hypoxic and hypercarbic respiratory failure, influenza A, and alcohol withdrawal Troponin peaked at 1700, he never had chest pain, ECG had some subtle changes initially. Cardiac echo reveals preserved ejection fraction but due to imaging limitations cannot rule out regional wall motion abnormalities. Repeat ECG is normal on 01/10 Likely myocardial demand ischemia in the setting of influenza A, COPD exacerbation and hypoxemia No arrhythmias on telemetry Continue aspirin, low-dose Xarelto, statin Plan DVT [id number] Xarelto Disposition- improving, medically stable for discharge, PT/OT recommends rehab- awaiting for bed availability at multiple facilities I discussed his care with his two daughters and son in law at bedside on 01/12 and again on 01/13 Admission and Anticipated Discharge Date Admission Date: January 08, 2025 Subjective Pt c/o thrush and some pain in mouth and tongue. Continues to feel extremely anxious all the time. Did sleep a little better last night with his higher dose of ativan. Discussed his care with his on the phone Physical Exam Constitutional: + thin Respiratory: normal respiratory effort; no cough Auscultation: + diminished lung sounds (Throughout); no crackles and no rhonchi Cardiovascular: RRR, no murmur, no edema Psychiatric: Orientation: alert, oriented x 3 and cooperative Results & Data Results & Data Vital Signs (Past 12 Hours) Vital Signs Temp Pulse Resp BP Pulse Ox O2 Del Method O2 Flow Rate 01/16/25 16:21 36.6 C 87 18 122/66 99 Nasal Cannula 2 01/16/25 13:33 84 18 97 Nasal Cannula 3 01/16/25 08:02 36.7 C 77 20 105/71 100 Nasal Cannula 3 01/16/25 08:00 Nasal Cannula 3 01/16/25 07:47 80 18 98 Nasal Cannula 3 PG Care Time/CCT Total # of Minutes Spent Total Time Spent with Patient: Total time spent is greater than 50% in coordination of care (as documented) at patient's floor/unit and/or counseling patient: Coding Level of Care Code 45385 SUB INP/OBS CARE 235MIN Diagnoses Acute respiratory failure with hypoxia and hypercapnia J96.01; J96.02 COPD exacerbation J44.1 Influenza A J10.1 Alcohol withdrawal delirium F10.931 Elevated troponin R79.89
[2025-01-17] MEDS: AZITHROMYCIN 250 MG TAB PO SCH (08:22)
--- NOTE | 2025-01-17 12:58 | Hospitalist Progress Note ---
Date of Service January 17, 2025 Assessment & Plan (1) Acute respiratory failure with hypoxia and hypercapnia: Plan: Secondary to influenza A and COPD exacerbation. Chest x-ray with chronic fibrotic changes and emphysema but no pneumonia. He has been weaned down to his baseline oxygen requirements. (2) COPD exacerbation: Plan: Present on admission. With acute on chronic hypoxic/hypercarbic respiratory failure. He is now back to his baseline. Appreciate pulmonary medicine consultation recommendations. (3) Influenza A: Plan: He completed his 5-day course of Tamiflu. Supportive care. (4) Alcohol withdrawal delirium: Plan: Despite allowing the patient to drink beer while hospitalized, he developed DTs this admission which have been treated and are now resolved. He was started on Librium taper and had significant improvement. Now with ongoing anxiety especially at nighttime, improved with increasing doses of ativan. Discontinued home Xanax and changed to lorazepam 1mg qAM, 2mg po qhs, and 1mg during day as needed-lorazepam longer acting and will help avoid roller coaster effect. He states he no longer wants to consume beer. Continue thiamine, folic acid, and multivitamin (5) Elevated troponin: Plan: Appears to be due to supply demand mismatch. No evidence of acute coronary syndrome. Serial EKGs reveal no acute changes. Troponin peaked at 1700 but he never had chest pain. ECG had some subtle changes initially but nothing acute on serial EKGs. Cardiac echo reveals preserved ejection fraction but due to imaging limitations cannot rule out regional wall motion abnormalities. Continue aspirin, low-dose Xarelto, statin Plan senior living placement pending. He is medically stable for discharge Admission and Anticipated Discharge Date Admission Date: January 08, 2025 Subjective He appears to be stable overall. He has completed his course of Tamiflu and doxycycline. He is requiring 2 L of oxygen per nasal cannula at this time. [facility]-term jail placement is pending. Review of Systems 2 Review of Systems: Constitutionalno fever or chills ENTno blurred vision, no double vision, no epistaxis, no sore throat Respiratoryno cough, no wheezing. He does have chronic dyspnea on exertion Cardiacno palpitations, no chest pain, no syncope Byron nausea, vomiting, diarrhea, melena, hematochezia GUno urinary retention, no urinary incontinence, no dysuria, no hematuria Musculoskeletalno joint pain, no muscle tenderness Skinno bruising, no rashes, no pruritus Neurono isolated weakness, no paresthesia Psychno depression, no anxiety Physical Exam 2 Physical Exam: General-alert and oriented x3, no fever, no chills HEENT-head atraumatic and normocephalic, pupils equal and reactive to light, extraocular muscles intact Neck-no lymphadenopathy or thyromegaly, trachea midline Chest-diminished breath sounds bilaterally. No inspiratory rales, rhonchi, wheezing Cardiac-regular rate and rhythm, normal S1 and S2 Abdomen-normal bowel sounds, no hepatosplenomegaly Extremities-no cyanosis, clubbing, or edema Neuro-cranial nerves II through XII intact, motor and sensory function within normal limits, strength symmetrical with generalized weakness, no focal deficits Psych-depressed affect Results & Data Results & Data Vital Signs (Past 12 Hours) Vital Signs Temp Pulse Pulse Resp BP Pulse Ox O2 Del Method 01/17/25 12:29 86 19 96 Nasal Cannula 01/17/25 07:36 36.4 C L 79 16 125/68 97 Nasal Cannula 01/17/25 06:13 73 17 97 Nasal Cannula O2 Flow Rate 01/17/25 12:29 2 01/17/25 07:36 2 01/17/25 06:13 2 Laboratory Results 01/11/25 05:38 01/11/25 05:38 PG Care Time/CCT Total # of Minutes Spent Total Time Spent with Patient: Total time spent is greater than 50% in coordination of care (as documented) at patient's floor/unit and/or counseling patient: Coding Level of Care Code 29671 SUB INP/OBS CARE 3/50MIN Diagnoses Acute respiratory failure with hypoxia and hypercapnia J96.01; J96.02 COPD exacerbation J44.1 Influenza A J10.1 Alcohol withdrawal delirium F10.931 Elevated troponin R79.89
--- NOTE | 2025-01-18 12:05 | Hospitalist Progress Note ---
Date of Service January 18, 2025 Assessment & Plan (1) Acute respiratory failure with hypoxia and hypercapnia: Plan: Secondary to influenza A and COPD exacerbation. Chest x-ray with chronic fibrotic changes and emphysema but no pneumonia. Keep oxygen saturation in the low 90s to prevent further CO2 retention. (2) COPD exacerbation: Plan: Present on admission. With acute on chronic hypoxic/hypercarbic respiratory failure. He is now back to his baseline. Appreciate pulmonary medicine consultation recommendations. (3) Influenza A: Plan: He completed his 5-day course of Tamiflu. Supportive care. (4) Alcohol withdrawal delirium: Plan: Despite allowing the patient to drink beer while hospitalized, he developed DTs this admission which have been treated and are now resolved. He was started on Librium taper and had significant improvement. Now with ongoing anxiety especially at nighttime, improved with increasing doses of ativan. Discontinued home Xanax and changed to lorazepam 1mg qAM, 2mg po qhs, and 1mg during day as needed-lorazepam longer acting and will help avoid roller coaster effect. He states he no longer wants to consume beer. Continue thiamine, folic acid, and multivitamin (5) Elevated troponin: Plan: Appears to be due to supply demand mismatch. No evidence of acute coronary syndrome. Serial EKGs reveal no acute changes. Troponin peaked at 1700 but he never had chest pain. ECG had some subtle changes initially but nothing acute on serial EKGs. Cardiac echo reveals preserved ejection fraction but due to imaging limitations cannot rule out regional wall motion abnormalities. Continue aspirin, low-dose Xarelto, statin Plan residential placement pending. He is medically stable for discharge Admission and Anticipated Discharge Date Admission Date: January 08, 2025 Subjective Stable overall. Awaiting placement. No new problems. Nursing staff instructed to minimize oxygen per nasal cannula to keep oxygen saturation in the low 90s to prevent further CO2 retention. Review of Systems 2 Review of Systems: Constitutionalno fever or chills ENTno blurred vision, no double vision, no epistaxis, no sore throat Respiratoryno cough, no wheezing. He does have chronic dyspnea on exertion Cardiacno palpitations, no chest pain, no syncope Byron nausea, vomiting, diarrhea, melena, hematochezia GUno urinary retention, no urinary incontinence, no dysuria, no hematuria Musculoskeletalno joint pain, no muscle tenderness Skinno bruising, no rashes, no pruritus Neurono isolated weakness, no paresthesia Psychno depression, no anxiety Physical Exam 2 Physical Exam: General-alert and oriented x3, no fever, no chills HEENT-head atraumatic and normocephalic, pupils equal and reactive to light, extraocular muscles intact Neck-no lymphadenopathy or thyromegaly, trachea midline Chest-diminished breath sounds bilaterally. No inspiratory rales, rhonchi, wheezing Cardiac-regular rate and rhythm, normal S1 and S2 Abdomen-normal bowel sounds, no hepatosplenomegaly Extremities-no cyanosis, clubbing, or edema Neuro-cranial nerves II through XII intact, motor and sensory function within normal limits, strength symmetrical with generalized weakness, no focal deficits Psych-depressed affect Results & Data Results & Data Vital Signs (Past 12 Hours) Vital Signs Temp Pulse Resp BP Pulse Ox O2 Del Method O2 Flow Rate 01/18/25 07:49 36.5 C 78 16 131/71 100 Nasal Cannula 2 01/18/25 07:19 83 16 98 Nasal Cannula 2 01/18/25 04:00 76 16 99 Nasal Cannula 2 Laboratory Results 01/11/25 05:38 01/11/25 05:38 PG Care Time/CCT Total # of Minutes Spent Total Time Spent with Patient: Total time spent is greater than 50% in coordination of care (as documented) at patient's floor/unit and/or counseling patient: Coding Level of Care Code 71055 SUB INP/OBS CARE 2/35MIN Diagnoses Acute respiratory failure with hypoxia and hypercapnia J96.01; J96.02 COPD exacerbation J44.1 Influenza A J10.1 Alcohol withdrawal delirium F10.931 Elevated troponin R79.89
--- NOTE | 2025-01-18 18:25 | Palliative Care Progress Note ---
Date of Service January 18, 2025 Assessment & Plan (1) Dyspnea and respiratory abnormalities: (2) Advanced care planning/counseling discussion: Plan: 25min ACP face to face with pt - Discussed engaging palliative foundation funded Conscious Dying Coaching with Rev Teresa Valerio. I reviewed that Rev Valerio offers assistance on non clinical issues, supporting patients as they consider, navigate and become clear on what is most important for their end of life. Rev Valerio helps patients align how they are currently living with the vision they see for yourself at the end, then identify and set goals, along with action steps for yourself to fulfill that vision. The focus is on the 5 domains of life: Spiritual, emotional, physical, mental, and practical. Patient would like this engagement with Rev Valerio and I have provided pt with Rev Valerio's contact information. I reviewed that End of life coaching and planning begins with 10 structured sessions we like to call, the best three months. Based on 10 total meetings over a 3-4 month period. Average meeting time 60-90 minutes. 2 meetings per domain. Over a three month period, there is support for the family and patient to identify their vision, current reality and steps to be taken to implement life fulfillment and care wishes in the spiritual, emotional, mental, physical and practical domains of life. This service includes: Best Three Months End-of-Life Care Coaching and Planning with Family, Patient and Co- coordination with Medical/Hospice Care Providers. (3) Severe muscle deconditioning: (4) Weakness generalized: (5) Palliative care by specialist: Plan As above Thank you for allowing us to participate in the ongoing care of this patient. Please page with any additional concerns. Cyndie Sutton DNP Director, Palliative Medicine Admission and Anticipated Discharge Date Admission Date: January 08, 2025 Subjective Terminal COPD hoping for rehab remains nicotine free but continue with daily ETOH consumption, medical order for beer noted His niece brought him more beer this afternoon remains very dyspneic and anxious home repairs have not been started, home mold remediation has not been initiated Review of Systems Review of Systems: All systems reviewed & are unremarkable except as noted in Subjective Physical Exam Constitutional: + ill appearing, + cachectic, + frail ap pearing, + disheveled and cooperative Eyes: PERRL, conjunctivae normal, anicteric sclerae ENMT: Ears: + hearing impairment Mouth: + dry oral mucous membranes and + poor dentition Throat: uvula midline Neck: trachea midline, no thyromegaly Respiratory: + respiratory distress, + labored breath ing, + uses accessory muscles, + cough, + prolonged expiratory phase and + pursed lip breathing Auscultation: + diminished lung sounds (very) Cardiovascular: Rate/Rhythm: regular rate and regular rhythm Gastrointestinal (Abdomen): Inspection/Auscultation: abdomen normal to inspection and + scaphoid Musculoskeletal: gen weakness diminished BLE and BUE strength Skin: + turgor decreased, + skin atrophy, + dr y skin and + pallor Neurologic: AAOx3 Psychiatric: Apperance: + disheveled Eye Contact: + fair eye contact Speech: + pressured speech Affect: + anxious affect Mood: + anxious mood Thought Process: + tangential thought process and + perseveration Thought Content: + preoccupation and + thought insertion Suicidal Thoughts: denies suicidal thoughts Homicidal Thoughts: denies homicidal thoughts Cognition: recent memory grossly intact Estimated Intelligence: consistent with education level Insight: + limited insight Judgment: + limited judgement Results & Data Vital Signs (Past 12 Hours) Vital Signs Temp Pulse Resp BP Pulse Ox O2 Del Method O2 Flow Rate 01/18/25 17:59 84 18 98 Nasal Cannula 2 01/18/25 15:57 36.5 C 84 18 116/68 96 Nasal Cannula 2 01/18/25 13:00 86 16 96 Nasal Cannula 2 01/18/25 07:49 36.5 C 78 16 131/71 100 Nasal Cannula 2 01/18/25 07:35 Nasal Cannula 2 01/18/25 07:19 83 16 98 Nasal Cannula 2 PG Care Time/CCT Total # of Minutes Spent Total Time Spent with Patient: Total time spent is greater than 50% in coordination of care (as documented) at patient's floor/unit and/or counseling patient: I spent 80 minutes overall addressing this case: 10 min in medical data review/discussion with referring provider(s) and/or preparation for the visit 15 min in direct interaction with the patient/exam 25 min in Advance Care Planning/Goals of Care discussions as detailed above in note (must be >16min) 15 min in subsequent review and synthesis of assessment and plan 15 min communicating with other providers regarding the patient's case: Advanced Care Planning 34864 Advanced Care Planning 30 Min [place] [address] SUB INP/OBS CARE 3/50MIN (25 - SIGNIFICANT, SEPARATELY IDENTIFIABLE ) Patient Type Established Medical Decision Making High Complexity Diagnoses Dyspnea and respiratory abnormalities R06.00; R06.89 Advanced care planning/counseling discussion Z71.89 Severe muscle deconditioning R29.898 Weakness generalized R53.1 Palliative care by specialist Z51.5 Additional Codes Advanced Care Planning - 68119 Advanced Care Planning 30 Min: 44226 Advanced Care Planning 30 Min ([id number])
--- NOTE | 2025-01-19 12:18 | Hospitalist Progress Note ---
Date of Service January 19, 2025 Assessment & Plan (1) Acute respiratory failure with hypoxia and hypercapnia: Plan: Secondary to influenza A and COPD exacerbation. Chest x-ray with chronic fibrotic changes and emphysema but no pneumonia. Keep oxygen saturation in the low 90s to prevent further CO2 retention. (2) COPD exacerbation: Plan: Present on admission. With acute on chronic hypoxic/hypercarbic respiratory failure. He is now back to his baseline. Appreciate pulmonary medicine consultation recommendations. Prednisone 20 mg 3 times a day was added today, January 19 (3) Influenza A: Plan: He completed his 5-day course of Tamiflu. Supportive care. (4) Alcohol withdrawal delirium: Plan: The patient continues to consume the beer that has been allowed this admission and has no intention of stopping alcohol intake. For this reason, multiple SNF facilities have refused to accept the patient. He will go home with home health services. He is aware of the current situation. Continue thiamine, folic acid, and multivitamin (5) Elevated troponin: Plan: Appears to be due to supply demand mismatch. No evidence of acute coronary syndrome. Serial EKGs reveal no acute changes. Troponin peaked at 1700 but he never had chest pain. ECG had some subtle changes initially but nothing acute on serial EKGs. Cardiac echo reveals preserved ejection fraction but due to imaging limitations cannot rule out regional wall motion abnormalities. Continue aspirin, statin Plan Hopeful discharge to home tomorrow, January 20, with home health services Admission and Anticipated Discharge Date Admission Date: January 08, 2025 Subjective Alert. No significant changes. Unfortunately, case management has notified me that multiple SNF facilities have denied the patient because he continues to drink and has no plans to try to quit. He is currently on 2 L of oxygen per nasal cannula. Prednisone was added today to hopefully help him feel better and prevent exacerbations of his underlying COPD. Anticipate discharge to home tomorrow, January 20, with home health services Review of Systems 2 Review of Systems: Constitutionalno fever or chills ENTno blurred vision, no double vision, no epistaxis, no sore throat Respiratoryno cough, no wheezing. He does have chronic dyspnea on exertion Cardiacno palpitations, no chest pain, no syncope Byron nausea, vomiting, diarrhea, melena, hematochezia GUno urinary retention, no urinary incontinence, no dysuria, no hematuria Musculoskeletalno joint pain, no muscle tenderness Skinno bruising, no rashes, no pruritus Neurono isolated weakness, no paresthesia Psychno depression, no anxiety Physical Exam 2 Physical Exam: General-alert and oriented x3, no fever, no chills HEENT-head atraumatic and normocephalic, pupils equal and reactive to light, extraocular muscles intact Neck-no lymphadenopathy or thyromegaly, trachea midline Chest-diminished breath sounds bilaterally. No inspiratory rales, rhonchi, wheezing Cardiac-regular rate and rhythm, normal S1 and S2 Abdomen-normal bowel sounds, no hepatosplenomegaly Extremities-no cyanosis, clubbing, or edema Neuro-cranial nerves II through XII intact, motor and sensory function within normal limits, strength symmetrical with generalized weakness, no focal deficits Psych-depressed affect Results & Data Results & Data Vital Signs (Past 12 Hours) Vital Signs Temp Pulse Pulse Resp BP Pulse Ox O2 Del Method 01/19/25 11:48 36.6 C 88 16 126/80 95 Nasal Cannula 01/19/25 08:00 Nasal Cannula 01/19/25 07:53 36.3 C L 89 16 128/84 95 Nasal Cannula 01/19/25 06:08 89 20 96 Nasal Cannula O2 Flow Rate 01/19/25 11:48 01/19/25 08:00 2 01/19/25 07:53 2 01/19/25 06:08 2 Laboratory Results 01/11/25 05:38 01/11/25 05:38 PG Care Time/CCT Total # of Minutes Spent Total Time Spent with Patient: Total time spent is greater than 50% in coordination of care (as documented) at patient's floor/unit and/or counseling patient: Coding Level of Care Code 38067 SUB INP/OBS CARE 3/50MIN Diagnoses Acute respiratory failure with hypoxia and hypercapnia J96.01; J96.02 COPD exacerbation J44.1 Influenza A J10.1 Alcohol withdrawal delirium F10.931 Elevated troponin R79.89
[2025-01-19] MEDS: predniSONE 20 MG TAB PO SCH (13:41)
[2025-01-19 15:11] VITALS: TEMP 97.7
[2025-01-20 07:23] VITALS: BP 145/80
--- NOTE | 2025-01-20 12:07 | Discharge Summary ---
Discharge Summary Date of Service January 20, 2025 Principal Dx & Hospital Course #1 = Principal Diagnosis (1) Acute respiratory failure with hypoxia and hypercapnia: Secondary to influenza A and COPD exacerbation. Chest x-ray with chronic fibrotic changes and emphysema but no pneumonia. Keep oxygen saturation in the low 90s to prevent further CO2 retention. (2) COPD exacerbation: Present on admission. With acute on chronic hypoxic/hypercarbic respiratory failure. He is now back to his baseline. Appreciate pulmonary medicine consultation recommendations. Prednisone 20 mg 3 times a day was added on January 19 plan the patient is feeling better (3) Influenza A: He completed his 5-day course of Tamiflu. Supportive care. (4) Alcohol withdrawal delirium: The patient continues to consume the beer that has been allowed this admission and has no intention of stopping alcohol intake. For this reason, multiple SNF facilities have refused to accept the patient. He will go home with home health services. He is aware of the current situation. Continue thiamine, folic acid, and multivitamin at discharge (5) Elevated troponin: Appears to be due to supply demand mismatch. No evidence of acute coronary syndrome. Serial EKGs reveal no acute changes. Troponin peaked at 1700 but he never had chest pain. ECG had some subtle changes initially but nothing acute on serial EKGs. Cardiac echo reveals preserved ejection fraction but due to imaging limitations cannot rule out regional wall motion abnormalities. Continue aspirin, statin Plan Home today, January 20, with home health services. Admission HPI Per Admitting Provider Christian Gaytan is a 69 year old male with severe COPD Gold classification E who presents to the ER with shortness of breath. Unclear on exact timelines as he reports he has been getting worse for the last 6 weeks but possibly much worse over the last 2 weeks. He denies wearing 5 L/min O2 at baseline however previous pulmonology notes he is on 3 L/min. He has noted increased cough although unclear again on the timeline, no hemoptysis. Chills over the last 2 weeks which appears to be improving but no objective fevers. He reports drinking alcohol daily with 6 shots of whiskey and 4 beers. He notes prior alcohol withdrawal and possibly having alcohol given to him on previous hospitalizations. No prior alcohol withdrawal seizures. He has no intention to quit drinking alcohol. On review of his previous hospitalizations here he has not required benzodiazepines for alcohol withdrawal despite his high alcohol usage and confirm with pharmacy he is also not being given alcohol. Discharge Exam General-alert and oriented x3, no fever, no chills HEENT-head atraumatic and normocephalic, pupils equal and reactive to light, extraocular muscles intact Neck-no lymphadenopathy or thyromegaly, trachea midline Chest-diminished breath sounds bilaterally. No inspiratory rales, rhonchi, wheezing Cardiac-regular rate and rhythm, normal S1 and S2 Abdomen-normal bowel sounds, no hepatosplenomegaly Extremities-no cyanosis, clubbing, or edema Neuro-cranial nerves II through XII intact, motor and sensory function within normal limits, strength symmetrical with generalized weakness, no focal deficits Psych-depressed affect Discharge Plan Discharge Items Patient Disposition: Home - Home Health Services Reason For Visit: COPD EXACERBATION Discharge Diagnosis: Influenza A, acute exacerbation COPD, acute on chronic hypercapnic/hypoxic r espiratory failure, elevated troponin without acute coronary syndrome Activity: Resume your previous activity Non-emergency contact: Primary Care Provider and Salvager Helper Call non-emergency contact if: your symptoms worsen Follow-up/Referrals: Rachael Duckworth DO [Primary Care Provider] - Diet: Regular Addtl Attending Provider Instructions: Continue prednisone 20 mg 3 times a day. Xanax has been switched to Ativan. Continue folic acid once a day and thiamine once a day vitamin supplements. Prescriptions have been sent to [facility] pharmacy Pending Studies at Discharge: No Stand-Alone Forms: My [facility], Smoking Cessation Medications and DC Order Prescriptions: New lorazepam 1 mg Tablet See Rx Instructions .ROUTE .COMPLEX Qty: 30 0RF Rx Instructions: 1 mg orally in the morning and 1 mg at bedtime prednisone 20 mg Tablet 20 mg PO TID Qty: 60 0RF thiamine HCl (vitamin B1) 100 mg Tablet 100 mg PO DAILY Qty: 30 0RF folic acid 1 mg Tablet 1 mg PO DAILY Qty: 30 0RF Continued (DME) Aeroneb Go Nebulizer Misc See Rx Instructions .MEDSUPPLY Qty: 1 0RF Rx Instructions: With tubing and supplies. J44.9. J45.9. (DME) nebulizers Mis See Rx Instructions .Route Qty: 1 0RF Rx Instructions: As directed levocetirizine 5 mg tablet 5 mg PO DAILY PRN (Reason: allergy symptoms) Qty: 90 2RF Rx Instructions: Unable to verify OTC meds at this date/time. atorvastatin 20 mg tablet 20 mg PO DAILY Qty: 90 3RF tamsulosin 0.4 mg capsule 0.4 mg PO DAILY Qty: 90 3RF metoprolol succinate [Toprol XL] 50 mg tablet extended release 24 hr 50 mg PO DAILY Qty: 90 1RF famotidine 20 mg tablet 20 mg PO HS Qty: 90 1RF ipratropium-albuterol 0.5 mg-3 mg(2.5 mg base)/3 mL solution for nebulization 3 ml inhalation Q6H PRN (Reason: shortness of breath or wheezing) Qty: 540 6RF Xarelto 2.5 mg tablet 2.5 mg PO BID Qty: 60 2RF (DME) Portable Oxygen Misc See Rx Instructions .MEDSUPPLY Qty: 1 0RF Rx Instructions: Oxygen 2 liters continuous with portable concentrator. JOSE 99 Advair HFA 230-21 mcg/actuation HFA aerosol inhaler 2 inh inhalation BID Qty: 12 7RF Spiriva Respimat 2.5 mcg/actuation mist 2 puff inhalation DAILY Qty: 4 7RF albuterol sulfate 90 mcg/actuation HFA aerosol inhaler 2 puff Inhalation Q6H PRN (Reason: Shortness Of Breath Or Wheezing) Qty: 3 3RF roflumilast [Daliresp] 500 mcg tablet 500 mcg PO DAILY Qty: 90 1RF Rx Instructions: Start taking it after months of using 250 mcg dose cholecalciferol (vitamin D3) 50 mcg (2,000 unit) capsule 50 mcg PO DAILY Rx Instructions: Unable to verify OTC meds at this date/time. ascorbate calcium (vitamin C) 500 mg tablet 1 g PO DAILY Rx Instructions: Unable to verify OTC meds at this date/time. nicotine 21 mg/24 hr patch 24 hour 1 patch transdermal DAILY Qty: 28 1RF Rx Instructions: Unable to verify OTC meds at this date/time. aspirin 81 mg Tablet,Delayed Release (Dr/Ec) 81 mg PO QAM Rx Instructions: Unable to verify OTC meds at this date/time. pantoprazole 40 mg tablet,delayed release (DR/EC) 40 mg PO DAILY azithromycin 250 mg tablet 250 mg PO 3XWK Rx Instructions: 250 mg PO 1 tab p.o. on [id number]; prednisone 20 mg tablet 20 mg PO UD Rx Instructions: Start Date 01/06/25 x 5 day supply. Take 20mg p.o. daily for the 3 days followed by 10mg p.o. daily for 2 days. Stop after total of 5 days. Discontinued alprazolam 0.5 mg tablet 0.5 mg PO TID PRN (Reason: anxiety) Qty: 60 0RF Rx Instructions: ONE TABLET EVERY 8 HOURS PRN Discharge Orders: Discharge Order (Routine); Ordered 01/20/25 Ordered By: Marvin Barnard Admission Data Admit Date/Time: 01/08/25 12:38 Attending Provider: Marvin Barnard Admit Provider: Eyal Avila Primary Care Provider: Rachael Duckworth Other Providers: Mejia Medina; Lori Sutton; [facility]; [facility] Hospital Stay Data Consultations 01/08/25 13:08 Consult Pulmonology Routine 01/13/25 13:23 Consult Palliative Care Routine Pending Results Patient Have Any Pending Studies at Discharge: No Discharge Instructions Given to Patient (Per Discharging Provider) Continue prednisone 20 mg 3 times a day. Xanax has been switched to Ativan. Continue folic acid once a day and thiamine once a day vitamin supplements. Pre scriptions have been sent to [facility] pharmacy Total Time Total Time Spent Total Time Spent (In Minutes): 50 minutes Coding Level of Care Code 26115 INP/OBS DISCH >30 MIN Diagnoses Acute respiratory failure with hypoxia and hypercapnia J96.01; J96.02 COPD exacerbation J44.1 Influenza A J10.1 Alcohol withdrawal delirium F10.931 Elevated troponin R79.89
[2025-01-20 13:16] VITALS: PULSE 94; RESP 19; O2SAT 92
[2025-01-20] MEDS ORDERED: LORazepam 1 MG TAB PO SCH (21:00)
== END 2025-01-20 14:15 | disposition home health service (06) | DRG 193 ==
LOC: ED 10:06 → SUATTDRO 12:38 → 2S 12:38 → 3E 01-11 20:48

== ENCOUNTER 2025-04-13 13:06 | Inpatient (IN) ==
[2025-04-13 14:10] LABS: Basophils # (auto) 0.05 K/uL (0.00-0.20); Basophils % (auto) 0.3 %; Eosinophils # (auto) 0.01 K/uL (0.00-0.50); Eosinophils % (auto) 0.1 %; Hemoglobin 12.5 g/dl (14.0-18.0); Immature Granulocytes # (auto) 0.14 K/uL (0.01-0.20); Immature Granulocytes % (auto) 0.9 %; Lymphocytes # (auto) 0.86 K/uL (1.20-3.40); Lymphocytes % (auto) 5.8 %; Mean Corpuscular Hemoglobin 31.6 pg (25.0-34.0); Mean Corpuscular Hgb Conc 33.8 g/dL (32.0-36.0); Mean Corpuscular Volume 93.4 fL (80.0-100.0); Mean Platelet Volume 9.1 fL (9.4-12.4); Monocytes # (auto) 0.96 K/uL (0.11-0.59); Monocytes % (auto) 6.5 %; Neutrophils # (auto) 12.81 K/uL (1.40-6.50); Neutrophils % (auto) 86.4 %; Platelet Count 392 K/uL (130-400); RDW Coefficient of Variation 14.5 % (11.5-14.5); RDW Standard Deviation 49.8 fL (36.4-46.3); Red Blood Count 3.96 M/uL (4.70-6.10); White Blood Count 14.83 K/ul (4.8-10.8)
[2025-04-13] MEDS: SODIUM CHLORIDE 0.9% 1,000 ML IV ONE (14:20)
--- NOTE | 2025-04-13 14:21 | XRay Report ---
XR chest 1V portable CLINICAL HISTORY: SOB COMPARISON STUDY: 01/08/2025 FINDINGS: Stable emphysema. There is interval patchy opacity at the right lung base. No pleural effus ion or pneumothorax. IMPRESSION: Pneumonia at the right lung base. Follow-up to resolution recommended. ACT 112: Negative or not required by law. Electronically signed by: Ezequiel Griffin M.D. 04/13/2025 2:20 PM
[2025-04-13 14:37] LABS: Albumin Globulin Ratio 1.4 (0.9-2); Albumin Level 3.8 gm/dl (3.4-5.0); BUN Creatinine Ratio 13.5 (10-20); Bilirubin,Total 0.7 mg/dl (0.2-1.0); Calcium 9.2 mg/dl (8.6-10.3); Creatinine Clr Calc Pharmacy 116.8 ml/min; Globulin 2.8 gm/dl (2.5-4.0); Potassium 4.2 mmol/L (3.5-5.1); Total Protein 6.6 gm/dl (6.0-8.3)
[2025-04-13 14:39] LABS: Appearance Urine Cloudy (Clear); Bacteria Urine Automated None Seen (None Seen); Bilirubin Urine Negative (Negative); Blood Urine Negative (Negative); Cast Urine Automated 0-2 /lpf (0-2); Color Urine Yellow; Epithelial Cell Urine Auto 0-2 /hpf (0-2); Glucose Urine UA Negative (Negative); Ketones Urine Negative (Negative); Leukocyte Esterase Urine Trace (Negative); Nitrite Urine Negative (Negative); Protein Urine Negative (Negative); RBC Urine Automated 0-2 /hpf (0-2); Specific Gravity Urine 1.005 (1.000-1.030); Urobilinogen Urine Negative (Negative); WBC Urine Automated 0-5 /hpf (0-5)
[2025-04-13 14:43] LABS: Troponin I High Sensitivity 3.7 pg/ml (0-20)
[2025-04-13 14:53] LABS: Thyroid Stimulating Hormone 0.703 uIu/ml (0.300-4.500)
[2025-04-13] MEDS: cefTRIAXone SODIUM 2,000 MG/50 ML BAG IV STA (15:45)
--- NOTE | 2025-04-13 15:55 | Electrocardiogram Report ---
Test Reason : Blood Pressure : */* mmHG Vent. Rate : 76 BPM Atrial Rate : 76 BPM P-R Int : 136 ms QRS Dur : 78 ms QT Int : 384 ms P-R-T Axes : 68 65 55 degrees QTcB Int : 432 ms Normal sinus rhythm Normal ECG When compared with ECG of 10-Jan-2025 15:33, Nonspecific T wave abnormality no longer evident in Inferior leads Confirmed by Dinesh Fernandez ([id number]) on 04/13/2025 3:55:22 PM Referred By: Confirmed By: Dinesh Fernandez
[2025-04-13] MEDS: OPTIRAY 320 100ml IV ONE (15:56)
[2025-04-13 16:01] LABS: Adenovirus F 40/41 PCR Not Detected (NotDetected); Astrovirus PCR Not Detected (NotDetected); Campylobacter PCR Not Detected (NotDetected); Cryptosporidium PCR Not Detected (NotDetected); Cyclospora cayetanensis PCR Not Detected (NotDetected); Entamoeba histolytica PCR Not Detected (NotDetected); Enteroaggregative E.coli(EAEC) Not Detected (NotDetected); Enteropathogenic E.coli (EPEC) Not Detected (NotDetected); Enterotoxigenic E.coli (ETEC) Not Detected (NotDetected); Giardia lamblia PCR Not Detected (NotDetected); Norovirus GI/GII PCR Not Detected (NotDetected); Plesiomonas shigelloides PCR Not Detected (NotDetected); Rotavirus A PCR Not Detected (NotDetected); Salmonella PCR Not Detected (NotDetected); Sapovirus PCR Not Detected (NotDetected); Shiga-like Toxin E.coli (STEC) Not Detected (NotDetected); Shigella/Enteroinvasive E.coli Not Detected (NotDetected); Vibrio cholerae PCR Not Detected (NotDetected); Vibrio species PCR Not Detected (NotDetected); Yersinia enterocolitica PCR Not Detected (NotDetected)
--- NOTE | 2025-04-13 16:39 | Emergency Department Note ---
Impression & Plan Weakness, Diarrhea, Pneumonia, ETOH abuse, Leukocytosis ED Provider Note NAME: ANITA GARCIA AGE: 70 SEX: M : 1955 ARRIVES VIA: Walk-In INFORMANT: [Patient] ED PROVIDER(S): [Adrian Vallejo MD] CHIEF COMPLAINT: Dehydration HISTORY OF PRESENT ILLNESS: The patient is a 70-year-old male who states that he has had diarrhea for a month. He has had some weight loss. Patient does have a history of COPD and chronically wears 2.5 L of oxygen. The patient states that for the last week he has been lightheaded and has felt faint especially with standing. He feels uncomfortable sometimes even walking to the bathroom. The patient went to the [place] doctors office today and was referred to the ER for further workup. The patient does admit to drinking alcohol, he typically has 4-6 drinks of hard alcohol per evening as well as 2 or 3 beers. He did have alcohol last evening, no alcohol yet today. Of note, the patient takes Zithromax daily, he states that he is coming off of steroids now for lung congestion. PMHx/PSHx/Social Hx: See Below PHYSICAL EXAM: GENERAL: Patient is in no acute distress. Thin and frail. HEENT: No acute trauma, normocephalic atraumatic, mucous membranes moist, no nasal congestion. NECK: No stridor, no adenopathy, no meningismus, trachea is midline. LUNGS: Decreased breath sounds bilaterally. No obvious respiratory distress. HEART: Without murmurs gallops or rubs, regular rate and rhythm. Heart tones distant. ABDOMEN: Soft, mild diffusely tender abdomen. EXTREMITIES: No cyanosis, full range of motion of all the joints without pain or difficulty. NEUROLOGIC: Oriented x 3, no acute motor or sensory deficits, no focal weakness. SKIN: No jaundice, no diaphoresis. DIFFERENTIAL DIAGNOSIS: Dehydration, electrolyte imbalance, colitis, diverticulitis, foodborne or viral illness, malignancy, among others. EMERGENCY DEPARTMENT PROCEDURES: MEDICAL DECISION MAKING: There is a mild leukocytosis, this of course could be consistent with infection. A very subtle anemia was seen but this is baseline as of late. There was a normal platelet count. No bandemia. No electrolyte abnormality or renal failure. No concerning liver enzyme elevation. Patient appeared to be in euthyroid state. Lactic acid level was not elevated making severe sepsis less likely. ECG showed a sinus rhythm, no ischemia. Cardiac enzyme testing x 1 was not consistent with acute cardiac injury. Chest x-ray shows a right lung pneumonia. Urinalysis does not show infection. Stool bio fire was negative. C. difficile testing was negative. On exam, the patient had some diminished breath sounds. He was not toxic or febrile. Abdominal and pelvis CT does not show any colitis or acute surgical process. There was a mass on 1 kidney, the patient was already aware of this mass. The patient received IV saline, 1 L. He received IV Solu-Medrol, IV ceftriaxone and a DuoNeb. He was given IV Ativan. The patient presents with weakness and fatigue. He has had diarrhea. He appears to have pneumonia which has not responded to outpatient treatment. He appears dehydrated. During his stay, he began to suffer from a bit of alcohol withdrawal. Given the circumstances and the patient's findings, I do think a hospital stay is indicated. He did consent to hospitalization. The patient does seem improved since being treated with the above medications in our ED. I spoke with case management, the on-call hospitalist was consulted. Prior/Outside records/notes reviewed: None ECG per my interpretation: Indication was weakness. The ECG shows a normal sinus rhythm with a rate of 76. There is no ST elevation, no PVCs. The QTc is 432. Continuous Cardiac Monitoring per my interpretation: An order was placed for continuous cardiac monitoring. The monitor shows a rate of 76 with normal sinus rhythm. Imaging/x-ray results per my interpretation: Chest x-ray shows a potential right lower lung pneumonia. No CHF. Chronic Medical/Social conditions affecting care: History of COPD requiring oxygen. Care/Management discussed with: Case management, the on-call hospitalist. Level of care consideration(s): After review of the information above and other included data: --I believe the patient requires escalation of care to admission DISPOSITION: Admission Past Med/Surg History Problem List Leukocytosis (Acute) ETOH abuse (Acute) Pneumonia (Acute) Diarrhea (Acute) Weakness (Acute) Pulmonary nodule Alcohol withdrawal delirium Delirium Acute exacerbation of chronic obstructive airways disease (Acute) Influenza A (Acute) Elevated troponin COPD exacerbation (Acute) Acute respiratory failure with hypoxia and hypercapnia (Acute) Palliative care by specialist Advanced care planning/counseling discussion Severe muscle deconditioning Weakness generalized Dyspnea and respiratory abnormalities COPD, group E, by GOLD 2022 classification (Acute) very sev COPD, active 80PY smoker, daily etoh abuse, med mgt maximized, not interested in tobacco cessation Prediabetes Elevated prostate specific antigen (PSA) Lung nodule < 6cm on CT S/P coronary artery stent placement Chronic respiratory failure with hypoxia Multiple pulmonary nodules Peyronie's disease Renal mass monitoring every 6 mos w/ Dr Moscoso Tobacco abuse COPD with emphysema Adrenal adenoma (01/2020) 17mm L adrenal adenoma Dyslipidemia CAD (coronary artery disease) History of heart attack 2008- w/ [facility], stress test 01/2023 Stage 3 severe COPD by GOLD classification Peripheral vascular disease Hypertension GERD without esophagitis Erectile dysfunction BPH with obstruction/lower urinary tract symptoms Asthma Anxiety Alcoholism Medical History Interscapular pain SOBOE (shortness of breath on exertion) On home O2 2.5- 3 lpm prn and HS Surgical History Hx of colonoscopy Status post biopsy of kidney S/P cholecystectomy S/P coronary artery stent placement S/P hernia repair Family History Mother Diabetes Hypertension Heart disease Myocardial infarction Father , suicide Alcohol abuse Colorectal cancer Sister Myocardial infarction Uncle Colorectal cancer Denies family history of Ovarian cancer Prostate cancer Breast cancer Social History Smoking Status: Never smoker Tobacco Type: Cigarettes Age Started Using Tobacco: 17; Age Quit Using Tobacco: 69; packs per day: 1; Cigarettes Per Day: 1 pack per day; Second Hand Exposure: Yes; Do You Dip or Chew Tobacco: No; Hx Alcohol Use: Yes Alcohol type: beer and hard liquor Alcohol Intake Frequency: 4 or More x per/Week Alcohol Intake Frequency Comment: daily- 2 beers at night and some mixed drinks Hx Substance Use: Yes Prescribed Medications: Marijuana Last Used Substance Other:: Years ago Preferred Language: Croatian Communication Ability: Effective Communication Tools: Electrolarynx Visual Impairment: No Limitations Hearing Ability: Normal Books Binder Required: No Beliefs That Will Affect Care: Spiritual marital status: Single Current Living Situation: Family Current Living Situation Comment: Lives with NIA garcia current occupational status: retired How many Children do You have: 2 Feels Safe at Home: Yes Childhood Exposure to Second-Hand Smoke: Yes (1 cup of coffee in the am ) Diet: regular caffeine: Yes during the past year weight has: remained stable Dental Care, Regularly: No Physical Activity Frequency: 1-2 Times per Week Physical Activity Frequency Comment: housework Seatbelt Use: never Sunscreen Use: No Assistive Devices: Oxygen - Continuous and Walker Allergies Allergies Allergy/AdvReac Type Severity Reaction Status Date / Time No Known Allergies Allergy Verified 04/13/25 16:33 Home Meds Home Medications Medication Instructions Recorded Confirmed aspirin 81 mg tablet,delayed 81 mg PO QAM 01/19/19 04/13/25 release cholecalciferol (vitamin D3) 50 50 mcg PO DAILY 04/22/22 04/13/25 mcg (2,000 unit) capsule ascorbate calcium (vitamin C) 500 1 g PO DAILY 05/12/23 04/13/25 mg tablet levocetirizine 5 mg tablet 5 mg PO DAILY PRN allergy symptoms 02/07/25 04/13/25 Previous Rx's Medication Instructions Recorded Portable Oxygen #1 ea 07/02/21 nebulizers (Aeroneb Go Nebulizer) #1 ea 12/06/21 nebulizers #1 ea 05/10/24 albuterol sulfate 90 mcg/actuation 2 puff inhalation Q6H PRN 08/16/24 aerosol inhaler Shortness Of Breath Or Wheezing #3 Inhalers atorvastatin 20 mg tablet 20 mg PO DAILY #90 tabs 10/27/24 tamsulosin 0.4 mg capsule 0.4 mg PO DAILY #90 caps 11/25/24 metoprolol succinate 50 mg 50 mg PO DAILY #90 tabs 11/26/24 tablet,extended release 24 hr (Toprol XL) rivaroxaban 2.5 mg tablet (Xarelto) 2.5 mg PO BID #60 tabs 01/04/25 thiamine HCl (vitamin B1) 100 mg 100 mg PO DAILY #30 tabs 01/20/25 tablet Commode Riser #1 ea 01/21/25 famotidine 40 mg tablet 40 mg PO BID #60 tabs 02/07/25 nicotine 21 mg/24 hr daily 1 patch transdermal DAILY #28 ea 02/07/25 transdermal patch alprazolam 0.5 mg tablet 0.5 mg PO BID PRN anxiety #60 tabs 03/07/25 Advair HFA 230 mcg-21 2 inh inhalation BID #12 grams 03/08/25 mcg/actuation aerosol inhaler (fluticasone propion-salmeterol) azithromycin 250 mg tablet 250 mg PO DAILY #36 tabs 03/08/25 ipratropium 0.5 mg-albuterol 3 mg 3 ml inhalation Q6H PRN shortness 03/08/25 (2.5 mg base)/3 mL nebulization of breath or wheezing #540 mL soln tiotropium bromide 2.5 2 puff inhalation DAILY #4 grams 03/08/25 mcg/actuation mist for inhalation (Spiriva Respimat) Results & Data (ED) Vital Signs Vital Signs - 24 hr 04/13/25 13:07 04/13/25 14:20 04/13/25 14:40 Temperature 36.6 C Temperature Source Temporal Artery Scan Pulse Rate 83 70 Pulse Rate [Apical] 76 Respiratory Rate 22 22 Respiratory Effort / Characteristics Non-Labored Spontaneous Respiratory Depth Normal Respiratory Pattern Regular Blood Pressure 153/69 H Blood Pressure [Left Arm] 116/74 Blood Pressure Mean 97 Blood Pressure Mean [Left Arm] 88 Blood Pressure Position Sitting Pulse Oximetry 96 98 Oxygen Delivery Method Nasal Cannula Nasal Cannula Oxygen Flow Rate 2.5 2.5 Sepsis Recent Fever Within 48 Hours No Sepsis New/Unexplained Change in Mental Status N/A Sepsis Action Taken by Nursing No Action Required 04/13/25 16:00 04/13/25 18:00 04/13/25 18:37 Temperature Temperature Source Pulse Rate 76 Pulse Rate [Apical] 76 72 Respiratory Rate 16 18 Respiratory Effort / Characteristics Respiratory Depth Respiratory Pattern Blood Pressure Blood Pressure [Left Arm] 137/76 172/75 H Blood Pressure Mean Blood Pressure Mean [Left Arm] 96 107 Blood Pressure Position Pulse Oximetry 99 99 Oxygen Delivery Method Nasal Cannula Nasal Cannula Oxygen Flow Rate 2.5 2.5 Sepsis Recent Fever Within 48 Hours Sepsis New/Unexplained Change in Mental Status Sepsis Action Taken by Skilled Nursing Medications Current Medication List: was personally reviewed by me Laboratory Data Attestation: I reviewed the patient's lab results. 04/13/25 13:30 04/13/25 13:30 Lab Results 0504/13/25 04/13/25 Range/Units 13:30 14:16 15:16 WBC 14.83 H (4.8-10.8) K/ul RBC 3.96 L (4.70-6.10) M/uL Hgb 12.5 L (14.0-18.0) g/dl Hct 37.0 L (42.0-52.0) % MCV 93.4 (80.0-100.0) fL MCH 31.6 (25.0-34.0) pg MCHC 33.8 (32.0-36.0) g/dL RDW Std Deviation 49.8 H (36.4-46.3) fL RDW Coeff of Vira 14.5 (11.5-14.5) % Plt Count 392 (130-400) K/uL MPV 9.1 L (9.4-12.4) fL Immature Gran % (Auto) 0.9 % Neut % (Auto) 86.4 % Lymph % (Auto) 5.8 % Morgan % (Auto) 6.5 % Eos % (Auto) 0.1 % Baso % (Auto) 0.3 % Neut # (Auto) 12.81 H (1.40-6.50) K/uL Lymph # (Auto) 0.86 L (1.20-3.40) K/uL Morgan # (Auto) 0.96 H (0.11-0.59) K/uL Eos # (Auto) 0.01 (0.00-0.50) K/uL Baso # (Auto) 0.05 (0.00-0.20) K/uL Immature Gran # (Auto) 0.14 (0.01-0.20) K/uL Sodium 135 L (136-145) mmol/L Potassium 4.2 (3.5-5.1) mmol/L Chloride 98 (98-107) mmol/L Carbon Dioxide 29 (21-32) mmol/L Anion Gap 8 (3-11) BUN 7 (6-23) mg/dl Creatinine 0.52 L (0.6-1.4) mg/dl Est Cr Clr Drug Dosing 116.8 ml/min eGFR 109.11 BUN/Creatinine Ratio 13.5 (10-20) Glucose 129 H (70-99(Fasting)) mg/dl Lactate 1.2 (0.4-2.0) mmol/L Calcium 9.2 (8.6-10.3) mg/dl Magnesium 2.0 (1.7-2.4) mg/dl Total Bilirubin 0.7 (0.2-1.0) mg/dl AST 17 (13-39) U/L ALT 17 (7-52) U/L Alkaline Phosphatase 78 (34-104) U/L Troponin I High Sens 3.7 (0-20) pg/ml Total Protein 6.6 (6.0-8.3) gm/dl Albumin 3.8 (3.4-5.0) gm/dl Globulin 2.8 (2.5-4.0) gm/dl Albumin/Globulin Ratio 1.4 (0.9-2) TSH 0.703 (0.300-4.500) uIu/ml Urine Color Yellow Urine Appearance Cloudy A (Clear) Urine pH 8.0 H (4.5-7.5) Ur Specific [place] 1.005 (1.000-1.030) Urine Protein Negative (Negative) Urine Glucose (UA) Negative (Negative) Urine Ketones Negative (Negative) Urine Blood Negative (Negative) Urine Nitrite Negative (Negative) Urine Bilirubin Negative (Negative) Urine Urobilinogen Negative (Negative) Ur Leukocyte Esterase Trace H (Negative) Urine WBC (Auto) 0-5 (0-5) /hpf Urine RBC (Auto) 0-2 (0-2) /hpf U Hyaline Cast (Auto) 0-2 (0-2) /lpf U Epithel Cells (Auto) 0-2 (0-2) /hpf Urine Bacteria (Auto) None Seen (None Seen) Urine Comment Stl C. cayetanensis PCR Not Detected (NotDetected) Stool Rotavirus A PCR Not Detected (NotDetected) Stl Adenov F 40/41 PCR Not Detected (NotDetected) Stool Astrovirus (PCR) Not Detected (NotDetected) Stool Campylobacter PCR Not Detected (NotDetected) Stl C. diff Tox B Gene Negative Cdiff Gene (Neg) Stool Cryptosporidium PCR Not Detected (NotDetected) Stl E.coli Shiga Tox PCR Not Detected (NotDetected) Stl Enterotoxigenic E PCR Not Detected (NotDetected) Stool EPEC (PCR) Not Detected (NotDetected) Stool EAEC (PCR) Not Detected (NotDetected) Stl E. histolytica PCR Not Detected (NotDetected) Stool Giardia Lamblia PCR Not Detected (NotDetected) Stool Salmonella PCR Not Detected (NotDetected) Stool Sapovirus (PCR) Not Detected (NotDetected) Stl P. shigelloides PCR Not Detected (NotDetected) Stl Shigella/EIEC PCR Not Detected (NotDetected) St Y.enterocolitica PCR Not Detected (NotDetected) Stool Vibrio (PCR) Not Detected (NotDetected) Stl Vibrio cholerae PCR Not Detected (NotDetected) Stl Norovirus GI/GII PCR Not Detected (NotDetected) Administered Medications Discontinued Medications Albuterol (Albut/Ipratrop 3mg/0.5mg Neb 3 Ml Vial) 3 ml NEB NOW STA; Protocol Stop: 04/13/25 18:06 Last Admin: 04/13/25 18:22 Dose: 3 ml Documented By: HARVINDER Sodium Chloride (Nss) 1,000 mls @ 999 mls/hr IV .Q1H1M ONE Stop: 04/13/25 15:11 Last Infusion: 04/13/25 15:15 Dose: Infused Documented By: Admin: 04/13/25 14:20 Dose: 999 mls/hr Documented By: HARVINDER Ceftriaxone Sodium (Rocephin) 2,000 mg in 50 mls @ 100 mls/hr IV NOW STA Stop: 04/13/25 15:59 Last Infusion: 04/13/25 16:15 Dose: Infused Documented By: Admin: 04/13/25 15:45 Dose: 100 mls/hr Documented By: HARVINDER Ioversol (Optiray 320 100ml) 90 ml IV ONCE ONE Stop: 04/13/25 15:57 Last Admin: 04/13/25 15:56 Dose: 90 ml Documented By: TIMUR Lorazepam (Lorazepam 2 Mg/1 Ml Vial) 1 mg IV NOW STA Stop: 04/13/25 18:06 Last Admin: 04/13/25 18:22 Dose: 1 mg Documented By: HARVINDER Methylprednisolone (Methylprednisolone 125 Mg/2 Ml Vial) 40 mg IV NOW STA Stop: 04/13/25 18:06 Last Admin: 04/13/25 18:21 Dose: 40 mg Documented By: HARVINDER Imaging Data Radiologist's Impression: Chest X-Ray 04/13/25 13:35 XR chest 1V portable CLINICAL HISTORY: SOB COMPARISON STUDY: 01/08/2025 FINDINGS: Stable emphysema. There is interval patchy opacity at the right lung base. No pleural effusion or pneumothorax. IMPRESSION: Pneumonia at the right lung base. Follow-up to resolution recommended. ACT 112: Negative or not required by law. Electronically signed by: Ezequiel Griffin M.D. 04/13/2025 2:20 PM Abdomen/Pelvis CT 04/13/25 14:11 EXAM: CT abd pelvis IV con only CLINICAL HISTORY: weight loss, diarrhea. TECHNIQUE: CT of the abdomen and pelvis was performed with contrast, with the following protocol: axial images, and reconstructed coronal and sagittal images. One of the following dose reduction techniques was utilized for this exam: Automated exposure control, adjustment of the mA and/or kV according to patient size, and use of iterative reconstruction. CTDI: 9.77 mGy, DLP: 420.75 mGy-cm COMPARISON: No prior studies available for comparison. FINDINGS: Abdomen: Liver: Normal in size, shape, and density. No focal lesions, cysts, or masses were identified. The gallbladder is surgically removed. Pancreas: The pancreatic head, body, and tail are visualized and appear normal in size and density. No pancreatic masses or calcifications were noted. Spleen: Normal in size, shape, and density. No splenic lesions or masses were identified. Appendix: The appendix is not clearly seen. Kidneys and Adrenal Glands: A partially exophytic solid lesion is seen at the right renal mid-zone, measuring about 2.5 X 3.2 cm with mild surrounding fat smudging. Otherwise, both kidneys are normal in size, shape, and position. Cortical thickness is within normal limits. No renal calculi or hydronephrosis. Bilateral adrenal glands have hypodense nodules, the largest noted on the left side and measures 15 mm. Abdominal Aorta and Vessels: Atheromatous calcification of the aorta and both iliac vessels. Pelvis: The Urinary Bladder shows mild wall thickening likely due to chronic outflow obstruction/chronic cystitis. The prostate is moderately enlarged, seen indenting the urinary bladder base. Seminal Vesicles: Normal appearance without abnormal enlargement or mass. Peritoneal and Retroperitoneal Structures: No free fluid or abnormal fluid collections were identified within the abdomen or pelvis. No lymphadenopathy was noted. Bowel: The visualized bowel loops are normal in caliber and appearance. No evidence of bowel obstruction or wall thickening. Bones and Soft Tissues: Pelvic bones and soft tissues are unremarkable. No fractures or abnormal masses were identified. Spondylodegenrative changes . Bilateral basal pulmonary areas of consolidation and atelectatic bands are likely inflammatory, with possible nodules, as well as emphysematous changes. A dedicated CT chest is needed. IMPRESSION: 1. A partially exophytic solid lesion is seen at the right renal mid-zone with mild surrounding fat smudging. Likely neoplastic, pathological correlation is recommended. 2. Prostatomegaly. 3. Bilateral adrenal glands have hypodense nodules, the largest noted on the left side measures 15 mm. MRI with adrenal protocol is needed. 4. The Urinary Bladder shows mild wall thickening likely due to chronic outflow obstruction/chronic cystitis. 5. Bilateral basal pulmonary areas of consolidation and atelectatic bands are likely inflammatory, with possible nodules, as well as emphysematous changes. A dedicated CT chest is needed. Electronically signed by Cortes Goldstein 04-13-2025 5:20 PM Discharge Plan Visit Data Chief Complaint: Dehydration Stated Complaint: DEHYDRATION ED Provider: Adrian Vallejo Discharge Problem: Weakness, Diarrhea, Pneumonia, ETOH abuse, Leukocytosis Patient Disposition: Admitted As Inpatient Condition: Fair Forms Stand Alone Forms: [facility], [facility] Prescriptions Prescriptions: No Action (DME) Aeroneb Go Nebulizer Mis See Rx Instructions .MEDSUPPLY Qty: 1 0RF Rx Instructions: With tubing and supplies. J44.9. J45.9. (DME) nebulizers Mis See Rx Instructions .Route Qty: 1 0RF Rx Instructions: As directed atorvastatin 20 mg tablet 20 mg PO DAILY Qty: 90 3RF tamsulosin 0.4 mg capsule 0.4 mg PO DAILY Qty: 90 3RF metoprolol succinate [Toprol XL] 50 mg tablet extended release 24 hr 50 mg PO DAILY Qty: 90 1RF Xarelto 2.5 mg tablet 2.5 mg PO BID Qty: 60 2RF (DME) Commode Riser See Rx Instructions .Route .MEDSUPPLY Qty: 1 0RF Rx Instructions: As directed alprazolam 0.5 mg tablet 0.5 mg PO BID PRN (Reason: anxiety) Qty: 60 0RF (DME) Portable Oxygen Misc See Rx Instructions .MEDSUPPLY Qty: 1 0RF Rx Instructions: Oxygen 2 liters continuous with portable concentrator. JOSE 99 albuterol sulfate 90 mcg/actuation HFA aerosol inhaler 2 puff Inhalation Q6H PRN (Reason: Shortness Of Breath Or Wheezing) Qty: 3 3RF cholecalciferol (vitamin D3) 50 mcg (2,000 unit) capsule 50 mcg PO DAILY Rx Instructions: Unable to verify OTC meds at this date/time. ascorbate calcium (vitamin C) 500 mg tablet 1 g PO DAILY Rx Instructions: Unable to verify OTC meds at this date/time. levocetirizine 5 mg tablet 5 mg PO DAILY PRN (Reason: allergy symptoms) Rx Instructions: Unable to verify OTC meds at this date/time. nicotine 21 mg/24 hr patch 24 hour 1 patch transdermal DAILY Qty: 28 1RF Rx Instructions: Unable to verify OTC meds at this date/time. famotidine 40 mg tablet 40 mg PO BID Qty: 60 1RF Advair HFA 230-21 mcg/actuation HFA aerosol inhaler 2 inh inhalation BID Qty: 12 4RF ipratropium-albuterol 0.5 mg-3 mg(2.5 mg base)/3 mL solution for nebulization 3 ml inhalation Q6H PRN (Reason: shortness of breath or wheezing) Qty: 540 6RF azithromycin 250 mg tablet 250 mg PO DAILY Qty: 36 3RF Spiriva Respimat 2.5 mcg/actuation mist 2 puff inhalation DAILY Qty: 4 4RF aspirin 81 mg Tablet,Delayed Release (Dr/Ec) 81 mg PO QAM Rx Instructions: Unable to verify OTC meds at this date/time. thiamine HCl (vitamin B1) 100 mg Tablet 100 mg PO DAILY Qty: 30 0RF Referrals Referrals: Rachael Duckworth DO [Primary Care Provider] - Discharge Problem: Diarrhea Qualifiers: Diarrhea type: unspecified type Qualified Code(s): R19.7 - Diarrhea, unspecified Pneumonia Qualifiers: Pneumonia type: due to unspecified organism Laterality: right Lung location: l ower lobe of lung Qualified Code(s): J18.9 - Pneumonia, unspecified organism Leukocytosis Qualifiers: Leukocytosis type: unspecified Qualified Code(s): D72.829 - Elevated white blood cell count, unspecified
--- NOTE | 2025-04-13 17:23 | CT Scan Report ---
EXAM: CT abd pelvis IV con only CLINICAL HISTORY: weight loss, diarrhea. TECHNIQUE: CT of the abdomen and pelvis was performed with contrast, with the following protocol: axial images, and reconstructed coronal and sagittal images. One of the following dose reduction techniques was utilized for this exam: Automated exposure control, adjustment of the mA and/or kV according to patient size, and use of iterative reconstruction. CTDI: 9.77 mGy, DLP: 420.75 mGy-cm COMPARISON: No prior studies available for comparison. FINDINGS: Abdomen: Liver: Normal in size, shape, and density. No focal lesions, cysts, or masses were identified. The gallbladder is surgically removed. Pancreas: The pancreatic head, body, and tail are visualized and appear normal in size and density. No pancreatic masses or calcifications were noted. Spleen: Normal in size, shape, and density. No splenic lesions or masses were identified. Appendix: The appendix is not clearly seen. Kidneys and Adrenal Glands: A partially exophytic solid lesion is seen at the right renal mid-zone, measuring about 2.5 X 3.2 cm with mild surrounding fat smudging. Otherwise, both kidneys are normal in size, shape, and position. Cortical thickness is within normal limits. No renal calculi or hydronephrosis. Bilateral adrenal glands have hypodense nodules, the largest noted on the left side and measures 15 mm. Abdominal Aorta and Vessels: Atheromatous calcification of the aorta and both iliac vessels. Pelvis: The Urinary Bladder shows mild wall thickening likely due to chronic outflow obstruction/chronic cystitis. The prostate is moderately enlarged, seen indenting the urinary bladder base. Seminal Vesicles: Normal appearance without abnormal enlargement or mass. Peritoneal and Retroperitoneal Structures: No free fluid or abnormal fluid collections were identified within the abdomen or pelvis. No lymphadenopathy was noted. Bowel: The visualized bowel loops are normal in caliber and appearance. No evidence of bowel obstruction or wall thickening. Bones and Soft Tissues: Pelvic bones and soft tissues are unremarkable. No fractures or abnormal masses were identified. Spondylodegenrative changes . Bilateral basal pulmonary areas of consolidation and atelectatic bands are likely inflammatory, with possible nodules, as well as emphysematous changes. A dedicated CT chest is needed. IMPRESSION: 1. A partially exophytic solid lesion is seen at the right renal mid-zone with mild surrounding fat smudging. Likely neoplastic, pathological correlation is recommended. 2. Prostatomegaly. 3. Bilateral adrenal glands have hypodense nodules, the largest noted on the left side measures 15 mm. MRI with adrenal protocol is needed. 4. The Urinary Bladder shows mild wall thickening likely due to chronic outflow obstruction/chronic cystitis. 5. Bilateral basal pulmonary areas of consolidation and atelectatic bands are likely inflammatory, with possible nodules, as well as emphysematous changes. A dedicated CT chest is needed. Electronically signed by Cortes Goldstein 04-13-2025 5:20 PM
[2025-04-13] MEDS: methylPREDNISolone 125 MG/2 ML VIAL IV STA (18:21)
[2025-04-13] MEDS: ALBUT/IPRATROP 3MG/0.5MG NEB 3 ML VIAL NEB STA (18:22)
[2025-04-13] MEDS: LORazepam 2 MG/1 ML VIAL IV STA (18:22)
--- NOTE | 2025-04-13 19:34 | History & Physical Report ---
Date of Service April 13, 2025 Assessment & Plan (1) Pneumonia: (2) Diarrhea: (3) ETOH abuse: (4) COPD with emphysema: (5) CAD (coronary artery disease): (6) Dyslipidemia: (7) Hypertension: (8) GERD without esophagitis: Plan 70-year-old male with history of severe COPD on 2.5 L of oxygen continuously, coronary artery disease with stent in RCA, hypertension, hyperlipidemia, GERD and alcohol abuse presenting with 1 week of diarrhea and generalized illness. Patient found to have right lower lobe pneumonia. Stable on his baseline oxygen at present with saturation of 97%. Patient is not septic at present #Pneumonia Check urine Legionella antigen given diarrhea Check sputum culture Follow cultures sent by the ER Continue antibiotic coverage with Zosyn 4.5 g IV every 8 and doxycycline 100 mg p.o. twice daily Flutter valve and incentive spirometry Mucinex 1200 mg p.o. twice daily LR at 125 mL/h x 1 L #Diarrheastool PCR panel was unremarkable Checking Legionella urinary antigen IV fluids and electrolyte repletion If continuous will add loperamide as needed given negative stool PCR #Alcohol abusepatient reports drinking 10-12 drinks per day. He does have history of withdrawal. He has no intention to quit drinking Telemetry monitoring Beer 1 can p.o. 3 times daily as needed Ativan as needed per [place] [facility] protocol Multivitamin, thiamine folic acid daily #Severe COPD with emphysema, chronic hypoxemic respiratory failurepatient states stable respiratory status Continue supplemental oxygen DuoNeb every 6 hours as needed Albuterol every 6 hours as needed Continue Breo daily Continue umeclidinium Flutter valve and incentive spirometry #CADpatient denies chest pain Continue aspirin 81 mg p.o. every morning Continue metoprolol 50 mg p.o. daily Continue atorvastatin 20 mg p.o. daily #Dyslipidemia Continue atorvastatin #Hypertension Continue metoprolol #GERD Continue Pepcid 40 mg p.o. twice daily History of Present Illness Chief Complaint: Cough, shortness of breath Primary Care Provider: DO Christian Mirza is a 70yo male with History of severe COPD (PFT with FEV1 0.74), chronic hypoxic respiratory failure on 2.5 L of oxygen continuous, CAD status post inferior ND with stent placed to the RCA in December 2008, hypert ension, hyperlipidemia, GERD and alcohol abuse presenting from home with feeling ill. Patient presents today complaining of nonbloody/nonmucoid watery diarrhea for the last week as well as cough. He states that last night he started to feel "off." He had some migrating numbness/tingling as well as lightheadedness. He checked his blood pressure at 1 point during the evening and it was elevated 210/110 which decreased on repeat. He states he has not been as active or eating as well over the week. Patient reports that he was mistakenly prescribed prednisone 60 mg a day ongoing which he took for "weeks". With the assistance of Dr. Valentin he was able to wean off the prednisone and currently takes none. Patient denies fever, chills, chest pain He has stable baseline shortness of breath with no worsening No abdominal pain, nausea, vomiting Patient drinks dailyapproximately 10-12 drinks per day. His last drink was 04/12/2025 evening. He does have a history of withdrawals and is starting to feel slightly agitated. He has no desire to quit drinking. ER course: Normal saline x 1 L Ceftriaxone 2 g Solu-Medrol 40 mg IV Ativan 1 mg IV Albuterol 3 mL neb Allergies Allergy/AdvReac Type Severity Reaction Status Date / Time No Known Allergies Allergy Verified 04/13/25 16:33 Home Medications Medication Instructions Recorded Confirmed Type aspirin 81 mg tablet,delayed 81 mg PO QAM 01/19/19 04/13/25 History release Portable Oxygen #1 ea 07/02/21 04/13/25 Rx nebulizers (Aeroneb Go Nebulizer) #1 ea 12/06/21 04/13/25 Rx cholecalciferol (vitamin D3) 50 50 mcg PO DAILY 04/22/22 04/13/25 History mcg (2,000 unit) capsule ascorbate calcium (vitamin C) 500 1 g PO DAILY 05/12/23 04/13/25 History mg tablet nebulizers #1 ea 05/10/24 04/13/25 Rx albuterol sulfate 90 mcg/actuation 2 puff inhalation Q6H PRN 08/16/24 04/13/25 Rx aerosol inhaler Shortness Of Breath Or Wheezing #3 Inhalers atorvastatin 20 mg tablet 20 mg PO DAILY #90 tabs 10/27/24 04/13/25 Rx tamsulosin 0.4 mg capsule 0.4 mg PO DAILY #90 caps 11/25/24 04/13/25 Rx metoprolol succinate 50 mg 50 mg PO DAILY #90 tabs 11/26/24 04/13/25 Rx tablet,extended release 24 hr (Toprol XL) rivaroxaban 2.5 mg tablet (Xarelto) 2.5 mg PO BID #60 tabs 01/04/25 04/13/25 Rx thiamine HCl (vitamin B1) 100 mg 100 mg PO DAILY #30 tabs 01/20/25 04/13/25 Rx tablet Commode Riser #1 ea 01/21/25 04/13/25 Rx famotidine 40 mg tablet 40 mg PO BID #60 tabs 02/07/25 04/13/25 Rx levocetirizine 5 mg tablet 5 mg PO DAILY PRN allergy symptoms 02/07/25 04/13/25 History nicotine 21 mg/24 hr daily 1 patch transdermal DAILY #28 ea 02/07/25 04/13/25 Rx transdermal patch alprazolam 0.5 mg tablet 0.5 mg PO BID PRN anxiety #60 tabs 03/07/25 04/13/25 Rx Advair HFA 230 mcg-21 2 inh inhalation BID #12 grams 03/08/25 04/13/25 Rx mcg/actuation aerosol inhaler (fluticasone propion-salmeterol) azithromycin 250 mg tablet 250 mg PO DAILY #36 tabs 03/08/25 04/13/25 Rx ipratropium 0.5 mg-albuterol 3 mg 3 ml inhalation Q6H PRN shortness 03/08/25 04/13/25 Rx (2.5 mg base)/3 mL nebulization of breath or wheezing #540 mL soln tiotropium bromide 2.5 2 puff inhalation DAILY #4 grams 03/08/25 04/13/25 Rx mcg/actuation mist for inhalation (Spiriva Respimat) Past Med/Surg History Problem List Leukocytosis (Acute) ETOH abuse (Acute) Pneumonia (Acute) Diarrhea (Acute) Weakness (Acute) Pulmonary nodule Alcohol withdrawal delirium Delirium Acute exacerbation of chronic obstructive airways disease (Acute) Influenza A (Acute) Elevated troponin COPD exacerbation (Acute) Acute respiratory failure with hypoxia and hypercapnia (Acute) Palliative care by specialist Advanced care planning/counseling discussion Severe muscle deconditioning Weakness generalized Dyspnea and respiratory abnormalities COPD, group E, by GOLD 2022 classification (Acute) very sev COPD, active 80PY smoker, daily etoh abuse, med mgt maximized, not interested in tobacco cessation Prediabetes Elevated prostate specific antigen (PSA) Lung nodule < 6cm on CT S/P coronary artery stent placement Chronic respiratory failure with hypoxia Multiple pulmonary nodules Peyronie's disease Renal mass monitoring every 6 mos w/ Dr Moscoso Tobacco abuse COPD with emphysema Adrenal adenoma (01/2020) 17mm L adrenal adenoma Dyslipidemia CAD (coronary artery disease) History of heart attack 2008- w/ [place] cardio, stress test 01/2023 Stage 3 severe COPD by GOLD classification Peripheral vascular disease Hypertension GERD without esophagitis Erectile dysfunction BPH with obstruction/lower urinary tract symptoms Asthma Anxiety Alcoholism Medical History Interscapular pain SOBOE (shortness of breath on exertion) On home O2 2.5- 3 lpm prn and HS Surgical History Hx of colonoscopy Status post biopsy of kidney S/P cholecystectomy S/P coronary artery stent placement RCA stent-2008 S/P hernia repair Family History Mother Diabetes Hypertension Heart disease Myocardial infarction Father , suicide Alcohol abuse Colorectal cancer Sister Myocardial infarction Uncle Colorectal cancer Denies family history of Ovarian cancer Prostate cancer Breast cancer Social History Smoking Status: Never smoker Tobacco Type: Cigarettes Age Started Using Tobacco: 17; Age Quit Using Tobacco: 69; packs per day: 1; Cigarettes Per Day: 1 pack per day; Second Hand Exposure: Yes; Do You Dip or Chew Tobacco: No; Hx Alcohol Use: Yes Alcohol type: beer and hard liquor Alcohol Intake F requency: 4 or More x per/Week Alcohol Intake Frequency Comment: daily- 2 beers at night and some mixed drinks Hx Substance Use: Yes Prescribed Medications: Marijuana Last Used Substance Other:: Years ago Preferred Language: Danish Communication Ability: Effective Communication Tools: Electrolarynx Visual Impairment: No Limitations Hearing Ability: Normal Carpenter Packing Required: No Beliefs That Will Affect Care: Spiritual marital status: Single Current Living Situation: Family Current Living Situation Comment: Lives with NIA garcia current occupational status: retired How many Children do You have: 2 Feels Safe at Home: Yes Childhood Exposure to Second-Hand Smoke: Yes (1 cup of coffee in the am ) Diet: regular caffeine: Yes during the past year weight has: remained stable Dental Care, Regularly: No Physical Activity Frequency: 1-2 Times per Week Physical Activity Frequency Comment: housework Seatbelt Use: never Sunscreen Use: No Assistive Devices: Oxygen - Continuous and Walker Review of Systems Review of Systems: All systems reviewed & are unremarkable except as noted in HPI & below Physical Exam Physical Exam: General: patient resting comfortably, NAD, non-toxic in appearance, AA&O x 4 Skin: warm, dry, intact, no rashes or lesions HEENT: NC/AT, PERRL, EOMI, anicteric sclera, conjunctiva without injection, external ear normal to inspection and nontender, nares patent, moist mucus membranes, dentition intact, no oropharyngeal lesions, neck supple, trachea midline, no LAD, no thyromegaly, no JVD Heart: +S1/S2, regular, no m/r/g Lungs: diminished breath sounds diffusely, no wheezing, fine crackles in right base Abd: +BS, soft, NT/ND, no masses/organomegaly/ascites Ext: warm, 2+ pulses in UE/LE bilaterally, no clubbing/cyanosis or edema Neuro: nonfocal, patient AA&O x 4, speech intact, no facial droop, moving all extremities on command with equal strength 5/5 Results & Data Results & Data Vital Signs (Past 12 Hours) Vital Signs Temp Pulse Pulse Resp BP BP Pulse Ox 04/13/25 18:37 76 04/13/25 18:00 72 18 172/75 H 99 04/13/25 16:00 76 16 137/76 99 04/13/25 14:40 70 04/13/25 14:20 76 22 116/74 98 04/13/25 13:07 36.6 C 83 22 153/69 H 96 O2 Del Method O2 Flow Rate 04/13/25 18:37 04/13/25 18:00 Nasal Cannula 2.5 04/13/25 16:00 Nasal Cannula 2.5 04/13/25 14:40 04/13/25 14:20 Nasal Cannula 2.5 04/13/25 13:07 Nasal Cannula 2.5 Laboratory Results Laboratory Results WBC 14.83 K/ul (4.8-10.8) H 04/13/25 13:30 RBC 3.96 M/uL (4.70-6.10) L 04/13/25 13:30 Hgb 12.5 g/dl (14.0-18.0) L 04/13/25 13:30 Hct 37.0 % (42.0-52.0) L 04/13/25 13:30 MCV 93.4 fL (80.0-100.0) 04/13/25 13:30 MCH 31.6 pg (25.0-34.0) 04/13/25 13:30 MCHC 33.8 g/dL (32.0-36.0) 04/13/25 13:30 RDW Std Deviation 49.8 fL (36.4-46.3) H 04/13/25 13:30 RDW Coeff of Vira 14.5 % (11.5-14.5) 04/13/25 13:30 Plt Count 392 K/uL (130-400) 04/13/25 13:30 MPV 9.1 fL (9.4-12.4) L 04/13/25 13:30 Immature Gran % (Auto) 0.9 % 04/13/25 13:30 Neut % (Auto) 86.4 % 04/13/25 13:30 Lymph % (Auto) 5.8 % 04/13/25 13:30 [place] % (Auto) 6.5 % 04/13/25 13:30 Eos % (Auto) 0.1 % 04/13/25 13:30 Baso % (Auto) 0.3 % 04/13/25 13:30 Neut # (Auto) 12.81 K/uL (1.40-6.50) H 04/13/25 13:30 Lymph # (Auto) 0.86 K/uL (1.20-3.40) L 04/13/25 13:30 [place] # (Auto) 0.96 K/uL (0.11-0.59) H 04/13/25 13:30 Eos # (Auto) 0.01 K/uL (0.00-0.50) 04/13/25 13:30 Baso # (Auto) 0.05 K/uL (0.00-0.20) 04/13/25 13:30 Immature Gran # (Auto) 0.14 K/uL (0.01-0.20) 04/13/25 13:30 Sodium 135 mmol/L (136-145) L 04/13/25 13:30 Potassium 4.2 mmol/L (3.5-5.1) 04/13/25 13:30 Chloride 98 mmol/L (98-107) 04/13/25 13:30 Carbon Dioxide 29 mmol/L (21-32) 04/13/25 13:30 Anion Gap 8 (3-11) 04/13/25 13:30 BUN 7 mg/dl (6-23) 04/13/25 13:30 Creatinine 0.52 mg/dl (0.6-1.4) L 04/13/25 13:30 Est Cr Clr Drug Dosing 116.8 ml/min 04/13/25 13:30 eGFR 109.11 04/13/25 13:30 BUN/Creatinine Ratio 13.5 (10-20) 04/13/25 13:30 Glucose 129 mg/dl (70-99(Fasting)) H 04/13/25 13:30 Lactate 1.2 mmol/L (0.4-2.0) 04/13/25 15:16 Calcium 9.2 mg/dl (8.6-10.3) 04/13/25 13:30 Magnesium 2.0 mg/dl (1.7-2.4) 04/13/25 13:30 Total Bilirubin 0.7 mg/dl (0.2-1.0) 04/13/25 13:30 AST 17 U/L (13-39) 04/13/25 13:30 ALT 17 U/L (7-52) 04/13/25 13:30 Alkaline Phosphatase 78 U/L (34-104) 04/13/25 13:30 Troponin I High Sens 3.7 pg/ml (0-20) 04/13/25 13:30 Total Protein 6.6 gm/dl (6.0-8.3) 04/13/25 13:30 Albumin 3.8 gm/dl (3.4-5.0) 04/13/25 13:30 Globulin 2.8 gm/dl (2.5-4.0) 04/13/25 13:30 Albumin/Globulin Ratio 1.4 (0.9-2) 04/13/25 13:30 TSH 0.703 uIu/ml (0.300-4.500) 04/13/25 13:30 Urine Color Yellow 04/13/25 14:16 Urine Appearance Cloudy (Clear) A 04/13/25 14:16 Urine pH 8.0 (4.5-7.5) H 04/13/25 14:16 Ur Specific [place] 1.005 (1.000-1.030) 04/13/25 14:16 Urine Protein Negative (Negative) 04/13/25 14:16 Urine Glucose (UA) Negative (Negative) 04/13/25 14:16 Urine Ketones Negative (Negative) 04/13/25 14:16 Urine Blood Negative (Negative) 04/13/25 14:16 Urine Nitrite Negative (Negative) 04/13/25 14:16 Urine Bilirubin Negative (Negative) 04/13/25 14:16 Urine Urobilinogen Negative (Negative) 04/13/25 14:16 Ur Leukocyte Esterase Trace (Negative) H 04/13/25 14:16 Urine WBC (Auto) 0-5 /hpf (0-5) 04/13/25 14:16 Urine RBC (Auto) 0-2 /hpf (0-2) 04/13/25 14:16 U Hyaline Cast (Auto) 0-2 /lpf (0-2) 04/13/25 14:16 U Epithel Cells (Auto) 0-2 /hpf (0-2) 04/13/25 14:16 Urine Bacteria (Auto) None Seen (None Seen) 04/13/25 14:16 Urine Comment 04/13/25 14:16 Stl C. cayetanensis PCR Not Detected (NotDetected) 04/13/25 14:16 Stool Rotavirus A PCR Not Detected (NotDetected) 04/13/25 14:16 Stl Adenov F 40/41 PCR Not Detected (NotDetected) 04/13/25 14:16 Stool Astrovirus (PCR) Not Detected (NotDetected) 04/13/25 14:16 Stool Campylobacter PCR Not Detected (NotDetected) 04/13/25 14:16 Stl C. diff Tox B Gene Negative Cdiff Gene (Neg) 04/13/25 14:16 Stool Cryptosporidium PCR Not Detected (NotDetected) 04/13/25 14:16 Stl E.coli Shiga Tox PCR Not Detected (NotDetected) 04/13/25 14:16 Stl Enterotoxigenic E PCR Not Detected (NotDetected) 04/13/25 14:16 Stool EPEC (PCR) Not Detected (NotDetected) 04/13/25 14:16 Stool EAEC (PCR) Not Detected (NotDetected) 04/13/25 14:16 Stl E. histolytica PCR Not Detected (NotDetected) 04/13/25 14:16 Stool Giardia Lamblia PCR Not Detected (NotDetected) 04/13/25 14:16 Stool Salmonella PCR Not Detected (NotDetected) 04/13/25 14:16 Stool Sapovirus (PCR) Not Detected (NotDetected) 04/13/25 14:16 Stl P. shigelloides PCR Not Detected (NotDetected) 04/13/25 14:16 Stl Shigella/EIEC PCR Not Detected (NotDetected) 04/13/25 14:16 St Y.enterocolitica PCR Not Detected (NotDetected) 04/13/25 14:16 Stool Vibrio (PCR) Not Detected (NotDetected) 04/13/25 14:16 Stl Vibrio cholerae PCR Not Detected (NotDetected) 04/13/25 14:16 Stl Norovirus GI/GII PCR Not Detected (NotDetected) 04/13/25 14:16 Impressions Chest X-Ray 04/13/25 13:35 XR chest 1V portable CLINICAL HISTORY: SOB COMPARISON STUDY: 01/08/2025 FINDINGS: Stable emphysema. There is interval patchy opacity at the right lung base. No pleural effusion or pneumothorax. IMPRESSION: Pneumonia at the right lung base. Follow-up to resolution recommended. ACT 112: Negative or not required by law. Electronically signed by: Ezequiel Griffin M.D. 04/13/2025 2:20 PM Abdomen/Pelvis CT 04/13/25 14:11 EXAM: CT abd pelvis IV con only CLINICAL HISTORY: weight loss, diarrhea. TECHNIQUE: CT of the abdomen and pelvis was performed with contrast, with the following protocol: axial images, and reconstructed coronal and sagittal images. One of the following dose reduction techniques was utilized for this exam: Automated exposure control, adjustment of the mA and/or kV according to patient size, and use of iterative reconstruction. CTDI: 9.77 mGy, DLP: 420.75 mGy-cm COMPARISON: No prior studies available for comparison. FINDINGS: Abdomen: Liver: Normal in size, shape, and density. No focal lesions, cysts, or masses were identified. The gallbladder is surgically removed. Pancreas: The pancreatic head, body, and tail are visualized and appear normal in size and density. No pancreatic masses or calcifications were noted. Spleen: Normal in size, shape, and density. No splenic lesions or masses were identified. Appendix: The appendix is not clearly seen. Kidneys and Adrenal Glands: A partially exophytic solid lesion is seen at the right renal mid-zone, measuring about 2.5 X 3.2 cm with mild surrounding fat smudging. Otherwise, both kidneys are normal in size, shape, and position. Cortical thickness is within normal limits. No renal calculi or hydronephrosis. Bilateral adrenal glands have hypodense nodules, the largest noted on the left side and measures 15 mm. Abdominal Aorta and Vessels: Atheromatous calcification of the aorta and both iliac vessels. Pelvis: The Urinary Bladder shows mild wall thickening likely due to chronic outflow obstruction/chronic cystitis. The prostate is moderately enlarged, seen indenting the urinary bladder base. Seminal Vesicles: Normal appearance without abnormal enlargement or mass. Peritoneal and Retroperitoneal Structures: No free fluid or abnormal fluid collections were identified within the abdomen or pelvis. No lymphadenopathy was noted. Bowel: The visualized bowel loops are normal in caliber and appearance. No evidence of bowel obstruction or wall thickening. Bones and Soft Tissues: Pelvic bones and soft tissues are unremarkable. No fractures or abnormal masses were identified. Spondylodegenrative changes . Bilateral basal pulmonary areas of consolidation and atelectatic bands are likely inflammatory, with possible nodules, as well as emphysematous changes. A dedicated CT chest is needed. IMPRESSION: 1. A partially exophytic solid lesion is seen at the right renal mid-zone with mild surrounding fat smudging. Likely neoplastic, pathological correlation is recommended. 2. Prostatomegaly. 3. Bilateral adrenal glands have hypodense nodules, the largest noted on the left side measures 15 mm. MRI with adrenal protocol is needed. 4. The Urinary Bladder shows mild wall thickening likely due to chronic outflow obstruction/chronic cystitis. 5. Bilateral basal pulmonary areas of consolidation and atelectatic bands are likely inflammatory, with possible nodules, as well as emphysematous changes. A dedicated CT chest is needed. Electronically signed by Cortes Goldstein 04-13-2025 5:20 PM Code Status & VTE Plan VTE Prophylaxis Plan VTE Prophylaxis will be ordered: Yes PG Care Time/CCT Total # of Minutes Spent Total Time Spent with Patient: Total time spent is greater than 50% in coordination of care (as documented) at patient's floor/unit and/or counseling patient: Coding Level of Care Code 22503 INT INP/OBS CARE 3/75MIN Diagnoses Pneumonia J18.9 Laterality: right Lung location: lower lobe of lung Pneumonia type: due to unspecified organism Diarrhea R19.7 Diarrhea type: unspecified type ETOH abuse F10.10 Pulmonary emphysema, unspecified emphysema type J43.9 Emphysema type: unspecified Coronary artery disease involving [place] coronary artery of [place] heart without angina pectoris I25.10 Coronary Disease-Associated Artery/Lesion type: [place] artery [place] vs. transplanted heart: [place] heart Associated angina: without angina Dyslipidemia E78.5 Essential hypertension I10 Hypertension type: essential hypertension GERD without esophagitis K21.9 (1) Pneumonia Laterality: right Lung location: lower lobe of lung Pneumonia type: due to unspecified organism Qualified Code(s): J18.9 - Pneumonia, unspecified organism (2) Diarrhea Diarrhea type: unspecified type Qualified Code(s): R19.7 - Diarrhea, unspecified (4) COPD with emphysema Emphysema type: unspecified Qualified Code(s): J43.9 - Emphysema, unspecified (5) CAD (coronary artery disease) Coronary Disease-Associated Artery/Lesion type: [place] artery [place] vs. transplanted heart: [place] heart Associated angina: without angina Qualified Code(s): I25.10 - Atherosclerotic heart disease of [place] coronary artery without angina pectoris (7) Hypertension Hypertension type: essential hypertension Qualified Code(s): I10 - Essential (primary) hypertension
[2025-04-13] MEDS ORDERED: Ativan PO Alcohol Withdrawal--Active Protocol PO PRN (21:44)
[2025-04-13] MEDS ORDERED: LORazepam 1 MG TAB PO PRN ×2 (21:44)
[2025-04-13] MEDS ORDERED: ALBUTEROL HFA 8 GM INHALER INH PRN (21:44)
[2025-04-13] MEDS ORDERED: ACETAMINOPHEN 325 MG TAB PO PRN (21:44)
[2025-04-13] MEDS ORDERED: ONDANSETRON INJ 2 MG/ML 2 ML VIAL IV PRN (21:44)
[2025-04-13] MEDS: BEER 1 CAN PO SCH (22:12)
[2025-04-13] MEDS: guaiFENesin 600 MG TABCR PO SCH (22:14)
[2025-04-13] MEDS: DOXYCYCLINE HYCLATE 100 MG CAP PO SCH (22:14)
[2025-04-13] MEDS: PIPERACILLIN/TAZOBACTAM 4.5 GM/100 ML BAG IV SCH (22:15)
[2025-04-13] MEDS: LACTATED RINGER'S 1,000 ML IV SCH (22:15)
[2025-04-13] MEDS: RIVAROXABAN 2.5 MG TAB PO SCH (22:16)
[2025-04-14] MEDS: ALBUT/IPRATROP 3MG/0.5MG NEB 3 ML VIAL INH PRN (01:03)
[2025-04-14] MEDS: ALPRAZolam 0.5 MG TABLET PO PRN (02:19)
[2025-04-14 08:48] LABS: Hematocrit (blood only) 32.9 % (42.0-52.0); Hemoglobin 11.4 g/dl (14.0-18.0); Mean Corpuscular Hgb Conc 34.7 g/dL (32.0-36.0); Mean Corpuscular Volume 92.4 fL (80.0-100.0); Mean Platelet Volume 9.1 fL (9.4-12.4); Platelet Count 324 K/uL (130-400); RDW Coefficient of Variation 14.1 % (11.5-14.5); RDW Standard Deviation 48.7 fL (36.4-46.3); Red Blood Count 3.56 M/uL (4.70-6.10); White Blood Count 10.24 K/ul (4.8-10.8)
[2025-04-14] MEDS: METOPROLOL SUCC 50MG EXT REL TAB PO SCH (08:55)
[2025-04-14] MEDS: ASPIRIN 81 MG ECTAB PO SCH (08:55)
[2025-04-14] MEDS: FOLIC ACID 1 MG TAB PO SCH (08:55)
[2025-04-14] MEDS: TAMSULOSIN HCL 0.4 MG CAP PO SCH (08:55)
[2025-04-14] MEDS: THIAMINE HCL 100 MG TAB PO SCH (08:55)
[2025-04-14] MEDS: MULTIVITAMIN TAB PO SCH (08:55)
[2025-04-14] MEDS: UMECLIDINIUM BROMIDE 62.5MCG/BLISTER 7 PUFFS/INHALER INH SCH (08:56)
[2025-04-14] MEDS: FLUTICASONE/VILANTEROL 100/25MCG 14 PUFFS/INHALER INH SCH (08:56)
[2025-04-14] MEDS ORDERED: ATORVASTATIN 20 MG TAB PO SCH (09:00)
[2025-04-14] MEDS: FAMOTIDINE 20 MG TAB PO SCH (09:04)
[2025-04-14] MEDS: LORazepam 1 MG TAB PO PRN (09:04)
[2025-04-14 09:05] LABS: BUN Creatinine Ratio 11.8 (10-20); Calcium 8.8 mg/dl (8.6-10.3); Creatinine Clr Calc Pharmacy 113.7 ml/min
[2025-04-14] MEDS: [UNRECOGNIZED DRUG - OTHER] PO SCH (11:25)
--- NOTE | 2025-04-14 15:31 | Hospitalist Progress Note ---
Date of Service April 14, 2025 Assessment & Plan (1) Pneumonia: (2) Diarrhea: (3) ETOH abuse: (4) COPD with emphysema: (5) CAD (coronary artery disease): (6) Dyslipidemia: (7) Hypertension: (8) GERD without esophagitis: Plan 70 years old male with PMH of FULL CODE @ home, HTN, CAD s/p RCA stent x 1, GERD, ongoing tobacco abuse with subsequent diagnosis of chronic hypoxic respiratory failure due to end-stage COPD on 2.5 L/minute O2 via nasal cannula [id number] at home, not on home steroids, followed by his [facility] Intramural Director Dr. Charito Valentin, ongoing ETOH abuse with no subsequent diagnosis of ETOH hepatitis or ETOH cirrhosis, and known "enhancing partially exophytic 3.0 x 2.4 mass within the anterior interpolar right kidney, 2.4 x 2.0 x 2.2 cm on the study from 2022 and 2.9 cm on the 01/14/2024 exam. No invasion into the adjacent structures. Patent renal veins. No urothelial lesions identified. Atherosclerosis of the aorta without aneurysm. No lymphadenopathy. No bowel obstruction or bowel wall thickening. No destructive bone lesions." (as reported on 05/14/[address]) and followed up with his [facility] Urologist Dr. Dinesh Moscoso, who presented to [facility] ER on 04/13/2025 with complaints of 1 week of watery, non-bloody, non-oily diarrhea that turned in mucous-producing diarrhea in the past 24 hours (04/13/2025) at home, without nausea, vomiting, abdominal pain, pelvic pain, hematemesis, hematochezia, or melena. Patient did not report any increase in his chronic shortness of breath at rest or his chronic dry cough without wheezing at home on arrival to [facility] ER on 04/13/2025. Patient was subsequently found to have an acute right lower lobe pneumonia without any worsening in his chronic hypoxia on 2.5 L/minute O2 via nasal cannula [id number] at home. Patient was subsequently admitted to the inpatient hospitalist service @ [facility] on 04/13/2025 with the following diagnoses: 1. Acute RLL CAP. 2. Acute hypovolemic hyponatremia with Na 135 mmol/L (04/13/2025, 1:30pm). 3. Chronic "partially exophytic solid lesion is seen at the right renal mid- zone, measuring about 2.5 X 3.2 cm with mild surrounding fat smudging" (as noted on 04/13/2025 CT abd/pelvis with IV contrast). The following medical issues are being addressed on 04/14/2025: #Acute RLL CAP Afebrile with WBC declining from 14.83, N86 L6 M7 (04/13/2025, 1:30pm) to 10.24, no differential (04/14/2025, 8:18am), after having received ceftriaxone 2g IV x 1 dose (04/13/2025, 3:45pm), zosyn 4.5g IV q8 x 2 doses (04/13/2025, 10:59pm; 04/14/2025, 5:49am), and doxycycline 100mg PO bid x 2 doses (04/13/2025, 10:14pm; 04/14/2025, 8:55am). I have subsequently opted to D/C zosyn and de-escalate to ceftriaxone 1g IV daily (day #1/2 on 04/14/2025, 2:00pm) given normal procalcitonin < 0.02 ng/mL (04/14/2025, 8:40am) AND normal lactic acid #1 1.2 mmol/L (04/13/2025, 3:16pm) and normal lactic acid #2 1.4 mmol/L (04/14/2025, 8:45am), all of which makes acute bacterial PNA unlikely, while continuing doxycycline 100mg PO bid on 04/14/2025. I will check vitals, chest exam, WBC with diff, lactic acid, and procalcitonin in the 04/15/2025 am. #Acute hypovolemic hyponatremia with Na 135 mmol/L (04/13/2025, 1:30pm). Persistent with nominal decline in Na level to 134 mmol/L (04/14/2025, 8:18am), but asymptomatic. s/p 1 liter of 0.9% NS @ 999 mL/hr (04/13/2025, 2:20pm) and lactated Ringers @ 125 mL/hr (04/13/2025, 10:15pm). Hence, I have opted to D/C lactated Ringers @ 125 mL/hr (04/14/2025, 8:00am), and have encouraged to increase his intake of a heart healthy diet PO ad libitum, and I will check repeat Na level in the 04/15/2025 am. #Chronic "partially exophytic solid lesion is seen at the right renal mid-zone, measuring about 2.5 X 3.2 cm with mild surrounding fat smudging" (as noted on 04/13/2025 CT abd/pelvis with IV contrast). cf., "enhancing partially exophytic 3.0 x 2.4 mass within the anterior interpolar right kidney, 2.4 x 2.0 x 2.2 cm on the study from 2022 and 2.9 cm on the 01/14/2024 exam. No invasion into the adjacent structures. Patent renal veins. No urothelial lesions identified. Atherosclerosis of the aorta without aneurysm. No lymphadenopathy. No bowel obstruction or bowel wall thickening. No destructive bone lesions." (as reported on 05/14/[address] Patient reports that he will follow up with his [facility] Urologist Dr. Dinesh Moscoso on an outpatient basis. In the interim, I called and left a message with Dr. Moscoso's police department secretary on 04/14/2025, asking her to ask Dr. Moscoso to call me back on 04/14/2025, to let me know if Dr. Moscoso would like patient to undergo right renal biopsy or right nephrectomy while in [facility]. Other secondary medical issues include: #Diarrheastool PCR panel was unremarkable Await Legionella pneumophila serogroup 1 urinary antigen IV fluids and electrolyte repletion #Alcohol abusepatient reports drinking 10-12 drinks per day. Patient does have history of withdrawal. Patient has no intention to quit drinking and in fact, is drinking a can of beer in his hospital room on 04/14/2025, 8:35am. Telemetry monitoring Beer 1 can p.o. 3 times daily as needed Ativan as needed per [place] [facility] protocol Multivitamin, thiamine folic acid daily #Severe COPD with emphysema, chronic hypoxemic respiratory failurepatient states stable respiratory status Continue supplemental oxygen DuoNeb every 6 hours as needed Albuterol every 6 hours as needed Continue Breo daily Continue umeclidinium Flutter valve and incentive spirometry #CAD s/p RCA stent x 1. patient denies chest pain Continue aspirin 81mg PO qam Continue metoprolol 50mg PO daily D/C atorvastatin 20mg PO daily on 04/14/2025 given potential for this medication to cause dyspepsia in the setting of acute RLL CAP. Patient may resume this medication once he is no longer taking/receiving empiric antibiotics. #Hypertension Continue metoprolol succinate 50mg PO daily. #GERD Continue Pepcid 40mg PO bid. Anticipate D/C home on 04/15/2025 am after patient receives rocephin 1g IV daily and doxycycline 100mg PO bid. Admission and Anticipated Discharge Date Admission Date: April 13, 2025 Subjective "I feel a lot better. Breathing better today." Review of Systems Constitutional: Patient denies antecedent/coincident fevers, chills, diaphoresis, wheeze, sore throat, hemoptysis, chest pains, palpitations, pleurisy, diarrhea, pelvic pain, hematemesis, hematochezia, melena, hematuria, dysuria, frequency, urgency, headaches, dizziness, lightheadedness, visual changes, hearing changes, weakness, syncope, travel history, sick contacts, or food/drug ingestions novel or new. All other review of systems are reported as negative by the patient on 04/14/2025. Physical Exam Constitutional: General: Comfortable, coherent, and cooperative. Wide awake and alert. Not confused, lethargic, or obtunded. Patient speaks in complete, fluent, and articulate sentences without pause, interruption, cough, or wheeze. HEENT: Normocephalic, atraumatic. No nystagmus, gaze paresis, anisocoria, miosis, mydriasis, hyphema, scleral injection, conjunctivitis, or pterygium. No otorrhea or rhinorrhea. No pharyngeal erythema, edema, or discharge. Neck: Supple, no stridor, bruit, goiter, or hepato-jugular reflux. Jugular venous pressure is estimated to be 3 cm above the sternal angle of Shashank, which in turn, is 5 cm above the level of the right atrium; with jugular venous pressure estimated to be 8 cm, then, there is no jugular venous distention on 04/14/2025. Lymphatics: No cervical (anterior/posterior), supraclavicular, infraclavicular, axillary, epitrochlear, or inguinal adenopathy. Chest: Symmetric rise and fall with respirations. Non-tender to palpation. Lungs: Clear to auscultation and percussion. Heart: Regular rate and rhythm. S1 and S2 noted. No S3 or S4 summation gallop. No tripartite friction rub. Grade II/ early systolic murmur @ LLSB without radiation to the carotids, axilla, or back, and which remains invariant in regards to the respiratory cycle. Abdomen: Soft, non-tender, non-distended. No rebound, guarding, [place]'s sign, or organomegaly. Bowel sounds auscultated in all 4 quadrants. Extremities: No clubbing, cyanosis, or edema. 2+ pedal pulses bilaterally. Skin: No decubitus ulcer, exanthem, or enanthem. Genito-urinary: No urethral discharge. No tellez catheter. Patient utilizes urinal independently. Neurology: Alert and oriented in regards to person, place, time, and situation. DTR+ and symmetric. 5/5 motor strength in all 4 extremities, both proximally and distally. No pronator drift. No facial droop. No dysarthria. Psychiatry: No homicidal ideation. No suicidal ideation. No flat affect; smiles appropriately. Results & Data Results & Data Vital Signs (Past 12 Hours) Vital Signs Temp Pulse Resp BP BP Pulse Ox O2 Del Method 04/14/25 12:07 36.4 C L 77 18 148/93 H 97 Nasal Cannula 04/14/25 11:28 79 18 95 Nasal Cannula 04/14/25 08:24 36.3 C L 70 18 132/69 98 Nasal Cannula 04/14/25 03:52 36.5 C 74 20 110/67 95 Room Air O2 Flow Rate 04/14/25 12:07 2 04/14/25 11:28 2 04/14/25 08:24 2 04/14/25 03:52 Laboratory Results Abnormal lab results 04/14/25 Range/Units 08:18 RBC 3.56 L (4.70-6.10) M/uL Hgb 11.4 L (14.0-18.0) g/dl Hct 32.9 L (42.0-52.0) % RDW Std Deviation 48.7 H (36.4-46.3) fL MPV 9.1 L (9.4-12.4) fL Sodium 134 L (136-145) mmol/L Creatinine 0.51 L (0.6-1.4) mg/dl Glucose 151 H (70-99(Fasting)) mg/dl Diagnostic Findings Portable CXR (04/13/2025, 1:35pm): RLL infiltrate. No effusion, cardiomegaly, pulmonary vascular congestion, or pneumothorax (by my review). CT abd/pelvis with IV contrast (04/13/2025, 2:11pm): 1. 2.5 cm x 3.2 cm partially exophytic solid lesion is seen at the right renal mid-zone with mild surrounding fat smudging. Likely neoplastic, pathological correlation is recommended. 2. Prostatomegaly. 3. Bilateral adrenal glands have hypodense nodules, the largest noted on the left side measures 15 mm. MRI with adrenal protocol is needed. 4. The Urinary Bladder shows mild wall thickening likely due to chronic outflow obstruction/chronic cystitis. 5. Bilateral basal pulmonary areas of consolidation and atelectatic bands are likely inflammatory, with possible nodules, as well as emphysematous changes. A dedicated CT chest is needed. PG Care Time/CCT Total # of Minutes Spent Total Time Spent with Patient: Total time spent is greater than 50% in coordination of care (as documented) at patient's floor/unit and/or counseling patient: Coding Level of Care Code 88452 SUB INP/OBS CARE 2/35MIN Diagnoses Pneumonia J18.9 Laterality: right Lung location: lower lobe of lung Pneumonia type: due to unspecified organism Diarrhea R19.7 Diarrhea type: unspecified type ETOH abuse F10.10 Pulmonary emphysema, unspecified emphysema type J43.9 Emphysema type: unspecified Coronary artery disease involving [place] coronary artery of [place] heart without angina pectoris I25.10 Associated angina: without angina Coronary Disease-Associated Artery/Lesion type: [place] artery [place] vs. transplanted heart: [place] heart Dyslipidemia E78.5 Essential hypertension I10 Hypertension type: essential hypertension GERD without esophagitis K21.9 (1) Pneumonia Laterality: right Lung location: lower lobe of lung Pneumonia type: due to unspecified organism Qualified Code(s): J18.9 - Pneumonia, unspecified organism (2) Diarrhea Diarrhea type: unspecified type Qualified Code(s): R19.7 - Diarrhea, unsp ecified (4) COPD with emphysema Emphysema type: unspecified Qualified Code(s): J43.9 - Emphysema, unspecified (5) CAD (coronary artery disease) Associated angina: without angina Coronary Disease-Associated Artery/Lesion type: [place] artery [place] vs. transplanted heart: [place] heart Qualified Code(s): I25.10 - Atherosclerotic heart disease of [place] coronary artery without angina pectoris (7) Hypertension Hypertension type: essential hypertension Qualified Code(s): I10 - Essential (primary) hypertension
[2025-04-14] MEDS: cefTRIAXone SODIUM 1,000 MG/50 ML BAG IV SCH (16:31)
[2025-04-15 06:34] LABS: Basophils # (auto) 0.06 K/uL (0.00-0.20); Basophils % (auto) 0.6 %; Eosinophils # (auto) 0.07 K/uL (0.00-0.50); Eosinophils % (auto) 0.6 %; Hematocrit (blood only) 33.8 % (42.0-52.0); Hemoglobin 11.6 g/dl (14.0-18.0); Immature Granulocytes # (auto) 0.07 K/uL (0.01-0.20); Immature Granulocytes % (auto) 0.6 %; Lymphocytes # (auto) 2.97 K/uL (1.20-3.40); Lymphocytes % (auto) 27.4 %; Mean Corpuscular Hemoglobin 32.1 pg (25.0-34.0); Mean Corpuscular Hgb Conc 34.3 g/dL (32.0-36.0); Mean Corpuscular Volume 93.6 fL (80.0-100.0); Monocytes # (auto) 1.46 K/uL (0.11-0.59); Monocytes % (auto) 13.5 %; Neutrophils # (auto) 6.19 K/uL (1.40-6.50); Neutrophils % (auto) 57.3 %; Platelet Count 309 K/uL (130-400); RDW Coefficient of Variation 14.5 % (11.5-14.5); RDW Standard Deviation 49.9 fL (36.4-46.3); Red Blood Count 3.61 M/uL (4.70-6.10); White Blood Count 10.82 K/ul (4.8-10.8)
[2025-04-15 07:12] LABS: BUN Creatinine Ratio 8.2 (10-20); Calcium 8.9 mg/dl (8.6-10.3); Creatinine Clr Calc Pharmacy 95.1 ml/min; Potassium 3.5 mmol/L (3.5-5.1)
[2025-04-15 08:01] VITALS: BP 112/63; RESP 15; TEMP 98.3; O2SAT 99
[2025-04-15 12:00] VITALS: PULSE 85
--- NOTE | 2025-04-15 12:12 | Discharge Summary ---
Discharge Summary Date of Service April 15, 2025 Principal Dx & Hospital Course #1 = Principal Diagnosis (1) Pneumonia: (2) Diarrhea: (3) ETOH abuse: (4) COPD with emphysema: (5) CAD (coronary artery disease): (6) Dyslipidemia: (7) Hypertension: (8) GERD without esophagitis: Plan 70 years old male with PMH of FULL CODE @ home, HTN, CAD s/p RCA stent x 1, GERD, ongoing tobacco abuse with subsequent diagnosis of chronic hypoxic respiratory failure due to end-stage COPD on 2.5 L/minute O2 via nasal cannula [id number] at home, not on home steroids, followed by his [facility] Card Seller Dr. Charito Valentin, ongoing ETOH abuse with no subsequent diagnosis of ETOH hepatitis or ETOH cirrhosis, and known "enhancing partially exophytic 3.0 x 2.4 mass within the anterior interpolar right kidney, 2.4 x 2.0 x 2.2 cm on the study from 2022 and 2.9 cm on the 01/14/2024 exam. No invasion into the adjacent structures. Patent renal veins. No urothelial lesions identified. Atherosclerosis of the aorta without aneurysm. No lymphadenopathy. No bowel obstruction or bowel wall thickening. No destructive bone lesions." (as reported on 05/14/[address]) and followed up with his [facility] Urologist Dr. Dinesh Moscoso, who presented to [facility] ER on 04/13/2025 with complaints of 1 week of watery, non -bloody, non-oily diarrhea that turned in mucous-producing diarrhea in the past 24 hours (04/13/2025) at home, without nausea, vomiting, abdominal pain, pelvic pain, hematemesis, hematochezia, or melena. Patient did not report any increase in his chronic shortness of breath at rest or his chronic dry cough without wheezing at home on arrival to [facility] ER on 04/13/2025. Patient was subsequently found to have an acute right lower lobe pneumonia without any worsening in his chronic hypoxia on 2.5 L/minute O2 via nasal cannula [id number] at home. Patient was subsequently admitted to the inpatient hospitalist service @ [facility] on 04/13/2025 with the following diagnoses: 1. Acute RLL CAP. 2. Acute hypovolemic hyponatremia with Na 135 mmol/L (04/13/2025, 1:30pm). 3. Chronic "partially exophytic solid lesion is seen at the right renal mid- zone, measuring about 2.5 X 3.2 cm with mild surrounding fat smudging" (as noted on 04/13/2025 CT abd/pelvis with IV contrast). The following medical issues were addressed while the patient remained in [facility] from 04/13/2025 through 04/15/2025: #Acute RLL CAP, RESOLVING very well on ceftriaxone 1g IV daily (day #1 on 04/14/2025, 4:31pm) and doxycycline 100mg PO bid (day #3 on 04/15/2025, 9:25am). Afebrile with WBC declining from 14.83, N86 L6 M7 (04/13/2025, 1:30pm) to 10.24, no differential (04/14/2025, 8:18am), after having received ceftriaxone 2g IV x 1 dose (04/13/2025, 3:45pm), zosyn 4.5g IV q8 x 2 doses (04/13/2025, 10:59pm; 04/14/2025, 5:49am), and doxycycline 100mg PO bid x 4 doses (04/13/2025, 10:14pm; 04/14/2025, 8:55am; 04/14/2025, 9:01pm; 04/15/2025, 9:25am). I subsequently discontinued zosyn and de-escalated antibiotic regimen to ceftriaxone 1g IV daily (day #1 on 04/14/2025, 4:31pm) given normal procalcitonin #1 < 0.02 ng/mL (04/14/2025, 8:40am), normal lactic acid #1 1.2 mmol/L (04/13/2025, 3:16pm), and normal lactic acid #2 1.4 mmol/L (04/14/2025, 8:45am), all of which makes acute bacterial PNA unlikely, while continuing doxycycline 100mg PO bid on 04/14/2025 and on 04/15/2025. Patient remained afebrile throughout hospitalization and both lactic acid and procalcitonin levels remained normal with discharge lactic acid #3 0.8 mmol/L (04/15/2025, 6:22am) and discharge procalcitonin #2 < 0.02 ng/mL (04/15/2025, 6:22am), which continues to make acute bacterial PNA unlikely. Nonetheless, patient was discharged back to his home on 04/15/2025 with electronic prescripti ons for the following antibiotics transmitted to his [facility] [address] [place], [place] [id number] on 04/15/2025: a. cefdinir 300mg PO bid, #6 capsules, no refills. b. doxycycline hyclate 100mg PO bid, #7 capsules, no refills. In addition, patient will follow up with his PCP Dr. Rachael Duckworth within 5 days of hospital discharge to discuss final results of urine Legionella pneumophila serogroup 1 testing (04/13/2025, 2:20pm), which is still pending/unpublished as of discharge date/time, 04/15/2025, 12:05pm. The only reason such testing was performed was due to patient's report of 1 week of watery, non-bloody, non-oily diarrhea, coinciding with patient's acute RLL CAP, and the association of Legionnaire's disease with gastro-intestinal complaints such as diarrhea. My clinical index of suspicion for infection with Legionella pneumophila remains very low, and hence, patient was not treated or prescribed macrolide such as azithromycin on hospital discharge back to patient's home on 04/15/2025. Of note, normally takes/utilizes 2.5 liters/minute O2 via nasal cannula [id number] at home for his end-stage COPD; in comparison, patient is being discharged back to his home with an O2 saturation of 99% on room air (04/15/2025, 11:55am). Subsequently, patient may resume his home-scheduled 2.5 liters/minute O2 via nasal cannula [id number] at home, AFTER patient arrives back to his home on 04/15/2025 afternoon. #Acute hypovolemic hyponatremia with admission Na 135 mmol/L (04/13/2025, 1:30pm), repeat Na 134 mmol/L (04/14/2025, 8:18am). RESOLVED with discharge Na 137 mmol/L (04/15/2025, 6:22am). initially persistent with nominal decline in Na level to 134 mmol/L (04/14/2025, 8:18am), but asymptomatic. s/p 1 liter of 0.9% NS @ 999 mL/hr (04/13/2025, 2:20pm) and lactated Ringers @ 125 mL/hr (04/13/2025, 10:15pm). Hence, I discontinued lactated Ringers @ 125 mL/hr (04/14/2025, 8:00am), and encouraged patient to increase his intake of a heart healthy diet PO ad libitum. Patient complied, and acute hypovolemic hyponatremia RESOLVED, as noted above. Subsequently, patient was advised to drink at least 8 ounces of water for each hour while awake, in order to mitigate insensible fluid losses from ongoing watery, non-bloody, non-oily diarrhea (which I suspect is due to an acute viral syndrome/infection), and patient reports that he will comply with this recommendation. #Chronic "partially exophytic solid lesion is seen at the right renal mid-zone, measuring about 2.5 X 3.2 cm with mild surrounding fat smudging" (as noted on 04/13/2025 CT abd/pelvis with IV contrast). cf., "enhancing partially exophytic 3.0 x 2.4 mass within the anterior interpolar right kidney, 2.4 x 2.0 x 2.2 cm on the study from 2022 and 2.9 cm on the 01/14/2024 exam. No invasion into the adjacent structures. Patent renal veins. No urothelial lesions identified. Atherosclerosis of the aorta without aneurysm. No lymphadenopathy. No bowel obstruction or bowel wall thickening. No destructive bone lesions." (as reported on 05/14/[address] Patient reports that he will follow up with his [facility] Urologist Dr. Dinesh Moscoso on an outpatient basis. In the interim, I called and left a message with Dr. Moscoso's calculus tutor on 04/14/2025 and on 04/15/2025, asking her to ask Dr. Moscoso to call me back on 04/14/2025 and on 04/15/2025, to let me know if Dr. Moscoso would like patient to undergo right renal biopsy or right nephrectomy while in [facility]. Other secondary medical issues include: #Diarrheastool PCR panel was unremarkable Await Legionella pneumophila serogroup 1 urinary antigen IV fluids and electrolyte repletion #Alcohol abusepatient reports drinking 10-12 drinks per day. Patient does have history of withdrawal. Patient has no intention to quit drinking and in fact, is drinking a can of beer in his hospital room on 04/14/2025, 8:35am. Telemetry monitoring Beer 1 can p.o. 3 times daily as needed Ativan as needed per [place] [facility] protocol Multivitamin, thiamine folic acid daily #Severe COPD with emphysema, chronic hypoxemic respiratory failurepatient states stable respiratory status Continue supplemental oxygen DuoNeb every 6 hours as needed Albuterol every 6 hours as needed Continue Breo daily Continue umeclidinium Flutter valve and incentive spirometry #CAD s/p RCA stent x 1. patient denies chest pain Continue aspirin 81mg PO qam Continue metoprolol 50mg PO daily D/C atorvastatin 20mg PO daily on 04/14/2025 given potential for this medication to cause dyspepsia in the setting of acute RLL CAP. Patient may resume this medication once he is no longer taking/receiving empiric antibiotics. #Hypertension Continue metoprolol succinate 50mg PO daily. #GERD Continue Pepcid 40mg PO bid. Anticipate D/C home on 04/15/2025 am after patient receives rocephin 1g IV daily and doxycycline 100mg PO bid. Admission HPI Per Admitting Provider Christian Gaytan is a 70yo male with History of severe COPD (PFT with FEV1 0.74), chronic hypoxic respiratory failure on 2.5 L of oxygen continuous, CAD status post inferior [place] with stent placed to the RCA in December 2008, hypertension, hyperlipidemia, GERD and alcohol abuse presenting from home with feeling ill. Patient presents today complaining of nonbloody/nonmucoid watery diarrhea for the last week as well as cough. He states that last night he started to feel "off." He had some migrating numbness/tingling as well as lightheadedness. He checked his blood pressure at 1 point during the evening and it was elevated 210/110 which decreased on repeat. He states he has not been as active or eating as well over the week. Patient reports that he was mistakenly prescribed prednisone 60 mg a day ongoing which he took for "weeks". With the assistance of Dr. Valentin he was able to wean off the prednisone and currently takes none. Patient denies fever, chills, chest pain He has stable baseline shortness of breath with no worsening No abdominal pain, nausea, vomiting Patient drinks dailyapproximately 10-12 drinks per day. His last drink was 04/12/2025 evening. He does have a history of withdrawals and is starting to feel slightly agitated. He has no desire to quit drinking. ER course: Normal saline x 1 L Ceftriaxone 2 g Solu-Medrol 40 mg IV Ativan 1 mg IV Albuterol 3 mL neb Discharge Exam Constitutional General: Comfortable, coherent, and cooperative. Wide awake and alert. Not confused, lethargic, or obtunded. Patient speaks in complete, fluent, and articulate sentences without pause, interruption, cough, or wheeze. HEENT: Normocephalic, atraumatic. No nystagmus, gaze paresis, anisocoria, miosis, mydriasis, hyphema, scleral injection, conjunctivitis, or pterygium. No otorrhea or rhinorrhea. No pharyngeal erythema, edema, or discharge. Neck: Supple, no stridor, bruit, goiter, or hepato-jugular reflux. Jugular venous pressure is estimated to be 3 cm above the sternal angle of Shashank, which in turn, is 5 cm above the level of the right atrium; with jugular venous pressure estimated to be 8 cm, then, there is no jugular venous distention on 04/15/2025. Lymphatics: No cervical (anterior/posterior), supraclavicular, infraclavicular, axillary, epitrochlear, or inguinal adenopathy. Chest: Symmetric rise and fall with respirations. Non-tender to palpation. Lungs: Clear to auscultation and percussion. Heart: Regular rate and rhythm. S1 and S2 noted. No S3 or S4 summation gallop. No tripartite friction rub. Grade II/ early systolic murmur @ LLSB without radiation to the carotids, axilla, or back, and which remains invariant in regards to the respiratory cycle. Abdomen: Soft, non-tender, non-distended. No rebound, guarding, Stockton's sign, or organomegaly. Bowel sounds auscultated in all 4 quadrants. Extremities: No clubbing, cyanosis, or edema. 2+ pedal pulses bilaterally. Skin: No decubitus ulcer, exanthem, or enanthem. Genito-urinary: No urethral discharge. No tellez catheter. Patient utilizes urinal independently. Neurology: Alert and oriented in regards to person, place, time, and situation. DTR+ and symmetric. 5/5 motor strength in all 4 extremities, both proximally and distally. No pronator drift. No facial droop. No dysarthria. Psychiatry: No homicidal ideation. No suicidal ideation. No flat affect; smiles appropriately. Discharge Plan Discharge Items Patient Disposition: Home - Self-Care Reason For Visit: PNEUMONIA, DIARRHEA Discharge Diagnosis: acute RLL community acquired pneumonia Condition on Discharge: Fair Activity: Resume your previous activity Lifting: Gradually increase as tolerated Bathing: No limitations Sexual Activity: When tolerated Exercise/Sports: As tolerated Driving/Machine Use: No limitations Weightbearing: Full weightbearing Non-emergency contact: Primary Care Provider Call non-emergency contact if: you have any medication questions Follow-up/Referrals: Dinesh Moscoso MD [Physician] - (See your Urologist Dr. Dinesh Moscoso within 5 days of hospital discharge.) Rachael Duckworth DO [Primary Care Provider] - Diet: Heart Healthy and Other - See Diet Comment Diet Comment: Drink at least 8 ounces of water for each hour while awake. Addtl Attending Provider Instructions: See your PCP Dr. Rachael Duckworth within 5 days of hospital discharge to discuss final result of urine Legionella antigen test (04/13/2025, 2:20pm). See your Urologist Dr. Dinesh Moscoso within 5 days of hospital discharge to discuss future CT abd/pelvis testing to evaluate known right mid-renal mass, measuring 2.5 m x 3.2 cm, partially exophytic solid lesion (as reported on 04/13/2025, 2:11pm CT abd/pelvis w ith IV contrast).. Pending Studies at Discharge: Yes Studies:: final result of urine Legionella antigen test (04/13/2025, 2:20pm), pending as of 04/15/2025, 11:35am. Stand-Alone Forms: My [facility], Smoking Cessation Medications and DC Order Prescriptions: New doxycycline hyclate 100 mg Capsule 100 mg PO BID Qty: 7 0RF cefdinir 300 mg capsule 300 mg PO BID 3 Days Qty: 6 0RF Continued (DME) Aeroneb Go Nebulizer Misc See Rx Instructions .MEDSUPPLY Qty: 1 0RF Rx Instructions: With tubing and supplies. J44.9. J45.9. (DME) nebulizers Misc See Rx Instructions .Route Qty: 1 0RF Rx Instructions: As directed tamsulosin 0.4 mg capsule 0.4 mg PO DAILY Qty: 90 3RF metoprolol succinate [Toprol XL] 50 mg tablet extended release 24 hr 50 mg PO DAILY Qty: 90 1RF Xarelto 2.5 mg tablet 2.5 mg PO BID Qty: 60 2RF (DME) Commode Riser See Rx Instructions .Route .MEDSUPPLY Qty: 1 0RF Rx Instructions: As directed alprazolam 0.5 mg tablet 0.5 mg PO BID PRN (Reason: anxiety) Qty: 60 0RF (DME) Portable Oxygen Misc See Rx Instructions .MEDSUPPLY Qty: 1 0RF Rx Instructions: Oxygen 2 liters continuous with portable concentrator. JOSE 99 albuterol sulfate 90 mcg/actuation HFA aerosol inhaler 2 puff Inhalation Q6H PRN (Reason: Shortness Of Breath Or Wheezing) Qty: 3 3RF cholecalciferol (vitamin D3) 50 mcg (2,000 unit) capsule 50 mcg PO DAILY Rx Instructions: Unable to verify OTC meds at this date/time. ascorbate calcium (vitamin C) 500 mg tablet 1 g PO DAILY Rx Instructions: Unable to verify OTC meds at this date/time. levocetirizine 5 mg tablet 5 mg PO DAILY PRN (Reason: allergy symptoms) Rx Instructions: Unable to verify OTC meds at this date/time. nicotine 21 mg/24 hr patch 24 hour 1 patch transdermal DAILY Qty: 28 1RF Rx Instructions: Unable to verify OTC meds at this date/time. famotidine 40 mg tablet 40 mg PO BID Qty: 60 1RF Advair HFA 230-21 mcg/actuation HFA aerosol inhaler 2 inh inhalation BID Qty: 12 4RF ipratropium-albuterol 0.5 mg-3 mg(2.5 mg base)/3 mL solution for nebulization 3 ml inhalation Q6H PRN (Reason: shortness of breath or wheezing) Qty: 540 6RF Spiriva Respimat 2.5 mcg/actuation mist 2 puff inhalation DAILY Qty: 4 4RF aspirin 81 mg Tablet,Delayed Release (Dr/Ec) 81 mg PO QAM Rx Instructions: Unable to verify OTC meds at this date/time. thiamine HCl (vitamin B1) 100 mg Tablet 100 mg PO DAILY Qty: 30 0RF Held atorvastatin 20 mg tablet 20 mg PO DAILY Qty: 90 3RF Hold Instructions: Resume on 04/21/25. Discontinued azithromycin 250 mg tablet 250 mg PO DAILY Qty: 36 3RF Discharge Orders: Discharge Order (Routine); Ordered 04/15/25 Ordered By: Quincy Larios Admission Data Admit Date/Time: 04/13/25 19:33 Attending Provider: Quincy Larios Admit Provider: Angelika Rutherford Primary Care Provider: Rachael Duckworth. Other Providers: Lynda Harrison; Angelika Rutherford Hospital Stay Data Consultations 04/13/25 18:06 ED Decision to Admit Stat 04/13/25 19:02 ED Decision to Admit Stat Diagnostic Imagining Performed 04/13/25 14:11 CT Abd and Pelvis [CT abd pelvis IV con only] Stat Pending Results Patient Have Any Pending Studies at Discharge: Yes Discharge Instructions Given to Patient (Per Discharging Provider) See your PCP Dr. Rachael Duckworth within 5 days of hospital discharge to discuss final result of urine Legionella antigen test (04/13/2025, 2:20pm). See your Urologist Dr. Dinesh Moscoso within 5 days of hospital discharge to discuss future CT abd/pelvis testing to evaluate known right mid-renal mass, measuring 2.5 m x 3.2 cm, partially exophytic solid lesion (as reported on 04/13/2025, 2:11pm CT abd/pelvis w ith IV contrast).. Total Time Total Time Spent Total Time Spent (In Minutes): 35 minutes. Of this time period, 19 minutes were spent in coordinating patient's discharge. Coding Level of Care Code 28884 INP/OBS DISCH >30 MIN Diagnoses Pneumonia J18.9 Laterality: right Lung location: lower lobe of lung Pneumonia type: due to unspecified organism Diarrhea R19.7 Diarrhea type: unspecified type ETOH abuse F10.10 Pulmonary emphysema, unspecified emphysema type J43.9 Emphysema type: unspecified Coronary artery disease involving [place] coronary artery of [place] heart without angina pectoris I25.10 Coronary Disease-Associated Artery/Lesion type: [place] artery [place] vs. transplanted heart: [place] heart Associated angina: without angina Dyslipidemia E78.5 Essential hypertension I10 Hypertension type: essential hypertension GERD without esophagitis K21.9
== END 2025-04-15 12:21 | disposition home or self-care (01) | DRG 194 ==
LOC: ED 13:06 → 2N 19:33 → SUATTDRO 19:33 → 2N 21:23